=== PATIENT | female | born 1955 | race Caucasian/White ===

== ENCOUNTER 2016-10-24 13:55 | Emergency (ER) | payer OTHER ==
[2016-10-24 14:18] VITALS: BMI 21.1
--- NOTE | 2016-10-24 16:48 | PDOC ---
History of Present Illness - General History Source: Patient Exam Limitations: No Limitations - History of Present Illness Initial Comments: 10/24/16 17:28 The patient is a 61 year old female with significant past medical history of hypertension, asthma, COPD, liver CA, hep C who presents to the emergency department with abdominal pain for the last 3 days. She reports associated fevers, chills, and sweats. The patient reports a subjective fever and never actually took her temperature at home, however in the ED a fever was noted, Tmax 102.1. The patient also reports associated nausea and vomiting. She states her pain is dull and continuous in nature, localized to the suprapubic region. The patient states the pain radiates and wraps around to her lower back. The patient reports some dysuria but denies any frequency or hematuria. The patient denies any recent travels or sick contacts. She has not taken anything for her symptoms. <Monie Haney - Last Filed: 10/24/16 17:28> <Art Hall - Last Filed: 10/24/16 19:15> - General Chief Complaint: Urinary Problem Stated Complaint: Vomiting/BACK PAIN Past History <Monie Haney - Last Filed: 10/24/16 17:28> - Past Medical History Asthma: Yes Cancer: Yes (LIVER) Cardiac Disorders: No COPD: Yes Diabetes: No GI Disorders: No Disorders: No HTN: Yes Kidney Stones: No Liver Disease: Yes (HEP-C) Psychiatric Problems: Yes (ANXIETY) Suicide Attempt (Hx): Yes (2009) Seizures: No - Surgical History Abdominal Surgery: No Appendectomy: No Cardiac Surgery: No Cholecystectomy: No Lung Surgery: No Neurologic Surgery: No Orthopedic Surgery: No - Immunization History Immunization Up to Date: Yes - Psycho/Social/Smoking Cessation Hx Anxiety: Yes Suicidal Ideation: No Smoking Status: Yes Smoking History: Current every day smoker Have you smoked in the past 12 months: Yes Number of Cigarettes Smoked Daily: 10 Information on smoking cessation initiated: No Hx Alcohol Use: No Drug/Substance Use Hx: No <Art Hall - Last Filed: 10/24/16 19:15> - Past Medical History Allergies/Adverse Reactions: Allergies Allergy/AdvReac Type Severity Reaction Status Date / Time fish derived [Fish derived] Allergy Intermediate Difficulty Verified 10/24/16 14 :16 Breathing SEAFOOD Allergy Uncoded 10/24/16 14:16 Home Medications: Ambulatory Orders Carbamazepine [Tegretol -] 200 mg PO AM 01/08/16 Lisinopril/Hydrochlorothiazide [Lisinopril-Hctz 10-12.5 mg Tab] 1 each PO DAILY 01/08/16 Cephalexin [Keflex] 500 mg PO QID #40 capsule 10/24/16 Phenazopyridine HCl [Pyridium] 200 mg PO TID #9 tablet 10/24/16 Review of Systems - Review of Systems Able to Perform ROS?: Yes Comments:: 10/24/16 17:28 GENERAL/CONSTITUTIONAL: +Fevers, +chills. No weakness. HEAD, EYES, EARS, NOSE AND THROAT: No change in vision. No ear pain or discharge. No sore throat. CARDIOVASCULAR: No chest pain or shortness of breath. RESPIRATORY: No cough, wheezing, or hemoptysis. GASTROINTESTINAL: +Nausea, +vomiting. No diarrhea or constipation. GENITOURINARY: +Dysuria. No frequency, or change in urination. MUSCULOSKELETAL: No joint or muscle swelling or pain. No neck or back pain. SKIN: No rash NEUROLOGIC: No headache, vertigo, loss of consciousness, or change in strength/ sensation. ENDOCRINE: No increased thirst. No abnormal weight change. HEMATOLOGIC/LYMPHATIC: No anemia, easy bleeding, or history of blood clots. ALLERGIC/IMMUNOLOGIC: No hives or skin allergy. <Monie Haney - Last Filed: 10/24/16 17:28> *Physical Exam - Vital Signs Last Vital Signs Temp Pulse Resp BP Pulse Ox 102.1 F H 119 H 20 161/86 95 10/24/16 14:16 10/24/16 14:16 10/24/16 14:16 10/24/16 14:16 10/24/16 14:16 - Physical Exam Comments: 10/24/16 17:28 GENERAL: Awake, alert, and fully oriented, in no acute distress HEAD: No signs of trauma EYES: PERRLA, EOMI, sclera anicteric, conjunctiva clear ENT: Auricles normal inspection, hearing grossly normal, nares patent, oropharynx clear without exudates. +Dry mucosa NECK: Normal ROM, supple, no lymphadenopathy, JVD, or masses LUNGS: Breath sounds equal, clear to auscultation bilaterally. No wheezes, and no crackles HEART: Regular rate and rhythm, normal S1 and S2, no murmurs, rubs or gallops ABDOMEN: +Mild suprapubic discomfort to palpation. Soft, normoactive bowel sounds. No guarding, no rebound. No masses EXTREMITIES: Normal range of motion, no edema. No clubbing or cyanosis. No cords, erythema, or tenderness NEUROLOGICAL: Cranial nerves II through XII grossly intact. Normal speech, normal gait SKIN: Warm, Dry, normal turgor, no rashes or lesions noted. <Monie Haney - Last Filed: 10/24/16 17:28> - Vital Signs Last Vital Signs Temp Pulse Resp BP Pulse Ox 102.1 F H 119 H 20 161/86 95 10/24/16 14:16 10/24/16 14:16 10/24/16 14:16 10/24/16 14:16 10/24/16 14:16 <Art Hall - Last Filed: 10/24/16 19:15> ED Treatment Course - LABORATORY CBC & Chemistry Diagram: 10/24/16 17:42 10/24/16 17:42 <Art Hall - Last Filed: 10/24/16 19:15> *DC/Admit/Observation/Transfer - Attestations Scribe Attestion: 10/24/16 17:10 Documentation prepared by Monie Haney, acting as medical information specialist for Art Hall DO. <Monie Haney - Last Filed: 10/24/16 17:28> - Discharge Dispostion Admit: No - Attestations Physician Attestion: 10/24/16 16:48 I, Dr. Art Hall, attest that this document has been prepared under my direction and personally reviewed by me in its entirety. I further attest, that it accurately reflects all work, treatment, procedures and medical decision -making performed by me. <Art Hall - Last Filed: 10/24/16 19:15> Diagnosis at time of Disposition: Urinary tract infection Qualifiers: Urinary tract infection type: site unspecified Hematuria presence: without hematuria Qualified Code(s): N39.0 - Urinary tract infection, site not specified - Discharge Dispostion Disposition: HOME Condition at time of disposition: Good - Prescriptions Prescriptions: Cephalexin [Keflex] 500 mg PO QID #40 capsule Phenazopyridine HCl [Pyridium] 200 mg PO TID #9 tablet - Patient Instructions Printed Discharge Instructions: DI for Urinary Tract Infection (UTI) Additional Instructions: Mrs Gan- This is a bad urinary tract/kidney infection. Please drink five 20 oz bottles of water each day while you are taking the Keflex. Follow up with your regular doctor. Return to us if any problems. Od[place]- Dr. Art Hall
[2016-10-24] MEDS ORDERED: ONDANSETRON *ODT* 4 MG TABLET SL ONE (17:16)
[2016-10-24] MEDS ORDERED: SODIUM CHLORIDE 1,000 ML IV STA (17:16)
[2016-10-24] MEDS ORDERED: IBUPROFEN 400 MG TABLET (FP) PO ONE ×2 (17:23→18:06)
[2016-10-24] MEDS ORDERED: ONDANSETRON 8 MG TABLET (FP) PO ONE (18:06)
[2016-10-24 18:10] LABS: MCH 37.6 pg (25.7-33.7); MCHC 34.7 g/dl (32.0-36.0); MEAN CELL VOLUME 108.6 fl (80-96); PLATELET COUNT 74 K/MM3 (134-434); RDW 13.7 % (11.6-15.6)
[2016-10-24 18:16] LABS: MEAN PLT VOLUME 9.4 fl (7.5-11.1)
[2016-10-24 18:22] LABS: INR 1.21 (0.82-1.09); PROTHROMBIN TIME (PATIENT) 13.4 SEC (9.98-11.88)
[2016-10-24 18:31] LABS: URINE APPEARANCE CLOUDY; URINE COLOR AMBER; URINE GLUCOSE (UA) NEGATIVE (NEGATIVE); URINE KETONE TRACE (NEGATIVE); URINE NITRITE NEGATIVE (NEGATIVE); URINE UROBILINOGEN 4.0 E.U/dl E.U./dl (0.2-1.0)
[2016-10-24 18:34] LABS: URINE BLOOD 1+ (NEGATIVE)
[2016-10-24 18:35] LABS: URINE LEUK ESTERASE 2+ (NEGATIVE); URINE PROTEIN 2+ (NEGATIVE)
[2016-10-24 18:42] LABS: URINE BACTERIA MANY /hpf (NONE SEEN); URINE MUCUS MANY; URINE RBC 6 /hpf (0-3); URINE WBC 182 /hpf (3-5)
[2016-10-24 18:43] LABS: ALBUMIN 3.4 g/dl (3.4-5.0); ALK PHOS 107 U/L (45-117); ANION GAP 15 (8-16); BILIRUBIN,TOTAL 1.6 mg/dL (0.2-1.0); CALCIUM 7.9 mg/dL (8.5-10.1); CO2 26 mmol/L (21-32); CREATININE 0.6 mg/dL (0.55-1.02); GLUCOSE,RANDOM 98 mg/dL (74-106); SGOT/AST 203 U/L (15-37); SGPT/ALT 117 U/L (12-78)
[2016-10-24] MEDS ORDERED: CEFTRIAXONE 1,000 MG in DEXTROSE 5%-WATER - 50 ML IVPB ONE (18:46)
[2016-10-24] MEDS ORDERED: CEFTRIAXONE 50 ML ONE (18:51)
[2016-10-24 19:06] VITALS: TEMP 100.6
[2016-10-24 19:11] VITALS: BP 152/79; PULSE 96
[2016-10-24 20:16] LABS: PLATELET COMMENT2 NO CLOTTING DETECTED; PLATELET ESTIMATE DECREASED (NORMAL)
--- NOTE | 2016-10-25 13:11 | PDOC ---
Patient Follow-up (Call Back) - Post ED Follow - Up Condition at time of discharge: Good Disposition at time of original discharge: HOME - Disposition Additional Instructions/Notes: preliminary BC= positive; spoke with pt; who states feeling much better today, no fever, post new abx and shot of abx in ED yesterday; told to see local MD Friday so blood culture can be followed; told to immediately return to ED if fever returns or with any new symptoms; pt agrees with plan
== END 2016-10-24 19:42 | disposition home or self-care (01) ==
LOC: JER 13:55
PROC: 3E0337Z Introduction of Electrolytic and Water Balance Substance into Peripheral Vein, Percutaneous Approach (ICD-10-PCS; principal; 2016-10-24)
PROC: 3E03329 Introduction of Other Anti-infective into Peripheral Vein, Percutaneous Approach (ICD-10-PCS; 2016-10-24)
DX: N39.0 Urinary tract infection, site not specified (principal); I10 Essential (primary) hypertension; J44.9 Chronic obstructive pulmonary disease, unspecified; J45.909 Unspecified asthma, uncomplicated; C22.9 Malignant neoplasm of liver, not specified as primary or secondary; B19.20 Unspecified viral hepatitis C without hepatic coma
CPT/HCPCS: 36415; 80053; 81003; 81015; 85025; 85610; 87040; 87086; 87186; 99282-25

== ENCOUNTER 2016-10-26 11:37 | Emergency (ER) | payer OTHER ==
[2016-10-26 11:52] VITALS: TEMP 98.6; BMI 21.1
--- NOTE | 2016-10-26 14:25 | PDOC ---
History of Present Illness - History of Present Illness Initial Comments: 10/26/16 14:42 The patient is a 61 year old female with a past medical hx of hypertension, asthma, COPD, liver CA, hep C who was sent to the ED by her PCP for a positive blood culture. She was last seen here on 10/24/16 and was diagnosed with a UTI and discharged with a prescription for Keflex. The patient reports she has been feeling a little better since being discharged and has been taking her antibiotics. She reports she is still having fever and a little nauseous but denies any vomiting. She states her fever was a 103 before coming to the ED and she took Motrin. The patient reports she got a call yesterday from her PCP with her culture results and was informed to come back to the ED for further evaluation. The patient denies chest pain, SOB The patient denies back pain, abdominal pain Social: Drinks alcohol PCP: Dr. Pereira <Janeen Hinojosa - Last Filed: 10/26/16 14:44> <John Beasley - Last Filed: 10/26/16 18:19> <Martha Betancourt - Last Filed: 10/26/16 19:55> - General Chief Complaint: Revisit, Lab Variance Stated Complaint: FOLLOW UP, INFECTION Past History <Janeen Hinojosa - Last Filed: 10/26/16 14:44> - Past Medical History Asthma: Yes Cancer: Yes (LIVER) Cardiac Disorders: No COPD: Yes Diabetes: No GI Disorders: No Disorders: No HTN: Yes Kidney Stones: No Liver Disease: Yes (HEP-C,cirrhosis) Psychiatric Problems: Yes (ANXIETY,bipolar) Suicide Attempt (Hx): Yes (2009) Seizures: No - Surgical History Abdominal Surgery: No Appendectomy: No Cardiac Surgery: No Cholecystectomy: No Lung Surgery: No Neurologic Surgery: No Orthopedic Surgery: No - Immunization History Immunization Up to Date: Yes - Psycho/Social/Smoking Cessation Hx Anxiety: Yes Suicidal Ideation: No Smoking Status: Yes Smoking History: Current every day smoker Have you smoked in the past 12 months: Yes Number of Cigarettes Smoked Daily: 20 Information on smoking cessation initiated: Yes 'Breaking Loose' booklet given: 10/26/16 Hx Alcohol Use: No Drug/Substance Use Hx: No <John Beasley - Last Filed: 10/26/16 18:19> <Martha Betancourt - Last Filed: 10/26/16 19:55> - Past Medical History Allergies/Adverse Reactions: Allergies Allergy/AdvReac Type Severity Reaction Status Date / Time fish derived [Fish derived] Allergy Intermediate Difficulty Verified 10/26/16 11 :47 Breathing SEAFOOD Allergy Uncoded 10/26/16 11:47 Home Medications: Ambulatory Orders Carbamazepine [Carbamazepine ER] 200 mg PO BID 10/26/16 Cephalexin [Keflex] 500 mg PO QID 10/26/16 Lisinopril/Hydrochlorothiazide [Lisinopril-Hctz 10-12.5 mg Tab] 1 each PO DAILY 10/26/16 Phenazopyridine HCl [Pyridium] 200 mg PO TID 10/26/16 Review of Systems - Review of Systems Able to Perform ROS?: Yes Comments:: 10/26/16 14:43 CONSTITUTIONAL: +Fever. Absent: chills, diaphoresis, generalized weakness, malaise, loss of appetite HEENT: Absent: rhinorrhea, nasal congestion, throat pain, throat swelling, difficulty swallowing, mouth swelling, ear pain, eye pain, visual Changes CARDIOVASCULAR: Absent: chest pain, syncope, palpitations, irregular heart rate, lightheadedness , peripheral edema RESPIRATORY: Absent: cough, shortness of breath, dyspnea with exertion, orthopnea, wheezing, stridor, hemoptysis GASTROINTESTINAL: +Nausea. Absent: abdominal pain, abdominal distension, vomiting, diarrhea, constipation, melena, hematochezia GENITOURINARY: Absent: dysuria, frequency, urgency, hesitancy, hematuria, flank pain, genital pain MUSCULOSKELETAL: Absent: myalgia, arthralgia, joint swelling SKIN: Absent: rash, itching, pallor HEMATOLOGIC/IMMUNOLOGIC: Absent: easy bleeding, easy bruising, lymphadenopathy, frequent infections ENDOCRINE: Absent: unexplained weight gain, unexplained weight loss, heat intolerance, cold intolerance NEUROLOGIC: Absent: headache, focal weakness or paresthesias, dizziness, unsteady gait, seizure, mental status changes, bladder or bowel incontinence PSYCHIATRIC: Absent: anxiety, depression, suicidal or homicidal ideation, hallucinations. <Janeen Hinojosa - Last Filed: 10/26/16 14:44> *Physical Exam - Vital Signs Last Vital Signs Temp Pulse Resp BP Pulse Ox 98.6 F 73 18 114/73 100 10/26/16 11:47 10/26/16 11:47 10/26/16 11:47 10/26/16 11:47 10/26/16 11:47 - Physical Exam Comments: 10/26/16 14:44 GENERAL: Well developed, well nourished. Awake and alert. In no acute distress. HEENT: Normocephalic, atraumatic. PERRLA, EOMI. No conjunctival pallor. Sclera are non- icteric. Moist mucous membranes. Oropharynx is clear. NECK: Supple. Full ROM. No JVD. Carotid pulses 2+ and symmetric, without bruits. No thyromegaly. No lymphadenopathy. CARDIOVASCULAR: Regular rate and rhythm. No murmurs, rubs, or gallops. Distal pulses are 2+ and symmetric. PULMONARY: No evidence of respiratory distress. Lungs clear to auscultation bilaterally. No wheezing, rales or rhonchi. ABDOMINAL: Soft. Non-tender. Non-distended. No rebound or guarding. No organomegaly. Normoactive bowel sounds. MUSCULOSKELETAL Normal range of motion at all joints. No bony deformities or tenderness. No CVA tenderness. EXTREMITIES: No cyanosis. No clubbing. No edema. No calf tenderness. SKIN: Warm and dry. Normal capillary refill. No rashes. No jaundice. NEUROLOGICAL: Alert, awake, appropriate. Cranial nerves 2-12 intact. No deficits to light touch and temperature in face, upper extremities and lower extremities. No motor deficits in the in face, upper extremities and lower extremities. Normoreflexic in the upper and lower extremities. Normal speech. Toes are downgoing bilaterally. Gait is normal without ataxia. PSYCHIATRIC: Cooperative. Good eye contact. Appropriate mood and affect. <Janeen Hinojosa - Last Filed: 10/26/16 14:44> - Vital Signs Last Vital Signs Temp Pulse Resp BP Pulse Ox 98.6 F 73 18 114/73 100 10/26/16 11:47 10/26/16 11:47 10/26/16 11:47 10/26/16 11:47 10/26/16 11:47 <John Beasley - Last Filed: 10/26/16 18:19> - Vital Signs Last Vital Signs Temp Pulse Resp BP Pulse Ox 98.6 F 68 16 120/76 99 10/26/16 11:47 10/26/16 19:43 10/26/16 19:43 10/26/16 19:43 10/26/16 19:43 <Martha Betancourt - Last Filed: 10/26/16 19:55> ED Treatment Course - LABORATORY CBC & Chemistry Diagram: 10/26/16 14:42 10/26/16 14:42 <GaleJohn - Last Filed: 10/26/16 18:19> - LABORATORY CBC & Chemistry Diagram: 10/26/16 14:42 10/26/16 14:42 - ADDITIONAL ORDERS Additional order review: Laboratory Results 10/26/16 10/26/16 10/26/16 15:40 14:42 14:42 Sodium 125 L Potassium 3.2 L Chloride 86 L Carbon Dioxide 25 Anion Gap 14 BUN 19 H Creatinine 0.6 Creat Clearance w eGFR > 60 Random Glucose 72 L D Lactic Acid 1.964 Calcium 7.4 L Total Bilirubin 1.1 H D AST 173 H ALT 85 H D Alkaline Phosphatase 84 D Total Protein 7.0 Albumin 2.8 L Urine Color Urine Appearance Urine pH Ur Specific [place] Urine Protein Urine Glucose (UA) Urine Ketones Urine Blood Urine Nitrite Urine Bilirubin Urine Urobilinogen Ur Leukocyte Esterase Urine RBC Urine WBC Ur Epithelial Cells Urine Bacteria Hyaline Casts Urine Mucus Alcohol, Quantitative 77.4 H* 10/26/16 14:42 Sodium Potassium Chloride Carbon Dioxide Anion Gap BUN Creatinine Creat Clearance w eGFR Random Glucose Lactic Acid Calcium Total Bilirubin AST ALT Alkaline Phosphatase Total Protein Albumin Urine Color Red Urine Appearance Cloudy Urine pH 5.0 Ur Specific [place] 1.013 Urine Protein 1+ H Urine Glucose (UA) 1+ H Urine Ketones Negative Urine Blood Negative Urine Nitrite Positive Urine Bilirubin Negative Urine Urobilinogen 4.0 e.u/dl H Ur Leukocyte Esterase Negative Urine RBC 1 Urine WBC 6 Ur Epithelial Cells Rare Urine Bacteria Moderate Hyaline Casts 16 Urine Mucus Rare Alcohol, Quantitative 10/26/16 14:42 RBC 3.22 L MCV 107.8 H MCHC 34.9 RDW 12.9 MPV 8.9 Neutrophils % 61.0 D Lymphocytes % 13.0 Monocytes % 19.0 H D - Medications Given in the ED: ED Medications Discontinued Medications Generic Name Dose Route Start Last Admin Trade Name Freq PRN Reason Stop Dose Admin Sodium Chloride 1,000 mls @ 125 mls/hr 10/26/16 14:45 10/26/16 14:51 Normal Saline - IV 125 mls/hr ASDIR JAY Administration Ciprofloxacin/Dextrose 200 mls @ 200 mls/hr 10/26/16 17:02 10/26/16 18:52 Cipro 400 Mg Premix Ivpb (Restricted To Id) IVPB 10/26/16 18:01 Not Given ONCE ONE Sodium Chloride 1,000 mls @ 250 mls/hr 10/26/16 17:15 10/26/16 17:22 Normal Saline - IV 250 mls/hr ASDIR JAY Administration Piperacillin Sod/Tazobactam Sod 3.375 gm 10/26/16 18:15 10/26/16 18:52 Zosyn 3.375gm Ivpb (Pre-Docked) IVPB 3.375 gm Q8H-IV JAY Administration Protocol Potassium Chloride 40 meq 10/26/16 17:03 10/26/16 17:21 K-Dur - PO 10/26/16 17:04 40 meq ONCE ONE Administration <Martha Betancourt - Last Filed: 10/26/16 19:55> Medical Decision Making - Medical Decision Making 10/26/16 19:15 Pt was discharged by the hospitalist prior to my seeing the patient. This is a patient of the day ER team, Dr. Beasley, and she was to be admitted, but the admitting team decided to discharge her. I never saw the patient, as my shift started at 19:00 and I don't know what the plan for the patient is. <Martha Betancourt - Last Filed: 10/26/16 19:55> *DC/Admit/Observation/Transfer - Attestations Scribe Attestion: 10/26/16 14:43 Documentation prepared by Janeen Hinojosa, acting as medical administrative specialist for John Beasley MD. <Janeen Hinojosa - Last Filed: 10/26/16 14:44> - Discharge Dispostion Admit: Yes <John Beasley - Last Filed: 10/26/16 18:19> <Martha Betancourt - Last Filed: 10/26/16 19:55> Diagnosis at time of Disposition: Bacteremia due to Gram-negative bacteria - Discharge Dispostion Disposition: HOME Condition at time of disposition: Stable - Referrals Referrals: Jose Antonio Pereira [Primary Care Provider] - - Patient Instructions Printed Discharge Instructions: Urinary Tract Infection, DI for Urinary Tract Infection (UTI) Additional Instructions: Continue taking your antibiotics as prescribed. We will follow up on your blood cultures and if there are any changes that need to be done based on lab results, you will receive a call. If you develop fevers, chills, pain with urination contact your doctor.
[2016-10-26] MEDS ORDERED: SODIUM CHLORIDE 1,000 ML IV SCH ×2 (14:45→17:15)
[2016-10-26 14:56] LABS: MCH 37.6 pg (25.7-33.7); MCHC 34.9 g/dl (32.0-36.0); MEAN CELL VOLUME 107.8 fl (80-96); MEAN PLT VOLUME 8.9 fl (7.5-11.1); PLATELET COUNT 80 K/MM3 (134-434); RDW 12.9 % (11.6-15.6); WHITE BLOOD COUNT 4.1 K/mm3 (4.0-10.0)
[2016-10-26 15:16] LABS: URINE BILIRUBIN NEGATIVE (NEGATIVE); URINE BLOOD NEGATIVE (NEGATIVE); URINE COLOR RED; URINE GLUCOSE (UA) 1+ (NEGATIVE); URINE KETONE NEGATIVE (NEGATIVE); URINE LEUK ESTERASE NEGATIVE (NEGATIVE); URINE NITRITE POSITIVE (NEGATIVE); URINE UROBILINOGEN 4.0 E.U/dl E.U./dl (0.2-1.0)
[2016-10-26 15:17] LABS: ALBUMIN 2.8 g/dl (3.4-5.0); ANION GAP 14 (8-16); BILIRUBIN,TOTAL 1.1 mg/dL (0.2-1.0); CALCIUM 7.4 mg/dL (8.5-10.1); CO2 25 mmol/L (21-32); CREATININE 0.6 mg/dL (0.55-1.02); GLUCOSE,RANDOM 72 mg/dL (74-106); SGPT/ALT 85 U/L (12-78)
[2016-10-26 15:18] LABS: ALK PHOS 84 U/L (45-117)
[2016-10-26 15:21] LABS: SGOT/AST 173 U/L (15-37)
[2016-10-26 15:32] LABS: URINE PROTEIN 1+ (NEGATIVE)
[2016-10-26 15:33] LABS: URINE APPEARANCE CLOUDY
[2016-10-26 15:36] LABS: URINE BACTERIA MODERATE /hpf (NONE SEEN); URINE HYALINE CAST 16 /lpf; URINE MUCUS RARE; URINE RBC 1 /hpf (0-3); URINE WBC 6 /hpf (3-5)
[2016-10-26 16:47] LABS: PLATELET ESTIMATE SLT DECREASED (NORMAL)
[2016-10-26 16:49] LABS: PLATELET COMMENT3 NO CLUMPING NOTED
[2016-10-26] MEDS ORDERED: CIPROFLOXACIN 400 MG/D5W 200 ML IVPB ONE (17:02)
[2016-10-26] MEDS ORDERED: POTASSIUM CHLORIDE TABS 20 MEQ TABLET.ER (FP) PO ONE ×2 (17:03→17:12)
--- NOTE | 2016-10-26 17:18 | HP ---
CHIEF COMPLAINT: positive blood culture PCP: Dr. Pereira HISTORY OF PRESENT ILLNESS: 61 y/o F with PMH of htn, asthma, copd, liver ca, hep c presented to ER after PCP called her about positive blood culture. Pt recently had UTI and came to ER (10/24/16) and was sent home with keflex. Her UTI symptoms have improved and pt feels very close to baseline. No more back pain and dysuria. Pt has lactose ferm gram neg rods in bcx, no sensitivities or final organism yet. Pt is well appearing and in no acute distress. Pt states she has no complaints. ER course was notable for: (1)Cipro, K-dur (2)BCx (3) Recent Travel: non-contributory PAST MEDICAL HISTORY: htn, asthma, copd, liver ca, hep c Social History: Smoking: current smoker 1ppd Alcohol: unknown Drugs: unknown Family History: Allergies fish derived [Fish derived] Allergy (Intermediate, Verified 10/26/16 11:47) Difficulty Breathing SEAFOOD Allergy (Uncoded 10/26/16 11:47) HOME MEDICATIONS: Home Medications Medication Instructions Recorded Carbamazepine [Carbamazepine ER] 200 mg PO BID 10/26/16 Cephalexin [Keflex] 500 mg PO QID 10/26/16 Lisinopril/Hydrochlorothiazide 1 each PO DAILY 10/26/16 [Lisinopril-Hctz 10-12.5 mg Tab] Phenazopyridine HCl [Pyridium] 200 mg PO TID 10/26/16 REVIEW OF SYSTEMS CONSTITUTIONAL: Absent: fever, chills, diaphoresis, generalized weakness, malaise, loss of appetite, weight change HEENT: Absent: rhinorrhea, nasal congestion, throat pain, throat swelling, difficulty swallowing, mouth swelling, ear pain, eye pain, visual changes CARDIOVASCULAR: Absent: chest pain, syncope, palpitations, irregular heart rate, lightheadedness , peripheral edema RESPIRATORY: Absent: cough, shortness of breath, dyspnea with exertion, orthopnea, wheezing, stridor, hemoptysis GASTROINTESTINAL: Absent: abdominal pain, abdominal distension, nausea, vomiting, diarrhea, constipation, melena, hematochezia GENITOURINARY: Absent: dysuria, frequency, urgency, hesitancy, hematuria, flank pain, genital pain MUSCULOSKELETAL: Absent: myalgia, arthralgia, joint swelling, back pain, neck pain SKIN: Absent: rash, itching, pallor HEMATOLOGIC/IMMUNOLOGIC: Absent: easy bleeding, easy bruising, lymphadenopathy, frequent infections ENDOCRINE: Absent: unexplained weight gain, unexplained weight loss, heat intolerance, cold intolerance NEUROLOGIC: Absent: headache, focal weakness or paresthesias, dizziness, unsteady gait, seizure, mental status changes, bladder or bowel incontinence PSYCHIATRIC: Absent: anxiety, depression, suicidal or homicidal ideation, hallucinations. PHYSICAL EXAMINATION Vital Signs - 24 hr 10/26/16 11:47 Temperature 98.6 F Pulse Rate 73 Respiratory 18 Rate Blood Pressure 114/73 O2 Sat by Pulse 100 Oximetry (%) GENERAL: Awake, alert, and fully oriented, in no acute distress. HEAD: Normal with no signs of trauma. EYES: Pupils equal, round and reactive to light, extraocular movements intact, sclera anicteric, conjunctiva clear. No lid lag. EARS, NOSE, THROAT: Ears normal, nares patent, oropharynx clear without exudates. Moist mucous membranes. NECK: Normal range of motion, supple without lymphadenopathy, JVD, or masses. LUNGS: Breath sounds equal, clear to auscultation bilaterally. No wheezes, and no crackles. No accessory muscle use. HEART: Regular rate and rhythm, normal S1 and S2 without murmur, rub or gallop. ABDOMEN: Soft, nontender, not distended, normoactive bowel sounds, no guarding, no rebound, no masses. No hepatomegaly or splenomegaly. MUSCULOSKELETAL: Normal range of motion at all joints. No bony deformities or tenderness. No CVA tenderness. UPPER EXTREMITIES: 2+ pulses, warm, well-perfused. No cyanosis. No clubbing. Cap refill <2 seconds. No peripheral edema. LOWER EXTREMITIES: 2+ pulses, warm, well-perfused. No calf tenderness. No peripheral edema. NEUROLOGICAL: Cranial nerves II-XII intact. Normal speech. Normal gait. PSYCHIATRIC: Cooperative. Good eye contact. Appropriate mood and affect. SKIN: Warm, dry, normal turgor, no rashes or lesions noted. Laboratory Results - last 24 hr 10/26/16 10/26/16 10/26/16 14:42 14:42 14:42 WBC 4.1 RBC 3.22 L Hgb 12.1 Hct 34.7 MCV 107.8 H MCHC 34.9 RDW 12.9 Plt Count 80 L MPV 8.9 Neutrophils % 61.0 D Lymphocytes % 13.0 Monocytes % 19.0 H D Band Neutrophils 7.0 D Differential Comment Manual diff done Platelet Estimate Slt decreased Platelet Comment Few giant plts Macrocytosis 2+ Morphology Comment Slide scanned Sodium 125 L Potassium 3.2 L Chloride 86 L Carbon Dioxide 25 Anion Gap 14 BUN 19 H Creatinine 0.6 Creat Clearance w eGFR > 60 Random Glucose 72 L D Lactic Acid Calcium 7.4 L Total Bilirubin 1.1 H D AST 173 H ALT 85 H D Alkaline Phosphatase 84 D Total Protein 7.0 Albumin 2.8 L Urine Color Red Urine Appearance Cloudy Urine pH 5.0 Ur Specific [place] 1.013 Urine Protein 1+ H Urine Glucose (UA) 1+ H Urine Ketones Negative Urine Blood Negative Urine Nitrite Positive Urine Bilirubin Negative Urine Urobilinogen 4.0 e.u/dl H Ur Leukocyte Esterase Negative Urine RBC 1 Urine WBC 6 Ur Epithelial Cells Rare Urine Bacteria Moderate Hyaline Casts 16 Urine Mucus Rare Alcohol, Quantitative 10/26/16 10/26/16 14:42 15:40 WBC RBC Hgb Hct MCV MCHC RDW Plt Count MPV Neutrophils % Lymphocytes % Monocytes % Band Neutrophils Differential Comment Platelet Estimate Platelet Comment Macrocytosis Morphology Comment Sodium Potassium Chloride Carbon Dioxide Anion Gap BUN Creatinine Creat Clearance w eGFR Random Glucose Lactic Acid 1.964 Calcium Total Bilirubin AST ALT Alkaline Phosphatase Total Protein Albumin Urine Color Urine Appearance Urine pH Ur Specific [place] Urine Protein Urine Glucose (UA) Urine Ketones Urine Blood Urine Nitrite Urine Bilirubin Urine Urobilinogen Ur Leukocyte Esterase Urine RBC Urine WBC Ur Epithelial Cells Urine Bacteria Hyaline Casts Urine Mucus Alcohol, Quantitative 77.4 H* ASSESSMENT/PLAN: 61 y/o F with PMH of htn, asthma, copd, liver ca, hep c presents to ER after getting call from PCP about positive prelim blood cultures. -UTI w/positive bcx -Pt recently treated for UTI on keflex currently -UA neg for LE, 6 WBC -BCx: gram neg lactose ferm rods -no final organism or sensitivities back yet -will need f/u on sensitivities -c/w keflex at home -Pt does not look septic, is well appearing, hemodynamically stable. -received one dose of cipro in ER -FEN -hypokalemia - repleted in ER -Dispo: discharge home, c/w abx, will monitor cultures for sensitivities Visit type - Emergency Visit Emergency Visit: Yes Care time: The patient presented to the Emergency Department on the above date and was hospitalized for further evaluation of their emergent condition. - New Patient This patient is new to me today: Yes Date on this admission: 10/26/16 - Critical Care Critical Care patient: No
--- NOTE | 2016-10-26 17:19 | PN ---
Teaching Attending Note Name of Resident: Rakesh Arredondo ATTENDING PHYSICIAN STATEMENT I saw and evaluated the patient. I reviewed the resident's note and discussed the case with the resident. I agree with the resident's findings and plan as documented. SUBJECTIVE: seen and evaluated at the bedside OBJECTIVE: very well appearing, asking if she can go home ASSESSMENT AND PLAN: 61 year old female with a past medical hx of hypertension, asthma, COPD, liver CA, hep C who was sent to the ED by her PCP for a positive blood culture. -She was last seen here on 10/24/16 and was diagnosed with a UTI and discharged with a prescription for Keflex -pt states that she feels much better since starting keflex and her back pain and dysuria have completely resolved -growing gram negative rods in blood and urine culture from the -very well appearing today and has no recorded fever or elevation in WBC -given that pt appears well clinically and culture data does not yet show identification or sensitivities will discharge pt home -will follow up culture data and call pt if cultures show resistence to prescribed Keflex
--- NOTE | 2016-10-26 17:36 | DS ---
Physical Exam: SUBJECTIVE: Patient seen and examined at bedside in ER. Feels well, has no complaints. Denies back pain, dysuria, fevers, or chills. OBJECTIVE: Vital Signs Period Temp Pulse Resp BP Sys/Pleitez Pulse Ox Last 24 Hr 98.6 F 73 18 114/73 100 PHYSICAL EXAM GENERAL: The patient is awake, alert, and fully oriented, in no acute distress. HEAD: Normal with no signs of trauma. EYES: PERRL, extraocular movements intact, sclera anicteric, conjunctiva clear. ENT: Ears normal, nares patent, oropharynx clear without exudates, moist mucous membranes. NECK: Trachea midline, full range of motion, supple. LUNGS: Breath sounds equal, clear to auscultation bilaterally, no wheezes, no crackles, no accessory muscle use. HEART: Regular rate and rhythm, S1, S2 without murmur, rub or gallop. ABDOMEN: Soft, nontender, nondistended, normoactive bowel sounds, no guarding, no rebound, no hepatosplenomegaly, no masses. EXTREMITIES: 2+ pulses, warm, well-perfused, no edema. NEUROLOGICAL: Cranial nerves II through XII grossly intact. Normal speech, gait not observed. PSYCH: Normal mood, normal affect. SKIN: Warm, dry, normal turgor, no rashes or lesions noted. LABS Laboratory Results - last 24 hr 10/26/16 10/26/16 10/26/16 14:42 14:42 14:42 WBC 4.1 RBC 3.22 L Hgb 12.1 Hct 34.7 MCV 107.8 H MCHC 34.9 RDW 12.9 Plt Count 80 L MPV 8.9 Neutrophils % 61.0 D Lymphocytes % 13.0 Monocytes % 19.0 H D Band Neutrophils 7.0 D Differential Comment Manual diff done Platelet Estimate Slt decreased Platelet Comment Few giant plts Macrocytosis 2+ Morphology Comment Slide scanned Sodium 125 L Potassium 3.2 L Chloride 86 L Carbon Dioxide 25 Anion Gap 14 BUN 19 H Creatinine 0.6 Creat Clearance w eGFR > 60 Random Glucose 72 L D Lactic Acid Calcium 7.4 L Total Bilirubin 1.1 H D AST 173 H ALT 85 H D Alkaline Phosphatase 84 D Total Protein 7.0 Albumin 2.8 L Urine Color Red Urine Appearance Cloudy Urine pH 5.0 Ur Specific [place] 1.013 Urine Protein 1+ H Urine Glucose (UA) 1+ H Urine Ketones Negative Urine Blood Negative Urine Nitrite Positive Urine Bilirubin Negative Urine Urobilinogen 4.0 e.u/dl H Ur Leukocyte Esterase Negative Urine RBC 1 Urine WBC 6 Ur Epithelial Cells Rare Urine Bacteria Moderate Hyaline Casts 16 Urine Mucus Rare Alcohol, Quantitative 10/26/16 10/26/16 14:42 15:40 WBC RBC Hgb Hct MCV MCHC RDW Plt Count MPV Neutrophils % Lymphocytes % Monocytes % Band Neutrophils Differential Comment Platelet Estimate Platelet Comment Macrocytosis Morphology Comment Sodium Potassium Chloride Carbon Dioxide Anion Gap BUN Creatinine Creat Clearance w eGFR Random Glucose Lactic Acid 1.964 Calcium Total Bilirubin AST ALT Alkaline Phosphatase Total Protein Albumin Urine Color Urine Appearance Urine pH Ur Specific [place] Urine Protein Urine Glucose (UA) Urine Ketones Urine Blood Urine Nitrite Urine Bilirubin Urine Urobilinogen Ur Leukocyte Esterase Urine RBC Urine WBC Ur Epithelial Cells Urine Bacteria Hyaline Casts Urine Mucus Alcohol, Quantitative 77.4 H* HOSPITAL COURSE: Date of Admission:10/26/16 Date of Discharge: 10/26/16 61 y/o F with PMH of htn, asthma, copd, liver ca, hep c presented to ER after PCP called her about positive blood culture. Pt recently had UTI and came to ER (10/24/16) and was sent home with keflex. Her UTI symptoms have improved and pt feels very close to baseline. No more back pain and dysuria. Pt has lactose ferm gram neg rods in bcx, no sensitivities or final organism yet. Pt is well appearing and in no acute distress, does not appear septic. Pt states she has no complaints. Received one dose of cipro in ER and potassium repleted. Vitals stable, afebrile, no hemodynamic instability. Pt discharged home. Cultures and sensitivities to be follow up on and if sensitivities show resistance to keflex , pt will be informed and any necessary changes will be made at the time based on results. Minutes to complete discharge: 40 Discharge Summary Reason For Visit: FOLLOW UP, INFECTION - Instructions Referrals: Jose Antonio Pereira [Primary Care Provider] - - Home Medications Comprehensive Discharge Medication List: Ambulatory Orders Carbamazepine [Carbamazepine ER] 200 mg PO BID 10/26/16 Cephalexin [Keflex] 500 mg PO QID 10/26/16 Lisinopril/Hydrochlorothiazide [Lisinopril-Hctz 10-12.5 mg Tab] 1 each PO DAILY 10/26/16 Phenazopyridine HCl [Pyridium] 200 mg PO TID 10/26/16 Problem List - Problems (1) Urinary tract infection Code(s): N39.0 - URINARY TRACT INFECTION, SITE NOT SPECIFIED Qualifiers: Urinary tract infection type: site unspecified Hematuria presence: without hematuria Qualified Code(s): N39.0 - Urinary tract infection, site not specified (2) Blood bacterial culture positive Code(s): R78.81 - BACTEREMIA This patient is new to me today: Yes Date on this admission: 10/26/16 Emergency Visit: Yes Care time: The patient presented to the Emergency Department on the above date and was hospitalized for further evaluation of their emergent condition. Critical Care patient: No - Discharge Referral Referred to [facility] No
--- NOTE | 2016-10-26 18:12 | HOSP ---
Physical Examination Vital Signs: Vital Signs Temperature 98.6 F 10/26/16 11:47 Pulse Rate 73 10/26/16 11:47 Respiratory Rate 18 10/26/16 11:47 Blood Pressure 114/73 10/26/16 11:47 O2 Sat by Pulse Oximetry (%) 100 10/26/16 11:47 Labs: CBC, BMP 10/26/16 14:42 10/26/16 14:42 Hospitalist Encounter Assessment: -ED attending was kind enough to call and discuss case in depth; his thoughts were that pt should be admitted to medicine service -again because pt is very well appearing today and has no recorded fever or elevation in WBC will discharge pt home -will follow up culture data and call pt if cultures show resistence to prescribed Keflex
[2016-10-26] MEDS ORDERED: PIPERACILLIN/TAZOB 3.375 GM/50 ML PRE-DOCKED IVPB SCH (18:15)
[2016-10-26] MEDS ORDERED: PIPERACILLIN/TAZOB 3.375 GM 50 ML IVPB ONE (18:44)
[2016-10-26 19:44] VITALS: BP 120/76; PULSE 68
== END 2016-10-26 19:46 | disposition home or self-care (01) ==
LOC: JER 11:37
PROC: 3E0337Z Introduction of Electrolytic and Water Balance Substance into Peripheral Vein, Percutaneous Approach (ICD-10-PCS; principal; 2016-10-26)
PROC: 3E03329 Introduction of Other Anti-infective into Peripheral Vein, Percutaneous Approach (ICD-10-PCS; 2016-10-26)
DX: N39.0 Urinary tract infection, site not specified (principal); E87.6 Hypokalemia; I10 Essential (primary) hypertension; J44.9 Chronic obstructive pulmonary disease, unspecified; B18.2 Chronic viral hepatitis C; Z85.05 Personal history of malignant neoplasm of liver; F17.210 Nicotine dependence, cigarettes, uncomplicated
CPT/HCPCS: 36415; 80053; 80307; 81003; 81015; 83605; 85025; 87040; 87086; 96361; 96374; 99284-25

== ENCOUNTER → 2016-11-22 | Emergency (ER) | payer OTHER ==
[~2016-11-22] MED LIST: HEMOQUE TEST 1 EACH EACH ONE; IBUPROFEN 400 MG TABLET (FP) PO ONE; IBUPROFEN 600 MG TABLET (FP) PO ONE
[2016-11-22 00:57] VITALS: BP 138/81; PULSE 79; TEMP 97.9; BMI 21.1
--- NOTE | 2016-11-22 01:28 | PDOC ---
[id number] 4d INJURY/LT HAND Time Seen by Provider: 11/22/16 01:06 - History of Present Illness Initial Comments: 11/22/16 01:27 CHIEF COMPLAINT: L wrist pain s/p fall HISTORY OF PRESENT ILLNESS: 61 y/o F with PMH of htn, asthma, copd, liver ca, hep c presents to ED with left wrist pain s/p FOOSH. Patient states she slipped on the ice and fell, landing on her left hand. Patient denies any trauma to head or LOC. Patient denies pain to any other part of her body other than her wrist. No recent travel or sick contacts. PAST MEDICAL HISTORY: as per HPI FAMILY HISTORY: Denies SOCIAL HISTORY: Hx of etOH abuse, current smoker smoker - 1 pack daily. ALLERGIES: seafood REVIEW OF SYSTEMS General/Constitutional: Denies fever or chills. HEENT: Denies change in vision. Denies ear pain or discharge. Denies sore throat. Cardiovascular: Denies chest pain or shortness of breath. Respiratory: Denies cough, wheezing, or hemoptysis. Musculoskeletal: Pain and swelling to left wrist. Denies joint or muscle swelling or pain. Denies neck or back pain. Skin: Denies rash. Neurologic: Denies headache, vertigo, loss of consciousness, or loss of sensation. PHYSICAL EXAM General Appearance: Well-appearing, appropriately dressed. HEENT: EOMI, PERRLA,normal voice. No conjunctival pallor. No photophobia, scleral icterus. Neck: Supple. No cervical spine tenderness. Trachea midline. No tenderness, rigidity, carotid bruit, stridor, lymphadenopathy, or thyromegaly. Respiratory/Chest: Lungs CTAB. Cardiovascular: RRR. S1, S2. Gastrointestinal/Abdominal: Normal bowel sounds. Abdomen soft, non-distended. No tenderness or rebound tenderness. No organomegaly, pulsatile mass, guarding , hernia, hepatomegaly, splenomegaly. Musculoskeletal/Extremities: Swelling to left wrist, full ROM, neurovascularly intact, pulses 2+. Normal inspection. FROM of all other extremities, normal capillary refill. Pelvis Stable. No CVA tenderness. No tenderness to extremities, pedal edema, swelling, erythema or deformity. Integumentary: Appropriate color, dry, warm. 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 Fully oriented, alert. Appropriate mood/affect. Motor strength 5/5. No appreciable EOM palsy, facial droop or sensory deficit. Past History - Past Medical History Allergies/Adverse Reactions: Allergies Allergy/AdvReac Type Severity Reaction Status Date / Time fish derived [Fish derived] Allergy Intermediate Difficulty Verified 11/22/16 00 :45 Breathing SEAFOOD Allergy Uncoded 11/22/16 00:45 Home Medications: Ambulatory Orders Carbamazepine [Carbamazepine ER] 200 mg PO BID 10/26/16 Lisinopril/Hydrochlorothiazide [Lisinopril-Hctz 10-12.5 mg Tab] 1 each PO DAILY 10/26/16 Naproxen 250 mg PO BID #14 tablet 11/22/16 Asthma: Yes Cancer: Yes (LIVER) Cardiac Disorders: No COPD: Yes Diabetes: No GI Disorders: No Disorders: No HTN: Yes Kidney Stones: No Liver Disease: Yes (HEP-C,cirrhosis) Psychiatric Problems: Yes (ANXIETY,bipolar) Suicide Attempt (Hx): Yes (2009) Seizures: No - Surgical History Abdominal Surgery: No Appendectomy: No Cardiac Surgery: No Cholecystectomy: No Lung Surgery: No Neurologic Surgery: No Orthopedic Surgery: No - Immunization History Immunization Up to Date: Yes - Psycho/Social/Smoking Cessation Hx Anxiety: Yes Suicidal Ideation: No Smoking Status: Yes Smoking History: Current every day smoker Have you smoked in the past 12 months: Yes Number of Cigarettes Smoked Daily: 20 Information on smoking cessation initiated: Yes 'Breaking Loose' booklet given: 11/22/16 Hx Alcohol Use: No Drug/Substance Use Hx: No *Physical Exam - Vital Signs Last Vital Signs Temp Pulse Resp BP Pulse Ox 97.9 F 79 18 138/81 98 11/22/16 00:45 11/22/16 00:45 11/22/16 00:45 11/22/16 00:45 11/22/16 00:45 Medical Decision Making - Medical Decision Making 11/22/16 03:58 61 y/o F with PMH of htn, asthma, copd, liver ca, hep c presents to ED s/p IZABEL. -left wrist x-ray -600 mg ibuprofen 11/22/16 04:24 X-ray results: The bones and soft tissues are normal. X-ray left wrist: There is an impacted distal radial fracture with questionable intra-articular extension. There is slight dorsal irregularity of the carpal bones and a triquetral fracture is also considered. IMPRESSION: Normal left hand. Impacted distal radial fracture questionable intra-articular extension. Questionable triquetral fracture. Read by: Iker Lyons MD Left wrist splinted with orthoglass. -Naproxen 250 bid, rx sent to pharm Advised patient to take medication as prescribed and f/u with ortho tomorrow, referral provided. Patient verbalized understanding and agrees to plan. *DC/Admit/Observation/Transfer Diagnosis at time of Disposition: Radial head fracture Qualifiers: Encounter type: initial encounter Fracture type: closed Fracture alignment: nondisplaced Laterality: left Qualified Code(s): S52.125A - Nondisplaced fracture of head of left radius, initial encounter for closed fracture - Discharge Dispostion Disposition: HOME Condition at time of disposition: Improved Admit: No - Prescriptions Prescriptions: Naproxen 250 mg PO BID #14 tablet - Referrals Referrals: Jose Antonio Pereira [Primary Care Provider] - Tereso Barbosa MD [Staff Physician] - - Patient Instructions Printed Discharge Instructions: DI for Forearm Fracture Additional Instructions: Please take medication as prescribed and follow up with orthopedics tomorrow ( referral provided). If you experience any numbness or tingling to your fingers , your fingers turn cold, or have any inability to move your fingers or arm, please return to the ER.
== END | disposition home or self-care (01) ==
LOC: JER 00:05
PROC: 2W38X1Z Immobilization of Right Upper Extremity using Splint (ICD-10-PCS; principal; 2016-11-22)
DX: S52.125A Nondisplaced fracture of head of left radius, initial encounter for closed fracture (principal); W00.0XXA Fall on same level due to ice and snow, initial encounter; Y93.01 Activity, walking, marching and hiking; Y92.89 Other specified places as the place of occurrence of the external cause; Y99.8 Other external cause status; I10 Essential (primary) hypertension; J44.9 Chronic obstructive pulmonary disease, unspecified; J45.909 Unspecified asthma, uncomplicated; B18.2 Chronic viral hepatitis C; Z85.05 Personal history of malignant neoplasm of liver; F32.9 Major depressive disorder, single episode, unspecified
CPT/HCPCS: 29125; 73110-TC-LT; 73130-TC-LT; 99281-25

== ENCOUNTER 2018-11-10 21:14 | Inpatient (IN) | payer OTHER ==
[2018-11-10] MEDS ORDERED: SODIUM CHLORIDE 0.9% 1000 ML INFUS.BAG IV ONE (21:48)
--- NOTE | 2018-11-10 21:53 | PDOC ---
Attending Attestation - HPI HPI: 11/10/18 22:09 The patient is a 63 year old female with a significant past medical history of hepatitis, COPD, bipolar disorder, and etoh abuse who presents to the emergency department with right foot pain and right sided weakness since earlier today. The patient reports some inability to walk secondary to pain. As per the patient 's daughter, the patient has also been experiencing some slurred speech since 3 pm today. it is noted that the patient was drinking earlier today but denies epidoes like this in the past secondary to drinking. The patient reports some associated palpitations. She denies any chest pain, fever, chills, the patient denies any other complaints. 11/10/18 22:50 - Physicial Exam PE: 11/10/18 22:09 Agree with resident exam. <Eula Conner - Last Filed: 11/10/18 22:50> - Medical Decision Making 11/11/18 03:23 Pre-intubation vitals @ 3:09AM 149bpm O2 saturation 98% Resp rate 20 Patient administered: 6mg Versed @ 3:09AM 50mg Rocuronium @ 3:10AM Patient intubated @ 3:11AM Post-intubation vitals @ 3:12AM: 144bpm O2 saturation 100% Resp rate 14 3:30AM Call placed to Dr. Jeanne Banerjee, neurosurgeon detonator maker, EM resident Dr. Ralph Oliveira discussed case with provider. 3:58AM Call placed to ICU resident. EM resident discussed case with ICU resident Dr. Robinson Moore and case was accepted. Call placed to Dr. Shelton, neurologist detonator maker, awaiting call back. 4:26AM Second call placed to Dr. Shelton, neurologist detonator maker, awaiting call back. Documentation prepared by Christiano Boyle, acting as caregivers non medical for Belinda Gutierrez DO. <Christiano Boyle - Last Filed: 11/11/18 04:26> - Resident Resident Name: Adam Oliveira - ED Attending Attestation I have performed the following: I have examined & evaluated the patient, The case was reviewed & discussed with the resident, I agree w/resident's findings & plan - Critical Care Time Total Critical Care Time: 120 Critical Care Statement: The care of this patient involved high complexity decision making to prevent further life threatening deterioration of the patient 's condition and/or to evaluate & treat vital organ system(s) failure or risk of failure. - Medical Decision Making 11/11/18 04:05 63-year-old female with alcohol dependence now with right-sided weakness and difficulty speaking Exclusion criteria met for thrombolysis/stroke protocol on arrival CT scan performed of the brain and cervical spine which shows a C2 fracture Case discussed with neurosurgery by the emergency department resident who is requesting stat MRIs of the head and cervical spine MRI pains significant for multiple acute infarcts involving the thalamus, cranial radiata MRI cervical spine active due to patient becoming agitated Patient treated for presumed alcohol withdrawal with Ativan Patient failed to respond putting her cervical injury at risk Patient intubated for airway and cervical spine protection as well as to facilitate alcohol withdrawal protocol Patient return to MRI for cervical spine images Imaging reviewed by neurosurgery who states patient may remain in house with ICU admission, she will require surgical intervention after stabilization of her medical condition Call placed to neurology detonator maker as well as ICU for further management Patient is currently intubated, on a Versed drip with ICU at the bedside 11/11/18 04:30 11/11/18 04:56 Case discussed with neurology by the emergency department resident. <Belinda Gutierrez - Last Filed: 11/11/18 04:58> Attestations - Attestations 11/10/18 22:10 Documentation prepared by Eula Conner, acting as caregivers non medical for Belinda Gutierrez DO, MD. <Eula Conner - Last Filed: 11/10/18 22:50>
--- NOTE | 2018-11-10 22:16 | PDOC ---
History of Present Illness - General Chief Complaint: Pain, Acute Stated Complaint: R FOOT PAIN Time Seen by Provider: 11/10/18 21:39 History Source: Patient, Family (Daughter at bedside) Exam Limitations: No Limitations - History of Present Illness Initial Comments: 11/10/18 22:04 The patient is a 63F with a PMH of HTN, COPD, hep C, liver cirrhosis, bipolar disorder, EtOH abuse, who presents to the ER with multiple complaints. The patient states that around 3pm today, she began to have palpitations, slurred speech, and felt numbness in her R foot causing her difficulty walking. She states that her palpitations lasted 2 hours and was associated with shortness of breath. She denies active CP, SOB, fever, chills, nausea, vomiting, and any other numbness, tingling, and weakness. She denies any other symptoms. Her daughter, at bedside, states that she may have had around 10 drinks today. She states that although she drinks, she has never had symptoms that last such as slurred speech or difficulty walking. tPA Exclusion checklist 3-4.5h - Time Elapsed Date last known well: 11/11/18 Time last known well: 15:00 Elaspsed time: Day(s) and Hour(s) and -593 Minutes - Thrombolytic Therapy Candidate Is patient eligible for thrombolytic therapy: No - Ineligibility reason(s) Reasons No tPA given: Outside of window - delayed arrival NIH Stroke Scale - Last Known Well Date/Time & Onset Date Last Known Well: 11/11/18 Time Last Known Well: 15:00 - Initial Evaluation Level of consciousness: Alert Ask patient the month and their age: Answers both correctly Ask patient to open & close eyes; make fist and let go: Obeys both correctly Best gaze (horizontal eye movement): Normal Visual field testing: No visual field loss Facial paresis (Show teeth/raise eyebrows/close eyes tight): Normal symmetrical movement Motor Function: Left Arm: Normal Motor Function: Right Arm: Normal (extends arm 90 (or 45) degrees for 10 seconds without drift Motor Function: Left Leg: Normal (extends leg 30 degrees for 5 seconds without drift) Motor Function: Right Leg: Normal (extends leg 30 degrees for 5 seconds without drift) Limb Ataxia: No ataxia Sensory(Use pinprick test arms,legs,trunk,face/side to side): Normal Best language (Describe picture, name items, read sentences): No Aphasia Dysarthria (read several words): Mild to moderate slurring of words Extinction and Inattention: No abnormality - Total Score NIH Stroke Scale Score: 1 Past History - Past Medical History Allergies/Adverse Reactions: Allergies Allergy/AdvReac Type Severity Reaction Status Date / Time fish derived [Fish derived] Allergy Intermediate Difficulty Verified 11/10/18 21 :40 Breathing SEAFOOD Allergy Uncoded 11/10/18 21:40 Home Medications: Ambulatory Orders Carbamazepine [Carbamazepine ER] 200 mg PO BID 10/26/16 Lisinopril/Hydrochlorothiazide [Lisinopril-Hctz 10-12.5 mg Tab] 1 each PO DAILY 10/26/16 Naproxen 250 mg PO BID #14 tablet 11/22/16 Asthma: Yes Cancer: Yes (LIVER) Cardiac Disorders: No COPD: Yes Diabetes: No GI Disorders: No Disorders: No HTN: Yes Kidney Stones: No Liver Disease: Yes (HEP-C,cirrhosis) Psychiatric Problems: Yes (ANXIETY,bipolar) Seizures: No - Surgical History Abdominal Surgery: No Appendectomy: No Cardiac Surgery: No Cholecystectomy: No Lung Surgery: No Neurologic Surgery: No Orthopedic Surgery: No - Immunization History Immunization Up to Date: Yes - Suicide/Smoking/Psychosocial Hx Smoking Status: Yes Smoking History: Never smoked Have you smoked in the past 12 months: No Number of Cigarettes Smoked Daily: 20 Information on smoking cessation initiated: No 'Breaking Loose' booklet given: 11/22/16 Hx Alcohol Use: Yes Drug/Substance Use Hx: No Review of Systems - Review of Systems Able to Perform ROS?: Yes Comments:: 11/10/18 22:16 GENERAL/CONSTITUTIONAL: No fever or chills. No weakness. HEAD, EYES, EARS, NOSE AND THROAT: No change in vision. No ear pain or discharge. No sore throat. CARDIOVASCULAR: + for palpitations. No chest pain or lightheadedness. RESPIRATORY: No cough, wheezing, shortness of breath, or hemoptysis. GASTROINTESTINAL: No nausea, vomiting, diarrhea, constipation, or abdominal pain. GENITOURINARY: No dysuria, frequency, hematuria, or change in urination. MUSCULOSKELETAL: No joint or muscle swelling or pain. No neck or back pain. SKIN: No rash or lesions. NEUROLOGIC: + for numbness in R foot and inability to walk. No headache, tingling, focal weakness, loss of consciousness, or change in strength/ sensation. Is the patient limited Turkish proficient: No *Physical Exam - Vital Signs Last Vital Signs Temp Pulse Resp BP Pulse Ox 97.7 F 89 18 158/78 96 11/10/18 21:14 11/10/18 21:14 11/10/18 21:14 11/10/18 21:14 11/10/18 21:14 - Physical Exam Comments: 11/10/18 22:17 GENERAL: Well developed, well nourished. Awake and alert. No acute distress. HEENT: Normocephalic, atraumatic. Hearing grossly normal. Moist mucous membranes. PERRLA, EOMI. No conjunctival pallor. Sclera are non-icteric. NECK: Supple. Full ROM. No JVD. CARDIOVASCULAR: Regular rate and rhythm. No murmurs, rubs, or gallops. PULMONARY: No evidence of respiratory distress. Lungs clear to auscultation bilaterally. No wheezing, rales or rhonchi. ABDOMINAL: Soft. Non-tender. Non-distended. No rebound or guarding. MUSCULOSKELETAL: Normal range of motion at all joints. No bony deformities or tenderness. EXTREMITIES: No cyanosis. No clubbing. No edema. No calf tenderness or swelling. SKIN: Warm and dry. Normal capillary refill. No rashes. No jaundice. NEUROLOGICAL: Alert, awake, appropriate. Cranial nerves 2-12 grossly intact. No deficits to light touch and temperature in face, upper extremities and lower extremities. 5/5 strength in deltoids, biceps, triceps, quadriceps, hamstrings, and gastrocnemius. Normal speech. PSYCHIATRIC: Cooperative. Good eye contact. Appropriate mood and affect. Moderate Sedation - Procedure Monitoring Vital Signs: Procedure Monitoring Vital Signs Temperature 97.7 F 11/10/18 21:14 Pulse Rate 89 11/10/18 21:14 Respiratory Rate 18 11/10/18 21:14 Blood Pressure 158/78 11/10/18 21:14 O2 Sat by Pulse Oximetry (%) 96 11/10/18 21:14 Procedures - Intubation Intubation Method: orotracheal Blade used: Mac Tube Size (Fr): 7.0 Medications: Versed Tube position @ lip (cm): 20 Tube position confirmed by: Direct visualization, CO2 detector, Breath sounds Breath Sounds after Intubation: equal Intubation Complications: no complications Post Intubation Xray: No (Pending) ED Treatment Course - LABORATORY CBC & Chemistry Diagram: 11/10/18 22:40 11/10/18 22:40 - RADIOLOGY Radiology Studies Ordered: Category Date Time Status HEAD CT WITHOUT CONTRAST [CT] Stat CT Scan 11/10/18 21:48 Ordered CHEST X-RAY PORTABLE* [RAD] Stat Radiology 11/10/18 21:48 Ordered Medical Decision Making - Medical Decision Making 11/10/18 22:19 The patient is a 63F with EtOH on her breath who presents with palpitations, slurred speech, and difficulty ambulating. Concern for possible TIA/CVA vs intox. Will order labs and imaging including CTH. Pt smells of EtOH but states her last drink was at 2pm. Pending labs and imaging. 11/11/18 00:09 CBC shows WBC of 3.5. AST and ALT elevated. CT C-spine: There is a type II dens fracture. The fracture is nondisplaced but the fracture fragments are displaced by approximately 5.7 mm. The margins of the fracture fragments are somewhat smooth suggesting that this may not be acute. Nevertheless, correlate with trauma history. No other cervical fracture. Degenerative changes: At the 3?4 there is mild bilateral facet hypertrophy. At 3?4, there is bilateral facet hypertrophy and posterior osteophyte. Mild anterolisthesis of C3 on C4. At C4-5, there is bilateral facet hypertrophy. Mild anterolisthesis of C4 on C5. At C5-6 there is degenerative disc thinning. Mild bilateral facet hypertrophy. NSGY paged. CTH: FINDINGS: Involutional changes. No hemorrhage. Mild chronic microvascular changes. No obvious acute infarct. Infarcts less than 6 hours from onset may not be detectable on CT. MRI is more sensitive. No mass. Osseous structures are intact. 11/11/18 00:20 Case d/w NSGY who requests a stat MRI to evaluate for acuteness of injury. Pt placed in C-collar and laid flat in bed. Will place order for sharp. 11/11/18 03:32 Pt became acutely agitated in MRI, requiring 6mg ativan. She continued to be agitated and MRI shows b/l infarcts. Due to continued agitation (likely 2/2 EtOH withdrawal) and concern for airway and c-spine protection during agitation , the patient was intubated. Meds administered: 6mg Versed @ 3:09AM 50mg Rocuronium @ 3:10AM Patient intubated @ 3:11AM Post-intubation vitals @ 3:12AM: 144bpm O2 saturation 100% Resp rate 14 Pt taken to MRI intubated with versed drip. 11/11/18 03:58 Case d/w NSGY who believes the fracture to be acute. Will medically manage patient, admit to ICU. Pt endorsed to Dr. Moore for ICU. Dr. Shelton, neurology, paged for recs. 11/11/18 04:15 Pt tremulous. Giving bolus of 4 ativan. Comfortable on ventilator. MRI reading: Brain FINDINGS: Positive for an acute versus subacute infarct of the lateral aspect of the left thalamus and probably including a portion of the left basal ganglia. This measures approximately 1 cm. There is another 1 cm focus of abnormal diffusion in the right segundo radiata slightly superior to the right basal ganglia and internal capsule. This also may represent an acute or subacute infarct. Given the different vascular territories involved, an embolic event is a consideration. Note made of involutional changes. Mild chronic microvascular changes noted as well. ICU resident at bedside. 11/11/18 04:34 Case d/w Dr. Shelton who wants a map of 110 and 300 pr asa. Orders placed. ICU resident aware of BP requirements. 11/11/18 05:07 MRI c-spine: There is no dens bone edema. There may be a small amount of fluid in the anterior aspect of the fracture line but for the most part, the fracture line is not edematous. Therefore, this is most likely a nonacute ununited fracture. Degenerative changes are as follows: At C3-4, there is mild facet hypertrophy. The result is mild canal narrowing. At C4-5, there is bilateral facet hypertrophy right greater than left. There is posterior element hypertrophy indenting the posterior aspect of the canal and cord. There is disc bulging. The result is moderate canal stenosis and slight cord crowding. At C5-6, there is mild bilateral facet hypertrophy. There is disc bulging. The result is moderate canal narrowing. The cervical cord itself is normal. Note made of marked heterogeneity of the marrow of the cervical spinal vertebra. This could be part of the osteoporotic process with extensive fatty infiltration. However, follow-up recommended to rule out the possibility of bony neoplasm. Inpt team aware. *DC/Admit/Observation/Transfer Diagnosis at time of Disposition: CVA (cerebral vascular accident) Qualifiers: CVA mechanism: embolism Precerebral and cerebral artery: unspecified cerebral artery Qualified Code(s): I63.40 - Cerebral infarction due to embolism of unspecified cerebral artery Dens fracture Qualifiers: Encounter type: initial encounter Fracture type: closed Qualified Code(s): S12.100A - Unspecified displaced fracture of second cervical vertebra, initial encounter for closed fracture - Discharge Dispostion Condition at time of disposition: Guarded Decision to Admit order: Yes - Referrals Referrals: Jaci Dee MD [Primary Care Provider] - - Patient Instructions - Post Discharge Activity
[2018-11-10 22:55] LABS: BASO % 1.1 % (0-2.0); EOS % 1.4 % (0-4.5); HEMATOCRIT 40.9 % (32.4-45.2); HEMOGLOBIN 14.4 GM/dL (10.7-15.3); MCH 39.9 pg (25.7-33.7); MCHC 35.3 g/dl (32.0-36.0); MEAN CELL VOLUME 113.2 fl (80-96); MEAN PLT VOLUME 8.9 fl (7.5-11.1); MONO % 11.1 % (3.8-10.2); NEUT % 56.4 % (42.8-82.8); PLATELET COUNT 114 K/MM3 (134-434); RBC 3.61 M/mm3 (3.60-5.2); RDW 13.3 % (11.6-15.6); WHITE BLOOD COUNT 3.6 K/mm3 (4.0-10.0)
[2018-11-10 23:30] LABS: URINE APPEARANCE CLEAR; URINE BILIRUBIN NEGATIVE (<2.0 mg/dL); URINE COLOR LTYELLOW; URINE GLUCOSE (UA) NEGATIVE (NEGATIVE); URINE KETONE NEGATIVE (NEGATIVE); URINE LEUK ESTERASE NEGATIVE (NEGATIVE); URINE NITRITE NEGATIVE (NEGATIVE); URINE PROTEIN NEGATIVE (NEGATIVE); URINE UROBILINOGEN 4.0 E.U/dl mg/dL (0.2-1.0)
[2018-11-10 23:51] LABS: MACROCYTOSIS 2+; PLATELET ESTIMATE DECREASED
[2018-11-11 00:06] LABS: ALBUMIN 3.7 g/dl (3.4-5.0); ALK PHOS 182 U/L (45-117); ANION GAP 10 MMOL/L (8-16); BILIRUBIN,TOTAL 0.6 mg/dL (0.2-1); BLOOD UREA NITROGEN 11 mg/dL (7-18); CALCIUM 8.5 mg/dL (8.5-10.1); CHLORIDE 100 mmol/L (98-107); CO2 25 mmol/L (21-32); CREATININE 0.4 mg/dL (0.55-1.3); GLUCOSE,RANDOM 90 mg/dL (74-106); MAGNESIUM 1.6 mg/dL (1.8-2.4); POTASSIUM 3.7 mmol/L (3.5-5.1); SGOT/AST 218 U/L (15-37); SGPT/ALT 98 U/L (13-61); SODIUM 135 mmol/L (136-145); TOT PROT 8.2 g/dl (6.4-8.2)
[2018-11-11 00:10] LABS: INR 1.05 (0.83-1.09); PROTHROMBIN TIME (PATIENT) 12.4 SEC (9.7-13.0)
[2018-11-11] MEDS ORDERED: ONDANSETRON 4 MG/2 ML VIAL IVPUSH ONE (01:16)
[2018-11-11] MEDS ORDERED: ONDANSETRON 4 MG/2 ML VIAL ONE (01:23)
[2018-11-11] MEDS ORDERED: LORazepam 2 MG/ML SDV VIAL ONE ×7 (02:35→06:22)
[2018-11-11] MEDS ORDERED: RAPID SEQUENCE INTUBATION KIT NR ONE (03:04)
[2018-11-11] MEDS ORDERED: MIDAZOLAM HCL 2 MG/2 ML SINGLE DOSE VIAL IVPUSH ONE (03:09)
[2018-11-11] MEDS ORDERED: ROCURONIUM BROMIDE 50 MG/5 ML VIAL IVPUSH ONE ×2 (03:10→04:58)
[2018-11-11] MEDS ORDERED: MIDAZOLAM HCL 2 MG/2 ML SINGLE DOSE VIAL ONE (03:12)
[2018-11-11] MEDS ORDERED: MIDAZOLAM 100 MG/100 ML MG IVPB ONE (03:24)
[2018-11-11] MEDS ORDERED: MIDAZOLAM 100 MG in SODIUM CHLORIDE 100 ML IVPB SCH ×2 (03:45→04:52)
[2018-11-11] MEDS ORDERED: METOPROLOL TARTRATE 5 MG/5 ML VIAL IVPUSH ONE (04:22)
[2018-11-11] MEDS ORDERED: ASPIRIN 300 MG SUPP.RECT PR ONE (04:39)
--- NOTE | 2018-11-11 04:56 | PN ---
Teaching Attending Note Name of Resident: Omaira Hemphill ATTENDING PHYSICIAN STATEMENT I saw and evaluated the patient. I reviewed the resident's note and discussed the case with the resident. I agree with the resident's findings and plan as documented. SUBJECTIVE: Patient is a 63 year old woman with a PMH of HTN, COPD, hep C, liver cirrhosis, bipolar disorder, polysubstance abuse, tobacco use and EtOH abuse, who presents to the ER with multiple complaints. The patient states that around 3pm today, she began to have palpitations, slurred speech, and felt numbness in her Right foot resulting in difficulty walking. She states that her palpitations lasted 2 hours and was associated with shortness of breath. She denies active chest pain , SOB, fever, chills, nausea, vomiting, and any other numbness, tingling, and weakness. Her daughter, at bedside, states that she may have had around 10 drinks today. She states that although she drinks, she has never had symptoms that last such as slurred speech or difficulty walking. She is on methadone 30 mg daily. In the ER CT C-spine showed a type II dens fracture - C3-C4? The fracture is nondisplaced but the fracture fragments are displaced by approximately 5.7 mm. The margins of the fracture fragments are somewhat smooth. CT of the brain did not show any acute abnormality. When her stroke-like symptoms persisted, an MRI of the brain was obtained and it showed bilateral infarcts. When she continued to be agitated and did not respond promptly to IV ativa, she was intubated and started on a versed drip. OBJECTIVE: Intubated, on ventilator and with decorticate posturing intermittently Vital Signs Period Temp Pulse Resp BP Sys/Pleitez Pulse Ox Last 24 Hr 97.7 F 89 14-18 158/78 96 HEENT: No Jaundice, eye redness or discharge, PERRLA, EOMI. Normocephalic, atraumatic. External ears are normal. No nasal discharge. Neck: Supple, nontender. No palpable adenopathy or thyromegaly. No JVD Chest: Good effort. Clear to auscultation and percussion. Heart: Regular. No S3, rub or murmur Abdomen: Not distended, soft, nontender and no HSM. No rebound or guarding. Normal bowel sounds. Ext: Peripheral pulses intact. No leg edema. Skin: Warm and dry. No petechiae, rash or ecchymosis. Neuro: Sedated, but restless on the ventilator. Moving all limbs. Psych: Intubated - unable to assess. Current Medications Generic Name Dose Route Start Last Admin Trade Name Emmanuel PRN Reason Stop Dose Admin Midazolam HCl 100 mg/ Sodium 100 mls @ 5 mls/hr 11/11/18 04:52 11/11/18 03:15 Chloride IVPB 5 mg/hr TITR JAY 5 mls/hr Administration Protocol 5 MG/HR Home Medications Medication Instructions Recorded Carbamazepine [Carbamazepine ER] 200 mg PO BID 10/26/16 Lisinopril/Hydrochlorothiazide 1 each PO DAILY 10/26/16 [Lisinopril-Hctz 10-12.5 mg Tab] Naproxen 250 mg PO BID #14 tablet 11/22/16 Abnormal Lab Results 11/10/18 11/10/18 11/10/18 22:40 22:40 22:40 WBC 3.6 L MCV 113.2 H MCH 39.9 H Plt Count 114 L D Monocytes % 11.1 H Sodium 135 L Creatinine 0.4 L Magnesium 1.6 L AST 218 H ALT 98 H Alkaline Phosphatase 182 H Ur Specific [place] Urine Urobilinogen Alcohol, Quantitative 178.7 H 11/10/18 23:10 WBC MCV MCH Plt Count Monocytes % Sodium Creatinine Magnesium AST ALT Alkaline Phosphatase Ur Specific [place] 1.008 L Urine Urobilinogen 4.0 e.u/dl H Alcohol, Quantitative ASSESSMENT AND PLAN: 1. Ischemic Stroke/Cervical Fracture - Has a hard cervical collar in place. Continue ventilator support, cardiac monitoring and management in the ICU. Continue versed drip and strive to avoid drop in BP. Neurology and neurosurgery consulted. Give IV protonix, rectal aspirin and IV MgSO4. Full ischemic stroke workup once clinically appropriate - ECHO, carotid doppler and fasting lipids. Get RUQ sonogram to evaluate abnormal LFTs. Trend LFTs and platelet count. Known to have hepatitis C disease and may also have alcoholic hepatitis, but must exclude obstructive biliary disease. 2. Alcohol and Polysubstance abuse - Implement CIWA ativan alcohol withdrawal protocol once she is weaned from her current sedation with Versed. Do neurochecks and implement seizure and aspiration precautions. Treat with thiamine and folic acid and monitor electrolytes (Ca,Mg,K,P). Once clinically appropriate, will auto club travel counselor patient about abstaining from alcohol and refer to alcohol /drug detox upon discharge. Consult acoustic intelligence specialist. 3. Hypertension - Will practice permissive hypertension for now. Once clinically appropriate, will restart outpatient antihypertensive drugs and revise regimen to ensure smooth [id number] good BP control. Nonpharmacologic measures to control hypertension like weight loss, salt restriction and exercise will be emphasized. 4. Tobacco Use Once clinically appropriate, will auto club travel counselor patient on risks associated with tobacco use. Will provide patient all the necessary assistance to facilitate smoking cessation and prescribe Nicotine patch. 5. DVT prophylaxis - Lovenox 40 mg SQ q 24 hours. 6. Advance directives - Full code (Family says she has DNR/DNI instructions but they don't have the signed paper work)
--- NOTE | 2018-11-11 05:15 | CONSULT ---
Consult Consult Specialty:: ICU Reason for Consultation:: acute CVA s/p intubation. - History of Present Illness Chief Complaint: weakness and slurred speech. History of Present Illness: 63F with a PMH of HTN, COPD, hep C, liver cirrhosis, bipolar disorder, EtOH abuse, who presents to the ER with one day right sided weakness and slurred speech. Daughter is the historian. She states that she spoke with her mother on phone @ 4:30 PM and noticed her speech was slurred. She was not too concerned because her mother is heavy drinker ( approx. 1L vodka daily) and more so in November as this is the anniversary of of child. The daughter asked a neighbor to go by and check on her. Upon their arrival the neighbor noticed that the speech was extremely slurred and she was unable to walk to restroom under her own power 2/2 Right leg weakness. Patient endorsed at that time that she had numbness and tingling on right upper and lower ext. Once made aware of this daughter called EMS and she was transfered to ER. Upon arrival to ER she was found to have BAL 178.8. CT of head was done and was negative for acute intercranial bleed. CT of C-spine showed type II dens fracture. Case was discussed with Neurosurgery who requested MRI. While in MRI patient became acutely agitated and required 6mg at Ativan. Due to continued agitation (likely 2/2 EtOH withdrawal) and concern for airway and c-spine protection during agitation, the patient was intubated and sedated with versed drip. She is being admitted to ICU for further management. - History Source History Provided By: Family Member Limitations to Obtaining History: Intubated - Past Medical History Cardio/Vascular: Yes: HTN Pulmonary: Yes: COPD Hepatobiliary: Yes: Hepatitis C Reproductive: Yes: Postmenopausal ...LMP: 10/24/04 Heme/Onc: Yes: Thrombocytopenia (2/2 chronic ETOH abuse. ) Psych: Yes: Anxiety, Bipolar Musculoskeletal: Yes: Osteoarthritis - Alcohol/Substance Use Hx Alcohol Use: Yes Number of Drinks Daily: 10 (drinks approx. 1L vodka/day) History of Substance Use: reports: Heroin (currently on Methadone. ) - Smoking History Smoking history: Current every day smoker Have you smoked in the past 12 months: Yes Aproximately how many cigarettes per day: 20 (45 pack year history. ) - Social History Usual Living Arrangement: With Child ADL: Independent Place of : [place] History of Recent Travel: No Home Medications - Allergies Allergies/Adverse Reactions: Allergies Allergy/AdvReac Type Severity Reaction Status Date / Time fish derived [Fish derived] Allergy Intermediate Difficulty Verified 11/10/18 21 :40 Breathing SEAFOOD Allergy Uncoded 11/10/18 21:40 - Home Medications Home Medications: Ambulatory Orders Carbamazepine [Tegretol -] 200 mg PO BID 11/11/18 Lisinopril 10 mg PO DAILY 11/11/18 Methadone [Dolophine -] 30 mg PO DAILY 11/11/18 Pantoprazole Sodium [Protonix] 40 mg PO DAILY 11/11/18 Topiramate 50 mg PO HS 11/11/18 Family Disease History - Family Disease History Family History: Unremarkable Review of Systems Unable to obtain ROS, reason: intubated and sedated. Physical Exam Vital Signs: Vital Signs Temperature 97.7 F 11/10/18 21:14 Pulse Rate 89 11/10/18 21:14 Respiratory Rate 14 11/11/18 03:50 Blood Pressure 158/78 11/10/18 21:14 O2 Sat by Pulse Oximetry (%) 96 11/10/18 21:14 Constitutional: Yes: Anxious, Mild Distress Eyes: Yes: Conjunctiva Clear, Other (unequal pupils R> L) HENT: Yes: Atraumatic, Normocephalic Neck: Yes: Supple, Trachea Midline, Decreased ROM, Other (C-Collar in place.) Cardiovascular: Yes: Tachycardia, S1, S2. No: Bruit, JVD, Gallop, Murmur, Rub Respiratory: Yes: CTA Bilaterally, Mechanically Ventilated Gastrointestinal: Yes: Normal Bowel Sounds, Soft Breast(s): No: Dimpling, Discharge from Nipple, Nipple Inversion, Skin Changes Extremities: No: Cold, Cyanosis, Deformity Edema: No Peripheral Pulses WNL: Yes Neurological: Yes: Tremors Labs: CBC, BMP 11/10/18 22:40 11/10/18 22:40 Imaging - Results Cat Scan: Report Reviewed (Fracture of the dens, type I that is likely chronic without evidence of prevertebral soft tissue swelling. If clinically concerned correlation with MRI of the cervical spine with be the study of choice to determine its chronicity. Otherwise, no gross compression fracture or jumped facets are identified. Multilevel degenerative disc disease), Image Reviewed MRI: Report Reviewed (BRAIN MRI:Positive for an acute versus subacute infarct of the lateral aspect of the left thalamus and probably including a portion of the left basal ganglia. This measures approximately 1 cm. There is another 1 cm focus of abnormal diffusion in the right segundo radiata slightly superior to the right basal ganglia and internal capsule. This also may represent an acute or subacute infarct. Given the different vascular territories involved, an embolic event is a consideration. Note made of involutional changes. Mild chronic microvascular changes noted as well. C-SPINE MRI:There is no dens bone edema. There may be a small amount of fluid in the anterior aspect of the fracture line but for the most part, the fracture line is not edematous. Therefore, this is most likely a nonacute ununited fracture.), Image Reviewed Assessment/Plan A: 63F with a PMH of HTN, COPD, hep C, liver cirrhosis, bipolar disorder, EtOH abuse, who presents to the ER with one day right sided weakness and slurred speech found to have acute CVA on imaging and acute ETOH withdrawl , intubated and sedated ,admitted to ICU for further management. PLAN: NEURO: * Acute CVA on MRI - not a TPa candidate. * Neurology on board.- ASA and statin therapy * Permissive HTN 220/120 * C-Spine dens fracture - does not appear to be acute on imaging. * Neurosurgery consulted; no intervention at this time. * Sedated on Versed ggt. * ETOH withdrawl- benzo ggt./ banana bag/ thiamine and folate daily. PULM: * Intubated for airway protection and agitation. * AC mechanically vented - settings 400/14/21%/PEEP 0 * BD TX PRN * maintain SpO2>90% CV: * Permissive HTN 220/120 * Hold BP meds for now * sinus tach on monitor- continue cardiac monitoring * trops (-) x1 * Echo and Carotid doppler pending. * initiate ASA and statin. GI: * h/o Hep C, Alcoholic Liver Cirrhosis. * elevated liver enzymes * Sees sheet layer Sabas as outpatient; was scheduled for EUS * NPO * PPI while intubated. HEME/ONC: * Chronic thrombocytopenia 2/2 ETOH abuse. PSYCH: * h/o Bipolar- continue Carbamazapine- Level WNL * on methadone 30mg daily - need to confirm dose with [facility]. FEN: * No IVF * monitor e-lytes and replete PRN. Hypomagnesemia will replete. will need * NPO for now. PPx: * Lovenox 40mg SQ Q12H * PPI while intubated. DISPO: Requires ICU level of care. FULL CODE>
[2018-11-11] MEDS ORDERED: ASPIRIN 300 MG SUPP.RECT RC ONE (05:37)
--- NOTE | 2018-11-11 05:50 | HP ---
CHIEF COMPLAINT:right sided weakness PCP:Dr. Dee HISTORY OF PRESENT ILLNESS: Patient is a 63 year old female with past medical history of HTN, COPD, HCV, Liver cirrhosis, Bipolar disorder, ?pancreatic cyst, and EtOH abuse, presented to the ED after experiencing sudden weakness of the right leg with numbness of the right finger tips, and slurred speech that started about 3pm yesterday. Patient is currently intubated and sedated, history from daughter and ED staff. As per the daughter, patient is an everyday drinker, at least 1 bottle vodka a day, and when she called the patient at around 4:30pm, patient sounded slurred. Patient was also complaining of right leg weakness and right hand tingling/ numbness and refused to get out of bed and walk. She was also reporting palpitations. Daughter called the ambulance and patient was brought to the ED. Of note, patient has had previous episodes of slurred speech due to her EtOH abuse and palpitations from her anxiety. Upon arrival, NIHSS was 1. While at the ED, patient was still reporting slurred speech, right leg weakness, right hand tingling and palpitations. Head and neck CT was done which showed Type II dense fracture, nondisplaced but the fracture fragments are displaced by 5.7mm. Neurosurgery was called and recommended stat MRI and C-collar be placed. During the MRI, patient became acutely agitated and 6mg of Ativan was given. Brain MRI showed bilateral infarcts. Because of continued agitation and concern for airway and c-spine protection, patient was intubated. ER course was notable for: (1)Head and Neck CT, Brain and neck MRI done (2) (3) Recent Travel:denies PAST MEDICAL HISTORY: HTN COPD HCV Liver cirrhosis Bipolar disorder ?pancreatic cyst EtOH abuse PAST SURGICAL HISTORY: Social History: Smokinppd x>45 years Alcohol:at least 1 liter of vodka daily since 2001 Drugs: previous heroin use, cocaine (currently on Methadone 30mg daily, follows up at [facility]) Lives with son. Had 3 children. Eldest daughter in 2001 of cancer and since then patient has been drinking heavily. Family History: Allergies fish derived [Fish derived] Allergy (Intermediate, Verified 11/10/18 21:40) Difficulty Breathing SEAFOOD Allergy (Uncoded 11/10/18 21:40) HOME MEDICATIONS: Home Medications Medication Instructions Recorded Carbamazepine [Carbamazepine ER] 200 mg PO BID 10/26/16 Lisinopril/Hydrochlorothiazide 1 each PO DAILY 10/26/16 [Lisinopril-Hctz 10-12.5 mg Tab] Naproxen 250 mg PO BID #14 tablet 11/22/16 REVIEW OF SYSTEMS CONSTITUTIONAL: Absent: fever, chills, diaphoresis, generalized weakness, malaise, loss of appetite, weight change HEENT: Absent: rhinorrhea, nasal congestion, throat pain, throat swelling, difficulty swallowing, mouth swelling, ear pain, eye pain, visual changes CARDIOVASCULAR: palpitations Absent: chest pain, syncope,irregular heart rate, lightheadedness, peripheral edema RESPIRATORY: Absent: cough, shortness of breath, dyspnea with exertion, orthopnea, wheezing, stridor, hemoptysis GASTROINTESTINAL: Absent: abdominal pain, abdominal distension, nausea, vomiting, diarrhea, constipation, melena, hematochezia GENITOURINARY: Absent: dysuria, frequency, urgency, hesitancy, hematuria, flank pain, genital pain MUSCULOSKELETAL: Absent: myalgia, arthralgia, joint swelling, back pain, neck pain SKIN: Absent: rash, itching, pallor HEMATOLOGIC/IMMUNOLOGIC: Absent: easy bleeding, easy bruising, lymphadenopathy, frequent infections ENDOCRINE: Absent: unexplained weight gain, unexplained weight loss, heat intolerance, cold intolerance NEUROLOGIC: focal weakness or paresthesias Absent: headache, dizziness, unsteady gait, seizure, mental status changes, bladder or bowel incontinence PSYCHIATRIC: Absent: anxiety, depression, suicidal or homicidal ideation, hallucinations. PHYSICAL EXAMINATION Vital Signs - 24 hr 11/10/18 11/11/18 21:14 03:50 Temperature 97.7 F Pulse Rate 89 Respiratory 18 14 Rate Blood Pressure 158/78 O2 Sat by Pulse 96 Oximetry (%) GENERAL: Intubated and sedated EYES: PERRLA EARS, NOSE, THROAT:+gag reflex NECK: C-collar in place LUNGS: Coarse breath sounds bilaterally. HEART: Regular rate and rhythm, normal S1 and S2 without murmur, rub or gallop. ABDOMEN: Soft, nontender, not distended, normoactive bowel sounds. MUSCULOSKELETAL: Normal range of motion at all joints. UPPER EXTREMITIES: 2+ pulses, warm, well-perfused. No peripheral edema. LOWER EXTREMITIES: 2+ pulses, warm, well-perfused. No peripheral edema. SKIN: Warm, dry, normal turgor, no rashes or lesions noted. Laboratory Results - last 24 hr 11/10/18 11/10/18 11/10/18 22:40 22:40 22:40 WBC 3.6 L RBC 3.61 Hgb 14.4 Hct 40.9 D MCV 113.2 H MCH 39.9 H MCHC 35.3 RDW 13.3 Plt Count 114 L D MPV 8.9 Absolute Neuts (auto) 2.0 Neutrophils % 56.4 Lymphocytes % 30.0 D Monocytes % 11.1 H Eosinophils % 1.4 D Basophils % 1.1 Nucleated RBC % 0 Platelet Estimate Decreased Platelet Comment No clumping noted Macrocytosis 2+ PT with INR 12.40 INR 1.05 Sodium 135 L Potassium 3.7 Chloride 100 Carbon Dioxide 25 Anion Gap 10 BUN 11 Creatinine 0.4 L Creat Clearance w eGFR > 60 Random Glucose 90 Calcium 8.5 Magnesium 1.6 L Total Bilirubin 0.6 AST 218 H ALT 98 H Alkaline Phosphatase 182 H Creatine Kinase 76 Troponin I < 0.02 Total Protein 8.2 Albumin 3.7 Urine Color Urine Appearance Urine pH Ur Specific [place] Urine Protein Urine Glucose (UA) Urine Ketones Urine Blood Urine Nitrite Urine Bilirubin Urine Urobilinogen Ur Leukocyte Esterase Carbamazepine Alcohol, Quantitative 11/10/18 11/10/18 11/10/18 22:40 22:40 23:10 WBC RBC Hgb Hct MCV MCH MCHC RDW Plt Count MPV Absolute Neuts (auto) Neutrophils % Lymphocytes % Monocytes % Eosinophils % Basophils % Nucleated RBC % Platelet Estimate Platelet Comment Macrocytosis PT with INR INR Sodium Potassium Chloride Carbon Dioxide Anion Gap BUN Creatinine Creat Clearance w eGFR Random Glucose Calcium Magnesium Total Bilirubin AST ALT Alkaline Phosphatase Creatine Kinase Troponin I Total Protein Albumin Urine Color Ltyellow Urine Appearance Clear Urine pH 7.0 D Ur Specific [place] 1.008 L Urine Protein Negative Urine Glucose (UA) Negative Urine Ketones Negative Urine Blood Negative Urine Nitrite Negative Urine Bilirubin Negative Urine Urobilinogen 4.0 e.u/dl H Ur Leukocyte Esterase Negative Carbamazepine 3.5 Alcohol, Quantitative 178.[address] Head: Involutional changes.No hemorrhage.Mild chronic microvascular changes.No obvious acute infarct. Infarcts less than 6 hours from onset may not be detectable on CT. No mass.Osseous structures are intact. CT C-spine: There is a type II dense fracture. The fracture is nondisplaced but the fracture fragments are displaced by approximately 5.7 mm. The margins of the fracture fragments are somewhat smooth suggesting that this may not be acute. Nevertheless, correlate with trauma history. No other cervical fracture. Degenerative changes: At the 3?4 there is mild bilateral facet hypertrophy. At C3-4, there is bilateral facet hypertrophy and posterior osteophyte. Mild anterolisthesis of C3 on C4. At C4-5, there is bilateral facet hypertrophy. Mild anterolisthesis of C4 on C5. At C5-6 there is degenerative disc thinning. Mild bilateral facet hypertrophy. MRI Brain: Positive for an acute versus subacute infarct of the lateral aspect of the left thalamus and probablyincluding a portion of the left basal ganglia. This measures approximately 1 cm. There is another 1 cm focus of abnormal diffusion in the right segundo radiata slightly superior to the right basal ganglia and internal capsule. This also may represent an acute or subacute infarct. Given the different vascular territories involved, an embolic event is a consideration. Note made of involutional changes. Mild chronic microvascular changes noted as well. MRI c-spine: There is no dens bone edema. There may be a small amount of fluid in the anterior aspect of thefracture line but for the most part, the fracture line is not edematous. Therefore, this is most likely a nonacute ununited fracture. Degenerative changes are as follows: At C3-4, there is mild facet hypertrophy. The result is mild canal narrowing. At C4-5, there is bilateral facet hypertrophy right greater than left. There is posterior element hypertrophy indenting the posterior aspect of the canal and cord. There is disc bulging. The result is moderate canal stenosis and slight cord crowding. At C5-6 , there is mild bilateral facet hypertrophy. There is disc bulging. The result is moderate canal narrowing. The cervical cord itself is normal. Note made of marked heterogeneity of the marrow of the cervical spinal vertebra. This could be part of the osteoporotic process with extensive fatty infiltration. However, follow-up recommended to rule out the possibility of bony neoplasm. ASSESSMENT/PLAN: Patient is a 63 year old female with past medical history of HTN, COPD, HCV, Liver cirrhosis, Bipolar disorder, ?pancreatic cyst, and EtOH abuse, presented to the ED after experiencing sudden weakness of the right leg with numbness of the right finger tips, and slurred speech that started about 3pm yesterday. #Acute CVA on MRI -Aspirin 300mg given at the ED once -Start ASA and statin -Continue versed drip -Keep MAP >110 for permissive HTN -Echo -Carotid doppler -lipid profile, HbA1c -Neurology (Dr. Shelton) consulted. #Cervical fracture -Neurosurgery (Dr Banerjee) consulted. -C-collar in place. -Intubated and sedated #EtOH abuse -CIWA protocol initiated. -Currently on Versed drip -Neuro checks -Seizure and aspiration precautions -Banana bag ordered -Thiamine 200mg IVPB daily -Folic acid 0.4 mg sq daily -Monitor and replete electrolytes #Polysubstance abuse (heroin and cocaine) -Currently on Methadone 30mg daily for detox -Follows up at [facility] #Hypertension -On Lisinopril/HCTZ 10.5 daily -Hold BP meds for now -Would allow permissive HTN >220/120 -As per neuro, keep MAP >110 #Hx of HCV, Liver cirrhosis -Follows up with Dr. Obregon as outpatient -Scheduled for EUS for ?pancreatic/biliary duct cyst -Elevated LFTs likely multifactorial (HCV, cirrhosis, EtOH abuse) -RUQ ultrasound once more stable #Bipolar disease -On Carbamazepine 200mg BID -Topiramate 50mg Po HS #FEN -Not on any standing fluids -HypoMg, HypoK, replete -Routine bmp monitoring -NPO for now. #Prophylaxis -Lovenox 40mg sq daily -GI: IV Protonix 40mg daily #Disposition -full code -As per daughter, patient would be DNR but she currently doesn't have the documents -ICU for closer monitoring Visit type - Emergency Visit Emergency Visit: Yes ED Registration Date: 11/10/18 Care time: The patient presented to the Emergency Department on the above date and was hospitalized for further evaluation of their emergent condition. - New Patient This patient is new to me today: Yes Date on this admission: 11/13/18 - Critical Care Critical Care patient: Yes Total Critical Care Time (in minutes): 35 Critical Care Statement: The care of this patient involved high complexity decision making to prevent further life threatening deterioration of the patient 's condition and/or to evaluate & treat vital organ system(s) failure or risk of failure.
[2018-11-11] MEDS ORDERED: FOLIC ACID INJECTION - 1 MG, THIAMINE HCL 100 MG, MULTIVIT INJECTION ADULT 10 ML in SOD... IVPB ONE (06:10)
[2018-11-11] MEDS ORDERED: ROCURONIUM BROMIDE 50 MG/5 ML VIAL IV ONE (06:47)
[2018-11-11 09:36] LABS: ALBUMIN 3.4 g/dl (3.4-5.0); ALK PHOS 159 U/L (45-117); ANION GAP 12 MMOL/L (8-16); BILIRUBIN,DIRECT 0.6 mg/dL (0.0-0.2); BLOOD UREA NITROGEN 10 mg/dL (7-18); CALCIUM 7.9 mg/dL (8.5-10.1); CHLORIDE 103 mmol/L (98-107); CHOLESTEROL 247 mg/dL (50-200); CO2 23 mmol/L (21-32); CREATININE 0.4 mg/dL (0.55-1.3); GLUCOSE,RANDOM 92 mg/dL (74-106); HDL CHOLESTEROL 67 mg/dL (40-60); MAGNESIUM 1.4 mg/dL (1.8-2.4); POTASSIUM 3.6 mmol/L (3.5-5.1); SGOT/AST 182 U/L (15-37); SGPT/ALT 84 U/L (13-61); SODIUM 138 mmol/L (136-145); TOT PROT 7.6 g/dl (6.4-8.2); TRIGLYCERIDES 139 mg/dL (0-150)
[2018-11-11] MEDS ORDERED: ASPIRIN COATED 81 MG TABLET.EC PO SCH (10:00)
[2018-11-11] MEDS ORDERED: FOLIC ACID 5 MG/1 ML SQ SCH (10:00)
[2018-11-11] MEDS: MUPIROCIN 2% TOPICAL OINTMENT FOR DECOLONIZATION NS SCH ×2 (10:45→23:31)
--- NOTE | 2018-11-11 11:56 | EKG ---
Test Reason : Blood Pressure : / mmHG Vent. Rate : 098 BPM Atrial Rate : 098 BPM P-R Int : 174 ms QRS Dur : 068 ms QT Int : 360 ms P-R-T Axes : 084 073 066 degrees QTc Int : 459 ms POOR DATA QUALITY, INTERPRETATION MAY BE ADVERSELY AFFECTED NORMAL SINUS RHYTHM RIGHT ATRIAL ENLARGEMENT BORDERLINE ECG WHEN COMPARED WITH ECG OF 08-JAN-2016 14:18, NONSPECIFIC T WAVE ABNORMALITY NO LONGER EVIDENT IN ANTERIOR LEADS Confirmed by CAROLINE MOSELEY, KARI ([id number]) on 11/11/2018 11:56:22 AM Referred By: Confirmed By:KARI VELAZQUEZ MD
--- NOTE | 2018-11-11 12:32 | PN ---
Teaching Attending Note Name of Resident: Bhavik Schmidt ATTENDING PHYSICIAN STATEMENT I saw and evaluated the patient. I reviewed the resident's note and discussed the case with the resident. I agree with the resident's findings and plan as documented. SUBJECTIVE: Pt seen and examined in the ICU. Remains intubated, inconsistently arousable/ following commands. MRI showing 2 small areas of acute/subacute infarcts. OBJECTIVE: Vital Signs Period Temp Pulse Resp BP Sys/Pleitez Pulse Ox Last 24 Hr 97.7 F-98.7 F 89-144 14-19 151-231/78-155 93-100 Intake & Output 11/08/18 11/09/18 11/10/18 11/11/18 23:59 23:59 23:59 23:59 Weight 48.081 kg Gen: intubated, sedated Heart: RRR Lung: decreased breath sounds at the bases Abd: soft, nontender Ext: no edema CBC, BMP 11/11/18 08:53 11/11/18 08:53 Active Medications Aspirin (Ecotrin -) 81 mg PO DAILY JAY Chlorhexidine Gluconate (Hibiclens For Decolonization -) 1 applic TP HS JAY Enoxaparin Sodium (Lovenox -) 40 mg SQ DAILY JAY Folic Acid (Folic Acid Injection -) 0.4 mg SQ DAILY JAY Midazolam HCl 100 mg/ Sodium (Chloride) 100 mls @ 5 mls/hr IVPB TITR JAY; Protocol Last Titration: 11/11/18 04:45 Dose: 15 mg/hr, 15 mls/hr Folic Acid 1 mg/ Thiamine HCl 100 mg/ Multivitamins/Minerals 10 ml/ Sodium Chloride 1,000 mls @ 125 mls/hr IVPB ONCE ONE Stop: 11/11/18 14:09 Last Admin: 11/11/18 07:20 Dose: 125 mls/hr Mupirocin (Bactroban Ointment (For Decolonization) -) 1 applic NS BID JAY Stop: 11/16/18 09:59 Pantoprazole Sodium (Protonix Iv) 40 mg IVPUSH DAILY JAY Thiamine HCl (Vitamin B1 Injection -) 200 mg IVPB DAILY JAY ASSESSMENT AND PLAN: Acute/Subacute Lacunar CVA Acute Respiratory Failure Alcohol Abuse/Intoxication Liver Cirrhosis COPD Hep C HTN - hold all sedation to assess mental status - spontaneous breathing trials as tolerated - can extubate once pt wakes up - ativan for alcohol withdrawal - IVF - ASA - echocardiogram - carotid dopplers - telemetry to r/o arrhythmias - continue ICU monitoring critical care time spent in reviewing chart, evaluating patient and formulating plan 35 min
--- NOTE | 2018-11-11 12:53 | PN ---
Teaching Attending Note Name of Resident: Lyle Acevedo ATTENDING PHYSICIAN STATEMENT I saw and evaluated the patient. I reviewed the resident's note and discussed the case with the resident. I agree with the resident's findings and plan as documented. SUBJECTIVE: seen at 9 am unable to obtain hx as intubated . OBJECTIVE: intubated, sedated, looks uncomfortable. round equal pupils, reactive to light, no JVD. CV: Regular rhythm, tachycardia in 120s. no MRG Lungs: CTAB anteriorly Abd: soft, Nd, NT, hepatomegaly ( palpated and percussed 2 cm below the costal margin ) Ext: no edema no erythema ASSESSMENT AND PLAN: 63 y/o lady withhep C, ETOH abuse,COPD, liver Cirrhosis, HTN, bipolar and polysubstance abuse, who presented with slurred speech and R sided weakness . She was found to have bilateral CVAs and was intubated . 1- Acute /subacute b/l CVA. unclear etiology yet . Unable to assess neuro exam. - Tele to r/o A fib - Echo and CUS as no MRA of neck was done - Aspirin - permissive hypertension for today - neuro eval - hold statin due to LFTs abnormalities 2- Acute resp failure: CPAP trial , then extubation if possible 3- Type one odontoid Fx: - MRI reviewed. chronic Fx. - Neuro sx eval appreciated 4- ETOH withdrawal: off versed gtt for now - if extubated, then will start ativan in light of her LFTS abn - thiamine and folate daily 5- h/o heroin abuse, cont with methadone when off sedation 6- Alcoholic hepatitis , on background of cirrhosis : DF 2.4. - check Hep B serology -known to have Hep C - monitor and avoid hepato toxic meds 7- DVT PX
--- NOTE | 2018-11-11 13:37 | CON.NEURO ---
Consult Consult Specialty:: [facility] Referred by:: ER Reason for Consultation:: CVA - History of Present Illness History of Present Illness: 63 year sold woman with PMH HTN, COPD, hep C, liver cirrhosis, bipolar disorder, EtOH abuse, Came in with right sided wekaness Called me this am with ER Patient with reeuired intubation and C collar Patient MRI confirmed CVA Patient was not TPA candidate as ?? time of onset No fall I saw ligia patient in the MICU NIHSS 2 - History Source History Provided By: Medical Record Limitations to Obtaining History: Clinical Condition - Past Medical History Cardio/Vascular: Yes: HTN Pulmonary: Yes: COPD Hepatobiliary: Yes: Hepatitis C ...LMP: 10/24/04 Psych: Yes: Anxiety, Bipolar Musculoskeletal: Yes: Osteoarthritis - Alcohol/Substance Use Hx Alcohol Use: Yes Number of Drinks Daily: 10 (drinks approx. 1L vodka/day) History of Substance Use: reports: Heroin (currently on Methadone. ) - Smoking History Smoking history: Current every day smoker Have you smoked in the past 12 months: Yes Aproximately how many cigarettes per day: 20 (45 pack year history. ) - Social History Usual Living Arrangement: With Child ADL: Independent History of Recent Travel: No Home Medications - Allergies Allergies/Adverse Reactions: Allergies Allergy/AdvReac Type Severity Reaction Status Date / Time fish derived [Fish derived] Allergy Intermediate Difficulty Verified 11/10/18 21 :40 Breathing SEAFOOD Allergy Uncoded 11/10/18 21:40 - Home Medications Home Medications: Ambulatory Orders Carbamazepine [Tegretol -] 200 mg PO BID 11/11/18 Lisinopril 10 mg PO DAILY 11/11/18 Methadone [Dolophine -] 30 mg PO DAILY 11/11/18 Pantoprazole Sodium [Protonix] 40 mg PO DAILY 11/11/18 Topiramate 50 mg PO HS 11/11/18 Family Disease History - Family Disease History Family History: Unable to Obtain Review of Systems - Review of Systems Constitutional: reports: No Symptoms Eyes: reports: No Symptoms HENT: reports: No Symptoms Physical Exam-Neuro Vital Signs: Vital Signs Temperature 98.7 F 11/11/18 07:40 Pulse Rate 130 H 11/11/18 07:40 Respiratory Rate 19 11/11/18 11:42 Blood Pressure 200/112 H 11/11/18 07:40 O2 Sat by Pulse Oximetry (%) 100 03/06/19 11:42 Constitutional: Yes: Well Nourished Neck: Yes: WNL Labs: CBC, BMP 11/11/18 08:53 11/11/18 08:53 INR, PTT INR 1.05 (0.83-1.09) 11/10/18 22:40 - Neuro Exam Level Of Consciousness: Yes: Oriented to Person, Obtunded Eyes: Yes: PERRLA Speech: Slurred Dominant Hand: Right Cranial Nerves II-XII Intact: Yes DTR's: 1+ Left Bicep, 1+ Right Bicep, 3+ Right Brachioradialis, 3+ Left Achilles Babinski: Present Response to light touch: Abnormal Response to pain prick: Abnormal Motor Strength: 2/5: Right Arm, 3/5: Left Leg, Left Arm, Right Leg Gait: Deferred Imaging - Results Cat Scan: Image Reviewed MRI: Image Reviewed Problem List - Problems (1) CVA (cerebral vascular accident) Assessment/Plan: Acute Bilateral CVA Seizure DT prophyalxis 1. Sz precautions 2. Follwo up with neurosurgery 3. Librium protocol 4. Seziure precautions 5. EEG 6. Ativan prn 7. Ecotrin via NGT Code(s): I63.9 - CEREBRAL INFARCTION, UNSPECIFIED Qualifiers: CVA mechanism: embolism Precerebral and cerebral artery: unspecified cerebral artery Qualified Code(s): I63.40 - Cerebral infarction due to embolism of unspecified cerebral artery
[2018-11-11] MEDS: ENOXAPARIN NA (PORCINE) 40 MG/0.4 ML DISP.SYRIN SQ SCH (13:47)
[2018-11-11] MEDS: PANTOPRAZOLE SODIUM 40 MG VIAL IVPUSH SCH (13:47)
--- NOTE | 2018-11-11 14:13 | ECHO ---
Name: BEVERLY ESCALANTE Exam:Adult Echocardiogram Study Date: 11/11/2018 12:23 PM Age: 63 yrs Reason For Study: CVA Height: 61 in Weight: 106 lb BSA: 1.4 m2 BP: 141/89 mmHg MMode/2D Measurements & Calculations ACS: 1.4 cm LVOT diam: 1.9 cm LVLd ap4: 6.5 cm SV(MOD-sp4): 28.8 ml EDV(MOD-sp4): 46.8 ml LVLs ap4: 5.6 cm ESV(MOD-sp4): 18.0 ml LAV (MOD-bp): 35.2 ml TAPSE: 3.3 cm Doppler Measurements & Calculations Ao V2 max: 163.3 cm/sec LV V1 max P.6 mmHg Ao max P.7 mmHg LV V1 mean P.4 mmHg Ao V2 mean: 119.0 cm/sec LV V1 max: 107.7 cm/sec Ao mean P.4 mmHg LV V1 mean: 70.7 cm/sec Ao V2 VTI: 31.0 cm LV V1 VTI: 23.2 cm JUAN(I,D): 2.1 cm2 JUAN(V,D): 1.9 cm2 SV(LVOT): 65.6 ml TR max donald: 253.8 cm/sec TR max P.8 mmHg Med Peak E' Donald: 8.3 cm/sec Lat Peak E' Donald: 9.7 cm/sec Procedure A two-dimensional transthoracic echocardiogram with color flow and Doppler was performed. The study w as technically difficult with many images being suboptimal in quality. A two-dimensional transthoracic echocardiogram with color flow and Doppler was performed in limited views only. The study was non-aviva gnostic in quality. No definitive statements could be made about this echo due to extremely poor acoustic win dows. Left Ventricle The left ventricle is not well visualized. The left ventricular ejection fraction is normal. Regional wall motion abnormalities cannot be excluded due to limited visualization. Right Ventricle The right ventricle is not well visualized. Atria The left atrium is not well visualized. Right atrium not well visualized. Mitral Valve The mitral valve is not well visualized. Tricuspid Valve The tricuspid valve is not well visualized. Aortic Valve The aortic valve is not well visualized. Pulmonic Valve The pulmonic valve is not well visualized. Great Vessels The aortic root is not well visualized. Interpretation Summary The study was technically difficult with many images being suboptimal in quality. The left ventricle is not well visualized. A two-dimensional transthoracic echocardiogram with color flow and Doppler was performed in [facility] v iews only. The left ventricular ejection fraction is normal. Regional wall motion abnormalities cannot be excluded due to limited visualization. The left atrium is not well visualized. Right atrium not well visualized. The mitral valve is not well visualized. The tricuspid valve is not well visualized. The aortic valve is not well visualized. The pulmonic valve is not well visualized. The aortic root is not well visualized. The study was non-diagnostic in quality. No definitive statements could be made about this echo due t o extremely poor acoustic windows. MD Stevan Elaine 11/11/2018 02:12 PM
[2018-11-11] MEDS ORDERED: LISINOPRIL 10 MG TABLET (FP) PO SCH (14:15)
[2018-11-11] MEDS ORDERED: PANTOPRAZOLE 40 MG TABLET (FP) PO SCH (14:15)
--- NOTE | 2018-11-11 14:20 | CONSULT ---
Consult - text type - Consultation Consultation Note: NEUROSURGERY CONSULTATION Marcela Gan is a 63 year old female who has a PMHx significant for Hepatitis , Ethanol abuse and narcotic dependance who was noted to be acutely weak in her Right upper and lower extremity and also had slurred speech which prompted evaluation in the [facility] ER. CT suggests Type 2 odontoid fracture of unclear age with distraction, but no displacement. MRI suggests chronicity of fracture, however, subaxial spondylosis with congenital cervical narrowing and osteophytes, disc bulges and hypertrophic posterior longitudinal ligament/ ligamentum flavum which efface the CSF spaces around the Cervical cord and result in deformation of the cord worst at C45 and C56 with AP canal diameters of 8.0 and 7.9mm respectively. There is suggestion of prior degenerative changes , osteophytes and subaxial kyphosis. MRI brain concerning for acute/subacute bilateral lucunar infarcts. Patient intubated when encountered, however, was moving all extremities in struggle with her restraints. Difficult to ascertain lateralization from this exam. - Stroke workup per Dr. Nikita Brown Cervical collar as initial treatment for C2 fracture and stenosis - Patient may require C1-6 decompression and stabilization, however, any potential spine treatment will need to be balanced in consideration of multiple comorbid medical conditions. - GI/DVT prophylaxis - OOB with Physical Therapy
[2018-11-11] MEDS: FOLIC ACID 5 MG/1 ML SQ SCH (14:30)
--- NOTE | 2018-11-11 15:24 | PN ---
Physical Exam: SUBJECTIVE: Patient seen and examined no acute overnight events. vent settings overnight were 400 ml, 14 RR, FiO2 21% , PEEP 0. Kept on CPAP off sedation throughout the morning saturating well with adequate RSBI. Will be extubated today. OBJECTIVE: Vital Signs Period Temp Pulse Resp BP Sys/Pleitez Pulse Ox Last 24 Hr 97.7 F-98.7 F 89-144 14-19 144-231/47-155 93-100 GENERAL: The patient is intubated. HEAD: Normal with no signs of trauma. EYES: PERRL, sclera anicteric, conjunctiva clear. No ptosis. ENT: Ears normal, nares patent, oropharynx clear without exudates, moist mucous membranes. NECK: Trachea midline, full range of motion, supple. LUNGS: Breath sounds equal, clear to auscultation bilaterally, no wheezes, no crackles, no accessory muscle use. HEART: Regular rate and rhythm, S1, S2 without murmur, rub or gallop. ABDOMEN: Soft, nontender, nondistended, normoactive bowel sounds, no guarding, no rebound, no hepatosplenomegaly, no masses. EXTREMITIES: 2+ pulses, warm, well-perfused, no edema. NEUROLOGICAL: Cranial nerves II through XII grossly intact. Normal speech, gait not observed. PSYCH: Normal mood, normal affect. SKIN: Warm, dry, normal turgor, no rashes or lesions noted Laboratory Results - last 24 hr 11/10/18 11/10/18 11/10/18 22:40 22:40 22:40 WBC 3.6 L Corrected WBC (auto) RBC 3.61 Hgb 14.4 Hct 40.9 D MCV 113.2 H MCH 39.9 H MCHC 35.3 RDW 13.3 Plt Count 114 L D MPV 8.9 Absolute Neuts (auto) 2.0 Neutrophils % 56.4 Lymphocytes % 30.0 D Monocytes % 11.1 H Eosinophils % 1.4 D Basophils % 1.1 Nucleated RBC % 0 Platelet Estimate Decreased Platelet Comment No clumping noted Macrocytosis 2+ PT with INR 12.40 INR 1.05 Sodium 135 L Potassium 3.7 Chloride 100 Carbon Dioxide 25 Anion Gap 10 BUN 11 Creatinine 0.4 L Creat Clearance w eGFR > 60 Random Glucose 90 Hemoglobin A1c % Calcium 8.5 Phosphorus Magnesium 1.6 L Total Bilirubin 0.6 Direct Bilirubin AST 218 H ALT 98 H Alkaline Phosphatase 182 H Creatine Kinase 76 Troponin I < 0.02 Total Protein 8.2 Albumin 3.7 Triglycerides Cholesterol Total LDL Cholesterol HDL Cholesterol Urine Color Urine Appearance Urine pH Ur Specific [place] Urine Protein Urine Glucose (UA) Urine Ketones Urine Blood Urine Nitrite Urine Bilirubin Urine Urobilinogen Ur Leukocyte Esterase Carbamazepine Alcohol, Quantitative 11/10/18 11/10/18 11/10/18 22:40 22:40 23:10 WBC Corrected WBC (auto) RBC Hgb Hct MCV MCH MCHC RDW Plt Count MPV Absolute Neuts (auto) Neutrophils % Lymphocytes % Monocytes % Eosinophils % Basophils % Nucleated RBC % Platelet Estimate Platelet Comment Macrocytosis PT with INR INR Sodium Potassium Chloride Carbon Dioxide Anion Gap BUN Creatinine Creat Clearance w eGFR Random Glucose Hemoglobin A1c % Calcium Phosphorus Magnesium Total Bilirubin Direct Bilirubin AST ALT Alkaline Phosphatase Creatine Kinase Troponin I Total Protein Albumin Triglycerides Cholesterol Total LDL Cholesterol HDL Cholesterol Urine Color Ltyellow Urine Appearance Clear Urine pH 7.0 D Ur Specific [place] 1.008 L Urine Protein Negative Urine Glucose (UA) Negative Urine Ketones Negative Urine Blood Negative Urine Nitrite Negative Urine Bilirubin Negative Urine Urobilinogen 4.0 e.u/dl H Ur Leukocyte Esterase Negative Carbamazepine 3.5 Alcohol, Quantitative 178.7 H 11/11/18 11/11/18 11/11/18 08:53 08:53 08:53 WBC Cancelled Corrected WBC (auto) Cancelled RBC Cancelled Hgb Cancelled Hct Cancelled MCV Cancelled MCH Cancelled MCHC Cancelled RDW Cancelled Plt Count Cancelled MPV Cancelled Absolute Neuts (auto) Cancelled Neutrophils % Cancelled Lymphocytes % Cancelled Monocytes % Cancelled Eosinophils % Cancelled Basophils % Cancelled Nucleated RBC % Cancelled Platelet Estimate Cancelled Platelet Comment Cancelled Macrocytosis PT with INR INR Sodium 138 Potassium 3.6 Chloride 103 Carbon Dioxide 23 Anion Gap 12 BUN 10 Creatinine 0.4 L Creat Clearance w eGFR > 60 Random Glucose 92 Hemoglobin A1c % 4.9 Calcium 7.9 L Phosphorus 3.0 Magnesium 1.4 L Total Bilirubin 1.0 Direct Bilirubin 0.6 H AST 182 H ALT 84 H Alkaline Phosphatase 159 H Creatine Kinase Troponin I Total Protein 7.6 Albumin 3.4 Triglycerides 139 Cholesterol 247 H Total LDL Cholesterol 163 H HDL Cholesterol 67 H Urine Color Urine Appearance Urine pH Ur Specific [place] Urine Protein Urine Glucose (UA) Urine Ketones Urine Blood Urine Nitrite Urine Bilirubin Urine Urobilinogen Ur Leukocyte Esterase Carbamazepine Alcohol, Quantitative Active Medications Generic Name Dose Route Start Last Admin Trade Name Jamesq PRN Reason Stop Dose Admin Aspirin 81 mg 11/11/18 10:00 Ecotrin - PO DAILY [facility] Carbamazepine 200 mg 11/11/18 22:00 Tegretol - PO BID [facility] Chlorhexidine Gluconate 1 applic 11/11/18 22:00 Hibiclens For Decolonization - TP HS [facility] Enoxaparin Sodium 40 mg 11/11/18 10:00 11/11/18 13:47 Lovenox - SQ 40 mg DAILY [facility] Administration Folic Acid 1 mg 11/11/18 14:30 Folic Acid Injection - SQ DAILY [facility] Midazolam HCl 100 mg/ Sodium 100 mls @ 5 mls/hr 11/11/18 04:52 11/11/18 04:45 Chloride IVPB 15 mg/hr TITR JAY 15 mls/hr Titration Protocol 5 MG/HR Lisinopril 10 mg 11/11/18 14:15 Prinivil PO DAILY [facility] Methadone HCl 30 mg 11/11/18 14:15 Dolophine - PO DAILY [facility] Mupirocin 1 applic 11/11/18 10:00 11/11/18 10:45 Bactroban Ointment (For Decolonization) - NS 11/16/18 09:59 1 applic BID [facility] Administration Pantoprazole Sodium 40 mg 11/11/18 10:00 11/11/18 13:47 Protonix Iv IVPUSH 40 mg DAILY [facility] Administration Pantoprazole Sodium 40 mg 11/11/18 14:15 Protonix - PO DAILY [facility] Thiamine HCl 200 mg 11/12/18 10:00 Vitamin B1 Injection - IVPB DAILY [facility] Topiramate 50 mg 11/11/18 22:00 Topamax - PO [facility] ASSESSMENT/PLAN: 63F with a PMH of HTN, COPD, hep C, liver cirrhosis, bipolar disorder, EtOH abuse, who presents to the ER with one day right sided weakness and slurred speech found to have acute CVA on imaging and acute ETOH withdrawl , intubated and sedated ,admitted to ICU for further management. PLAN: NEURO: Acute CVA on MRI - not a TPA candidate Neurology consulted - recommend ASA and statin therapy Permissive HTN 220/120 Per MRI, the patient has a chronic dens fracture type 1. Per neurosurgery, will maintain c-collar Neurosurgery consulted; no acute intervention at this time Off sedation this AM ETOH withdrawal - benzo PRN and banana bag/thiamine/folate daily. PULM: Currently intubated at the following settings: 400 mL/14 RR/21% FiO2/PEEP 0 BD TX PRN Maintain SpO2% >90 Plan is to extubate today CV: Permissive HTN 220/120 Will restart home medications after extubation Sinus tachycardia on monitor - continue cardiac monitoring Echo and carotid doppler pending On statin and ASA GI: history of hep C, alcoholic liver cirrhosis elevated liver enzymes Dr. Obregon follows on outpatient basis, scheduled for EUS previously NPO PPI resume HEME/ONC: Chronic thrombocytopenia 2/2 ETOH abuse. PSYCH: hx of bipolar disorder - continue carbamazapine with level within normal limits on methadone 30 mg daily - will resume once extubated FEN: * No IVF * monitor e-lytes and replete PRN. * NPO for now. PPx: * Lovenox 40mg SQ Q12H * PPI while intubated. DISPO: We will continue monitoring in the ICU. Anticipated downgrade within 24- 48 hours Visit type - Emergency Visit Emergency Visit: Yes ED Registration Date: 11/10/18 Care time: The patient presented to the Emergency Department on the above date and was hospitalized for further evaluation of their emergent condition. - New Patient This patient is new to me today: Yes Date on this admission: 11/11/18 - Critical Care Critical Care patient: Yes Total Critical Care Time (in minutes): 36 Critical Care Statement: The care of this patient involved high complexity decision making to prevent further life threatening deterioration of the patient 's condition and/or to evaluate & treat vital organ system(s) failure or risk of failure. - Discharge Referral Referred to [facility] Med P.C.: No
[2018-11-11] MEDS: LORazepam 2 MG/ML SDV VIAL IVPUSH SCH ×2 (17:39→23:31)
--- NOTE | 2018-11-11 18:22 | PN ---
Physical Exam: SUBJECTIVE: Patient seen and examined at bedside in ICU. Extubated today. OBJECTIVE: Vital Signs Period Temp Pulse Resp BP Sys/Pleitez Pulse Ox Last 24 Hr 97.7 F-98.7 F 89-144 14-19 144-231/47-155 93-100 GENERAL: Intubated and sedated. HEAD: Atraumatic/Normocephalic EYES: Pinpoint pupils NECK: Hard collar LUNGS: CTA Anteriorly HEART: RRR nl s1s2 ABDOMEN: soft non distended, hypoactive bowel sounds EXTREMITIES: No CCE. NEUROLOGICAL: Intubated/Sedated. Will assess CN's tomorrow. Reflexes brisk. Laboratory Results - last 24 hr 11/10/18 11/10/18 11/10/18 22:40 22:40 22:40 WBC 3.6 L Corrected WBC (auto) RBC 3.61 Hgb 14.4 Hct 40.9 D MCV 113.2 H MCH 39.9 H MCHC 35.3 RDW 13.3 Plt Count 114 L D MPV 8.9 Absolute Neuts (auto) 2.0 Neutrophils % 56.4 Lymphocytes % 30.0 D Monocytes % 11.1 H Eosinophils % 1.4 D Basophils % 1.1 Nucleated RBC % 0 Platelet Estimate Decreased Platelet Comment No clumping noted Macrocytosis 2+ PT with INR 12.40 INR 1.05 Sodium 135 L Potassium 3.7 Chloride 100 Carbon Dioxide 25 Anion Gap 10 BUN 11 Creatinine 0.4 L Creat Clearance w eGFR > 60 Random Glucose 90 Hemoglobin A1c % Calcium 8.5 Phosphorus Magnesium 1.6 L Total Bilirubin 0.6 Direct Bilirubin AST 218 H ALT 98 H Alkaline Phosphatase 182 H Creatine Kinase 76 Troponin I < 0.02 Total Protein 8.2 Albumin 3.7 Triglycerides Cholesterol Total LDL Cholesterol HDL Cholesterol Urine Color Urine Appearance Urine pH Ur Specific [place] Urine Protein Urine Glucose (UA) Urine Ketones Urine Blood Urine Nitrite Urine Bilirubin Urine Urobilinogen Ur Leukocyte Esterase Carbamazepine Alcohol, Quantitative 11/10/18 11/10/18 11/10/18 22:40 22:40 23:10 WBC Corrected WBC (auto) RBC Hgb Hct MCV MCH MCHC RDW Plt Count MPV Absolute Neuts (auto) Neutrophils % Lymphocytes % Monocytes % Eosinophils % Basophils % Nucleated RBC % Platelet Estimate Platelet Comment Macrocytosis PT with INR INR Sodium Potassium Chloride Carbon Dioxide Anion Gap BUN Creatinine Creat Clearance w eGFR Random Glucose Hemoglobin A1c % Calcium Phosphorus Magnesium Total Bilirubin Direct Bilirubin AST ALT Alkaline Phosphatase Creatine Kinase Troponin I Total Protein Albumin Triglycerides Cholesterol Total LDL Cholesterol HDL Cholesterol Urine Color Ltyellow Urine Appearance Clear Urine pH 7.0 D Ur Specific [place] 1.008 L Urine Protein Negative Urine Glucose (UA) Negative Urine Ketones Negative Urine Blood Negative Urine Nitrite Negative Urine Bilirubin Negative Urine Urobilinogen 4.0 e.u/dl H Ur Leukocyte Esterase Negative Carbamazepine 3.5 Alcohol, Quantitative 178.7 H 11/11/18 11/11/18 11/11/18 08:53 08:53 08:53 WBC Cancelled Corrected WBC (auto) Cancelled RBC Cancelled Hgb Cancelled Hct Cancelled MCV Cancelled MCH Cancelled MCHC Cancelled RDW Cancelled Plt Count Cancelled MPV Cancelled Absolute Neuts (auto) Cancelled Neutrophils % Cancelled Lymphocytes % Cancelled Monocytes % Cancelled Eosinophils % Cancelled Basophils % Cancelled Nucleated RBC % Cancelled Platelet Estimate Cancelled Platelet Comment Cancelled Macrocytosis PT with INR INR Sodium 138 Potassium 3.6 Chloride 103 Carbon Dioxide 23 Anion Gap 12 BUN 10 Creatinine 0.4 L Creat Clearance w eGFR > 60 Random Glucose 92 Hemoglobin A1c % 4.9 Calcium 7.9 L Phosphorus 3.0 Magnesium 1.4 L Total Bilirubin 1.0 Direct Bilirubin 0.6 H AST 182 H ALT 84 H Alkaline Phosphatase 159 H Creatine Kinase Troponin I Total Protein 7.6 Albumin 3.4 Triglycerides 139 Cholesterol 247 H Total LDL Cholesterol 163 H HDL Cholesterol 67 H Urine Color Urine Appearance Urine pH Ur Specific [place] Urine Protein Urine Glucose (UA) Urine Ketones Urine Blood Urine Nitrite Urine Bilirubin Urine Urobilinogen Ur Leukocyte Esterase Carbamazepine Alcohol, Quantitative Active Medications Generic Name Dose Route Start Last Admin Trade Name Freq PRN Reason Stop Dose Admin Aspirin 81 mg 11/11/18 18:15 Asa - PO DAILY [facility] Chlorhexidine Gluconate 1 applic 11/11/18 22:00 Hibiclens For Decolonization - TP HS [facility] Enoxaparin Sodium 40 mg 11/11/18 10:00 11/11/18 13:47 Lovenox - SQ 40 mg DAILY [facility] Administration Folic Acid 1 mg 11/11/18 14:30 11/11/18 14:30 Folic Acid Injection - SQ Not Given DAILY [facility] Lorazepam 2 mg 11/11/18 15:45 11/11/18 17:39 Ativan Injection - IVPUSH 11/12/18 09:46 2 mg Q6H JAY Administration Lorazepam 1 mg 11/12/18 15:45 Ativan Injection - IVPUSH 11/14/18 09:46 Q6H JAY Methadone HCl 30 mg 11/11/18 14:15 Dolophine - PO DAILY [facility] Mupirocin 1 applic 11/11/18 10:00 11/11/18 10:45 Bactroban Ointment (For Decolonization) - NS 11/16/18 09:59 1 applic BID [facility] Administration Pantoprazole Sodium 40 mg 11/11/18 10:00 11/11/18 13:47 Protonix Iv IVPUSH 40 mg DAILY [facility] Administration Thiamine HCl 200 mg 11/12/18 10:00 Vitamin B1 Injection - IVPB DAILY [facility] ASSESSMENT/PLAN: Patient is a 63 year old female with past medical history of HTN, COPD, HCV, Liver cirrhosis, Bipolar disorder, ?pancreatic cyst, and EtOH abuse, presented to the ED after experiencing sudden weakness of the right leg with numbness of the right finger tips, and slurred speech that started about 3pm yesterday. #Acute CVA on MRI -Aspirin 300mg given at the ED once -Start ASA. Hold statin in light of transaminitis - versed drip D/C'ed -Keep MAP >110 for permissive HTN -Echo -Carotid doppler -Triglycerides 247, LDL 163 -Dr May on board #Cervical fracture -Neurosurgery (Dr Banerjee) consulted. MRI: the patient has a chronic dens fracture type 1 -C-collar in place. #EtOH abuse -CIWA protocol initiated. -Cannot give Librium in light of liver enzymes -Neuro checks -Seizure and aspiration precautions -Banana bag ordered -Thiamine 200mg IVPB daily -Folic acid 0.4 mg sq daily -Monitor and replete electrolytes #Polysubstance abuse (heroin and cocaine) -Currently on Methadone 30mg daily for detox -Follows up at [facility] #Hypertension -On Lisinopril/HCTZ 1012.5 daily -Hold BP meds for now -Would allow permissive HTN >220/120 -As per neuro, keep MAP >110 #Hx of HCV, Liver cirrhosis -Follows up with Dr. Obregon as outpatient -Scheduled for EUS for ?pancreatic/biliary duct cyst -Elevated LFTs likely multifactorial (HCV, cirrhosis, EtOH abuse) -RUQ ultrasound once more stable -Hep B Serology pending #Bipolar D/O -On Carbamazepine 200mg BID -Topiramate 50mg Po HS #FEN -No standing fluids per ICU team -Monitor Electrolytes -NPO for now. #Prophylaxis -Lovenox 40mg sq daily -GI: IV Protonix 40mg daily #Dispo ICU Visit type - Emergency Visit Emergency Visit: Yes ED Registration Date: 11/10/18 Care time: The patient presented to the Emergency Department on the above date and was hospitalized for further evaluation of their emergent condition. - New Patient This patient is new to me today: Yes Date on this admission: 11/11/18 - Critical Care Critical Care patient: Yes Total Critical Care Time (in minutes): 35 Critical Care Statement: The care of this patient involved high complexity decision making to prevent further life threatening deterioration of the patient 's condition and/or to evaluate & treat vital organ system(s) failure or risk of failure. - Discharge Referral Referred to [facility].: No
[2018-11-11] MEDS ORDERED: carBAMazepine 200 MG TABLET PO SCH (22:00)
[2018-11-11] MEDS ORDERED: TOPIRAMATE 25 MG TABLET (FP) PO SCH (22:00)
[2018-11-11] MEDS ORDERED: CHLORHEXIDINE GLUCONATE 4% CLEANSER FOR DECOLONIZATION TP SCH (22:00)
[2018-11-12] MEDS: ASPIRIN 81 MG CHEWABLE TABLETS PO SCH ×2 (04:33→09:02)
[2018-11-12] MEDS: LORazepam 2 MG/ML SDV VIAL IVPUSH SCH ×5 (04:33→23:43)
[2018-11-12 06:06] LABS: HEPATITIS B CORE ANTIBODY,IGM Negative (Negative)
[2018-11-12 06:32] LABS: HEMATOCRIT 37.2 % (32.4-45.2); HEMOGLOBIN 13.2 GM/dL (10.7-15.3); MCHC 35.6 g/dl (32.0-36.0); MEAN CELL VOLUME 112.5 fl (80-96); MEAN PLT VOLUME 9.2 fl (7.5-11.1); PLATELET COUNT 82 K/MM3 (134-434); RBC 3.31 M/mm3 (3.60-5.2); RDW 12.9 % (11.6-15.6); WHITE BLOOD COUNT 4.2 K/mm3 (4.0-10.0)
[2018-11-12 07:00] LABS: ALBUMIN 3.2 g/dl (3.4-5.0); ALK PHOS 141 U/L (45-117); ANION GAP 8 MMOL/L (8-16); BILIRUBIN,TOTAL 1.4 mg/dL (0.2-1); BLOOD UREA NITROGEN 16 mg/dL (7-18); CHLORIDE 102 mmol/L (98-107); CO2 28 mmol/L (21-32); CREATININE 0.5 mg/dL (0.55-1.3); GLUCOSE,RANDOM 121 mg/dL (74-106); MAGNESIUM 1.4 mg/dL (1.8-2.4); PHOSPHOROUS 2.7 mg/dL (2.5-4.9); POTASSIUM 3.9 mmol/L (3.5-5.1); SGOT/AST 152 U/L (15-37); SGPT/ALT 74 U/L (13-61); SODIUM 137 mmol/L (136-145)
[2018-11-12] MEDS ORDERED: MAGNESIUM SULF 50% (8.12 MEQ/2 ML-1 GM VIAL) IVPB ONE (08:12)
[2018-11-12] MEDS ORDERED: LACTATED RINGERS SOLUTION 1,000 ML/1,000 ML INFUS.BAG IV SCH (08:15)
[2018-11-12] MEDS ORDERED: LORazepam 2 MG/ML SDV VIAL IVPUSH PRN (08:55)
[2018-11-12] MEDS: MUPIROCIN 2% TOPICAL OINTMENT FOR DECOLONIZATION NS SCH (09:02)
[2018-11-12] MEDS: ENOXAPARIN NA (PORCINE) 40 MG/0.4 ML DISP.SYRIN SQ SCH (09:03)
[2018-11-12] MEDS: PANTOPRAZOLE SODIUM 40 MG VIAL IVPUSH SCH (09:04)
[2018-11-12] MEDS: FOLIC ACID 5 MG/1 ML SQ SCH (10:00)
[2018-11-12] MEDS ORDERED: THIAMINE HCL 200 MG/2 ML VIAL IVPB SCH (10:00)
[2018-11-12] MEDS ORDERED: LISINOPRIL 10 MG TABLET (FP) PO SCH (10:00)
[2018-11-12] MEDS ORDERED: SODIUM CHLORIDE 1,000 ML IV SCH ×2 (11:00→20:34)
--- NOTE | 2018-11-12 11:10 | CONSULT ---
Admitting History and Physical - Primary Care Physician PCP: Jeff Yeboah - Admission History of Present Illness: Patient is a 63 year old female with past medical history of HTN, COPD, HCV, Liver cirrhosis, Bipolar disorder, ?pancreatic cyst, and EtOH abuse, presented to the ED after experiencing sudden weakness of the right leg with numbness of the right finger tips, and slurred speech. Pt required intubated. Extubated yesterday. Cough response with 3 oz water test. MRI brain- acute/subacute bilateral lucunar infarcts. History Source: Medical Record Limitations to Obtaining History: Clinical Condition - Past Medical History Cardiovascular: Yes: HTN Pulmonary: Yes: COPD Hepatobiliary: Yes: Hepatitis C ...LMP: 10/24/04 ...: No Heme/Onc: Yes: Thrombocytopenia (2/2 chronic ETOH abuse. ) Psych: Yes: Anxiety, Bipolar Musculoskeletal: Yes: Osteoarthritis - Smoking History Smoking history: Current every day smoker Have you smoked in the past 12 months: Yes Aproximately how many cigarettes per day: 20 (45 pack year history. ) - Alcohol/Substance Use Hx Alcohol Use: Yes Number of Drinks Daily: 10 (drinks approx. 1L vodka/day) History of Substance Use: reports: Heroin (currently on Methadone. ) - Social History ADL: Independent History of Recent Travel: No History - Admission Reason For Visit: ODONTOID FRACTURE,CEREBROVASCULAR ACCIDENT (CVA) - Diagnostics X-ray: Report Reviewed CT Scan: Report Reviewed MRI: Report Reviewed - General Mental Status: Awake and Alert, Able to Follow Commands, Vague (rambles, rapidly with impaired intelligibilty.) Attention: Distractible, Mild Impairment Ability to Follow Directions: Fair Head/Neck Control: Fair - Hearing Hearing: Normal Speech Evaluation - Communication Primary Language: UNKNOWN Communication: Yes: Simple Responses Oral Expression Ability: Yes: Moderate Impairment, Severe Impairment - Speech Production Able to Make Needs Known: Yes: Moderately Impaired, Severely Impaired Intelligibility: Yes: Moderately Impaired, Severely Impaired - Speech Characteristics Voice Loudness: Moderately Soft/Quiet, Severely Soft/Quiet, Excessive Variation , Hypophonia Voice Phonatory-based Quality: Yes: Normal (when audible) Speech Pattern: Impaired Speech Clarity: < 25% Nasal Resonance: Normal Articulation: Yes: Precise Rate of Speech: Too Fast Voice, Other Observations: Yes: Inadequate Breath Support - Language/Auditory Comprehension Follows: Yes: 1 Stage Simple Commands - Language/Verbal Expression Able to Communicate Wants and Needs: Yes: Moderately Impaired, Severely Impaired - Swallow Evaluation/Bedside Assessment Current Nutritional Intake: NG Tube (in place for medication) Facial Symmetry at Rest: Symmetrical Pucker Lips: Weak Smile: Weak Lingual Movement: Symmetric Laryngeal Movement: Able to Palpate, Reduced Excursion, Labored,delay initiation , Reduced Velocity Labial Seal: WFL Timing of Swallow: Delayed Coughing/Throat Clear: No (no but labored inspiration/weak expiration.unable to cough to protect airwa) Recommendations - Speech Evaluation, Impression/Plan Impression: Weak respiration, detox, impaired breath support for speech and to protect airway of aspiration. NGT in place for medication. - Dysphagia Impressions/Plan Swallowing Skills: Impaired Dysphagia Impressions: Moderate Impairment, Risk of Aspiration *Silent aspiration: cannot be R/O at bedside Recommendations: Modified Barium Swallow (when stronger and medically stable- 11/13?), Other (NGT feedings until PO intake can be tolerated safely, if not medically contraindicated) - Recommendations Diet Consistency: NPO Liquids: NPO
--- NOTE | 2018-11-12 11:29 | PN ---
Teaching Attending Note Name of Resident: Lyle Acevedo ATTENDING PHYSICIAN STATEMENT I saw and evaluated the patient. I reviewed the resident's note and discussed the case with the resident. I agree with the resident's findings and plan as documented. SUBJECTIVE: no events over night. No fever or chills . denies pain, limited history due to condition OBJECTIVE: Restless, awake, answers some questions, slurred speech, low toned voice.knows location, age, and year. collar on dry MM CV: RRR, no MRG Lungs; CTAB Abd: soft, NT, ND , NL Bs , Liver 2cm below costal margin Ext : no edema or erythema, has tremor Neuro: very limited due to poor cooperation . no facial droop, EOMI, nl facial sensation , round pupils, reactive to light, equal . strength: limited : can't comment on proximal strength but biceps 4/5 b/l, triceps 4/5 b/l, hand ssis architect slightly weaker on L . quadriceps 5/5 , ankle dorsiflexion and plantar flexion 5/5 . sensation to light touch is decreased in L leg, and can't comment on upper extremities Reflexes: 2+ biceps and knee jerk b/l. ASSESSMENT AND PLAN: 63 y/o lady with hep C, ETOH abuse,COPD, liver Cirrhosis, HTN, bipolar and polysubstance abuse, who presented with slurred speech and R sided weakness . She was found to have bilateral CVAs and was intubated . 1- Acute /subacute b/l CVA. unclear etiology yet . neuro exam as above - cont tele - echo franky lneed to be repeated when her withdrawal sx are better controlled - cont ASA - tight blood pressure control - cont to hold statin - CUS pending 2-Thrombocytopenia: likely due to alcohol use, and cirrhosis. - hold lovenox - trend plt level, if > 50% drop from initial, will check HIT Abs 3- Chronic Type one odontoid Fx: - appreciate neuro sx help. Will need surgical intervention whenn stable. any transient hypotension after an acute stroke is not in her favor 4- ETOH withdrawal: -Cont ativan scheduled and PRN - thiamine and folate daily 5- h/o heroin abuse, cont with methadone. dose was confirmed 6- Alcoholic hepatitis , on background of cirrhosis : LFTs improved - cont to monitor - follow Hep B serology 7- DVT PX : dc lovenox and start Scds due thrombocytopenia Speech eval. start IVF NG tube in place for meds Transfer to tele
[2018-11-12] MEDS ORDERED: LISINOPRIL 10 MG TABLET (FP) GT SCH (11:38)
[2018-11-12] MEDS ORDERED: METHADONE HCL 10 MG TABLET PO SCH (12:45)
[2018-11-12] MEDS ORDERED: PT OWN MED DRAWER 7, Y5N ONE (13:04)
--- NOTE | 2018-11-12 13:07 | PN ---
Teaching Attending Note Name of Resident: Bhavik Schmidt ATTENDING PHYSICIAN STATEMENT I saw and evaluated the patient. I reviewed the resident's note and discussed the case with the resident. I agree with the resident's findings and plan as documented. SUBJECTIVE: Pt seen and examined in the ICU. Extubated yesterday without incident. Remains in cervical collar. Sinus tachycardia on telemetry. OBJECTIVE: Vital Signs Period Temp Pulse Resp BP Sys/Pleitez Pulse Ox Last 24 Hr 98.6 F-100.0 F 94-127 18-28 142-176/65-95 97-100 Intake & Output 11/09/18 11/10/18 11/11/18 11/12/18 23:59 23:59 23:59 23:59 Output Total 1800 400 Balance -1800 -400 Weight 48.081 kg 48.8 kg 46.357 kg Gen: mildly tachypneic at rest Heart: tachycardic, regular Lung: distant breath sounds Abd: soft, nontender Ext: no edema CBC, BMP 11/12/18 05:30 11/12/18 05:30 Active Medications Aspirin (Asa -) 81 mg PO DAILY [facility] Last Admin: 11/12/18 09:02 Dose: 81 mg Carbamazepine (Tegretol Oral Suspension -) 200 mg GT BID [facility] Chlorhexidine Gluconate (Hibiclens For Decolonization -) 1 applic TP HS [facility] Last Admin: 11/11/18 23:31 Dose: 1 applic Folic Acid (Folic Acid Injection -) 1 mg SQ DAILY [facility] Last Admin: 11/11/18 14:30 Dose: Not Given Lactated Ringer's (Lactated Ringers Solution) 1,000 ml in 1,000 mls @ 83 mls/ hr IV [facility] Stop: 11/14/18 20:18 Last Admin: 11/12/18 10:30 Dose: 83 mls/hr Sodium Chloride (Normal Saline -) 1,000 mls @ 75 mls/hr IV [facility] Lisinopril (Prinivil) 10 mg GT DAILY [facility] Lorazepam (Ativan Injection -) 2 mg IVPUSH Q6H [facility] Stop: 11/13/18 05:46 Last Admin: 11/12/18 12:54 Dose: 2 mg Lorazepam (Ativan Injection -) 2 mg IVPUSH Q6H PRN PRN Reason: WITHDRAWAL(CONT SUBST) Methadone HCl (Dolophine -) 30 mg PO DAILY [facility] Mupirocin (Bactroban Ointment (For Decolonization) -) 1 applic NS BID [facility] Stop: 11/16/18 09:59 Last Admin: 11/12/18 09:02 Dose: 1 applic Pantoprazole Sodium (Protonix Iv) 40 mg IVPUSH DAILY [facility] Last Admin: 11/12/18 09:04 Dose: 40 mg Thiamine HCl (Vitamin B1 Injection -) 200 mg IVPB DAILY [facility] Last Admin: 11/12/18 09:04 Dose: 200 mg Topiramate (Topamax -) 50 mg NR HS [facility] ASSESSMENT AND PLAN: Acute/Subacute Lacunar CVA s/p Acute Respiratory Failure Alcohol Abuse/Intoxication Liver Cirrhosis COPD Hep C HTN - ativan for alcohol withdrawal - IVF - ASA - inhaled bronchodilators - carotid dopplers - swallow eval - telemetry to r/o arrhythmias critical care time spent in reviewing chart, evaluating patient and formulating plan 35 min
[2018-11-12] MEDS ORDERED: MAGNESIUM SULF 50% (8.12 MEQ/2 ML-1 GM VIAL) ONE (13:24)
[2018-11-12 13:30] VITALS: BMI 19.5
--- NOTE | 2018-11-12 13:47 | PN ---
Physical Exam: SUBJECTIVE: Patient seen and examined at bedside. Extubated yesterday. OBJECTIVE: Vital Signs Period Temp Pulse Resp BP Sys/Pleitez Pulse Ox Last 24 Hr 98.6 F-100.0 F 94-127 18-28 142-176/65-95 97-100 GENERAL: Anxious, Moderate distress. HEAD: Atraumatic/Normocephalic EYES: PERRLA EOMI Sclera Clear NECK: Hard collar LUNGS: CTA Anteriorly HEART: Tachycardic nl s1s2 ABDOMEN: soft non distended, hypoactive bowel sounds EXTREMITIES: No CCE. NEUROLOGICAL: Left upper extremity strength 3/5. Decreased sensation left lower extremity. Right side strength 5/5 . Sensation intact as well R Side. Laboratory Results - last 24 hr 11/11/18 11/12/18 11/12/18 09:50 05:30 05:30 WBC 4.2 RBC 3.31 L Hgb 13.2 Hct 37.2 MCV 112.5 H MCH 40.0 H MCHC 35.6 RDW 12.9 Plt Count 82 L D MPV 9.2 Sodium 137 Potassium 3.9 Chloride 102 Carbon Dioxide 28 Anion Gap 8 BUN 16 Creatinine 0.5 L Creat Clearance w eGFR > 60 Random Glucose 121 H Calcium 8.0 L Phosphorus 2.7 Magnesium 1.4 L Total Bilirubin 1.4 H AST 152 H ALT 74 H Alkaline Phosphatase 141 H Total Protein 8.0 Albumin 3.2 L Hep B Core IgM Ab Negative Active Medications Generic Name Dose Route Start Last Admin Trade Name Freq PRN Reason Stop Dose Admin Aspirin 81 mg 11/11/18 18:15 11/12/18 09:02 Asa - PO 81 mg DAILY JAY Administration Carbamazepine 200 mg 11/12/18 22:00 Tegretol Oral Suspension - GT BID JAY Chlorhexidine Gluconate 1 applic 11/11/18 22:00 11/11/18 23:31 Hibiclens For Decolonization - TP 1 applic HS JAY Administration Folic Acid 1 mg 11/11/18 14:30 11/11/18 14:30 Folic Acid Injection - SQ Not Given DAILY JAY Lactated Ringer's 1,000 ml in 1,000 mls @ 83 mls/hr 11/12/18 08:15 11/12/18 10:30 Lactated Ringers Solution IV 11/14/18 20:18 83 mls/hr ASDIR JAY Administration Sodium Chloride 1,000 mls @ 75 mls/hr 11/12/18 11:00 11/12/18 13:23 Normal Saline - IV Not Given ASDIR JAY Lisinopril 10 mg 11/12/18 11:38 Prinivil GT DAILY JAY Lorazepam 2 mg 11/12/18 11:45 11/12/18 12:54 Ativan Injection - IVPUSH 11/13/18 05:46 2 mg Q6H JAY Administration Lorazepam 2 mg 11/12/18 11:48 Ativan Injection - IVPUSH Q6H PRN WITHDRAWAL(CONT SUBST) Methadone HCl 30 mg 11/12/18 12:45 11/12/18 13:22 Dolophine - PO 30 mg DAILY JAY Administration Mupirocin 1 applic 11/11/18 10:00 11/12/18 09:02 Bactroban Ointment (For Decolonization) - NS 11/16/18 09:59 1 applic BID JAY Administration Pantoprazole Sodium 40 mg 11/11/18 10:00 11/12/18 09:04 Protonix Iv IVPUSH 40 mg DAILY JAY Administration Thiamine HCl 200 mg 11/12/18 10:00 11/12/18 09:04 Vitamin B1 Injection - IVPB 200 mg DAILY JAY Administration Topiramate 50 mg 11/12/18 22:00 Topamax - NR HS JAY ASSESSMENT/PLAN: Patient is a 63 year old female with past medical history of HTN, COPD, HCV, Liver cirrhosis, Bipolar disorder, ?pancreatic cyst, and EtOH abuse, presented to the ED after experiencing sudden weakness of the right leg with numbness of the right finger tips, and slurred speech that started about 3pm yesterday. #Acute CVA on MRI -Aspirin 300mg given at the ED once -Start ASA. Hold statin in light of transaminitis - versed drip D/C'ed -Keep MAP >110 for permissive HTN -Echo---Very poor visualization. EF WNL .Will need to repeat once patient less restless. -Carotid doppler -Triglycerides 247, LDL 163 -Dr May on board #Cervical fracture -Neurosurgery (Dr Banerjee) consulted. MRI: the patient has a chronic dens fracture type 1 -C-collar in place. No surgery in #EtOH abuse -CIWA protocol initiated. Pt given Ativan 1 MG this am due to agitation. Ativan switched to 2 mg Q6H JAY -Cannot give Librium in light of liver enzymes -Neuro checks -Seizure and aspiration precautions -Banana bag ordered -Thiamine 200mg IVPB daily -Folic acid 0.4 mg sq daily -Monitor and replete electrolytes #Polysubstance abuse (heroin and cocaine) -Currently on Methadone 30mg daily for detox -Follows up at [facility] #Hypertension -On Lisinopril/HCTZ 10/12.5 daily -Hold BP meds for now -Would allow permissive HTN >220/120 -As per neuro, keep MAP >110 #Hx of HCV, Liver cirrhosis -Follows up with Dr. Obregon as outpatient -Scheduled for EUS for ?pancreatic/biliary duct cyst -Elevated LFTs likely multifactorial (HCV, cirrhosis, EtOH abuse) -RUQ ultrasound once more stable -Hep B Serology pending -LFT's trending downwards. AST/ALT 152, 74 respectively. 182, 84 yesterday. #Bipolar D/O -On Carbamazepine 200mg BID -Topiramate 50mg PO HS #FEN -NS@75cc/hr -Monitor Electrolytes -NPO for now. #Prophylaxis -Lovenox 40mg sq daily -GI: IV Protonix 40mg daily #Dispo will transfer to tele tomorrow Visit type - Emergency Visit Emergency Visit: Yes ED Registration Date: 11/10/18 Care time: The patient presented to the Emergency Department on the above date and was hospitalized for further evaluation of their emergent condition. - New Patient This patient is new to me today: No - Critical Care Critical Care patient: No - Discharge Referral Referred to [facility] Med P.C.: No
--- NOTE | 2018-11-12 13:58 | PN ---
Physical Exam: SUBJECTIVE: Patient seen and examined patient was seen and examined by me. patient was extubated yesterday and maintains adequate oxygenation on nasal canula. c-collar remaining in place per neurosurgery. patient failed bedside swallow test with me; will have formal evaluation. patient had minor withdrawal symptoms today; changed her ativan 1 mg q6hr to ativan 2 mg q6hr with a prn order. denies symptomatic complaints. OBJECTIVE: Vital Signs Period Temp Pulse Resp BP Sys/Pleitez Pulse Ox Last 24 Hr 98.6 F-100.0 F 94-127 18-28 142-176/65-95 97 GENERAL: The patient is awake, alert, and oriented to self, in no acute distress. HEAD: Normal with no signs of trauma. EYES: PERRL, extraocular movements intact, sclera anicteric, conjunctiva clear. No ptosis. ENT: Ears normal, nares patent, oropharynx clear without exudates, moist mucous membranes. c-collar in place. NECK: Trachea midline, full range of motion, supple. LUNGS: Breath sounds equal, clear to auscultation bilaterally, no wheezes, no crackles, no accessory muscle use. HEART: Regular rate and rhythm, S1, S2 without murmur, rub or gallop. ABDOMEN: Soft, nontender, nondistended, normoactive bowel sounds, no guarding, no rebound, no hepatosplenomegaly, no masses. EXTREMITIES: 2+ pulses, warm, well-perfused, no edema. NEUROLOGICAL: Cranial nerves II through XII grossly intact. Normal speech, gait not observed. PSYCH: Normal mood, normal affect. SKIN: Warm, dry, normal turgor, no rashes or lesions noted Laboratory Results - last 24 hr 11/11/18 11/12/18 11/12/18 09:50 05:30 05:30 WBC 4.2 RBC 3.31 L Hgb 13.2 Hct 37.2 MCV 112.5 H MCH 40.0 H MCHC 35.6 RDW 12.9 Plt Count 82 L D MPV 9.2 Sodium 137 Potassium 3.9 Chloride 102 Carbon Dioxide 28 Anion Gap 8 BUN 16 Creatinine 0.5 L Creat Clearance w eGFR > 60 Random Glucose 121 H Calcium 8.0 L Phosphorus 2.7 Magnesium 1.4 L Total Bilirubin 1.4 H AST 152 H ALT 74 H Alkaline Phosphatase 141 H Total Protein 8.0 Albumin 3.2 L Hep B Core IgM Ab Negative Active Medications Generic Name Dose Route Start Last Admin Trade Name Freq PRN Reason Stop Dose Admin Aspirin 81 mg 11/11/18 18:15 11/12/18 09:02 Asa - PO 81 mg DAILY JAY Administration Carbamazepine 200 mg 11/12/18 22:00 Tegretol Oral Suspension - GT BID JAY Chlorhexidine Gluconate 1 applic 11/11/18 22:00 11/11/18 23:31 Hibiclens For Decolonization - TP 1 applic HS JAY Administration Folic Acid 1 mg 11/11/18 14:30 11/11/18 14:30 Folic Acid Injection - SQ Not Given DAILY JAY Lactated Ringer's 1,000 ml in 1,000 mls @ 83 mls/hr 11/12/18 08:15 11/12/18 10:30 Lactated Ringers Solution IV 11/14/18 20:18 83 mls/hr ASDIR JAY Administration Sodium Chloride 1,000 mls @ 75 mls/hr 11/12/18 11:00 11/12/18 13:23 Normal Saline - IV Not Given ASDIR JAY Lisinopril 10 mg 11/12/18 11:38 Prinivil GT DAILY JAY Lorazepam 2 mg 11/12/18 11:45 11/12/18 12:54 Ativan Injection - IVPUSH 11/13/18 05:46 2 mg Q6H JAY Administration Lorazepam 2 mg 11/12/18 11:48 Ativan Injection - IVPUSH Q6H PRN WITHDRAWAL(CONT SUBST) Methadone HCl 30 mg 11/12/18 12:45 11/12/18 13:22 Dolophine - PO 30 mg DAILY JAY Administration Mupirocin 1 applic 11/11/18 10:00 11/12/18 09:02 Bactroban Ointment (For Decolonization) - NS 11/16/18 09:59 1 applic BID JAY Administration Pantoprazole Sodium 40 mg 11/11/18 10:00 11/12/18 09:04 Protonix Iv IVPUSH 40 mg DAILY JAY Administration Thiamine HCl 200 mg 11/12/18 10:00 11/12/18 09:04 Vitamin B1 Injection - IVPB 200 mg DAILY JAY Administration Topiramate 50 mg 11/12/18 22:00 Topamax - NR HS JAY ASSESSMENT/PLAN: 63F with a PMH of HTN, COPD, hep C, liver cirrhosis, bipolar disorder, EtOH abuse, who presents to the ER with one day right sided weakness and slurred speech found to have acute CVA on imaging and acute ETOH withdrawl , intubated and sedated ,admitted to ICU for further management. PLAN: NEURO: Acute CVA on MRI - not a TPA candidate Neurology consulted - recommend ASA and statin therapy Permissive HTN 220/120 Per MRI, the patient has a chronic dens fracture type 1. Per neurosurgery, will maintain c-collar Neurosurgery consulted; no acute intervention at this time Off sedation this AM ETOH withdrawal - benzo PRN and banana bag/thiamine/folate daily. PULM: Currently intubated at the following settings: 400 mL/14 RR/21% FiO2/PEEP 0 BD TX PRN Maintain SpO2% >90 Plan is to extubate today CV: Permissive HTN 220/120 Will restart home medications after extubation Sinus tachycardia on monitor - continue cardiac monitoring Echo and carotid doppler pending On statin and ASA GI: history of hep C, alcoholic liver cirrhosis elevated liver enzymes Dr. Obregon follows on outpatient basis, scheduled for EUS previously NPO PPI resume HEME/ONC: Chronic thrombocytopenia 2/2 ETOH abuse. PSYCH: hx of bipolar disorder - continue carbamazapine with level within normal limits on methadone 30 mg daily - will resume once extubated FEN: * No IVF * monitor e-lytes and replete PRN. * NPO for now. PPx: * Lovenox 40mg SQ Q12H * PPI while intubated. DISPO: We will continue monitoring in the ICU. Anticipated downgrade within 24- 48 hours Visit type - Emergency Visit Emergency Visit: Yes ED Registration Date: 11/10/18 Care time: The patient presented to the Emergency Department on the above date and was hospitalized for further evaluation of their emergent condition. - New Patient This patient is new to me today: No - Critical Care Critical Care patient: Yes Total Critical Care Time (in minutes): 36 Critical Care Statement: The care of this patient involved high complexity decision making to prevent further life threatening deterioration of the patient 's condition and/or to evaluate & treat vital organ system(s) failure or risk of failure. - Discharge Referral Referred to [facility] Med P.C.: No
--- NOTE | 2018-11-12 13:59 | PN ---
Progress Note (short form) - Note Progress Note: Patient awake and alert. Interactive, but not speaking. She is able to protrude her tongue on exam and is moving all extremities in her restraints. She answers yes and no questions. At this point, she has a Type 2 odontoid fracture and Cervical stenosis, however , her CVA and substance abuse require more urgent medical attention. Spine pathology is best addressed with Cervical collar at this time and surgery would not appear to be prudent at this time.
[2018-11-12] MEDS ORDERED: LORazepam 2 MG/ML SDV VIAL IVPUSH SCH (15:45)
--- NOTE | 2018-11-12 20:28 | PN ---
Progress Note, Physician History of Present Illness: events noted Chart reviewed Patient seen in the medical ICU with the daughter at the bedside No clinical seizure On seizure precautions Still on the collar Denies any pain follows commands - Current Medication List Current Medications: Active Medications Acetaminophen (Tylenol -) 500 mg PO Q6H PRN PRN Reason: FEVER Aspirin (Asa -) 81 mg PO DAILY [facility] Last Admin: 11/12/18 09:02 Dose: 81 mg Carbamazepine (Tegretol Oral Suspension -) 200 mg GT BID [facility] Chlorhexidine Gluconate (Hibiclens For Decolonization -) 1 applic TP HS [facility] Last Admin: 11/11/18 23:31 Dose: 1 applic Folic Acid (Folic Acid Injection -) 1 mg SQ DAILY [facility] Last Admin: 11/12/18 10:00 Dose: 1 mg Lactated Ringer's (Lactated Ringers Solution) 1,000 ml in 1,000 mls @ 83 mls/ hr IV ASDIR [facility] Stop: 11/14/18 20:18 Last Admin: 11/12/18 10:30 Dose: 83 mls/hr Sodium Chloride (Normal Saline -) 1,000 mls @ 75 mls/hr IV ASDIR [facility] Last Admin: 11/12/18 13:23 Dose: Not Given Lisinopril (Prinivil) 10 mg GT DAILY [facility] Lorazepam (Ativan Injection -) 2 mg IVPUSH Q6H [facility] Stop: 11/13/18 05:46 Last Admin: 11/12/18 17:54 Dose: 2 mg Lorazepam (Ativan Injection -) 2 mg IVPUSH Q6H PRN PRN Reason: WITHDRAWAL(CONT SUBST) Methadone HCl (Dolophine -) 30 mg PO DAILY [facility] Last Admin: 11/12/18 13:22 Dose: 30 mg Mupirocin (Bactroban Ointment (For Decolonization) -) 1 applic NS BID [facility] Stop: 11/16/18 09:59 Last Admin: 11/12/18 09:02 Dose: 1 applic Pantoprazole Sodium (Protonix Iv) 40 mg IVPUSH DAILY [facility] Last Admin: 11/12/18 09:04 Dose: 40 mg Thiamine HCl (Vitamin B1 Injection -) 200 mg IVPB DAILY [facility] Last Admin: 11/12/18 09:04 Dose: 200 mg Topiramate (Topamax -) 50 mg NR HS JAY - Objective Vital Signs: Vital Signs Temperature 98 F 11/12/18 20:00 Pulse Rate 104 H 11/12/18 20:00 Respiratory Rate 16 11/12/18 20:00 Blood Pressure 165/101 H 11/12/18 20:00 O2 Sat by Pulse Oximetry (%) 98 11/12/18 09:00 Constitutional: Yes: Well Nourished Eyes: Yes: WNL HENT: Yes: WNL Neurological: Yes: Alert, Oriented, Babinski negative ...Motor Strength: WNL Labs: CBC, BMP 11/12/18 05:30 11/12/18 05:30 INR, PTT INR 1.05 (0.83-1.09) 11/10/18 22:40 Problem List - Problems (1) CVA (cerebral vascular accident) Assessment/Plan: seizure precautions. 2. Neurologically can go to the floor. 3. EEG results. 4. Ativan when necessary seizure. 5. Continue thiamine. 6. SCDs. 7. Physical therapy Code(s): I63.9 - CEREBRAL INFARCTION, UNSPECIFIED Qualifiers: CVA mechanism: embolism Precerebral and cerebral artery: unspecified cerebral artery Qualified Code(s): I63.40 - Cerebral infarction due to embolism of unspecified cerebral artery
[2018-11-12] MEDS ORDERED: CHLORHEXIDINE GLUCONATE 4% CLEANSER FOR DECOLONIZATION TP SCH (22:00)
[2018-11-12] MEDS ORDERED: MUPIROCIN 2% TOPICAL OINTMENT FOR DECOLONIZATION NS SCH (22:00)
[2018-11-12] MEDS: TOPIRAMATE 25 MG TABLET (FP) NR SCH (22:08)
[2018-11-12] MEDS: carBAMazepine 200 MG/10 ML UNIT-DOSE CUP GT SCH (22:08)
[2018-11-12] MEDS: LACTATED RINGERS SOLUTION 1,000 ML/1,000 ML INFUS.BAG IV SCH (22:10)
[2018-11-13] MEDS: LACTATED RINGERS SOLUTION 1,000 ML/1,000 ML INFUS.BAG IV SCH (00:59)
[2018-11-13] MEDS: LORazepam 2 MG/ML SDV VIAL IVPUSH SCH (05:33)
[2018-11-13 07:03] LABS: HEMATOCRIT 36.1 % (32.4-45.2); MEAN CELL VOLUME 112.6 fl (80-96); MEAN PLT VOLUME 9.7 fl (7.5-11.1); PLATELET COUNT 81 K/MM3 (134-434); RBC 3.21 M/mm3 (3.60-5.2); RDW 13.4 % (11.6-15.6); WHITE BLOOD COUNT 4.1 K/mm3 (4.0-10.0)
[2018-11-13 07:32] LABS: MCH 40.5 pg (25.7-33.7)
[2018-11-13 08:10] LABS: ANION GAP 9 MMOL/L (8-16); BLOOD UREA NITROGEN 18 mg/dL (7-18); CALCIUM 8.4 mg/dL (8.5-10.1); CHLORIDE 103 mmol/L (98-107); CO2 25 mmol/L (21-32); CREATININE 0.4 mg/dL (0.55-1.3); GLUCOSE,RANDOM 95 mg/dL (74-106); MAGNESIUM 1.8 mg/dL (1.8-2.4); PHOSPHOROUS 2.8 mg/dL (2.5-4.9); POTASSIUM 3.1 mmol/L (3.5-5.1); SODIUM 138 mmol/L (136-145)
[2018-11-13] MEDS ORDERED: POTASSIUM CHLORIDE TABS 20 MEQ TABLET.ER (FP) PO ONE (09:19)
[2018-11-13] MEDS: METHADONE HCL 10 MG TABLET PO SCH (10:02)
[2018-11-13] MEDS: ASPIRIN 81 MG CHEWABLE TABLETS PO SCH (10:05)
[2018-11-13] MEDS: THIAMINE HCL 200 MG/2 ML VIAL IVPB SCH (10:06)
[2018-11-13] MEDS: PANTOPRAZOLE SODIUM 40 MG VIAL IVPUSH SCH (10:06)
[2018-11-13] MEDS: FOLIC ACID 5 MG/1 ML SQ SCH (10:06)
[2018-11-13] MEDS: LORazepam 2 MG/ML SDV VIAL IVPUSH PRN (10:07)
[2018-11-13] MEDS: carBAMazepine 200 MG/10 ML UNIT-DOSE CUP GT SCH ×2 (10:07→22:47)
--- NOTE | 2018-11-13 11:16 | PN ---
Progress Note, Physician History of Present Illness: PULMONARY awake,mildly tachypneic at rest. - Current Medication List Current Medications: Active Medications Acetaminophen (Tylenol -) 500 mg PO Q6H PRN PRN Reason: FEVER Aspirin (Asa -) 81 mg PO DAILY [facility] Last Admin: 11/13/18 10:05 Dose: 81 mg Carbamazepine (Tegretol Oral Suspension -) 200 mg GT BID [facility] Last Admin: 11/13/18 10:07 Dose: 200 mg Folic Acid (Folic Acid Injection -) 1 mg SQ DAILY [facility] Last Admin: 11/13/18 10:06 Dose: 1 mg Lactated Ringer's (Lactated Ringers Solution) 1,000 ml in 1,000 mls @ 83 mls/ hr IV ASDIR [facility] Stop: 11/13/18 20:18 Last Admin: 11/13/18 00:59 Dose: 83 mls/hr Sodium Chloride (Normal Saline -) 1,000 mls @ 75 mls/hr IV ASDIR [facility] Lisinopril (Prinivil) 10 mg GT DAILY [facility] Last Admin: 11/13/18 10:05 Dose: 10 mg Lorazepam (Ativan Injection -) 2 mg IVPUSH Q6H PRN PRN Reason: WITHDRAWAL(CONT SUBST) Last Admin: 11/13/18 10:07 Dose: 2 mg Methadone HCl (Dolophine -) 30 mg PO DAILY [facility] Last Admin: 11/13/18 10:02 Dose: 30 mg Pantoprazole Sodium (Protonix Iv) 40 mg IVPUSH DAILY [facility] Last Admin: 11/13/18 10:06 Dose: 40 mg Thiamine HCl (Vitamin B1 Injection -) 200 mg IVPB DAILY [facility] Last Admin: 11/13/18 10:06 Dose: 200 mg Topiramate (Topamax -) 50 mg NR HS [facility] Last Admin: 11/12/18 22:08 Dose: 50 mg - Objective Vital Signs: Vital Signs Temperature 99.1 F 11/13/18 05:00 Pulse Rate 102 H 11/13/18 05:00 Respiratory Rate 22 H 11/13/18 05:00 Blood Pressure 159/101 H 11/13/18 05:00 O2 Sat by Pulse Oximetry (%) 96 11/12/18 21:30 Constitutional: Yes: Calm, Thin Eyes: Yes: WNL HENT: Yes: WNL Neck: Yes: Other (cervical collar) Cardiovascular: Yes: Regular Rate and Rhythm, S1, S2 Respiratory: Yes: Diminished Extremities: Yes: WNL Edema: No Labs: CBC, BMP 11/13/18 05:30 11/13/18 05:30 INR, PTT INR 1.05 (0.83-1.09) 11/10/18 22:40 Problem List - Problems (1) CVA (cerebral vascular accident) Code(s): I63.9 - CEREBRAL INFARCTION, UNSPECIFIED Qualifiers: CVA mechanism: embolism Precerebral and cerebral artery: unspecified cerebral artery Qualified Code(s): I63.40 - Cerebral infarction due to embolism of unspecified cerebral artery (2) Dens fracture Code(s): S12.110A - ANTERIOR DISPLACED TYPE II DENS FRACTURE, INIT FOR CLOS FX Qualifiers: Encounter type: initial encounter Fracture type: closed Qualified Code(s) : S12.100A - Unspecified displaced fracture of second cervical vertebra, initial encounter for closed fracture (3) HTN (hypertension) Code(s): I10 - ESSENTIAL (PRIMARY) HYPERTENSION (4) COPD exacerbation Code(s): J44.1 - CHRONIC OBSTRUCTIVE PULMONARY DISEASE W (ACUTE) EXACERBATION (5) AA (alcohol abuse) Code(s): F10.10 - ALCOHOL ABUSE, UNCOMPLICATED Assessment/Plan ASSESSMENT AND PLAN: Acute/Subacute Lacunar CVA s/p Acute Respiratory Failure Alcohol Abuse/Intoxication C-spine fx Liver Cirrhosis COPD Hep C HTN - ativan for alcohol withdrawal - IVF - ASA - inhaled bronchodilators - carotid dopplers - swallow ivanna JAUREGUI
[2018-11-13] MEDS ORDERED: LISINOPRIL 10 MG TABLET (FP) GT ONE (12:17)
--- NOTE | 2018-11-13 12:27 | PN ---
Progress Note, ENLISTED ADVISOR - Note Progress Note: 63 yo seen at bedside for follow up to dysphagia eval with ENLISTED ADVISOR Esme ALVARADO with recommendations for NPO. Pt presents as verbal, A&Ox2 sightly agitated. Pt presents with cervical collar, with NGT in place. ENLISTED ADVISOR attempted to re-evaluate swallow function but pt refused at bedside. Top denture were falling out of mouth and pt refused assistance. Not a candidate for MBS at this time. Congestioned breathing observed at bedside but did not affect vocal quality for communication. Recommendations: Continue NPO status at this time with NGT. Will reconsider MBS when pt is stable and without congestion. Results given verbally to charge entry specialist and PCP via chart. ENLISTED ADVISOR to follow up.
[2018-11-13] MEDS ORDERED: D5-1/2NS+20 MEQ KCL - 20 MEQ/1,000 ML INFUS.BAG IV SCH (13:45)
[2018-11-13] MEDS ORDERED: ACETAMINOPHEN 325 MG TABLET (FP) PO ONE (21:24)
[2018-11-13] MEDS ORDERED: ACETAMINOPHEN 325 MG TABLET (FP) ONE (21:30)
[2018-11-13] MEDS ORDERED: PT OWN MED DRAWER 7, Y5N ONE (22:15)
[2018-11-13] MEDS: TOPIRAMATE 25 MG TABLET (FP) NR SCH (22:47)
[2018-11-14] MEDS: LORazepam 2 MG/ML SDV VIAL IVPUSH PRN ×2 (01:01→20:20)
[2018-11-14 01:12] LABS: HEP B CORE AB, IGM Negative (Negative); HEP B CORE AB, TOT Positive (Negative)
--- NOTE | 2018-11-14 05:26 | PN ---
Physical Exam: SUBJECTIVE: Patient seen and examined some agitation over night and shaking treated with ativan OBJECTIVE: Vital Signs Period Temp Pulse Resp BP Sys/Pleitez Pulse Ox Last 24 Hr 97.4 F-98.6 F 89-104 20-20 154-159/86-99 95 GENERAL: Anxious, Moderate distress. HEAD: Atraumatic/Normocephalic EYES: PERRLA EOMI Sclera Clear NECK: Hard collar LUNGS: CTA Anteriorly HEART: Tachycardic nl s1s2 ABDOMEN: soft non distended, hypoactive bowel sounds EXTREMITIES: No CCE. NEUROLOGICAL: Left upper extremity strength 4/5. . Right side strength 5/5 upper and lower proximal and distal . Sensation intact as well R Side. Laboratory Results - last 24 hr 11/11/18 11/11/18 11/13/18 09:50 09:50 05:30 WBC 4.1 RBC 3.21 L Hgb 13.0 Hct 36.1 MCV 112.6 H MCH 40.5 H MCHC 36.0 RDW 13.4 Plt Count 81 L MPV 9.7 Sodium Potassium Chloride Carbon Dioxide Anion Gap BUN Creatinine Creat Clearance w eGFR Random Glucose Calcium Phosphorus Magnesium Hep Bs Antigen Negative Hep Bs Antibody Reactive Hep B Core Total Ab Positive H Hep B Core IgM Ab Negative Hepatitis Be Antibody Positive H Negative Hepatitis Be Antigen Negative Negative 11/13/18 05:30 WBC RBC Hgb Hct MCV MCH MCHC RDW Plt Count MPV Sodium 138 Potassium 3.1 L Chloride 103 Carbon Dioxide 25 Anion Gap 9 BUN 18 Creatinine 0.4 L Creat Clearance w eGFR > 60 Random Glucose 95 Calcium 8.4 L Phosphorus 2.8 Magnesium 1.8 Hep Bs Antigen Hep Bs Antibody Hep B Core Total Ab Hep B Core IgM Ab Hepatitis Be Antibody Hepatitis Be Antigen Active Medications Generic Name Dose Route Start Last Admin Trade Name Freq PRN Reason Stop Dose Admin Acetaminophen 500 mg 11/12/18 19:29 Tylenol - PO Q6H PRN FEVER Aspirin 81 mg 11/13/18 10:00 11/13/18 10:05 Asa - PO 81 mg DAILY JAY Administration Carbamazepine 200 mg 11/12/18 22:00 11/13/18 22:47 Tegretol Oral Suspension - GT 200 mg BID JAY Administration Folic Acid 1 mg 11/13/18 10:00 11/13/18 10:06 Folic Acid Injection - SQ 1 mg DAILY JAY Administration Lisinopril 20 mg 11/14/18 10:00 Prinivil GT DAILY JAY Lorazepam 2 mg 11/12/18 11:48 11/14/18 01:01 Ativan Injection - IVPUSH 2 mg Q6H PRN Administration WITHDRAWAL(CONT SUBST) Methadone HCl 30 mg 11/13/18 10:00 11/13/18 10:02 Dolophine - PO 30 mg DAILY JAY Administration Pantoprazole Sodium 40 mg 11/13/18 10:00 11/13/18 10:06 Protonix Iv IVPUSH 40 mg DAILY JAY Administration Thiamine HCl 200 mg 11/13/18 10:00 11/13/18 10:06 Vitamin B1 Injection - IVPB 200 mg DAILY JAY Administration Topiramate 50 mg 11/12/18 22:00 11/13/18 22:47 Topamax - NR 50 mg HS JAY Administration CBC, BMP 11/14/18 11:30 11/14/18 11:00 ASSESSMENT/PLAN: Patient is a 63 year old female with past medical history of HTN, COPD, HCV, Liver cirrhosis, Bipolar disorder, ?pancreatic cyst, and EtOH abuse, presented to the ED after experiencing sudden weakness of the right leg with numbness of the right finger tips, and slurred speech that started about 3pm yesterday. #Acute CVA on MRI -Aspirin 300mg given at the ED once -Start ASA. Hold statin in light of transaminitis -Echo---Very poor visualization. EF WNL .Will need to repeat once patient less restless. -Carotid doppler--> No hemodynamically significant stenosis. -Triglycerides 247, LDL 163 -Dr May on board #Cervical fracture -Neurosurgery (Dr Banerjee) consulted. MRI: the patient has a chronic dens fracture type 1 -C-collar in place. No surgery in #EtOH abuse -CIWA protocol initiated. Ativan switched to 2 mg Q6H JAY -Cannot give Librium in light of liver enzymes -Neuro checks -Seizure and aspiration precautions -Banana bag ordered -Thiamine 200mg IVPB daily -Folic acid 0.4 mg sq daily -Monitor and replete electrolytes #Polysubstance abuse (heroin and cocaine) -Currently on Methadone 30mg daily for detox -Follows up at [facility] #Hypertension -On Lisinopril/HCTZ 10/12.5 daily at home, - lisinopril increased to 20 #Hx of HCV, Liver cirrhosis -Follows up with Dr. Obregon as outpatient -Scheduled for EUS for ?pancreatic/biliary duct cyst -Elevated LFTs likely multifactorial (HCV, cirrhosis, EtOH abuse) -RUQ ultrasound once more stable -Hep B Serology positive follow up as out pt -LFT's trending downwards. AST/ALT 152, 74 respectively. #Bipolar D/O -On Carbamazepine 200mg BID -Topiramate 50mg PO HS #FEN -No fluids -Monitor Electrolytes -Diet advanced to puree diet with thin liquids. NGT removed. #Prophylaxis -SCD's due to thrombocytopenia -GI: IV Protonix 40mg daily #Dispo tele Visit type - Emergency Visit Emergency Visit: Yes ED Registration Date: 11/10/18 Care time: The patient presented to the Emergency Department on the above date and was hospitalized for further evaluation of their emergent condition. - New Patient This patient is new to me today: No - Critical Care Critical Care patient: No - Discharge Referral Referred to [facility] No
--- NOTE | 2018-11-14 07:15 | PN ---
Teaching Attending Note Name of Resident: Lyle Acevedo ATTENDING PHYSICIAN STATEMENT I saw and evaluated the patient. I reviewed the resident's note and discussed the case with the resident. I agree with the resident's findings and plan as documented. SUBJECTIVE: no fever or chills, no pain . no WOLFE OBJECTIVE: NAD MMM CV: RRR, no MRG Lungs; CTAB Abd: soft, NT, ND , NL Bs , Liver 2cm below costal margin Ext : no edema or erythema, has tremor Neuro: . no facial droop, EOMI, nl facial sensation , round pupils, reactive to light, equal . strength: 4 /5 in hip flexion. 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 quadriceps 5/5 , ankle dorsiflexion and plantar flexion 5 /5 . sensation to light touch is normal Reflexes: 2+ biceps and knee jerk b/l. ASSESSMENT AND PLAN: 63 y/o lady with hep C, ETOH abuse,COPD, liver Cirrhosis, HTN, bipolar and polysubstance abuse, who presented with slurred speech and R sided weakness . She was found to have bilateral CVAs and was intubated . 1- Acute /subacute b/l CVA. - cont tele - echo will need to be repeated when her withdrawal sx are better controlled - cont ASA - tight blood pressure control : increae lisinopril - cont to hold statin - CUS pending 2-Thrombocytopenia: likely due to alcohol use, and cirrhosis. - hold lovenox - trend plt level, if > 50% drop from initial, will check HIT Abs 3- Chronic Type one odontoid Fx: - appreciate neuro sx help. Will need surgical intervention when stable. 4- ETOH withdrawal: -Cont ativan PRN - thiamine and folate daily 5- h/o heroin abuse, cont with methadone. dose was confirmed 6- Alcoholic hepatitis , on background of cirrhosis : LFTs improved - cont to monitor - follow Hep B serology 7- DVT PX : Scds due thrombocytopenia Speech eval.start puree DC IVF
[2018-11-14] MEDS: ASPIRIN 81 MG CHEWABLE TABLETS PO SCH (09:31)
[2018-11-14] MEDS: METHADONE HCL 10 MG TABLET PO SCH (09:31)
[2018-11-14] MEDS: LISINOPRIL 10 MG TABLET (FP) GT SCH (09:32)
[2018-11-14] MEDS: carBAMazepine 200 MG/10 ML UNIT-DOSE CUP GT SCH ×2 (09:35→21:11)
[2018-11-14] MEDS: THIAMINE HCL 200 MG/2 ML VIAL IVPB SCH (09:37)
[2018-11-14] MEDS: FOLIC ACID 5 MG/1 ML SQ SCH (09:37)
[2018-11-14] MEDS: PANTOPRAZOLE SODIUM 40 MG VIAL IVPUSH SCH (09:37)
--- NOTE | 2018-11-14 10:36 | PN ---
Progress Note, Physician History of Present Illness: PULMONARY AWAKE,NO DISTRESS,-SOB - Current Medication List Current Medications: Active Medications Acetaminophen (Tylenol -) 500 mg PO Q6H PRN PRN Reason: FEVER Aspirin (Asa -) 81 mg PO DAILY [facility] Last Admin: 11/14/18 09:31 Dose: 81 mg Carbamazepine (Tegretol Oral Suspension -) 200 mg GT BID [facility] Last Admin: 11/14/18 09:35 Dose: 200 mg Folic Acid (Folic Acid Injection -) 1 mg SQ DAILY [facility] Last Admin: 11/14/18 09:37 Dose: 1 mg Lisinopril (Prinivil) 20 mg GT DAILY [facility] Last Admin: 11/14/18 09:32 Dose: 20 mg Lorazepam (Ativan Injection -) 2 mg IVPUSH Q6H PRN PRN Reason: WITHDRAWAL(CONT SUBST) Last Admin: 11/14/18 01:01 Dose: 2 mg Methadone HCl (Dolophine -) 30 mg PO DAILY [facility] Last Admin: 11/14/18 09:31 Dose: 30 mg Pantoprazole Sodium (Protonix Iv) 40 mg IVPUSH DAILY [facility] Last Admin: 11/14/18 09:37 Dose: 40 mg Thiamine HCl (Vitamin B1 Injection -) 200 mg IVPB DAILY [facility] Last Admin: 11/14/18 09:37 Dose: 200 mg Topiramate (Topamax -) 50 mg NR HS [facility] Last Admin: 11/13/18 22:47 Dose: 50 mg - Objective Vital Signs: Vital Signs Temperature 98.5 F 11/14/18 08:16 Pulse Rate 105 H 11/14/18 08:16 Respiratory Rate 16 11/14/18 08:16 Blood Pressure 161/59 L 11/14/18 08:16 O2 Sat by Pulse Oximetry (%) 95 11/13/18 22:00 Constitutional: Yes: Calm, Thin Eyes: Yes: WNL HENT: Yes: WNL Neck: Yes: WNL Cardiovascular: Yes: Regular Rate and Rhythm, S1, S2 Respiratory: Yes: Diminished Gastrointestinal: Yes: Normal Bowel Sounds, Soft Extremities: Yes: WNL Edema: No Labs: CB Problem List - Problems (1) CVA (cerebral vascular accident) Code(s): I63.9 - CEREBRAL INFARCTION, UNSPECIFIED Qualifiers: CVA mechanism: embolism Precerebral and cerebral artery: unspecified cerebral artery Qualified Code(s): I63.40 - Cerebral infarction due to embolism of unspecified cerebral artery (2) Dens fracture Code(s): S12.110A - ANTERIOR DISPLACED TYPE II DENS FRACTURE, INIT FOR CLOS FX Qualifiers: Encounter type: initial encounter Fracture type: closed Qualified Code(s) : S12.100A - Unspecified displaced fracture of second cervical vertebra, initial encounter for closed fracture (3) HTN (hypertension) Code(s): I10 - ESSENTIAL (PRIMARY) HYPERTENSION (4) COPD exacerbation Code(s): J44.1 - CHRONIC OBSTRUCTIVE PULMONARY DISEASE W (ACUTE) EXACERBATION (5) AA (alcohol abuse) Code(s): F10.10 - ALCOHOL ABUSE, UNCOMPLICATED Assessment/Plan ASSESSMENT AND PLAN: Acute/Subacute Lacunar CVA s/p Acute Respiratory Failure Alcohol Abuse/Intoxication C-spine fx Liver Cirrhosis COPD Hep C HTN Thrombocyopenia - ativan for alcohol withdrawal - IVF - ASA - inhaled bronchodilators - monitor lytes,cbc,plt ct DR JAUREGUI
--- NOTE | 2018-11-14 11:39 | PN ---
Physical Exam: NOTE FOR . [employer] was down 11/13/18. SUBJECTIVE: Patient seen and examined at bedside. No acute events overnight. OBJECTIVE: Vital Signs Period Temp Pulse Resp BP Sys/Pleitez Pulse Ox Last 24 Hr 97.4 F-98.6 F 89-107 16-20 142-161/59-99 95-96 GENERAL: Mild distress HEAD: Atraumatic/Normocephalic EYES: PERRLA EOMI Sclera Clear NECK: Hard collar LUNGS: CTAB HEART: Tachycardic nl s1s2 ABDOMEN: soft non distended, hypoactive bowel sounds. Liver 2 CM below costal margin. EXTREMITIES: No CCE. NEUROLOGICAL: Left upper extremity strength 3/5. Decreased sensation left lower extremity. Right side strength 5/5 . Sensation intact as well R Side. No facial droop. Laboratory Results - last 24 hr 11/11/18 11/11/18 09:50 09:50 Hep Bs Antigen Negative Hep Bs Antibody Reactive Hep B Core Total Ab Positive H Hep B Core IgM Ab Negative Hepatitis Be Antibody Positive H Negative Hepatitis Be Antigen Negative Negative Active Medications Generic Name Dose Route Start Last Admin Trade Name Freq PRN Reason Stop Dose Admin Acetaminophen 500 mg 11/12/18 19:29 Tylenol - PO Q6H PRN FEVER Aspirin 81 mg 11/13/18 10:00 11/14/18 09:31 Asa - PO 81 mg DAILY [facility] Administration Carbamazepine 200 mg 11/12/18 22:00 11/14/18 09:35 Tegretol Oral Suspension - GT 200 mg BID [facility] Administration Folic Acid 1 mg 11/13/18 10:00 11/14/18 09:37 Folic Acid Injection - SQ 1 mg DAILY [facility] Administration Lisinopril 20 mg 11/14/18 10:00 11/14/18 09:32 Prinivil GT 20 mg DAILY [facility] Administration Lorazepam 2 mg 11/12/18 11:48 11/14/18 01:01 Ativan Injection - IVPUSH 2 mg Q6H PRN Administration WITHDRAWAL(CONT SUBST) Methadone HCl 30 mg 11/13/18 10:00 11/14/18 09:31 Dolophine - PO 30 mg DAILY [facility] Administration Pantoprazole Sodium 40 mg 11/13/18 10:00 11/14/18 09:37 Protonix Iv IVPUSH 40 mg DAILY [facility] Administration Thiamine HCl 200 mg 11/13/18 10:00 11/14/18 09:37 Vitamin B1 Injection - IVPB 200 mg DAILY [facility] Administration Topiramate 50 mg 11/12/18 22:00 11/13/18 22:47 Topamax - NR 50 mg HS [facility] Administration ASSESSMENT/PLAN: Patient is a 63 year old female with past medical history of HTN, COPD, HCV, Liver cirrhosis, Bipolar disorder, ?pancreatic cyst, and EtOH abuse, presented to the ED after experiencing sudden weakness of the right leg with numbness of the right finger tips, and slurred speech that started about 3pm yesterday. #Acute CVA on MRI -Aspirin 300mg given at the ED once -Start ASA. Hold statin in light of transaminitis - versed drip D/C'ed -Keep MAP >110 for permissive HTN -Echo---Very poor visualization. EF WNL .Will need to repeat once patient less restless. -Carotid doppler--> No hemodynamically significant stenosis. -Triglycerides 247, LDL 163 -Dr May on board #Cervical fracture -Neurosurgery (Dr Banerjee) consulted. MRI: the patient has a chronic dens fracture type 1 -C-collar in place. No surgery in #EtOH abuse -CIWA protocol initiated. Ativan switched to 2 mg Q6H JAY -Cannot give Librium in light of liver enzymes -Neuro checks -Seizure and aspiration precautions -Banana bag ordered -Thiamine 200mg IVPB daily -Folic acid 0.4 mg sq daily -Monitor and replete electrolytes #Polysubstance abuse (heroin and cocaine) -Currently on Methadone 30mg daily for detox -Follows up at [facility] #Hypertension -On Lisinopril/HCTZ 1012.5 daily -Hold BP meds for now -Would allow permissive HTN >220/120 -As per neuro, keep MAP >110 #Hx of HCV, Liver cirrhosis -Follows up with Dr. Obregon as outpatient -Scheduled for EUS for ?pancreatic/biliary duct cyst -Elevated LFTs likely multifactorial (HCV, cirrhosis, EtOH abuse) -RUQ ultrasound once more stable -Hep B Serology pending -LFT's trending downwards. AST/ALT 152, 74 respectively. #Bipolar D/O -On Carbamazepine 200mg BID -Topiramate 50mg PO HS #FEN -No fluids -Monitor Electrolytes -Diet advanced to puree diet with thin liquids. NGT removed. #Prophylaxis -SCD's due to thrombocytopenia -GI: IV Protonix 40mg daily #Dispo tele Visit type - Emergency Visit Emergency Visit: Yes ED Registration Date: 11/10/18 Care time: The patient presented to the Emergency Department on the above date and was hospitalized for further evaluation of their emergent condition. - New Patient This patient is new to me today: No - Critical Care Critical Care patient: No - Discharge Referral Referred to [facility] No
[2018-11-14 12:49] LABS: ANION GAP 8 MMOL/L (8-16); BLOOD UREA NITROGEN 22 mg/dL (7-18); CALCIUM 8.9 mg/dL (8.5-10.1); CHLORIDE 108 mmol/L (98-107); CO2 24 mmol/L (21-32); CREATININE 0.5 mg/dL (0.55-1.3); GLUCOSE,RANDOM 100 mg/dL (74-106); POTASSIUM 3.7 mmol/L (3.5-5.1); SODIUM 139 mmol/L (136-145)
[2018-11-14 13:38] LABS: BASO % 0.7 % (0-2.0); EOS % 1.8 % (0-4.5); HEMATOCRIT 37.4 % (32.4-45.2); HEMOGLOBIN 13.2 GM/dL (10.7-15.3); LYMPH % 16.4 % (8-40); MCHC 35.3 g/dl (32.0-36.0); MEAN CELL VOLUME 114.2 fl (80-96); MEAN PLT VOLUME 9.6 fl (7.5-11.1); MONO % 15.6 % (3.8-10.2); NEUT % 65.5 % (42.8-82.8); PLATELET COUNT 100 K/MM3 (134-434); RBC 3.27 M/mm3 (3.60-5.2); RDW 13.4 % (11.6-15.6)
[2018-11-14 13:45] LABS: MCH 40.4 pg (25.7-33.7)
--- NOTE | 2018-11-14 14:09 | PN ---
Teaching Attending Note Name of Resident: Cristopher Mcclellan ATTENDING PHYSICIAN STATEMENT I saw and evaluated the patient. I reviewed the resident's note and discussed the case with the resident. I agree with the resident's findings and plan as documented. SUBJECTIVE: no pain, no fever or chills . OBJECTIVE: NAD MMM CV: RRR, no MRG Lungs; CTAB Abd: soft, NT, ND , NL Bs , Liver 2cm below costal margin Ext : no edema or erythema, has tremor Neuro: no facial droop, EOMI, nl facial sensation , round pupils, reactive to light, L pupils might be 1 mm smaller . strength: 4 /5 in hip flexion and shoulder abduction/flexion . biceps 5/5 b/l, triceps 5/5 b/l . quadriceps 5/5 , ankle dorsiflexion and plantar flexion 5/5 . sensation to light touch is normal Reflexes: 2+ biceps and knee jerk b/l. ASSESSMENT AND PLAN: 63 y/o lady with hep C, ETOH abuse,COPD, liver Cirrhosis, HTN, bipolar and polysubstance abuse, who presented with slurred speech and R sided weakness . She was found to have bilateral CVAs and was intubated . 1- Acute /subacute b/l CVA. - cont tele - repeat echo on Friday - cont ASA -blood pressure contro - cont to hold statin - CUS with no significant stenosis 2-Thrombocytopenia: likely due to alcohol use, and cirrhosis. - hold lovenox 3- Chronic Type one odontoid Fx: - appreciate neuro sx help. Will need surgical intervention when stable. 4- ETOH withdrawal: -Cont ativan PRN - thiamine and folate daily 5- h/o heroin abuse, cont with methadone. 6- Alcoholic hepatitis, on background of cirrhosis : LFTs improved - cont to monitor -hep serology indicates chronic infection . will refer to GI as out pt for treatment also has Hep C 7- DVT PX: Scds due thrombocytopenia
[2018-11-14] MEDS: TOPIRAMATE 25 MG TABLET (FP) NR SCH (21:11)
[2018-11-15] MEDS: LORazepam 2 MG/ML SDV VIAL IVPUSH PRN ×2 (07:06→13:23)
[2018-11-15 07:23] LABS: BASO % 0.5 % (0-2.0); EOS % 3.4 % (0-4.5); HEMOGLOBIN 13.3 GM/dL (10.7-15.3); LYMPH % 21.1 % (8-40); MCHC 35.9 g/dl (32.0-36.0); MEAN CELL VOLUME 113.7 fl (80-96); MEAN PLT VOLUME 9.8 fl (7.5-11.1); MONO % 17.4 % (3.8-10.2); NEUT % 57.6 % (42.8-82.8); PLATELET COUNT 109 K/MM3 (134-434); RBC 3.26 M/mm3 (3.60-5.2); RDW 13.1 % (11.6-15.6); WHITE BLOOD COUNT 3.9 K/mm3 (4.0-10.0)
[2018-11-15 07:28] LABS: MCH 40.8 pg (25.7-33.7)
[2018-11-15 07:30] LABS: ALK PHOS 123 U/L (45-117); ANION GAP 7 MMOL/L (8-16); BILIRUBIN,TOTAL 1.6 mg/dL (0.2-1); BLOOD UREA NITROGEN 24 mg/dL (7-18); CALCIUM 8.4 mg/dL (8.5-10.1); CHLORIDE 109 mmol/L (98-107); CO2 24 mmol/L (21-32); CREATININE 0.7 mg/dL (0.55-1.3); GLUCOSE,RANDOM 97 mg/dL (74-106); POTASSIUM 3.4 mmol/L (3.5-5.1); SGOT/AST 153 U/L (15-37); SGPT/ALT 97 U/L (13-61); SODIUM 140 mmol/L (136-145); TOT PROT 7.6 g/dl (6.4-8.2)
[2018-11-15] MEDS ORDERED: POTASSIUM CHLORIDE TABS 20 MEQ TABLET.ER (FP) PO ONE (07:33)
[2018-11-15] MEDS ORDERED: PT OWN MED DRAWER 7, Y5N ONE (08:56)
[2018-11-15] MEDS: ASPIRIN 81 MG CHEWABLE TABLETS PO SCH (10:26)
[2018-11-15] MEDS: LISINOPRIL 10 MG TABLET (FP) GT SCH (10:27)
[2018-11-15] MEDS: PANTOPRAZOLE SODIUM 40 MG VIAL IVPUSH SCH (10:28)
[2018-11-15] MEDS: carBAMazepine 200 MG/10 ML UNIT-DOSE CUP GT SCH ×2 (10:30→21:41)
[2018-11-15] MEDS: FOLIC ACID 5 MG/1 ML SQ SCH (10:38)
[2018-11-15] MEDS: METHADONE HCL 10 MG TABLET PO SCH (10:39)
[2018-11-15] MEDS: THIAMINE HCL 200 MG/2 ML VIAL IVPB SCH (10:42)
--- NOTE | 2018-11-15 11:16 | PN ---
Progress Note (short form) - Note Progress Note: Patient lying in bed without collar. No acute plans for Neurosurgical Intervention. Stroke treatment will take precedence. Patient clear for discharge to Rehab/SNF from Neurosurgery standpoint. Patient would benefit from Cervical immobilization with Collar.
--- NOTE | 2018-11-15 11:17 | PN ---
Progress Note, Physician History of Present Illness: PULMONARY ALERT,NO DISTRESS,-SOB - Current Medication List Current Medications: Active Medications Acetaminophen (Tylenol -) 500 mg PO Q6H PRN PRN Reason: FEVER Aspirin (Asa -) 81 mg PO DAILY [facility] Last Admin: 11/15/18 10:26 Dose: 81 mg Carbamazepine (Tegretol Oral Suspension -) 200 mg GT BID [facility] Last Admin: 11/15/18 10:30 Dose: 200 mg Folic Acid (Folic Acid Injection -) 1 mg SQ DAILY [facility] Last Admin: 11/15/18 10:38 Dose: 1 mg Lisinopril (Prinivil) 20 mg GT DAILY [facility] Last Admin: 11/15/18 10:27 Dose: 20 mg Lorazepam (Ativan Injection -) 2 mg IVPUSH Q6H PRN PRN Reason: WITHDRAWAL(CONT SUBST) Last Admin: 11/15/18 07:06 Dose: 2 mg Methadone HCl (Dolophine -) 30 mg PO DAILY [facility] Last Admin: 11/15/18 10:39 Dose: 30 mg Pantoprazole Sodium (Protonix Iv) 40 mg IVPUSH DAILY [facility] Last Admin: 11/15/18 10:28 Dose: 40 mg Thiamine HCl (Vitamin B1 Injection -) 200 mg IVPB DAILY [facility] Last Admin: 11/15/18 10:42 Dose: 200 mg Topiramate (Topamax -) 50 mg NR HS [facility] Last Admin: 11/14/18 21:11 Dose: 50 mg - Objective Vital Signs: Vital Signs Temperature 98.3 F 11/15/18 06:23 Pulse Rate 96 H 11/15/18 06:23 Respiratory Rate 17 11/15/18 06:23 Blood Pressure 149/87 11/15/18 06:23 O2 Sat by Pulse Oximetry (%) 98 11/15/18 09:00 Constitutional: Yes: Calm, Thin Eyes: Yes: WNL HENT: Yes: WNL Neck: Yes: WNL Cardiovascular: Yes: Regular Rate and Rhythm, S1, S2 Respiratory: Yes: Diminished Gastrointestinal: Yes: Normal Bowel Sounds, Soft Extremities: Yes: WNL Edema: No Labs: CBC, BMP 11/15/18 05:30 11/15/18 05:30 INR, PTT INR 1.05 (0.83-1.09) 11/10/18 22:40 Problem List - Problems (1) CVA (cerebral vascular accident) Code(s): I63.9 - CEREBRAL INFARCTION, UNSPECIFIED Qualifiers: CVA mechanism: embolism Precerebral and cerebral artery: unspecified cerebral artery Qualified Code(s): I63.40 - Cerebral infarction due to embolism of unspecified cerebral artery (2) Dens fracture Code(s): S12.110A - ANTERIOR DISPLACED TYPE II DENS FRACTURE, INIT FOR CLOS FX Qualifiers: Encounter type: initial encounter Fracture type: closed Qualified Code(s) : S12.100A - Unspecified displaced fracture of second cervical vertebra, initial encounter for closed fracture (3) HTN (hypertension) Code(s): I10 - ESSENTIAL (PRIMARY) HYPERTENSION (4) COPD exacerbation Code(s): J44.1 - CHRONIC OBSTRUCTIVE PULMONARY DISEASE W (ACUTE) EXACERBATION (5) AA (alcohol abuse) Code(s): F10.10 - ALCOHOL ABUSE, UNCOMPLICATED Assessment/Plan ASSESSMENT AND PLAN: Acute/Subacute Lacunar CVA s/p Acute Respiratory Failure Alcohol Abuse/Intoxication C-spine fx Liver Cirrhosis COPD Hep C HTN Thrombocyopenia - ativan for alcohol withdrawal - ASA - inhaled bronchodilators - monitor lytes,cbc,plt ct - replete gumaro JAUREGUI
--- NOTE | 2018-11-15 12:17 | PN ---
Progress Note, Physician History of Present Illness: eevents noted and chart reviewed seen in telemetry Alert awake oriented follows command No family members at the bedside Complains of right arm weakness Seen by neurosurgery - Current Medication List Current Medications: Active Medications Acetaminophen (Tylenol -) 500 mg PO Q6H PRN PRN Reason: FEVER Aspirin (Asa -) 81 mg PO DAILY [facility] Last Admin: 11/15/18 10:26 Dose: 81 mg Carbamazepine (Tegretol Oral Suspension -) 200 mg GT BID [facility] Last Admin: 11/15/18 10:30 Dose: 200 mg Folic Acid (Folic Acid Injection -) 1 mg SQ DAILY [facility] Last Admin: 11/15/18 10:38 Dose: 1 mg Lisinopril (Prinivil) 20 mg GT DAILY [facility] Last Admin: 11/15/18 10:27 Dose: 20 mg Lorazepam (Ativan Injection -) 2 mg IVPUSH Q6H PRN PRN Reason: WITHDRAWAL(CONT SUBST) Last Admin: 11/15/18 07:06 Dose: 2 mg Methadone HCl (Dolophine -) 30 mg PO DAILY [facility] Last Admin: 11/15/18 10:39 Dose: 30 mg Pantoprazole Sodium (Protonix Iv) 40 mg IVPUSH DAILY [facility] Last Admin: 11/15/18 10:28 Dose: 40 mg Thiamine HCl (Vitamin B1 Injection -) 200 mg IVPB DAILY [facility] Last Admin: 11/15/18 10:42 Dose: 200 mg Topiramate (Topamax -) 50 mg NR HS [facility] Last Admin: 11/14/18 21:11 Dose: 50 mg - Objective Vital Signs: Vital Signs Temperature 98.3 F 11/15/18 06:23 Pulse Rate 96 H 11/15/18 06:23 Respiratory Rate 17 11/15/18 06:23 Blood Pressure 149/87 11/15/18 06:23 O2 Sat by Pulse Oximetry (%) 98 11/15/18 09:00 Constitutional: Yes: Well Nourished Eyes: Yes: WNL Neurological: Yes: Alert, Oriented, Babinski positive ...Motor Strength: LUE (4), RUE (3) Labs: CBC, BMP 11/15/18 05:30 11/15/18 05:30 INR, PTT INR 1.05 (0.83-1.09) 11/10/18 22:40 Problem List - Problems (1) CVA (cerebral vascular accident) Assessment/Plan: 1. neuro checks every 2 hours 2. Continue the Librium protocol 3. Follow-up the echo results 4. Continue the aspirin 5. Seizure precautions 6. Follow-up with neurosurgery Code(s): I63.9 - CEREBRAL INFARCTION, UNSPECIFIED Qualifiers: CVA mechanism: embolism Precerebral and cerebral artery: unspecified cerebral artery Qualified Code(s): I63.40 - Cerebral infarction due to embolism of unspecified cerebral artery
--- NOTE | 2018-11-15 16:17 | PN ---
Progress Note (short form) - Note Progress Note: Subjective: no fever or chills. no WOLFE , complains of not resolving hoarseness Objective: Vital Signs: Last Vital Signs Temp Pulse Resp BP Pulse Ox 98.6 F 95 H 20 145/96 98 11/15/18 14:00 11/15/18 14:00 11/15/18 14:00 11/15/18 14:00 11/15/18 09:00 Laboratory Results - last 24 hr 11/15/18 11/15/18 05:30 05:30 WBC 3.9 L RBC 3.26 L Hgb 13.3 Hct 37.0 MCV 113.7 H MCH 40.8 H MCHC 35.9 RDW 13.1 Plt Count 109 L MPV 9.8 Absolute Neuts (auto) 2.3 Neutrophils % 57.6 Lymphocytes % 21.1 D Monocytes % 17.4 H Eosinophils % 3.4 D Basophils % 0.5 Nucleated RBC % 0 Sodium 140 Potassium 3.4 L Chloride 109 H Carbon Dioxide 24 Anion Gap 7 L BUN 24 H Creatinine 0.7 Creat Clearance w eGFR > 60 Random Glucose 97 Calcium 8.4 L Total Bilirubin 1.6 H AST 153 H ALT 97 H Alkaline Phosphatase 123 H Total Protein 7.6 Albumin 3.0 L Physical Exam: NAD MMM CV: RRR, no MRG Lungs; CTAB Abd: soft, NT, ND , NL Bs , Liver 2 cm below costal margin Ext : no edema or erythema, has tremor Neuro: no facial droop, EOMI, nl facial sensation , round pupils, reactive to light, L pupils might be 1 mm smaller . strength: 5 /5 in hip flexion and shoulder abduction/flexion . biceps 5/5 b/l, triceps 5/5 b/l . quadriceps 5/5 , ankle dorsiflexion and plantar flexion 5/5 . sensation to light touch is normal Reflexes: 2+ biceps and knee jerk b/l. ASSESSMENT AND PLAN: 63 y/o lady with hep C, ETOH abuse,COPD, liver Cirrhosis, HTN, bipolar and polysubstance abuse, who presented with slurred speech and R sided weakness . She was found to have bilateral CVAs and was intubated . 1- Acute /subacute b/l CVA. - cont tele - repeat echo on Friday - cont ASA - cont to hold statin 2-Thrombocytopenia: likely due to alcohol use, and cirrhosis. - hold lovenox 3- Chronic Type one odontoid Fx: - d/w Dr. Miner, he thinks it is type 2 - Will need surgical intervention in the future - cont C ocllar 4- ETOH withdrawal: -Cont ativan PRN . decrease to 1 mg q8h - thiamine and folate daily 5- h/o heroin abuse, cont with methadone. 6- Alcoholic hepatitis, on background of cirrhosis - cont to monitor -hep serology indicates chronic infection will refer to GI as out pt for treatment also has Hep C 7- hoarseness of voice: consult ENT DVT PX: add heparin SQ as plt > 100k Visit type - Emergency Visit Emergency Visit: Yes ED Registration Date: 11/10/18 Care time: The patient presented to the Emergency Department on the above date and was hospitalized for further evaluation of their emergent condition. - New Patient This patient is new to me today: No - Critical Care Critical Care patient: No
[2018-11-15] MEDS: HEPARIN NA (PORCINE) 5,000 UNITS/ML 1ML VIAL SQ SCH (21:40)
[2018-11-15] MEDS: TOPIRAMATE 25 MG TABLET (FP) NR SCH (21:41)
[2018-11-16] MEDS: LORazepam 2 MG/ML SDV VIAL IVPUSH PRN ×2 (02:38→11:14)
[2018-11-16] MEDS: HEPARIN NA (PORCINE) 5,000 UNITS/ML 1ML VIAL SQ SCH ×3 (05:43→22:00)
[2018-11-16] MEDS ORDERED: PT OWN MED DRAWER 7, Y5N ONE ×2 (07:56→21:27)
[2018-11-16 08:51] LABS: BASO % 0.6 % (0-2.0); EOS % 2.1 % (0-4.5); HEMATOCRIT 37.7 % (32.4-45.2); HEMOGLOBIN 13.3 GM/dL (10.7-15.3); LYMPH % 18.8 % (8-40); MCHC 35.3 g/dl (32.0-36.0); MEAN CELL VOLUME 113.9 fl (80-96); MEAN PLT VOLUME 9.6 fl (7.5-11.1); MONO % 16.4 % (3.8-10.2); NEUT % 62.1 % (42.8-82.8); PLATELET COUNT 120 K/MM3 (134-434); RBC 3.31 M/mm3 (3.60-5.2); RDW 12.9 % (11.6-15.6); WHITE BLOOD COUNT 4.2 K/mm3 (4.0-10.0)
[2018-11-16 08:52] LABS: MCH 40.2 pg (25.7-33.7)
[2018-11-16 09:20] LABS: ALBUMIN 3.1 g/dl (3.4-5.0); ALK PHOS 128 U/L (45-117); ANION GAP 8 MMOL/L (8-16); BILIRUBIN,TOTAL 1.5 mg/dL (0.2-1); BLOOD UREA NITROGEN 27 mg/dL (7-18); CALCIUM 8.7 mg/dL (8.5-10.1); CHLORIDE 111 mmol/L (98-107); CO2 23 mmol/L (21-32); CREATININE 0.6 mg/dL (0.55-1.3); GLUCOSE,RANDOM 120 mg/dL (74-106); MAGNESIUM 1.7 mg/dL (1.8-2.4); PHOSPHOROUS 3.6 mg/dL (2.5-4.9); SGOT/AST 116 U/L (15-37); SGPT/ALT 89 U/L (13-61); SODIUM 142 mmol/L (136-145); TOT PROT 7.8 g/dl (6.4-8.2)
[2018-11-16] MEDS: FOLIC ACID 5 MG/1 ML SQ SCH (09:24)
[2018-11-16] MEDS: METHADONE HCL 10 MG TABLET PO SCH (09:24)
[2018-11-16] MEDS: ASPIRIN 81 MG CHEWABLE TABLETS PO SCH (09:24)
[2018-11-16] MEDS: carBAMazepine 200 MG/10 ML UNIT-DOSE CUP GT SCH ×2 (09:25→21:48)
[2018-11-16] MEDS: LISINOPRIL 10 MG TABLET (FP) GT SCH (09:25)
[2018-11-16] MEDS: PANTOPRAZOLE SODIUM 40 MG VIAL IVPUSH SCH (09:25)
[2018-11-16] MEDS: THIAMINE HCL 200 MG/2 ML VIAL IVPB SCH (09:25)
[2018-11-16 10:24] LABS: PLATELET ESTIMATE DECREASED
--- NOTE | 2018-11-16 11:29 | PN ---
Progress Note, NEUROBIOLOGIST - Note Progress Note: Selected Entries 11/13/18 11/13/18 11/14/18 12:01 23:15 12:03 Breakfast 25% Diet Tolerated Poor Lunch NPO Supper 25% Temperature 11/14/18 11/15/18 11/15/18 22:49 01:30 06:23 Breakfast Diet Tolerated Lunch Supper 50% Temperature 98.8 F 98.3 F 11/15/18 11/15/18 11/15/18 11:00 14:00 17:13 Breakfast Diet Tolerated Lunch Supper Temperature 98.4 F 98.6 F 98.1 F 11/15/18 11/15/18 11/16/18 22:00 22:54 02:00 Breakfast Diet Tolerated Fair Lunch Supper 50% Temperature 98.1 F 98.7 F 11/16/18 11/16/18 11/16/18 06:00 09:00 10:55 Breakfast 50% Diet Tolerated Fair Lunch Supper Temperature 97.9 F 98.9 F Laboratory Tests 11/16/18 07:55 WBC 4.2 pt on pureed diet/nectar thick liquid, with deep penetration/aspiration on thin liquids during mbs. Impaired speech production with reduced volume during speech tasks and sustained phonation of 3 sec. Distractible. Pt c/o dysphagia. Upon reassessment, swallow reflex seems stronger than when I evaluated her last . Pt not wearing Cervical collar,. Impaired head support with head extended, adversely affecting swallowing function. REC: Support head with pillow, flexing head as tolerated especially during [id number] and for each swallow. Continue Dys puree/nectar thick [id number] Add supplements including Magic cup, ensure pudding, 2 CALHN. STR?
--- NOTE | 2018-11-16 13:22 | PN ---
Teaching Attending Note Name of Resident: Lyle Acevedo ATTENDING PHYSICIAN STATEMENT I saw and evaluated the patient. I reviewed the resident's note and discussed the case with the resident. I agree with the resident's findings and plan as documented. SUBJECTIVE: No fever or chills. No WOLFE , no weakness, feels she is getting stronger. has hoarse voice still OBJECTIVE: NAD dry mucus membranes CV: RRR, no MRG Lungs; CTAB Abd: soft, NT, ND , NL Bs Ext: no edema or erythema, has tremor Neuro: no facial droop, EOMI, nl facial sensation , round pupils, reactive to light, equal. Strength: 5 /5 in hip flexion and shoulder abduction/flexion . biceps 5/5 b/l, triceps 5/5 b/l . quadriceps 5/5 , ankle dorsiflexion and plantar flexion 5/5 . sensation to light touch is normal Reflexes: 2+ biceps and knee jerk b/l. ASSESSMENT AND PLAN: 63 y/o lady with hep C, ETOH abuse,COPD, liver Cirrhosis, HTN, bipolar and polysubstance abuse, who presented with slurred speech and R sided weakness . She was found to have bilateral CVAs and was intubated . 1- Acute /subacute b/l CVA. - cont tele - repeat echo pending - cont ASA - cont to hold statin 2-Thrombocytopenia: likely due to alcohol use, and cirrhosis. 3- Chronic Type 2 odontoid Fx: - Will need surgical intervention in the future - cont C ocllar 4- ETOH withdrawal: - decrease ativan to 0.5 mg po daily PRN , only for withdrawal sx - thiamine and folate daily - start gentle hydration x 24 hr as she looks volume depleted today 5- h/o heroin abuse, cont with methadone. 6- Alcoholic hepatitis, on background of cirrhosis - cont to monitor -hep serology indicates chronic infection will refer to GI as out pt for treatment also has Hep C 7- Hoarseness of voice after extubation: ENT eval pending DVT PX: heparin SQ If no use of benzos today, then can dc tomorrow . need rehab
[2018-11-16] MEDS: ACETAMINOPHEN 500 MG TABLET (FP) PO PRN ×2 (14:30→21:48)
--- NOTE | 2018-11-16 14:40 | ECHO ---
Name: BEVERLY ESCALANTE Exam:Adult Echocardiogram Study Date: 11/16/2018 10:15 AM Age: 63 yrs Reason For Study: evaluate valves and chambers repeat Height: 62 in Weight: 107 lb BSA: 1.5 m2 Procedure A complete two-dimensional transthoracic echocardiogram was performed (2D, M-mode, Doppler and color flow Doppler). Technically limited study. Left Ventricle The left ventricle is normal in size. Left ventricular systolic function is normal. Ejection Fraction = 65- 70%. No regional wall motion abnormalities noted. Right Ventricle The right ventricle is normal size. The right ventricular systolic function is normal. Atria The left atrial size is normal. Right atrial size is normal. Mitral Valve There is mild mitral annular calcification. There is no mitral regurgitation noted. Tricuspid Valve The tricuspid valve is normal in structure and function. There is Trace to mild tricuspid regurgitati on. Right ventricular systolic pressure is normal. Aortic Valve There is mild aortic sclerosis.;. No aortic regurgitation is present. Pulmonic Valve The pulmonic valve is not well visualized. Great Vessels The aortic root is normal size. Pericardium/Pleura There is no pericardial effusion. Interpretation Summary Technically limited study The left ventricle is normal in size. Left ventricular systolic function is normal. No regional wall motion abnormalities noted. Ejection Fraction = 65-70%. The right ventricular systolic function is normal. The left atrial size is normal. Right atrial size is normal. There is mild mitral annular calcification. There is Trace to mild tricuspid regurgitation. There is mild aortic sclerosis.; Right ventricular systolic pressure is normal. There is no pericardial effusion. When compared to study dated 11/11/18, no significant changes Al Royal MD 11/16/2018 02:40 PM
[2018-11-16] MEDS: SODIUM CHLORIDE 1,000 ML IV SCH (16:20)
[2018-11-16] MEDS: LORazepam 0.5 MG TABLET PO PRN (16:20)
--- NOTE | 2018-11-16 17:22 | PN ---
Physical Exam: SUBJECTIVE: Patient seen and examined at bedside. No acute events overnight. OBJECTIVE: Vital Signs Period Temp Pulse Resp BP Sys/Pleitez Pulse Ox Last 24 Hr 97.9 F-99.6 F 88-102 18-18 115-155/62-94 96-97 GENERAL: Mild distress HEAD: Atraumatic/Normocephalic EYES: PERRLA EOMI Sclera Clear NECK: Hard collar LUNGS: CTAB HEART: Tachycardic nl s1s2 ABDOMEN: soft non distended, hypoactive bowel sounds. Liver 2 CM below costal margin. EXTREMITIES: No CCE. NEUROLOGICAL: Left upper extremity strength 5/5. SILT. Right side strength 5/5 . No facial droop. Laboratory Results - last 24 hr 11/16/18 11/16/18 07:55 07:55 WBC 4.2 Corrected WBC (auto) 4.20 RBC 3.31 L Hgb 13.3 Hct 37.7 MCV 113.9 H MCH 40.2 H MCHC 35.3 RDW 12.9 Plt Count 120 L MPV 9.6 Absolute Neuts (auto) 2.6 Neutrophils % 62.1 Lymphocytes % 18.8 Monocytes % 16.4 H Eosinophils % 2.1 Basophils % 0.6 Nucleated RBC % 0 Platelet Estimate Decreased Sodium 142 Potassium 4.0 Chloride 111 H Carbon Dioxide 23 Anion Gap 8 BUN 27 H Creatinine 0.6 Creat Clearance w eGFR > 60 Random Glucose 120 H Calcium 8.7 Phosphorus 3.6 Magnesium 1.7 L Total Bilirubin 1.5 H AST 116 H ALT 89 H Alkaline Phosphatase 128 H Total Protein 7.8 Albumin 3.1 L Active Medications Generic Name Dose Route Start Last Admin Trade Name Jamesq PRN Reason Stop Dose Admin Acetaminophen 500 mg 11/12/18 19:29 11/16/18 16:20 Tylenol - PO 500 mg Q6H PRN Administration FEVER Aspirin 81 mg 11/13/18 10:00 11/16/18 09:24 Asa - PO 81 mg DAILY JAY Administration Carbamazepine 200 mg 11/12/18 22:00 11/16/18 09:25 Tegretol Oral Suspension - GT 200 mg BID JAY Administration Folic Acid 1 mg 11/13/18 10:00 11/16/18 09:24 Folic Acid Injection - SQ 1 mg DAILY JAY Administration Heparin Sodium (Porcine) 5,000 unit 11/15/18 22:00 11/16/18 14:16 Heparin - SQ Not Given TID JAY Sodium Chloride 1,000 mls @ 75 mls/hr 11/16/18 13:15 11/16/18 16:20 Normal Saline - IV 11/17/18 13:14 75 mls/hr ASDIR JAY Administration Lisinopril 30 mg 11/15/18 16:16 11/16/18 09:25 Prinivil GT 30 mg DAILY JAY Administration Lorazepam 0.5 mg 11/16/18 13:22 11/16/18 16:20 Ativan - PO 0.5 mg Q24H PRN Administration WITHDRAWAL(CONT SUBST) Methadone HCl 30 mg 11/13/18 10:00 11/16/18 09:24 Dolophine - PO 30 mg DAILY JAY Administration Pantoprazole Sodium 40 mg 11/13/18 10:00 11/16/18 09:25 Protonix Iv IVPUSH Not Given DAILY JAY Thiamine HCl 200 mg 11/13/18 10:00 11/16/18 09:25 Vitamin B1 Injection - IVPB Not Given DAILY JAY Topiramate 50 mg 11/12/18 22:00 11/15/18 21:41 Topamax - NR 50 mg HS JAY Administration ASSESSMENT/PLAN: Patient is a 63 year old female with past medical history of HTN, COPD, HCV, Liver cirrhosis, Bipolar disorder, ?pancreatic cyst, and EtOH abuse, presented to the ED after experiencing sudden weakness of the right leg with numbness of the right finger tips, and slurred speech that started about 3pm yesterday. #Acute CVA on MRI -Aspirin 300mg given at the ED once -Start ASA. Hold statin in light of transaminitis - versed drip D/C'ed -Echo---Very poor visualization. EF WNL .Will need to repeat once patient less restless. Repeat echo in am -Carotid doppler--> No hemodynamically significant stenosis. -Triglycerides 247, LDL 163 -Dr May on board #Cervical fracture -Neurosurgery (Dr Banerjee) consulted. MRI: the patient has a chronic dens fracture type 1 -C-collar in place. No surgery intervention at this juncture. #EtOH abuse -CIWA protocol initiated. Ativan switched to 0.5 mg po Q24H -Cannot give Librium in light of liver enzymes -Neuro checks -Seizure and aspiration precautions -Banana bag ordered -Thiamine 200mg IVPB daily -Folic acid 0.4 mg sq daily -Monitor and replete electrolytes #Polysubstance abuse (heroin and cocaine) -Currently on Methadone 30mg daily for detox -Follows up at [facility] #Hypertension -On Lisinopril/HCTZ 10/12.5 daily -Hold BP meds for now -Would allow permissive HTN >220/120 -As per neuro, keep MAP >110 #Hx of HCV, Liver cirrhosis -Follows up with Dr. Obregon as outpatient -Scheduled for EUS for ?pancreatic/biliary duct cyst -Elevated LFTs likely multifactorial (HCV, cirrhosis, EtOH abuse) -RUQ ultrasound once more stable -LFT's trending downwards. #Bipolar D/O -On Carbamazepine 200mg BID -Topiramate 50mg PO HS #FEN -No fluids -Monitor Electrolytes -puree diet with thin liquids. #Prophylaxis -SCD's due to thrombocytopenia -GI: IV Protonix 40mg daily #Dispo tele Visit type - Emergency Visit Emergency Visit: Yes ED Registration Date: 11/10/18 Care time: The patient presented to the Emergency Department on the above date and was hospitalized for further evaluation of their emergent condition. - New Patient This patient is new to me today: No - Critical Care Critical Care patient: No - Discharge Referral Referred to [facility] Med [facility] No
[2018-11-16] MEDS: TOPIRAMATE 25 MG TABLET (FP) NR SCH (21:48)
[2018-11-17] MEDS ORDERED: LORazepam 0.5 MG TABLET PO ONE (03:50)
[2018-11-17] MEDS: HEPARIN NA (PORCINE) 5,000 UNITS/ML 1ML VIAL SQ SCH ×3 (06:43→21:28)
[2018-11-17] MEDS: SODIUM CHLORIDE 1,000 ML IV SCH ×2 (06:49→14:55)
[2018-11-17 07:59] LABS: HEMATOCRIT 34.9 % (32.4-45.2); HEMOGLOBIN 12.3 GM/dL (10.7-15.3); MCHC 35.4 g/dl (32.0-36.0); MEAN CELL VOLUME 113.1 fl (80-96); MEAN PLT VOLUME 9.7 fl (7.5-11.1); PLATELET COUNT 121 K/MM3 (134-434); RBC 3.09 M/mm3 (3.60-5.2); RDW 12.9 % (11.6-15.6); WHITE BLOOD COUNT 5.8 K/mm3 (4.0-10.0)
[2018-11-17 08:10] LABS: ANION GAP 10 MMOL/L (8-16); BLOOD UREA NITROGEN 21 mg/dL (7-18); CALCIUM 8.6 mg/dL (8.5-10.1); CHLORIDE 112 mmol/L (98-107); CO2 21 mmol/L (21-32); CREATININE 0.6 mg/dL (0.55-1.3); GLUCOSE,RANDOM 123 mg/dL (74-106); MAGNESIUM 1.5 mg/dL (1.8-2.4); PHOSPHOROUS 2.8 mg/dL (2.5-4.9); POTASSIUM 3.6 mmol/L (3.5-5.1); SODIUM 142 mmol/L (136-145)
[2018-11-17] MEDS ORDERED: MAGNESIUM SULF 50% (8.12 MEQ/2 ML-1 GM VIAL) IVPB ONE (08:30)
[2018-11-17] MEDS: PANTOPRAZOLE SODIUM 40 MG VIAL IVPUSH SCH (09:19)
[2018-11-17] MEDS: carBAMazepine 200 MG/10 ML UNIT-DOSE CUP GT SCH ×2 (09:20→21:29)
[2018-11-17] MEDS: METHADONE HCL 10 MG TABLET PO SCH (09:21)
[2018-11-17] MEDS: ASPIRIN 81 MG CHEWABLE TABLETS PO SCH (09:22)
[2018-11-17] MEDS: FOLIC ACID 5 MG/1 ML SQ SCH (09:23)
[2018-11-17] MEDS: LISINOPRIL 10 MG TABLET (FP) GT SCH (09:23)
[2018-11-17] MEDS: LORazepam 0.5 MG TABLET PO PRN (09:24)
[2018-11-17] MEDS: THIAMINE HCL 200 MG/2 ML VIAL IVPB SCH (09:24)
[2018-11-17 10:14] LABS: URINE APPEARANCE CLOUDY; URINE BILIRUBIN NEGATIVE (<2.0 mg/dL); URINE GLUCOSE (UA) NEGATIVE (NEGATIVE); URINE KETONE NEGATIVE (NEGATIVE); URINE LEUK ESTERASE 3+ (NEGATIVE); URINE NITRITE NEGATIVE (NEGATIVE); URINE PROTEIN 1+ (NEGATIVE); URINE UROBILINOGEN 4.0 E.U/dl mg/dL (0.2-1.0)
[2018-11-17 10:24] LABS: URINE COLOR DK YELLOW
[2018-11-17 10:26] LABS: EPI CELLS FEW /HPF (FEW); URINE BACTERIA RARE /hpf (NONE SEEN); URINE MUCUS RARE
--- NOTE | 2018-11-17 12:14 | PN ---
Progress Note (short form) - Note Progress Note: PULMONARY Denies shortness of breath, cough or wheezing. Vital Signs Period Temp Pulse Resp BP Sys/Pleitez Pulse Ox Last 24 Hr 98.7 F-100.3 F 90-106 18-20 115-164/62-94 96-97 Gen: NAD at rest Heart: RRR Lung: decreased breath sounds at the bases Abd: soft, nontender Ext: no edema CBC, BMP 11/17/18 05:50 11/17/18 05:50 Active Medications Acetaminophen (Tylenol -) 500 mg PO Q6H PRN PRN Reason: FEVER Last Admin: 11/16/18 21:48 Dose: 500 mg Aspirin (Asa -) 81 mg PO DAILY [facility] Last Admin: 11/17/18 09:22 Dose: 81 mg Carbamazepine (Tegretol Oral Suspension -) 200 mg GT BID [facility] Last Admin: 11/17/18 09:20 Dose: 200 mg Folic Acid (Folic Acid Injection -) 1 mg SQ DAILY [facility] Last Admin: 11/17/18 09:23 Dose: 1 mg Heparin Sodium (Porcine) (Heparin -) 5,000 unit SQ TID [facility] Last Admin: 11/17/18 06:43 Dose: 5,000 unit Sodium Chloride (Normal Saline -) 1,000 mls @ 75 mls/hr IV ASDIR [facility] Stop: 11/17/18 13:14 Last Admin: 11/17/18 06:49 Dose: 75 mls/hr Lisinopril (Prinivil) 30 mg GT DAILY [facility] Last Admin: 11/17/18 09:23 Dose: 30 mg Methadone HCl (Dolophine -) 30 mg PO DAILY [facility] Last Admin: 11/17/18 09:21 Dose: 30 mg Pantoprazole Sodium (Protonix Iv) 40 mg IVPUSH DAILY [facility] Last Admin: 11/17/18 09:19 Dose: 40 mg Thiamine HCl (Vitamin B1 Injection -) 200 mg IVPB DAILY [facility] Last Admin: 11/17/18 09:24 Dose: 200 mg Topiramate (Topamax -) 50 mg NR HS [facility] Last Admin: 11/16/18 21:48 Dose: 50 mg A/P Acute/Subacute Lacunar CVA s/p Acute Respiratory Failure Alcohol Abuse/Intoxication C-spine fx Liver Cirrhosis COPD Hep C HTN Thrombocyopenia - ASA - inhaled bronchodilators as needed - rehab/PT - DVT prophylaxis
[2018-11-17] MEDS ORDERED: CEFTRIAXONE 1,000 MG in DEXTROSE 5%-WATER - 50 ML IVPB SCH (14:00)
--- NOTE | 2018-11-17 14:07 | PN ---
Teaching Attending Note Name of Resident: Lyle Acevedo ATTENDING PHYSICIAN STATEMENT I saw and evaluated the patient. I reviewed the resident's note and discussed the case with the resident. I agree with the resident's findings and plan as documented. SUBJECTIVE: had fever last night and this am . has no SOB. no abd pain, feels anxious on and off. had a panic attack an received ativan. upset about her hoarseness and aphasia OBJECTIVE: NAD dry mucus membranes CV: RRR, no MRG Lungs; CTAB Abd: soft, NT, ND , NL Bs Ext: no edema or erythema, has tremor ASSESSMENT AND PLAN: 63 y/o lady with hep C, ETOH abuse,COPD, liver Cirrhosis, HTN, bipolar and polysubstance abuse, who presented with slurred speech and R sided weakness . She was found to have bilateral CVAs and was intubated . 1- Acute /subacute b/l CVA. - cont tele - repeat echo reviewed - cont ASA - cont to hold statin 2-Fever:Cxray neg. UA obtained, indicative of UTI. will treat for complicated UTi as has fever. - start ceftriaxone and follow urine cx - start IVF 3- Chronic Type 2 odontoid Fx: - Will need surgical intervention in the future as out pt - cont C ocllar 4- ETOH withdrawal: resolved. - dc ativan - thiamine and folate daily 5- h/o heroin abuse, cont with methadone. 6- Alcoholic hepatitis, on background of cirrhosis - cont to monitor -hep serology indicates chronic infection will refer to GI as out pt for treatment also has Hep C 7- Hoarseness of voice after extubation: ENT eval pending DVT PX: heparin SQ Cancel dc due to complicated UTI and fever
[2018-11-17] MEDS ORDERED: PT OWN MED DRAWER 7, Y5N ONE ×2 (14:58→20:47)
[2018-11-17] MEDS ORDERED: DEXTROSE 5%-WATER - 50 ML IVPB ONE (14:59)
[2018-11-17] MEDS ORDERED: cefTRIAXone SODIUM 1 GM VIAL ONE (14:59)
[2018-11-17] MEDS: CEFTRIAXONE 1 GM in DEXTROSE 5%-WATER - 50 ML IVPB SCH (15:08)
--- NOTE | 2018-11-17 20:02 | PN ---
Physical Exam: SUBJECTIVE: Patient seen and examined at bedside. Febrile yesterday am. OBJECTIVE: Vital Signs Period Temp Pulse Resp BP Sys/Pleitez Pulse Ox Last 24 Hr 98.7 F-100.3 F 88-106 18-20 145-164/73-94 96-97 GENERAL: No acute distress. HEAD: Atraumatic/Normocephalic EYES: PERRLA EOMI Sclera Clear NECK: Hard collar off. LUNGS: CTAB HEART: Tachycardic nl s1s2 ABDOMEN: soft non distended, hypoactive bowel sounds. Liver 2 CM below costal margin. EXTREMITIES: No CCE. NEUROLOGICAL: Left upper extremity strength 5/5. SILT. Right side strength 5/5 . No facial droop. Laboratory Results - last 24 hr 11/17/18 11/17/18 11/17/18 05:50 05:50 09:18 WBC 5.8 RBC 3.09 L Hgb 12.3 Hct 34.9 MCV 113.1 H MCH 40.0 H MCHC 35.4 RDW 12.9 Plt Count 121 L MPV 9.7 Sodium 142 Potassium 3.6 Chloride 112 H Carbon Dioxide 21 Anion Gap 10 BUN 21 H Creatinine 0.6 Creat Clearance w eGFR > 60 Random Glucose 123 H Calcium 8.6 Phosphorus 2.8 Magnesium 1.5 L Urine Color Dk yellow Urine Appearance Cloudy Urine pH 6.0 Ur Specific [place] 1.023 Urine Protein 1+ H Urine Glucose (UA) Negative Urine Ketones Negative Urine Blood 2+ H Urine Nitrite Negative Urine Bilirubin Negative Urine Urobilinogen 4.0 e.u/dl H Ur Leukocyte Esterase 3+ H Urine WBC (Auto) 478 Urine RBC (Auto) 35 Ur Epithelial Cells Few Urine Bacteria Rare Urine Mucus Rare Active Medications Generic Name Dose Route Start Last Admin Trade Name Freq PRN Reason Stop Dose Admin Acetaminophen 500 mg 11/12/18 19:29 11/16/18 21:48 Tylenol - PO 500 mg Q6H PRN Administration FEVER Aspirin 81 mg 11/13/18 10:00 11/17/18 09:22 Asa - PO 81 mg DAILY JAY Administration Carbamazepine 200 mg 11/12/18 22:00 11/17/18 09:20 Tegretol Oral Suspension - GT 200 mg BID JAY Administration Folic Acid 1 mg 11/13/18 10:00 11/17/18 09:23 Folic Acid Injection - SQ 1 mg DAILY JAY Administration Heparin Sodium (Porcine) 5,000 unit 11/15/18 22:00 11/17/18 15:08 Heparin - SQ 5,000 unit TID JAY Administration Ceftriaxone Sodium 1 gm/ 50 mls @ 100 mls/hr 11/17/18 14:15 11/17/18 15:08 Dextrose IVPB 100 mls/hr DAILY JAY Administration Protocol Sodium Chloride 1,000 mls @ 75 mls/hr 11/17/18 14:15 11/17/18 14:55 Normal Saline - IV 75 mls/hr ASDIR JAY Administration Lisinopril 30 mg 11/15/18 16:16 11/17/18 09:23 Prinivil GT 30 mg DAILY JAY Administration Methadone HCl 30 mg 11/13/18 10:00 11/17/18 09:21 Dolophine - PO 30 mg DAILY JAY Administration Pantoprazole Sodium 40 mg 11/13/18 10:00 11/17/18 09:19 Protonix Iv IVPUSH 40 mg DAILY JAY Administration Thiamine HCl 200 mg 11/13/18 10:00 11/17/18 09:24 Vitamin B1 Injection - IVPB 200 mg DAILY JAY Administration Topiramate 50 mg 11/12/18 22:00 11/16/18 21:48 Topamax - NR 50 mg HS JAY Administration ASSESSMENT/PLAN: Patient is a 63 year old female with past medical history of HTN, COPD, HCV, Liver cirrhosis, Bipolar disorder, ?pancreatic cyst, and EtOH abuse, presented to the ED after experiencing sudden weakness of the right leg with numbness of the right finger tips, and slurred speech that started about 3pm yesterday. #Acute CVA on MRI -Aspirin 300mg given at the ED once -Start ASA. Hold statin in light of transaminitis - versed drip D/C'ed -Echo---Very poor visualization. EF WNL .Will need to repeat once patient less restless. Repeat echo in am -Carotid doppler--> No hemodynamically significant stenosis. -Triglycerides 247, LDL 163 -Dr May on board -Evaluated by ENT- Dr Vicente today. Flexible fiberoptic nasal and laryngoscopy was performed at bedside: presence of a deviated septum, a small amount of clear mucus dripping into the back of the nose, a normal hypopharynx and endolarynx with the exception of moderate bilateral vocal cord ecchymosis, worse on the left side. Both vocal cords are mobile. Impression: Laryngeal ecchymosis, probably due to a recent traumatic intubation , but possibly due to laryngitis from a recent respiratory infection # UTI UA reveals 3+ Leuk Esterase Urine WBCs 478 Will start Cefrtriaxone in light of fevers as well. #Cervical fracture -Neurosurgery (Dr Banerjee) consulted. MRI: the patient has a chronic dens fracture type 1 -C-collar in place. No surgery intervention at this juncture. #EtOH abuse -CIWA protocol initiated. Ativan D/C'ed -Cannot give Librium in light of liver enzymes -Neuro checks -Seizure and aspiration precautions -Banana bag ordered -Thiamine 200mg IVPB daily -Folic acid 0.4 mg sq daily -Monitor and replete electrolytes #Polysubstance abuse (heroin and cocaine) -Currently on Methadone 30mg daily for detox -Follows up at [facility] #Hypertension -On Lisinopril/HCTZ 10/12.5 daily -Hold BP meds for now -Would allow permissive HTN >220/120 -As per neuro, keep MAP >110 #Hx of HCV, Liver cirrhosis -Follows up with Dr. Obregon as outpatient -Scheduled for EUS for ?pancreatic/biliary duct cyst -Elevated LFTs likely multifactorial (HCV, cirrhosis, EtOH abuse) -RUQ ultrasound once more stable -LFT's trending downwards. #Bipolar D/O -On Carbamazepine 200mg BID -Topiramate 50mg PO HS #FEN -No fluids -Monitor Electrolytes -puree diet with thin liquids. #Prophylaxis -SCD's due to thrombocytopenia -GI: IV Protonix 40mg daily #Dispo tele Visit type - Emergency Visit Emergency Visit: Yes ED Registration Date: 11/10/18 Care time: The patient presented to the Emergency Department on the above date and was hospitalized for further evaluation of their emergent condition. - New Patient This patient is new to me today: No - Critical Care Critical Care patient: No - Discharge Referral Referred to [facility] Med P.C.: No
--- NOTE | 2018-11-17 20:03 | CONSULT ---
Consult - text type - Consultation Consultation Note: ENT consult. 63-year-old woman with sudden change in voice noticed immediate onset of vocal weakness following a recent cerebrovascular accident and intubation Physical examination reveals a well developed, thin female laying comfortably in bed in no acute distress flexible fiberoptic nasal and laryngoscopy was performed, revealing the presence of a deviated septum, a small amount of clear mucus dripping into the back of the nose, a normal hypopharynx and endolarynx with the exception of moderate bilateral vocal cord ecchymosis, worse on the left side. Both vocal cords are mobile. Impression: Laryngeal ecchymosis, probably due to a recent traumatic intubation , but possibly due to laryngitis from a recent respiratory infection Recommendations: No urgent intervention is required at this time. Voice rest is prudent. Outpatient follow up in my office is recommended if symptoms do not resolve
[2018-11-17] MEDS: TOPIRAMATE 25 MG TABLET (FP) NR SCH (21:29)
[2018-11-18] MEDS ORDERED: LORazepam 0.5 MG TABLET PO ONE (01:41)
[2018-11-18] MEDS: HEPARIN NA (PORCINE) 5,000 UNITS/ML 1ML VIAL SQ SCH ×3 (06:42→21:48)
[2018-11-18 07:23] LABS: HEMATOCRIT 33.2 % (32.4-45.2); HEMOGLOBIN 11.8 GM/dL (10.7-15.3); MCHC 35.6 g/dl (32.0-36.0); MEAN PLT VOLUME 10.1 fl (7.5-11.1); PLATELET COUNT 111 K/MM3 (134-434); RBC 2.91 M/mm3 (3.60-5.2); WHITE BLOOD COUNT 3.3 K/mm3 (4.0-10.0)
[2018-11-18 07:41] LABS: ANION GAP 5 MMOL/L (8-16); BLOOD UREA NITROGEN 14 mg/dL (7-18); CALCIUM 7.9 mg/dL (8.5-10.1); CHLORIDE 111 mmol/L (98-107); CO2 21 mmol/L (21-32); CREATININE 0.4 mg/dL (0.55-1.3); GLUCOSE,RANDOM 95 mg/dL (74-106); MAGNESIUM 1.8 mg/dL (1.8-2.4); PHOSPHOROUS 2.4 mg/dL (2.5-4.9); POTASSIUM 3.7 mmol/L (3.5-5.1); SODIUM 137 mmol/L (136-145)
[2018-11-18] MEDS ORDERED: NAPH,MB-DB/K PH,MBDB POWDER PACKET PO ONE (08:13)
[2018-11-18 08:15] LABS: MCH 40.6 pg (25.7-33.7)
--- NOTE | 2018-11-18 08:56 | PN ---
Teaching Attending Note Name of Resident: Lyle Acevedo ATTENDING PHYSICIAN STATEMENT I saw and evaluated the patient. I reviewed the resident's note and discussed the case with the resident. I agree with the resident's findings and plan as documented. SUBJECTIVE: Patient has no new complains. feels better. OBJECTIVE: Vital Signs Temperature 98.9 F 11/18/18 06:00 Pulse Rate 84 11/18/18 06:00 Respiratory Rate 18 11/18/18 06:00 Blood Pressure 130/76 11/18/18 06:00 O2 Sat by Pulse Oximetry (%) 98 11/17/18 20:13 GENERAL: No acute distress. HEAD: Atraumatic/Normocephalic EYES: PERRLA EOMI Sclera Clear NECK: Hard collar off. since patient does not want to wear the hard collar. LUNGS: CTAB HEART: Tachycardic nl s1s2 ABDOMEN: soft non distended, hypoactive bowel sounds. Liver 2 CM below costal margin. EXTREMITIES: No CCE. NEUROLOGICAL: Cn 2-12 grossly intact . No facial droop. CBCD WBC 3.3 K/mm3 (4.0-10.0) L 11/18/18 05:50 RBC 2.91 M/mm3 (3.60-5.2) L 11/18/18 05:50 Hgb 11.8 GM/dL (10.7-15.3) 11/18/18 05:50 Hct 33.2 % (32.4-45.2) 11/18/18 05:50 MCV 114.0 fl (80-96) H 11/18/18 05:50 MCHC 35.6 g/dl (32.0-36.0) 11/18/18 05:50 RDW 13.0 % (11.6-15.6) 11/18/18 05:50 Plt Count 111 K/MM3 (134-434) L 11/18/18 05:50 MPV 10.1 fl (7.5-11.1) 11/18/18 05:50 CMP Sodium 137 mmol/L (136-145) 11/18/18 05:50 Potassium 3.7 mmol/L (3.5-5.1) 11/18/18 05:50 Chloride 111 mmol/L (98-107) H 11/18/18 05:50 Carbon Dioxide 21 mmol/L (21-32) 11/18/18 05:50 Anion Gap 5 MMOL/L (8-16) L 11/18/18 05:50 BUN 14 mg/dL (7-18) 11/18/18 05:50 Creatinine 0.4 mg/dL (0.55-1.3) L 11/18/18 05:50 Creat Clearance w eGFR > 60 (>60) 11/18/18 05:50 Random Glucose 95 mg/dL (74-106) 11/18/18 05:50 Calcium 7.9 mg/dL (8.5-10.1) L 11/18/18 05:50 Total Bilirubin 1.5 mg/dL (0.2-1) H 11/16/18 07:55 AST 116 U/L (15-37) H 11/16/18 07:55 ALT 89 U/L (13-61) H 11/16/18 07:55 Alkaline Phosphatase 128 U/L (45-117) H 11/16/18 07:55 Total Protein 7.8 g/dl (6.4-8.2) 11/16/18 07:55 Albumin 3.1 g/dl (3.4-5.0) L 11/16/18 07:55 CARDIAC ENZYMES Creatine Kinase 76 U/L (26-192) 11/10/18 22:40 Troponin I < 0.02 ng/ml (0.00-0.05) 11/10/18 22:40 Current Medications Generic Name Dose Route Start Last Admin Trade Name Jamesq PRN Reason Stop Dose Admin Acetaminophen 500 mg 11/12/18 19:29 11/16/18 21:48 Tylenol - PO 500 mg Q6H PRN Administration FEVER Aspirin 81 mg 11/13/18 10:00 11/17/18 09:22 Asa - PO 81 mg DAILY JAY Administration Carbamazepine 200 mg 11/18/18 07:55 Tegretol Oral Suspension - PO BID JAY Folic Acid 1 mg 11/13/18 10:00 11/17/18 09:23 Folic Acid Injection - SQ 1 mg DAILY JAY Administration Heparin Sodium (Porcine) 5,000 unit 11/15/18 22:00 11/18/18 06:42 Heparin - SQ 5,000 unit TID JAY Administration Ceftriaxone Sodium 1 gm/ 50 mls @ 100 mls/hr 11/17/18 14:15 11/17/18 15:08 Dextrose IVPB 100 mls/hr DAILY JAY Administration Protocol Sodium Chloride 1,000 mls @ 75 mls/hr 11/17/18 14:15 11/17/18 14:55 Normal Saline - IV 75 mls/hr ASDIR JAY Administration Lisinopril 30 mg 11/18/18 07:55 Prinivil PO DAILY JAY Methadone HCl 30 mg 11/13/18 10:00 11/17/18 09:21 Dolophine - PO 30 mg DAILY JAY Administration Pantoprazole Sodium 40 mg 11/13/18 10:00 11/17/18 09:19 Protonix Iv IVPUSH 40 mg DAILY JAY Administration Thiamine HCl 200 mg 11/13/18 10:00 11/17/18 09:24 Vitamin B1 Injection - IVPB 200 mg DAILY JAY Administration Topiramate 50 mg 11/12/18 22:00 11/17/18 21:29 Topamax - NR 50 mg HS JAY Administration Home Medications Medication Instructions Recorded Carbamazepine [Tegretol -] 200 mg PO BID 11/11/18 Lisinopril 10 mg PO DAILY 11/11/18 Methadone [Dolophine -] 30 mg PO DAILY 11/11/18 Pantoprazole Sodium [Protonix] 40 mg PO DAILY 11/11/18 Topiramate 50 mg PO HS 11/11/18 ASSESSMENT AND PLAN: 63 y/o lady with hep C, ETOH abuse,COPD, liver Cirrhosis, HTN, bipolar and polysubstance abuse, who presented with slurred speech and R sided weakness . She was found to have bilateral CVAs and was intubated . # Acute /subacute b/l CVA., cont tele on aspirin and statins are on hold due elevated LFTs , repeat echo reviewed #Fever:Cxray neg. UA obtained, indicative of UTI. will treat for complicated UTi ,continue ceftriaxone and follow urine cx , IVF # Acute UTI on Rocephin continue for now # Chronic Type 2 odontoid Fx: continue C -collar , Will need surgical intervention in the future as out pt , patient refuses to wear the collar. since it's uncomfortable for her. explained the importance of wearing the C- collar. # ETOH withdrawal: resolved. continue thiamine and folate daily # h/o heroin abuse, cont with methadone. # Alcoholic hepatitis, with hx of cirrhosis, hep serology indicates chronic infection will refer to GI as out pt for treatment. DVT PX: heparin SQ
[2018-11-18] MEDS ORDERED: DEXTROSE 5%-WATER - 50 ML IVPB ONE (09:20)
[2018-11-18] MEDS ORDERED: PT OWN MED DRAWER 7, Y5N ONE ×3 (09:20→20:53)
[2018-11-18] MEDS ORDERED: cefTRIAXone SODIUM 1 GM VIAL ONE (09:20)
[2018-11-18] MEDS: METHADONE HCL 10 MG TABLET PO SCH (09:50)
[2018-11-18] MEDS: ASPIRIN 81 MG CHEWABLE TABLETS PO SCH (09:50)
[2018-11-18] MEDS: PANTOPRAZOLE SODIUM 40 MG VIAL IVPUSH SCH (09:52)
[2018-11-18] MEDS: LISINOPRIL 10 MG TABLET (FP) PO SCH (09:52)
[2018-11-18] MEDS: CEFTRIAXONE 1 GM in DEXTROSE 5%-WATER - 50 ML IVPB SCH (09:53)
[2018-11-18] MEDS: THIAMINE HCL 200 MG/2 ML VIAL IVPB SCH (09:55)
[2018-11-18] MEDS: carBAMazepine 200 MG/10 ML UNIT-DOSE CUP PO SCH ×2 (10:22→21:48)
[2018-11-18] MEDS: FOLIC ACID 5 MG/1 ML SQ SCH (10:32)
--- NOTE | 2018-11-18 11:45 | PN ---
Progress Note, JACKSPOOLER - Note Progress Note: Selected Entries 11/14/18 11/14/18 11/15/18 12:03 22:49 01:30 Breakfast 25% Lunch Supper 50% Temperature 98.8 F 11/15/18 11/15/18 11/15/18 06:23 11:00 14:00 Breakfast Lunch Supper Temperature 98.3 F 98.4 F 98.6 F 11/15/18 11/15/18 11/15/18 17:13 22:00 22:54 Breakfast Lunch Supper 50% Temperature 98.1 F 98.1 F 11/16/18 11/16/18 11/16/18 02:00 06:00 09:00 Breakfast Lunch Supper Temperature 98.7 F 97.9 F 98.9 F 11/17/18 11/17/18 11/17/18 01:30 06:20 09:00 Breakfast 50% Lunch Supper Temperature 98.7 F 99.6 F 100.3 F H 11/17/18 11/17/18 11/17/18 11:23 12:57 14:04 Breakfast 50% Lunch 50% Supper Temperature 99.8 F H 11/17/18 11/17/18 11/17/18 18:00 20:15 22:00 Breakfast Lunch Supper 75% Temperature 99.0 F 98.8 F 11/18/18 11/18/18 11/18/18 02:00 06:00 09:48 Breakfast Lunch Supper Temperature 97.9 F 98.9 F 99.4 F Laboratory Tests 11/18/18 05:50 WBC 3.3 L ENT- flexible fiberoptic nasal and laryngoscopy was performed, revealing the presence of a deviated septum, a small amount of clear mucus dripping into the back of the nose, a normal hypopharynx and endolarynx with the exception of moderate bilateral vocal cord ecchymosis, worse on the left side. Both vocal cords are mobile. Impression: Laryngeal ecchymosis, probably due to a recent traumatic intubation , but possibly due to laryngitis from a recent respiratory infection Looks much better. Speech production much improved-more precise, vocal quality improving Consider diet upgrade to REg chopped diet and sips of thin liquid . Use Dentures if available. OOB for meals if possible. Add supplements including Magic cup, ensure pudding, 2 JULIO CESAR HN.
[2018-11-18] MEDS: SODIUM CHLORIDE 1,000 ML IV SCH (14:00)
--- NOTE | 2018-11-18 18:04 | PN ---
Physical Exam: SUBJECTIVE: Patient seen and examined at bedside. Received 0.5 PO ativan last night. Denies chest pain or shortness of breath. OBJECTIVE: Vital Signs Period Temp Pulse Resp BP Sys/Pleitez Pulse Ox Last 24 Hr 97.9 F-99.4 F 79-95 18-20 121-154/70-99 98-98 GENERAL: NAD AAOx3 HEAD: Atraumatic/Normocephalic EYES: PERRLA EOMI Sclera Clear NECK: Hard collar off. LUNGS: CTAB HEART: RRR nl s1s2 ABDOMEN: soft non distended, hypoactive bowel sounds. Liver 2 CM below costal margin. EXTREMITIES: No CCE. NEUROLOGICAL: Left upper extremity strength 5/5. SILT. Right side strength 5/5 . No facial droop. Laboratory Results - last 24 hr 11/18/18 11/18/18 05:50 05:50 WBC 3.3 L RBC 2.91 L Hgb 11.8 Hct 33.2 MCV 114.0 H MCH 40.6 H MCHC 35.6 RDW 13.0 Plt Count 111 L MPV 10.1 Sodium 137 Potassium 3.7 Chloride 111 H Carbon Dioxide 21 Anion Gap 5 L BUN 14 Creatinine 0.4 L Creat Clearance w eGFR > 60 Random Glucose 95 Calcium 7.9 L Phosphorus 2.4 L Magnesium 1.8 Active Medications Generic Name Dose Route Start Last Admin Trade Name Freq PRN Reason Stop Dose Admin Acetaminophen 500 mg 11/12/18 19:29 11/16/18 21:48 Tylenol - PO 500 mg Q6H PRN Administration FEVER Aspirin 81 mg 11/13/18 10:00 11/18/18 09:50 Asa - PO 81 mg DAILY JAY Administration Carbamazepine 200 mg 11/18/18 07:55 11/18/18 10:22 Tegretol Oral Suspension - PO 200 mg BID JAY Administration Folic Acid 1 mg 11/13/18 10:00 11/18/18 10:32 Folic Acid Injection - SQ 1 mg DAILY JAY Administration Heparin Sodium (Porcine) 5,000 unit 11/15/18 22:00 11/18/18 14:27 Heparin - SQ 5,000 unit TID JAY Administration Ceftriaxone Sodium 1 gm/ 50 mls @ 100 mls/hr 11/17/18 14:15 11/18/18 09:53 Dextrose IVPB 100 mls/hr DAILY JAY Administration Protocol Sodium Chloride 1,000 mls @ 75 mls/hr 11/17/18 14:15 11/18/18 14:00 Normal Saline - IV 75 mls/hr ASDIR JAY Administration Lisinopril 30 mg 11/18/18 07:55 11/18/18 09:52 Prinivil PO 30 mg DAILY JAY Administration Methadone HCl 30 mg 11/13/18 10:00 11/18/18 09:50 Dolophine - PO 30 mg DAILY JAY Administration Pantoprazole Sodium 40 mg 11/13/18 10:00 11/18/18 09:52 Protonix Iv IVPUSH 40 mg DAILY JAY Administration Thiamine HCl 200 mg 11/13/18 10:00 11/18/18 09:55 Vitamin B1 Injection - IVPB 200 mg DAILY JAY Administration Topiramate 50 mg 11/12/18 22:00 11/17/18 21:29 Topamax - NR 50 mg HS JAY Administration ASSESSMENT/PLAN: Patient is a 63 year old female with past medical history of HTN, COPD, HCV, Liver cirrhosis, Bipolar disorder, ?pancreatic cyst, and EtOH abuse, presented to the ED after experiencing sudden weakness of the right leg with numbness of the right finger tips, and slurred speech that started about 3pm yesterday. #Acute CVA on MRI -Aspirin 300mg given at the ED once -Start ASA. Hold statin in light of transaminitis - versed drip D/C'ed -Echo---Very poor visualization. EF WNL .Will need to repeat once patient less restless. Repeat echo in am -Carotid doppler--> No hemodynamically significant stenosis. -Triglycerides 247, LDL 163 -Dr May on board -Evaluated by ENT- Dr Vicente. Flexible fiberoptic nasal and laryngoscopy was performed at bedside: presence of a deviated septum, a small amount of clear mucus dripping into the back of the nose, a normal hypopharynx and endolarynx with the exception of moderate bilateral vocal cord ecchymosis, worse on the left side. Both vocal cords are mobile. Impression: Laryngeal ecchymosis, probably due to a recent traumatic intubation , but possibly due to laryngitis from a recent respiratory infection # UTI UA reveals 3+ Leuk Esterase Urine WBCs 478 Will start Cefrtriaxone in light of fevers as well. Prelim Urinary Cultures reveal Lactose Fermenting Negative Bacilli. Waiting for sensitivity Grid to come back. #Cervical fracture -Neurosurgery (Dr Banerjee) consulted. MRI: the patient has a chronic dens fracture type 1 No surgery intervention at this juncture. #EtOH abuse -CIWA protocol initiated. Ativan D/C'ed -Cannot give Librium in light of liver enzymes -Neuro checks -Seizure and aspiration precautions -Banana bag ordered -Thiamine 200mg IVPB daily -Folic acid 0.4 mg sq daily -Monitor and replete electrolytes #Polysubstance abuse (heroin and cocaine) -Currently on Methadone 30mg daily for detox -Follows up at [facility] #Hypertension -On Lisinopril 30 MG PO Daily #Hx of HCV, Liver cirrhosis -Follows up with Dr. Obregon as outpatient -Elevated LFTs likely multifactorial (HCV, cirrhosis, EtOH abuse) -RUQ ultrasound---> mild fatty infiltration of liver vs hepatocellular disease. Please see report for details. -LFT's trending downwards. #Bipolar D/O -On Carbamazepine 200mg BID -Topiramate 50mg PO HS #FEN -No fluids -Monitor Electrolytes -Chopped Diet w/ thin liquids. #Prophylaxis -SCD's due to thrombocytopenia -GI: IV Protonix 40mg daily #Dispo For SNF placement tomorrow Visit type - Emergency Visit Emergency Visit: Yes ED Registration Date: 11/10/18 Care time: The patient presented to the Emergency Department on the above date and was hospitalized for further evaluation of their emergent condition. - New Patient This patient is new to me today: No - Critical Care Critical Care patient: No - Discharge Referral Referred to [facility] No
[2018-11-18] MEDS ORDERED: diphenhydrAMINE HCL 25 MG CAPSULE (FP) PO ONE (21:45)
[2018-11-18] MEDS: TOPIRAMATE 25 MG TABLET (FP) NR SCH (21:48)
[2018-11-18] MEDS: ACETAMINOPHEN 500 MG TABLET (FP) PO PRN (21:50)
[2018-11-19] MEDS ORDERED: ACETAMINOPHEN 1000 MG/100 ML VIAL (NON FORMULARY) IVPB ONE (02:34)
[2018-11-19] MEDS: HEPARIN NA (PORCINE) 5,000 UNITS/ML 1ML VIAL SQ SCH ×3 (05:37→21:38)
[2018-11-19 07:36] LABS: BASO % 0.7 % (0-2.0); HEMATOCRIT 34.6 % (32.4-45.2); LYMPH % 9.9 % (8-40); MCH 38.9 pg (25.7-33.7); MCHC 34.6 g/dl (32.0-36.0); MEAN CELL VOLUME 112.7 fl (80-96); MEAN PLT VOLUME 10.3 fl (7.5-11.1); MONO % 25.4 % (3.8-10.2); PLATELET COUNT 123 K/MM3 (134-434); RBC 3.07 M/mm3 (3.60-5.2); RDW 12.6 % (11.6-15.6); WHITE BLOOD COUNT 2.1 K/mm3 (4.0-10.0)
[2018-11-19 08:03] LABS: ANION GAP 7 MMOL/L (8-16); BLOOD UREA NITROGEN 11 mg/dL (7-18); CALCIUM 8.4 mg/dL (8.5-10.1); CHLORIDE 108 mmol/L (98-107); CO2 22 mmol/L (21-32); CREATININE 0.5 mg/dL (0.55-1.3); GLUCOSE,RANDOM 92 mg/dL (74-106); MAGNESIUM 1.8 mg/dL (1.8-2.4); PHOSPHOROUS 3.5 mg/dL (2.5-4.9); POTASSIUM 3.6 mmol/L (3.5-5.1); SODIUM 137 mmol/L (136-145)
[2018-11-19] MEDS ORDERED: PT OWN MED DRAWER 7, Y5N ONE ×2 (09:17→21:14)
[2018-11-19] MEDS ORDERED: cefTRIAXone SODIUM 1 GM VIAL ONE ×2 (09:21→09:49)
[2018-11-19] MEDS ORDERED: DEXTROSE 5%-WATER - 50 ML IVPB ONE (09:21)
[2018-11-19] MEDS: ASPIRIN 81 MG CHEWABLE TABLETS PO SCH (09:41)
[2018-11-19] MEDS: METHADONE HCL 10 MG TABLET PO SCH (09:41)
[2018-11-19] MEDS: LISINOPRIL 10 MG TABLET (FP) PO SCH (09:42)
[2018-11-19] MEDS: CEFTRIAXONE 1 GM in DEXTROSE 5%-WATER - 50 ML IVPB SCH (09:43)
[2018-11-19] MEDS: THIAMINE HCL 200 MG/2 ML VIAL IVPB SCH (09:44)
[2018-11-19] MEDS: carBAMazepine 200 MG/10 ML UNIT-DOSE CUP PO SCH ×2 (09:44→21:39)
[2018-11-19] MEDS: PANTOPRAZOLE SODIUM 40 MG VIAL IVPUSH SCH (10:17)
[2018-11-19] MEDS: FOLIC ACID 5 MG/1 ML SQ SCH (10:22)
[2018-11-19] MEDS: ACETAMINOPHEN 500 MG TABLET (FP) PO PRN (10:48)
[2018-11-19 11:08] LABS: ANISOCYTOSIS 0; MACROCYTOSIS 1+; PLATELET ESTIMATE DECREASED
--- NOTE | 2018-11-19 12:34 | PN ---
Progress Note (short form) - Note Progress Note: Patient significantly more awake and alert. Interacts appropriately and turns neck without pain or discomfort. At this point, she has no pain associated with her Cervical 2 fracture. She appears to be recovering well from her CVA. - No Neurosurgical contraindication to discharge to SNF/Rehab or home if a safe discharge plan can be developed.
--- NOTE | 2018-11-19 12:44 | PN ---
Progress Note, MANUFACTURING BAKER - Note Progress Note: Selected Entries 11/18/18 11/18/18 11/18/18 02:00 06:00 09:48 Supper Temperature 97.9 F 98.9 F 99.4 F 11/18/18 11/18/18 11/18/18 14:00 18:00 20:56 Supper 75% Temperature 98.8 F 98.8 F 11/18/18 11/19/18 11/19/18 22:00 02:00 06:00 Supper Temperature 98.9 F 102.8 F H 98.3 F 11/19/18 09:33 Supper Temperature 99.2 F Laboratory Tests 11/19/18 06:00 WBC 2.1 L Medical events noted-Defer diet upgrade. Add supplements including Magic cup, ensure pudding, 2 JULIO CESAR HN.
[2018-11-19] MEDS: SODIUM CHLORIDE 1,000 ML IV SCH ×3 (14:46→22:57)
--- NOTE | 2018-11-19 15:06 | PN ---
Physical Exam: SUBJECTIVE: Patient seen and examined at bedside. Fever overnight 102.8. OBJECTIVE: Vital Signs Period Temp Pulse Resp BP Sys/Pleitez Pulse Ox Last 24 Hr 98.3 F-102.8 F 73-120 18-20 122-174/67-97 98-98 GENERAL: Resting in bed. Alert and oriented x 3. HEAD: Atraumatic/Normocephalic EYES: PERRLA EOMI Sclera Clear NECK: Hard collar off. LUNGS: CTAB HEART: RRR nl s1s2 ABDOMEN: soft non distended, hypoactive bowel sounds. Liver 2 CM below costal margin. EXTREMITIES: No CCE. NEUROLOGICAL: Left upper extremity strength 5/5. SILT. Right side strength 5/5 . No facial droop. Laboratory Results - last 24 hr 11/19/18 11/19/18 11/19/18 02:30 06:00 06:00 WBC 2.1 L RBC 3.07 L Hgb 12.0 Hct 34.6 MCV 112.7 H MCH 38.9 H MCHC 34.6 RDW 12.6 Plt Count 123 L MPV 10.3 Absolute Neuts (auto) 1.3 L Neutrophils % 63.0 Neutrophils % (Manual) 63.5 Band Neutrophils % 2.1 Lymphocytes % 9.9 D Lymphocytes % (Manual) 3.1 L Monocytes % 25.4 H Monocytes % (Manual) 27 H Eosinophils % 1.0 Eosinophils % (Manual) 0.0 Basophils % 0.7 Basophils % (Manual) 1.1 Myelocytes % (Man) 0 Promyelocytes % (Man) 0 Blast Cells % (Manual) 0 Nucleated RBC % 0 Metamyelocytes 0 Hypochromia 0 Platelet Estimate Decreased Polychromasia 0 Poikilocytosis 0 Anisocytosis 0 Microcytosis 0 Macrocytosis 1+ Sodium 137 Potassium 3.6 Chloride 108 H Carbon Dioxide 22 Anion Gap 7 L BUN 11 Creatinine 0.5 L Creat Clearance w eGFR > 60 Random Glucose 92 Lactic Acid 1.1 Calcium 8.4 L Phosphorus 3.5 Magnesium 1.8 Active Medications Generic Name Dose Route Start Last Admin Trade Name Freq PRN Reason Stop Dose Admin Acetaminophen 500 mg 11/12/18 19:29 11/19/18 10:48 Tylenol - PO 500 mg Q6H PRN Administration FEVER Aspirin 81 mg 11/13/18 10:00 11/19/18 09:41 Asa - PO 81 mg DAILY JAY Administration Carbamazepine 200 mg 11/18/18 07:55 11/19/18 09:44 Tegretol Oral Suspension - PO 200 mg BID JAY Administration Folic Acid 1 mg 11/13/18 10:00 11/19/18 10:22 Folic Acid Injection - SQ 1 mg DAILY JAY Administration Heparin Sodium (Porcine) 5,000 unit 11/15/18 22:00 11/19/18 14:45 Heparin - SQ 5,000 unit TID JAY Administration Ceftriaxone Sodium 1 gm/ 50 mls @ 100 mls/hr 11/17/18 14:15 11/19/18 09:43 Dextrose IVPB 100 mls/hr DAILY JAY Administration Protocol Sodium Chloride 1,000 mls @ 75 mls/hr 11/17/18 14:15 11/19/18 14:46 Normal Saline - IV Not Given ASDIR JAY Lisinopril 30 mg 11/18/18 07:55 11/19/18 09:42 Prinivil PO 30 mg DAILY JAY Administration Methadone HCl 30 mg 11/13/18 10:00 11/19/18 09:41 Dolophine - PO 30 mg DAILY JAY Administration Pantoprazole Sodium 40 mg 11/13/18 10:00 11/19/18 10:17 Protonix Iv IVPUSH 40 mg DAILY JAY Administration Thiamine HCl 200 mg 11/13/18 10:00 11/19/18 09:44 Vitamin B1 Injection - IVPB 200 mg DAILY JAY Administration Topiramate 50 mg 11/12/18 22:00 11/18/18 21:48 Topamax - NR 50 mg HS JAY Administration ASSESSMENT/PLAN: Patient is a 63 year old female with past medical history of HTN, COPD, HCV, Liver cirrhosis, Bipolar disorder, ?pancreatic cyst, and EtOH abuse, presented to the ED after experiencing sudden weakness of the right leg with numbness of the right finger tips, and slurred speech that started about 3pm yesterday. #Acute CVA on MRI -Aspirin 300mg given at the ED once -Start ASA. Hold statin in light of transaminitis - versed drip D/C'ed -Echo---Very poor visualization. EF WNL .Will need to repeat once patient less restless. Repeat echo in am -Carotid doppler--> No hemodynamically significant stenosis. -Triglycerides 247, LDL 163 -Dr May on board -Evaluated by ENT- Dr Vicente. Flexible fiberoptic nasal and laryngoscopy was performed at bedside: presence of a deviated septum, a small amount of clear mucus dripping into the back of the nose, a normal hypopharynx and endolarynx with the exception of moderate bilateral vocal cord ecchymosis, worse on the left side. Both vocal cords are mobile. Impression: Laryngeal ecchymosis, probably due to a recent traumatic intubation , but possibly due to laryngitis from a recent respiratory infection # UTI UA reveals 3+ Leuk Esterase Urine WBCs 478 Will start Cefrtriaxone in light of fevers as well. Urine Culture + for E.Coli. Tierney sensitive except for Ampicilin. #Cervical fracture -Neurosurgery (Dr Banerjee) consulted. MRI: the patient has a chronic dens fracture type 1 No surgery intervention at this juncture. #EtOH abuse -CIWA protocol initiated. Ativan D/C'ed -Cannot give Librium in light of liver enzymes -Neuro checks -Seizure and aspiration precautions -Banana bag ordered -Thiamine 200mg IVPB daily -Folic acid 0.4 mg sq daily -Monitor and replete electrolytes #Polysubstance abuse (heroin and cocaine) -Currently on Methadone 30mg daily for detox -Follows up at [facility] #Hypertension -On Lisinopril 30 MG PO Daily #Hx of HCV, Liver cirrhosis -Follows up with Dr. Obregon as outpatient -Elevated LFTs likely multifactorial (HCV, cirrhosis, EtOH abuse) -RUQ ultrasound---> mild fatty infiltration of liver vs hepatocellular disease. Please see report for details. -LFT's trending downwards. #Bipolar D/O -On Carbamazepine 200mg BID -Topiramate 50mg PO HS #FEN -No fluids -Monitor Electrolytes -Chopped Diet w/ thin liquids. #Prophylaxis -SCD's due to thrombocytopenia -GI: IV Protonix 40mg daily #Dispo For SNF placement tomorrow Visit type - Emergency Visit Emergency Visit: Yes ED Registration Date: 11/10/18 Care time: The patient presented to the Emergency Department on the above date and was hospitalized for further evaluation of their emergent condition. - New Patient This patient is new to me today: No - Critical Care Critical Care patient: No - Discharge Referral Referred to [facility] Med [facility].C.: No
--- NOTE | 2018-11-19 18:52 | PN ---
Teaching Attending Note Name of Resident: Lyle Acevedo ATTENDING PHYSICIAN STATEMENT I saw and evaluated the patient. I reviewed the resident's note and discussed the case with the resident. I agree with the resident's findings and plan as documented. SUBJECTIVE: Patient is comfortable with no acute distress, had fever overnight. OBJECTIVE: Vital Signs Temperature 99.4 F 11/19/18 18:00 Pulse Rate 80 11/19/18 18:00 Respiratory Rate 20 11/19/18 18:00 Blood Pressure 130/74 11/19/18 18:00 O2 Sat by Pulse Oximetry (%) 98 11/19/18 09:00 GENERAL: No acute distress. HEAD: Atraumatic/Normocephalic EYES: PERRLA EOMI Sclera Clear NECK: Hard collar off. since patient does not want to wear the hard collar. LUNGS: CTAB HEART: RRR, nl s1s2 ABDOMEN: soft non distended, hypoactive bowel sounds. Liver 2 CM below costal margin. EXTREMITIES: No CCE. NEUROLOGICAL: Cn 2-12 grossly intact . No facial droop. CBCD WBC 2.1 K/mm3 (4.0-10.0) L 11/19/18 06:00 RBC 3.07 M/mm3 (3.60-5.2) L 11/19/18 06:00 Hgb 12.0 GM/dL (10.7-15.3) 11/19/18 06:00 Hct 34.6 % (32.4-45.2) 11/19/18 06:00 MCV 112.7 fl (80-96) H 11/19/18 06:00 MCHC 34.6 g/dl (32.0-36.0) 11/19/18 06:00 RDW 12.6 % (11.6-15.6) 11/19/18 06:00 Plt Count 123 K/MM3 (134-434) L 11/19/18 06:00 MPV 10.3 fl (7.5-11.1) 11/19/18 06:00 CMP Sodium 137 mmol/L (136-145) 11/19/18 06:00 Potassium 3.6 mmol/L (3.5-5.1) 11/19/18 06:00 Chloride 108 mmol/L (98-107) H 11/19/18 06:00 Carbon Dioxide 22 mmol/L (21-32) 11/19/18 06:00 Anion Gap 7 MMOL/L (8-16) L 11/19/18 06:00 BUN 11 mg/dL (7-18) 11/19/18 06:00 Creatinine 0.5 mg/dL (0.55-1.3) L 11/19/18 06:00 Creat Clearance w eGFR > 60 (>60) 11/19/18 06:00 Random Glucose 92 mg/dL (74-106) 11/19/18 06:00 Calcium 8.4 mg/dL (8.5-10.1) L 11/19/18 06:00 Total Bilirubin 1.5 mg/dL (0.2-1) H 11/16/18 07:55 AST 116 U/L (15-37) H 11/16/18 07:55 ALT 89 U/L (13-61) H 11/16/18 07:55 Alkaline Phosphatase 128 U/L (45-117) H 11/16/18 07:55 Total Protein 7.8 g/dl (6.4-8.2) 11/16/18 07:55 Albumin 3.1 g/dl (3.4-5.0) L 11/16/18 07:55 CARDIAC ENZYMES Creatine Kinase 76 U/L (26-192) 11/10/18 22:40 Troponin I < 0.02 ng/ml (0.00-0.05) 11/10/18 22:40 Current Medications Generic Name Dose Route Start Last Admin Trade Name Jamesq PRN Reason Stop Dose Admin Acetaminophen 500 mg 11/12/18 19:29 11/19/18 10:48 Tylenol - PO 500 mg Q6H PRN Administration FEVER Aspirin 81 mg 11/13/18 10:00 11/19/18 09:41 Asa - PO 81 mg DAILY JAY Administration Carbamazepine 200 mg 11/18/18 07:55 11/19/18 09:44 Tegretol Oral Suspension - PO 200 mg BID JAY Administration Folic Acid 1 mg 11/13/18 10:00 11/19/18 10:22 Folic Acid Injection - SQ 1 mg DAILY JAY Administration Heparin Sodium (Porcine) 5,000 unit 11/15/18 22:00 11/19/18 14:45 Heparin - SQ 5,000 unit TID JAY Administration Ceftriaxone Sodium 1 gm/ 50 mls @ 100 mls/hr 11/17/18 14:15 11/19/18 09:43 Dextrose IVPB 100 mls/hr DAILY JAY Administration Protocol Sodium Chloride 1,000 mls @ 75 mls/hr 11/17/18 14:15 11/19/18 18:31 Normal Saline - IV 75 mls/hr ASDIR JAY Administration Lisinopril 30 mg 11/18/18 07:55 11/19/18 09:42 Prinivil PO 30 mg DAILY JAY Administration Methadone HCl 30 mg 11/13/18 10:00 11/19/18 09:41 Dolophine - PO 30 mg DAILY JAY Administration Pantoprazole Sodium 40 mg 11/13/18 10:00 11/19/18 10:17 Protonix Iv IVPUSH 40 mg DAILY JAY Administration Thiamine HCl 200 mg 11/13/18 10:00 11/19/18 09:44 Vitamin B1 Injection - IVPB 200 mg DAILY JAY Administration Topiramate 50 mg 11/12/18 22:00 11/18/18 21:48 Topamax - NR 50 mg HS JAY Administration Home Medications Medication Instructions Recorded Carbamazepine [Tegretol -] 200 mg PO BID 11/11/18 Lisinopril 10 mg PO DAILY 11/11/18 Methadone [Dolophine -] 30 mg PO DAILY 11/11/18 Pantoprazole Sodium [Protonix] 40 mg PO DAILY 11/11/18 Topiramate 50 mg PO HS 11/11/18 Selected Entries 11/19/18 02:00 Temperature 102.8 F H Pulse Rate 120 H Blood Pressure 174/97 H ASSESSMENT AND PLAN: Patient is a 63yo lady with hep C, ETOH abuse,COPD, liver Cirrhosis, HTN, bipolar and polysubstance abuse, who presented with slurred speech and R sided weakness . She was found to have bilateral CVAs and was intubated s/p intubation now. # Acute /subacute b/l CVA., cont tele on aspirin and statins are on hold due elevated LFTs , repeat echo reviewed #Fever: Cxray neg. UA obtained, indicative of UTI. will treat for complicated UTi ,continue ceftriaxone and follow urine cx , IVF # Acute UTI on Rocephin continue for now, had fever last night and has leukopenia , franky monitor. # Acute Leukopenia will monitor. Septic w/u ordered. follow ucx and bld cx # Chronic Type 2 odontoid Fx: continue C -collar , follow up with neurosx , patient refuses to wear the collar. since it's uncomfortable for her. explained the importance of wearing the C-collar. # Macrocytosis , ordered b12/Fa level # ETOH withdrawal: resolved. continue thiamine and folate daily # h/o heroin abuse, cont with methadone. # Alcoholic hepatitis, with hx of cirrhosis, hep serology indicates chronic infection will refer to GI as out pt for treatment. DVT PX: heparin SQ
[2018-11-19] MEDS ORDERED: ACETAMINOPHEN 500 MG TABLET (FP) PO PRN (19:54)
[2018-11-19] MEDS: TOPIRAMATE 25 MG TABLET (FP) NR SCH ×2 (21:39→21:43)
[2018-11-20] MEDS: HEPARIN NA (PORCINE) 5,000 UNITS/ML 1ML VIAL SQ SCH ×3 (06:33→21:29)
[2018-11-20 08:36] LABS: BASO % 1.3 % (0-2.0); EOS % 0.8 % (0-4.5); HEMATOCRIT 36.5 % (32.4-45.2); HEMOGLOBIN 12.9 GM/dL (10.7-15.3); LYMPH % 22.3 % (8-40); MCHC 35.3 g/dl (32.0-36.0); MEAN CELL VOLUME 114.1 fl (80-96); MEAN PLT VOLUME 10.4 fl (7.5-11.1); MONO % 19.4 % (3.8-10.2); NEUT % 56.2 % (42.8-82.8); PLATELET COUNT 136 K/MM3 (134-434); RDW 12.9 % (11.6-15.6); WHITE BLOOD COUNT 2.2 K/mm3 (4.0-10.0)
[2018-11-20 08:40] LABS: MCH 40.3 pg (25.7-33.7)
[2018-11-20 08:56] LABS: ALBUMIN 2.5 g/dl (3.4-5.0); ALK PHOS 105 U/L (45-117); ANION GAP 7 MMOL/L (8-16); BILIRUBIN,TOTAL 0.8 mg/dL (0.2-1); BLOOD UREA NITROGEN 9 mg/dL (7-18); CALCIUM 7.8 mg/dL (8.5-10.1); CHLORIDE 108 mmol/L (98-107); CO2 23 mmol/L (21-32); CREATININE 0.3 mg/dL (0.55-1.3); GLUCOSE,RANDOM 93 mg/dL (74-106); MAGNESIUM 1.6 mg/dL (1.8-2.4); PHOSPHOROUS 3.2 mg/dL (2.5-4.9); POTASSIUM 3.3 mmol/L (3.5-5.1); SGOT/AST 151 U/L (15-37); SGPT/ALT 97 U/L (13-61); SODIUM 137 mmol/L (136-145); TOT PROT 6.8 g/dl (6.4-8.2)
[2018-11-20] MEDS ORDERED: MAGNESIUM OXIDE 400 MG TABLET (FP) PO ONE (09:30)
[2018-11-20] MEDS ORDERED: POTASSIUM CHLORIDE TABS 20 MEQ TABLET.ER (FP) PO ONE (09:30)
[2018-11-20] MEDS ORDERED: THIAMINE HCL 200 MG/2 ML VIAL IVPB SCH (10:00)
[2018-11-20] MEDS ORDERED: FOLIC ACID 5 MG/1 ML SQ SCH (10:00)
--- NOTE | 2018-11-20 10:29 | PN ---
Progress Note, EEG TECHNOLOGIST - Note Progress Note: Selected Entries 11/19/18 11/19/18 11/19/18 02:00 06:00 09:33 Temperature 102.8 F H 98.3 F 99.2 F 11/19/18 11/19/18 11/20/18 14:00 18:00 05:55 Temperature 99.1 F 99.4 F 99.0 F Laboratory Tests 11/20/18 06:30 WBC 2.2 L Looks much stronger. Speech precise. Consider diet upgrade to Soft diet, chopped meat and sips of thin liquid . Use Dentures. OOB for meals if possible. Add supplements including Magic cup, ensure pudding, 2 JULIO CESAR HN.
[2018-11-20] MEDS ORDERED: PT OWN MED DRAWER 7, Y5N ONE ×2 (10:39→10:48)
[2018-11-20] MEDS ORDERED: cefTRIAXone SODIUM 1 GM VIAL ONE (10:39)
[2018-11-20] MEDS ORDERED: DEXTROSE 5%-WATER - 50 ML IVPB ONE (10:40)
[2018-11-20] MEDS: CEFTRIAXONE 1 GM in DEXTROSE 5%-WATER - 50 ML IVPB SCH (10:53)
[2018-11-20] MEDS: ASPIRIN 81 MG CHEWABLE TABLETS PO SCH (10:54)
[2018-11-20] MEDS: LISINOPRIL 10 MG TABLET (FP) PO SCH (10:54)
[2018-11-20] MEDS: METHADONE HCL 10 MG TABLET PO SCH (10:55)
[2018-11-20] MEDS: carBAMazepine 200 MG/10 ML UNIT-DOSE CUP PO SCH ×2 (10:56→21:30)
[2018-11-20] MEDS: PANTOPRAZOLE SODIUM 40 MG VIAL IVPUSH SCH (10:57)
[2018-11-20] MEDS: SODIUM CHLORIDE 1,000 ML IV SCH (12:00)
--- NOTE | 2018-11-20 12:04 | DS ---
Physical Exam: SUBJECTIVE: Patient seen and examined at bedside. No acute events overnight. OBJECTIVE: Vital Signs Period Temp Pulse Resp BP Sys/Pleitez Pulse Ox Last 24 Hr 99.0 F-99.4 F 73-80 20-20 127-154/74-85 98 PHYSICAL EXAM GENERAL: NAD HEAD: Atraumatic/Normocephalic EYES: PERRLA EOMI Sclera Clear NECK: Hard collar off. LUNGS: CTAB HEART: RRR nl s1s2 ABDOMEN: nondistended nontender EXTREMITIES: No CCE. NEUROLOGICAL: Strength 5/5 upper and lower extremities. No facial droop appreciated LABS Laboratory Results - last 24 hr 11/20/18 11/20/18 06:30 06:30 WBC 2.2 L RBC 3.20 L Hgb 12.9 Hct 36.5 MCV 114.1 H MCH 40.3 H MCHC 35.3 RDW 12.9 Plt Count 136 MPV 10.4 Absolute Neuts (auto) 1.2 L Neutrophils % 56.2 Lymphocytes % 22.3 D Monocytes % 19.4 H Eosinophils % 0.8 Basophils % 1.3 Nucleated RBC % 1 H Sodium 137 Potassium 3.3 L Chloride 108 H Carbon Dioxide 23 Anion Gap 7 L BUN 9 Creatinine 0.3 L Creat Clearance w eGFR 223.27 Random Glucose 93 Calcium 7.8 L Phosphorus 3.2 Magnesium 1.6 L Total Bilirubin 0.8 AST 151 H ALT 97 H Alkaline Phosphatase 105 Total Protein 6.8 Albumin 2.5 L Vitamin B12 762 Serum Folate 12 HOSPITAL COURSE: Date of Admission:11/10/18 Patient is a 63 year old female with past medical history of HTN, COPD, HCV, Liver cirrhosis, Bipolar disorder, and EtOH abuse who presented to the ED after experiencing sudden weakness of the right leg with numbness of the right finger tips, and slurred speech. Pt underwent imaging with a Head CT which did not reveal any intracranial bleeds or masses however imaging the spine revealed a type 1 dens fracture. Pt also underwent an MRI of her brain which revealed an approximately 9.4 mm x 5.7 mm, recent lacunar infarct in the lateral aspect of the left thalamus as well as an approximately 9.5 mm x 7.3 mm recent/subacute lacunar infarct in the white matter, segundo radiata, please see report for further details. During MRI, pt became very agitated and was given 6 mg of Ativan. Due to concern for airway and c-spine protection, pt was intubated and sedated on a versed drip. Pt was admitted to the ICU. Neurosurgery was consulted and recommended pt be placed in a hard c-collar. Pt was started on thiamine 200 mg ivpb daily, aspirin, and folic acid 0.4 mg daily. Pt was not placed on librium or a statin in light of her transaminitis. Pt was placed on ativan prn for agitation. Furthermore, post-extubation, pt was noted to whisper. ENT was consulted who performed a bedside flexible fiberoptic nasal and laryngoscopy which revealed laryngeal ecchymosis. ENT attributed this to recent traumatic intubation and possible concomitant laryngitis from a recent respiratory infection. Later on during hospital course, pt developed a UTI and was started on ceftriaxone and later switched to Keflex due to a possible skin infection in her upper extremity at I.V site. Pt was transferred to a SNF facility. Date of Discharge: 11/20/18 Minutes to complete discharge: 35 Discharge Summary Reason For Visit: ODONTOID FRACTURE,CEREBROVASCULAR ACCIDENT (CVA) Current Active Problems AA (alcohol abuse) (Acute) CVA (cerebral vascular accident) (Acute) Dens fracture (Acute) HTN (hypertension) (Acute) Condition: Improved - Instructions Diet, Activity, Other Instructions: You presented to the hospital due to a bleed in your brain. Please follow up with the brain doctor, Dr Kota May in 1 week. Please follow up with the neurosurgeon Dr Jun Banerjee in 1 week. Please continue to wear your hard-collar until the neurosurgeon clears you We have started you on a cholesterol medication called Lipitor 10 mg daily. We started you on a low dose due to abnormal liver enzyme levels. Please repeat a blood test called a CMP in 1 week to follow up these levels. Please continue to take all of your medications as prescribed. You will be sent to the rehab facility on an antibiotic. Please take this antibiotic starting tomorrow 250 MG TWICE per day. Please return to the Emergency department immediately if you begin to experience chest pain, shortness of breath, fever, nausea/vomiting. Referrals: Jun Banerjee MD, [facility] [Staff Physician] - 1 Week Jaci Dee MD [Primary Care Provider] - 1 Week Kota Shelton MD [Staff Physician] - 1 Week Disposition: PHYSICAL REHABILATION FACILITY - Home Medications Comprehensive Discharge Medication List: Ambulatory Orders Carbamazepine [Tegretol -] 200 mg PO BID 11/11/18 Lisinopril 10 mg PO DAILY 11/11/18 Methadone [Dolophine -] 30 mg PO DAILY 11/11/18 Pantoprazole Sodium [Protonix] 40 mg PO DAILY 11/11/18 Topiramate 50 mg PO HS 11/11/18 Acetaminophen [Tylenol .Extra-Strength -] 500 mg PO Q6H PRN tablet 11/20/18 Aspirin [ASA -] 81 mg PO DAILY tab.chew 11/20/18 Atorvastatin Ca [Lipitor] 10 mg PO HS tablet 11/20/18 Cefuroxime Axetil [Ceftin -] 250 mg PO BID #6 tablet 11/20/18 Folic Acid - 1 mg PO DAILY tablet 11/20/18 Thiamine HCl [Vitamin B1 -] 100 mg PO BID tablet 11/20/18 This patient is new to me today: No Emergency Visit: Yes ED Registration Date: 11/10/18 Care time: The patient presented to the Emergency Department on the above date and was hospitalized for further evaluation of their emergent condition. Critical Care patient: No - Discharge Referral Referred to [facility] No
[2018-11-20 12:33] LABS: PLATELET ESTIMATE DECREASED
[2018-11-20] MEDS: FOLIC ACID 1 MG TABLET (FP) PO SCH (13:43)
--- NOTE | 2018-11-20 19:07 | PN ---
Teaching Attending Note Name of Resident: Lyle Acevedo ATTENDING PHYSICIAN STATEMENT I saw and evaluated the patient. I reviewed the resident's note and discussed the case with the resident. I agree with the resident's findings and plan as documented. SUBJECTIVE: Patient is feeling better with no acute distress. OBJECTIVE: Vital Signs Temperature 99.5 F 11/20/18 13:21 Pulse Rate 84 11/20/18 13:21 Respiratory Rate 21 H 11/20/18 13:21 Blood Pressure 133/89 11/20/18 13:21 O2 Sat by Pulse Oximetry (%) 98 11/20/18 05:14 GENERAL: No acute distress. HEAD: Atraumatic/Normocephalic EYES: PERRLA EOMI Sclera Clear NECK: Hard collar off. since patient does not want to wear the hard collar. LUNGS: CTAB HEART: RRR, nl s1s2 ABDOMEN: soft non distended, hypoactive bowel sounds. Liver 2 CM below costal margin. EXTREMITIES: No CCE. NEUROLOGICAL: Cn 2-12 grossly intact . No facial droop. CBCD WBC 2.2 K/mm3 (4.0-10.0) L 11/20/18 06:30 RBC 3.20 M/mm3 (3.60-5.2) L 11/20/18 06:30 Hgb 12.9 GM/dL (10.7-15.3) 11/20/18 06:30 Hct 36.5 % (32.4-45.2) 11/20/18 06:30 MCV 114.1 fl (80-96) H 11/20/18 06:30 MCHC 35.3 g/dl (32.0-36.0) 11/20/18 06:30 RDW 12.9 % (11.6-15.6) 11/20/18 06:30 Plt Count 136 K/MM3 (134-434) 11/20/18 06:30 MPV 10.4 fl (7.5-11.1) 11/20/18 06:30 CMP Sodium 137 mmol/L (136-145) 11/20/18 06:30 Potassium 3.3 mmol/L (3.5-5.1) L 11/20/18 06:30 Chloride 108 mmol/L (98-107) H 11/20/18 06:30 Carbon Dioxide 23 mmol/L (21-32) 11/20/18 06:30 Anion Gap 7 MMOL/L (8-16) L 11/20/18 06:30 BUN 9 mg/dL (7-18) 11/20/18 06:30 Creatinine 0.3 mg/dL (0.55-1.3) L 11/20/18 06:30 Creat Clearance w eGFR 223.27 (>60) 11/20/18 06:30 Random Glucose 93 mg/dL (74-106) 11/20/18 06:30 Calcium 7.8 mg/dL (8.5-10.1) L 11/20/18 06:30 Total Bilirubin 0.8 mg/dL (0.2-1) 11/20/18 06:30 AST 151 U/L (15-37) H 11/20/18 06:30 ALT 97 U/L (13-61) H 11/20/18 06:30 Alkaline Phosphatase 105 U/L (45-117) 11/20/18 06:30 Total Protein 6.8 g/dl (6.4-8.2) 11/20/18 06:30 Albumin 2.5 g/dl (3.4-5.0) L 11/20/18 06:30 CARDIAC ENZYMES Creatine Kinase 76 U/L (26-192) 11/10/18 22:40 Troponin I < 0.02 ng/ml (0.00-0.05) 11/10/18 22:40 Current Medications Generic Name Dose Route Start Last Admin Trade Name Freq PRN Reason Stop Dose Admin Acetaminophen 500 mg 11/19/18 19:54 Tylenol - PO Q6H PRN FEVER Aspirin 81 mg 11/20/18 10:00 11/20/18 10:54 Asa - PO 81 mg DAILY JAY Administration Atorvastatin Calcium 10 mg 11/20/18 22:00 Lipitor - PO HS JAY Carbamazepine 200 mg 11/19/18 22:00 11/20/18 10:56 Tegretol Oral Suspension - PO 200 mg BID JAY Administration Folic Acid 1 mg 11/20/18 12:00 11/20/18 13:43 Folic Acid - PO Not Given DAILY [facility] Heparin Sodium (Porcine) 5,000 unit 11/19/18 22:00 11/20/18 13:43 Heparin - SQ 5,000 unit TID AJY Administration Ceftriaxone Sodium 1 gm/ 50 mls @ 100 mls/hr 11/20/18 10:00 11/20/18 10:53 Dextrose IVPB 100 mls/hr DAILY JAY Administration Protocol Sodium Chloride 1,000 mls @ 75 mls/hr 11/19/18 19:54 11/20/18 12:00 Normal Saline - IV 75 mls/hr ASDIR JAY Administration Lisinopril 30 mg 11/20/18 10:00 11/20/18 10:54 Prinivil PO 30 mg DAILY JAY Administration Methadone HCl 30 mg 11/20/18 10:00 11/20/18 10:55 Dolophine - PO 30 mg DAILY JAY Administration Pantoprazole Sodium 40 mg 11/20/18 10:00 11/20/18 10:57 Protonix Iv IVPUSH 40 mg DAILY JAY Administration Thiamine HCl 100 mg 11/20/18 22:00 Vitamin B1 - PO BID JAY Topiramate 50 mg 11/19/18 22:00 11/19/18 21:43 Topamax - NR Not Given HS [facility] Home Medications Medication Instructions Recorded Carbamazepine [Tegretol -] 200 mg PO BID 11/11/18 Lisinopril 10 mg PO DAILY 11/11/18 Methadone [Dolophine -] 30 mg PO DAILY 11/11/18 Pantoprazole Sodium [Protonix] 40 mg PO DAILY 11/11/18 Topiramate 50 mg PO HS 11/11/18 Acetaminophen [Tylenol 500 mg PO Q6H PRN tablet 11/20/18 .Extra-Strength -] Aspirin [ASA -] 81 mg PO DAILY tab.chew 11/20/18 Atorvastatin Ca [Lipitor] 10 mg PO HS tablet 11/20/18 Cefuroxime Axetil [Ceftin -] 250 mg PO BID #6 tablet 11/20/18 Folic Acid - 1 mg PO DAILY tablet 11/20/18 Thiamine HCl [Vitamin B1 -] 100 mg PO BID tablet 11/20/18 ASSESSMENT AND PLAN: Patient is a 63yo lady with hep C, ETOH abuse,COPD, liver Cirrhosis, HTN, bipolar and polysubstance abuse, who presented with slurred speech and R sided weakness . She was found to have bilateral CVAs and was intubated s/p intubation now. # Acute /subacute b/l CVA., cont tele on aspirin and statins on low dose, continue to monitore LFTs , repeat echo reviewed #Fever: due to UTI , sensitive to ceftin, will discharge the patient on ceftin . Cxray neg. # Acute UTI continue with ceftin x 3 more days total of 7 days. # Acute Leukopenia: further w/u as an outpatient. # Chronic Type 2 odontoid Fx: continue C -collar , follow up with neurosx , patient refuses to wear the collar. since it's uncomfortable for her. explained the importance of wearing the C-collar. # Macrocytosis , B12/Folic acid within normal limit. # ETOH withdrawal: resolved. continue thiamine and folate daily # h/o heroin abuse, cont with methadone. # Alcoholic hepatitis, with hx of cirrhosis, hep serology indicates chronic infection will refer to GI as out pt for treatment. DVT PX: heparin SQ
[2018-11-20] MEDS: TOPIRAMATE 25 MG TABLET (FP) NR SCH (21:30)
[2018-11-20] MEDS: THIAMINE HCL 100 MG TABLET (FP) PO SCH (21:30)
[2018-11-20] MEDS ORDERED: ATORVASTATIN CA 10 MG TABLET (FP) PO SCH (22:00)
[2018-11-21] MEDS: HEPARIN NA (PORCINE) 5,000 UNITS/ML 1ML VIAL SQ SCH ×2 (07:07→13:27)
[2018-11-21] MEDS ORDERED: cefTRIAXone SODIUM 1 GM VIAL ONE (09:00)
[2018-11-21] MEDS ORDERED: DEXTROSE 5%-WATER - 50 ML IVPB ONE (09:00)
[2018-11-21] MEDS ORDERED: PT OWN MED DRAWER 7, Y5N ONE (09:01)
[2018-11-21] MEDS: METHADONE HCL 10 MG TABLET PO SCH (09:10)
[2018-11-21] MEDS: FOLIC ACID 1 MG TABLET (FP) PO SCH (09:11)
[2018-11-21] MEDS: LISINOPRIL 10 MG TABLET (FP) PO SCH (09:11)
[2018-11-21] MEDS: ASPIRIN 81 MG CHEWABLE TABLETS PO SCH (09:11)
[2018-11-21] MEDS: THIAMINE HCL 100 MG TABLET (FP) PO SCH (09:11)
[2018-11-21] MEDS: PANTOPRAZOLE SODIUM 40 MG VIAL IVPUSH SCH (09:12)
[2018-11-21] MEDS: carBAMazepine 200 MG/10 ML UNIT-DOSE CUP PO SCH (09:12)
[2018-11-21] MEDS: CEFTRIAXONE 1 GM in DEXTROSE 5%-WATER - 50 ML IVPB SCH (09:12)
[2018-11-21] MEDS ORDERED: BACITRACIN 15 GM TUBE TOPICAL OINTMENT TP SCH (10:30)
[2018-11-21] MEDS ORDERED: DOCUSATE SODIUM 100 MG CAPSULE (FP) PO ONE (10:58)
[2018-11-21] MEDS ORDERED: POLYETHYLENE GLYCOL 3350 119 GM BTL PO ONE (10:58)
[2018-11-21] MEDS ORDERED: CEPHALEXIN MONOHYDRATE 500 MG CAPSULE (UD) PO SCH (12:00)
[2018-11-21 15:56] VITALS: BP 155/95; PULSE 82; TEMP 98.2
== END 2018-11-21 15:08 | DRG 64 ==
LOC: JER 21:14 → JICU 23:58 → UNDOADMIN 11-11 05:45 → JERBED 11-11 05:45 → JICU 11-11 08:11 → J4W 11-12 20:46 → J6S 11-19 19:47
PROVIDERS: ADMIT Internal Medicine; ATTEND Internal Medicine
PROC: 0CHY7BZ Insertion of Airway into Mouth and Throat, Via Natural or Artificial Opening (ICD-10-PCS; principal; 2018-11-11)
PROC: 5A1935Z Respiratory Ventilation, Less than 24 Consecutive Hours (ICD-10-PCS; 2018-11-11)
PROC: HZ2ZZZZ Detoxification Services for Substance Abuse Treatment (ICD-10-PCS; 2018-11-12)
PROC: 0CJS8ZZ Inspection of Larynx, Via Natural or Artificial Opening Endoscopic (ICD-10-PCS; 2018-11-17)
DX: I63.9 Cerebral infarction, unspecified (principal); J96.00 Acute respiratory failure, unspecified whether with hypoxia or hypercapnia; S12.100A Unspecified displaced fracture of second cervical vertebra, initial encounter for closed fracture; N39.0 Urinary tract infection, site not specified; K86.2 Cyst of pancreas; F10.230 Alcohol dependence with withdrawal, uncomplicated; I69.351 Hemiplegia and hemiparesis following cerebral infarction affecting right dominant side; K70.30 Alcoholic cirrhosis of liver without ascites; B96.20 Unspecified Escherichia coli [E. coli] as the cause of diseases classified elsewhere; I10 Essential (primary) hypertension; F10.129 Alcohol abuse with intoxication, unspecified; D69.6 Thrombocytopenia, unspecified; R74.0 Nonspecific elevation of levels of transaminase and lactic acid dehydrogenase [LDH]; R58 Hemorrhage, not elsewhere classified; F11.10 Opioid abuse, uncomplicated; F31.9 Bipolar disorder, unspecified; R29.701 NIHSS score 1; B19.20 Unspecified viral hepatitis C without hepatic coma; F17.210 Nicotine dependence, cigarettes, uncomplicated; F19.10 Other psychoactive substance abuse, uncomplicated; E83.42 Hypomagnesemia; J44.9 Chronic obstructive pulmonary disease, unspecified; M48.02 Spinal stenosis, cervical region; M47.892 Other spondylosis, cervical region; I69.391 Dysphagia following cerebral infarction; R49.0 Dysphonia; R50.9 Fever, unspecified; D75.89 Other specified diseases of blood and blood-forming organs; D72.819 Decreased white blood cell count, unspecified; Y90.6 Blood alcohol level of 120-199 mg/100 ml
CPT/HCPCS: 31500; 36415; 70450-TC; 70551-TC; 71045-TC-FY; 72125-TC; 72141-TC; 74230-TC-FY; 76705-TC; 80048; 80053; 80061; 80076; 80156; 80307; 81003; 81015; 82550; 82607; 82746; 83036; 83605; 83721; 83735; 84100; 84484; 85025; 85027; 85610; 86704; 86705; 86706; 86707; 87040; 87086; 87186; 87350; 92611-GN; 93005; 93010; 93306-TC; 93880-TC; 97116-GP; 97162-GP; 99285-25; J0131; J1644; J7030

== ENCOUNTER 2019-06-30 14:26 | Emergency (ER) | payer OTHER ==
[2019-06-30 14:33] VITALS: BP 108/70; PULSE 79; TEMP 98.7; BMI 18.7
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
== END 2019-06-30 15:27 | disposition home or self-care (01) ==
LOC: JERFT 14:26
DX: S09.90XA Unspecified injury of head, initial encounter (principal); I10 Essential (primary) hypertension; F41.9 Anxiety disorder, unspecified; B19.20 Unspecified viral hepatitis C without hepatic coma; F31.9 Bipolar disorder, unspecified; J44.9 Chronic obstructive pulmonary disease, unspecified; Z85.05 Personal history of malignant neoplasm of liver
CPT/HCPCS: 70450-TC; 99281-25

== ENCOUNTER 2019-08-19 12:30 | Observation (INO) | payer OTHER ==
[2019-08-19] MEDS ORDERED: SODIUM CHLORIDE 500 ML IV STA (13:02)
--- NOTE | 2019-08-19 13:02 | PDOC ---
History of Present Illness - General Chief Complaint: Chest Pain Stated Complaint: CHEST PAIN Time Seen by Provider: 08/19/19 12:53 History Source: Patient Exam Limitations: No Limitations - History of Present Illness Initial Comments: Marcela Gan is a 64 yo F w a hx of HTN, COPD not on home O2, HCV, liver cirrhosis, alcohol abuse, CVA 11/2018 (WC bound due to R sided weakness from stroke) who presents to the [facility] er [facility]IBEM[facility] with left sided chest pain. The patient has been experiencing this chest pain for 3 days and she describes it as a heavy sensation with a significant amount of pressure on the left side of her chest. The Pain radiates to her neck,face, and right arm. The pain is not worse with physical activity, comes on at rest frequently, and is not associated with nausea, vomiting, or diaphoresis. Patient was given 325 of aspirin on route and got one sublingual nitro tab prior to coming to the ED. She denies SOB or difficulty breathing, headache, blurry vision, back pain, abdominal pain, dysuria, frequency or urgency. PCP: Luis Felipe najera Cards: None Pulm: Dr. 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 Patient drinks a significant amount of alcohol whenever she is depressed which is very often. Denies current illicit drug usage. Allergies: Fish/Seafood, NKDA Past History - Past Medical History Allergies/Adverse Reactions: Allergies Allergy/AdvReac Type Severity Reaction Status Date / Time fish derived [Fish derived] Allergy Intermediate Difficulty Verified 08/02/19 14 :50 Breathing SEAFOOD Allergy Uncoded 08/02/19 14:50 Home Medications: Ambulatory Orders Carbamazepine [Tegretol -] 200 mg PO BID 11/11/18 Lisinopril 10 mg PO DAILY 11/11/18 Methadone [Dolophine -] 30 mg PO DAILY 11/11/18 Pantoprazole Sodium [Protonix] 40 mg PO DAILY 11/11/18 Topiramate 50 mg PO HS 11/11/18 Acetaminophen [Tylenol .Extra-Strength -] 500 mg PO Q6H PRN tablet 11/20/18 Aspirin [ASA -] 81 mg PO DAILY tab.chew 11/20/18 Atorvastatin Ca [Lipitor] 10 mg PO HS tablet 11/20/18 Folic Acid - 1 mg PO DAILY tablet 11/20/18 Thiamine HCl [Vitamin B1 -] 100 mg PO BID tablet 11/20/18 Cephalexin Monohydrate [Keflex -] 500 mg PO Q6HPO capsule 11/21/18 Docusate Sodium [Colace -] 300 mg PO HS #30 capsule 11/21/18 Lactobacillus Acidophilus [Bacid -] 1 each PO DAILY #30 capsule 11/21/18 Polyethylene Glycol 3350 [Miralax (For Bowel Prep) -] 17 gm PO DAILY #1 bottle 11/21/18 Anemia: No Asthma: Yes Cancer: Yes (LIVER) Cardiac Disorders: No CVA: Yes COPD: Yes Diabetes: No GI Disorders: No Disorders: No HTN: Yes Kidney Stones: No Liver Disease: Yes (HEP-C,cirrhosis) Psychiatric Problems: Yes (ANXIETY,bipolar) Seizures: No Thyroid Disease: No - Surgical History Abdominal Surgery: No Appendectomy: No Cardiac Surgery: No Cholecystectomy: No Lung Surgery: No Neurologic Surgery: No Orthopedic Surgery: No - Immunization History Immunization Up to Date: Yes - Psycho Social/Smoking Cessation Hx Smoking Status: Yes Smoking History: Current every day smoker Have you smoked in the past 12 months: Yes Number of Cigarettes Smoked Daily: 2 'Breaking Loose' booklet given: 11/22/16 Hx Alcohol Use: Yes (social) Drug/Substance Use Hx: No Substance Use Type: Alcohol Hx Substance Use Treatment: Yes Cardiac Specific PMH - Complaint Specific PMHX Pacemaker: No Review of Systems - Review of Systems Able to Perform ROS?: Yes Comments:: CONSTITUTIONAL: Absent: fever, chills, diaphoresis, generalized weakness, malaise, loss of appetite HEENT: Absent: rhinorrhea, nasal congestion, throat pain, throat swelling, difficulty swallowing, mouth swelling, ear pain, eye pain, visual Changes CARDIOVASCULAR: Present: Chest pain Absent: syncope, palpitations, irregular heart rate, lightheadedness, peripheral edema RESPIRATORY: Present: Wheezing Absent: cough, shortness of breath, dyspnea with exertion, orthopnea, stridor, hemoptysis GASTROINTESTINAL: Absent: abdominal pain, abdominal distension, nausea, vomiting, diarrhea, constipation, melena, hematochezia GENITOURINARY: Absent: dysuria, frequency, urgency, hesitancy, hematuria, flank pain, genital pain MUSCULOSKELETAL: Absent: myalgia, arthralgia, joint swelling SKIN: Absent: rash, itching, pallor HEMATOLOGIC/IMMUNOLOGIC: Absent: easy bleeding, easy bruising, lymphadenopathy, frequent infections ENDOCRINE: Absent: unexplained weight gain, unexplained weight loss, heat intolerance, cold intolerance NEUROLOGIC: Absent: headache, focal weakness or paresthesias, dizziness, unsteady gait, seizure, mental status changes, bladder or bowel incontinence PSYCHIATRIC: Present: anxiety, depression Absent: suicidal or homicidal ideation, hallucinations. *Physical Exam - Vital Signs Last Vital Signs Temp Pulse Resp BP Pulse Ox 90 20 129/79 95 08/19/19 12:49 08/19/19 12:49 08/19/19 12:49 08/19/19 13:17 - Physical Exam GENERAL: Skinny. Not well kept. Awake and alert. No acute distress. HEENT: Normocephalic, atraumatic. PERRLA, EOMI. No conjunctival pallor. Sclera are non- icteric. Moist mucous membranes. Oropharynx is clear. NECK: Supple. Full ROM. No JVD. CARDIOVASCULAR: Regular rate and rhythm. No murmurs, rubs, or gallops. Distal pulses are 2+ and symmetric. PULMONARY: No evidence of respiratory distress. Lungs clear to auscultation bilaterally. No wheezing, rales or rhonchi. ABDOMINAL: Soft. Non-tender. Non-distended. No rebound or guarding. No organomegaly. Normoactive bowel sounds. MUSCULOSKELETAL Normal range of motion at all joints. No bony deformities or tenderness. No CVA tenderness. EXTREMITIES: No cyanosis. No clubbing. No edema. No calf tenderness. SKIN: Warm and dry. Normal capillary refill. No rashes. No jaundice. NEUROLOGICAL: Alert, awake, appropriate. Normal speech. PSYCHIATRIC: Cooperative. Good eye contact. Appropriate mood and affect. Heart Score/ECG Review - History History: Highly suspicious - Electrocardiogram EKG: Normal - Age Age: >/= 65 - Risk Factors Risk Factors Heart Score: Yes Hx Hypercholesterolemia, Yes Hx Hypertension, Yes Smoking History, Yes Positive family hx of cardiac disease Based on the list above the patient has:: >/=3 risk factors or Hx atherosclerotic disease - Troponin Troponin: </= normal limit - Score Heart Score - Total: 6 - ECG Intrepretation Rhythm: Regular Rhythm - [place]: Normal - P and MS Prominent R with upright T in V1 (true posterior RI): No - QRS Poor R Wave Progression: No Q Wave Present: No Comment:: QRS - 70 ms - ST and T Early Repolarization: No Non Specific ST-T Wave changes: No Flattened T Waves: No Prolonged Q-T Interval: No Comment:: QTc 467 - ECG Impressions Normal ECG: Yes Non-specific ST Elevation: No Ischemic Changes: No ED Treatment Course - LABORATORY CBC & Chemistry Diagram: 08/19/19 12:05 08/19/19 12:05 - ADDITIONAL ORDERS Additional order review: Laboratory Results 08/19/19 08/19/19 12:05 12:05 PT with INR 12.80 INR 1.08 PTT (Actin FS) 35.1 Sodium 138 Potassium 4.8 Chloride 102 Carbon Dioxide 30 Anion Gap 5 L BUN 9.3 Creatinine 0.5 L Est GFR (CKD-EPI)AfAm 116.89 Est GFR (CKD-EPI)NonAf 100.85 Random Glucose 89 Calcium 8.8 Magnesium 2.2 Total Bilirubin 0.2 AST 46 H ALT 44 Alkaline Phosphatase 148 H Creatine Kinase 47 Troponin I < 0.02 Total Protein 7.6 Albumin 3.5 08/19/19 12:05 RBC 3.71 MCV 103.7 H MCHC 34.8 RDW 13.7 MPV 7.9 D Neutrophils % 50.0 Lymphocytes % 35.4 D Monocytes % 12.2 H Eosinophils % 1.6 D Basophils % 0.8 - RADIOLOGY Radiology Studies Ordered: Category Date Time Status CHEST X-RAY PORTABLE* [RAD] Stat Radiology 08/19/19 13:46 Taken - Medications Given in the ED: ED Medications Discontinued Medications Generic Name Dose Route Start Last Admin Trade Name Freq PRN Reason Stop Dose Admin Sodium Chloride 500 mls @ 500 mls/hr 08/19/19 13:02 08/19/19 14:10 Normal Saline - IV 08/19/19 14:01 500 mls/hr ASDIR STA Administration Medical Decision Making - Medical Decision Making Marcela Gan is a 64 yo F w a hx of HTN, COPD not on home O2, HCV, liver cirrhosis, alcohol abuse, CVA 11/2018 (WC bound due to R sided weakness from stroke) who presents to the [facility] er [facility] with left sided chest pain. The patient has been experiencing this chest pain for 3 days and she describes it as a heavy sensation with a significant amount of pressure on the left side of her chest. The Pain radiates to her neck,face, and right arm. The pain is not worse with physical activity, comes on at rest frequently, and is not associated with nausea, vomiting, or diaphoresis. Patient was given 325 of aspirin on route and got one sublingual nitro tab prior to coming to the ED. Vital Signs Temp Pulse Resp BP Pulse Ox 90 20 129/79 95 08/19/19 12:49 08/19/19 12:49 08/19/19 12:49 08/19/19 12:49 DDx IBNLT: ACS - unstable angina vs STEMi vs NSTEMI, angina, arrhythmia, heart failure, electrolyte/metabolic disturbance, anemia, pneumothorax, PNA Plan: Labs, CXR, EKG, Cardiac consult, admission to Tele obs Labs: Trop negative EKG - see ecg section CXR: Unremarkable Cardiac consult: No compliance attorney - Dr. Santizo is loans consultant Disposition: Tele obs Discharge - Discharge Information Problems reviewed: Yes Clinical Impression/Diagnosis: Chest pain Qualifiers: Chest pain type: unspecified Qualified Code(s): R07.9 - Chest pain, unspecified Condition: Stable - Admission Yes - Follow up/Referral Referrals: Johnnie Briscoe MD [Primary Care Provider] - - Patient Discharge Instructions - Post Discharge Activity
--- NOTE | 2019-08-19 13:15 | PDOC ---
Attending Attestation - Resident Resident Name: Logan Galvan - ED Attending Attestation I have performed the following: I have examined & evaluated the patient, The case was reviewed & discussed with the resident, I agree w/resident's findings & plan - HPI HPI: 08/19/19 13:14 Marcela Gan is a 64 yo F w a hx of HTN, COPD not on home O2, HCV, liver cirrhosis, alcohol abuse, CVA 11/2018 (WC bound due to R sided weakness from stroke) who presents to the [facility] er [facility] with left sided chest pain x 3 days, associated with heavy pressure sensation, radiating to her neck, face and arm. nonexertional, chest pain is not worse with physical activity, comes on at rest frequently, and is not associated with nausea, vomiting, or diaphoresis. +daily ETOH user, last drink this morning ~9AM. h/o alcohol w/d, no seizure or hallucinations. 08/19/19 14:29 - Physicial Exam PE: 08/19/19 13:14 Agree with the resident's HPI and PE as documented in the electronic medical record. NAD, well appearing, EOMI, PERRL, nl conjunctiva, anicteric; neck supple. lungs clear, RRR, no murmur, abdomen soft nontender. no rebound, guarding. Back nontender. PERES x4, +right sided weakness in upper and lower extrem, decreased sensation in RUE (baseline). No peripheral edema. normal color for ethnicity, WWP. no calf tenderness. 08/19/19 14:30 - Medical Decision Making 08/19/19 13:14 Vital Signs Temp Pulse Resp BP Pulse Ox 90 20 129/79 95 08/19/19 12:49 08/19/19 12:49 08/19/19 12:49 08/19/19 12:49 VS reviewed, wnl. hemodynamically wnl DDx chest pain: ACS, coronary vasospasm, NSTEMI, arrhythmia, unstable angina, PE , dissection, PUD, esophageal spasm, GERD, gastritis, costochondritis, pneumonia , pleurisy, pericarditis/myocarditis. dehydration, electrolyte/metabolic derangements. Considered but clinically doubt based on HPI and PE: Low suspicion for pulmonary embolism or dissection. Historically not abrupt in onset, tearing or ripping, pulses symmetric, no evidence of aortic dissection. EKG normal sinus rhythm at 92 bpm, no interval abnormalities, narrow QRS, ST and T wave segments and morphology normal. Nonspecific T wave abnormalities, unchanged from prior Chest pain HEART score 5 which denotes Moderate risk and probability for ACS, risk of 14-16% of MACE at 4-6 wks Given risk factors including comorbidities, gender,and tobacco use. +typical cp symptoms initial trop neg, EKG sinus rhythm. lytes wnl. Nitro and s/p ASA [employer]. another nitro, initial one brought cp down from 06/17 --> 02/15, will trial another librium for alcohol w/d prevention, as pt is a regular drinker. Plan for admit observation, possible Stress testing, to r/o ischemia, serial trops and EKG/tele monitoring. ASA administered already, pain being controlled, discussion with patient and family at bedside, made aware of impression and plan , questions answered. 08/19/19 14:27 08/19/19 14:30 Heart Score/ECG Review - History History: Moderately suspicious - Electrocardiogram EKG: Normal - Age Age: >/= 65 - Risk Factors Risk Factors Heart Score: Yes Hx Hypercholesterolemia, Yes Hx Hypertension, Yes Smoking History Based on the list above the patient has:: >/=3 risk factors or Hx atherosclerotic disease - Troponin Troponin: </= normal limit - Score Heart Score - Total: 5 #1 ECG reviewed & interpreted by me at: 12:55 General ECG Interpretation: Sinus Rhythm, Normal Rate, Normal Intervals Compared to previous ECG there are: No significant change 08/19/19 13:15 EKG normal sinus rhythm at 92 bpm, no interval abnormalities, narrow QRS, ST and T wave segments and morphology normal. Nonspecific T wave abnormalities, unchanged from prior
[2019-08-19 13:46] LABS: BASO % 0.8 % (0-2.0); EOS % 1.6 % (0-4.5); HEMATOCRIT 38.5 % (32.4-45.2); HEMOGLOBIN 13.4 GM/dL (10.7-15.3); LYMPH % 35.4 % (8-40); MCH 36.1 pg (25.7-33.7); MCHC 34.8 g/dl (32.0-36.0); MEAN CELL VOLUME 103.7 fl (80-96); MEAN PLT VOLUME 7.9 fl (7.5-11.1); MONO % 12.2 % (3.8-10.2); PLATELET COUNT 146 K/MM3 (134-434); RBC 3.71 M/mm3 (3.60-5.2); RDW 13.7 % (11.6-15.6); WHITE BLOOD COUNT 4.3 K/mm3 (4.0-10.0)
[2019-08-19 13:49] LABS: ACTIVATED PTT 35.1 SECONDS (25.2-36.5)
[2019-08-19 14:13] LABS: INR 1.08 (0.83-1.09); PROTHROMBIN TIME (PATIENT) 12.8 SEC (9.7-13.0)
[2019-08-19 14:19] LABS: ALBUMIN 3.5 g/dl (3.4-5.0); ALK PHOS 148 U/L (45-117); ANION GAP 5 MMOL/L (8-16); BILIRUBIN,TOTAL 0.2 mg/dL (0.2-1); BLOOD UREA NITROGEN 9.3 mg/dL (7-18); CALCIUM 8.8 mg/dL (8.5-10.1); CHLORIDE 102 mmol/L (98-107); CO2 30 mmol/L (21-32); CREATININE 0.5 mg/dL (0.55-1.3); GLUCOSE,RANDOM 89 mg/dL (74-106); MAGNESIUM 2.2 mg/dL (1.8-2.4); POTASSIUM 4.8 mmol/L (3.5-5.1); SGOT/AST 46 U/L (15-37); SGPT/ALT 44 U/L (13-61); SODIUM 138 mmol/L (136-145); TOT PROT 7.6 g/dl (6.4-8.2)
[2019-08-19] MEDS ORDERED: FOLIC ACID INJECTION - 1 MG, THIAMINE HCL 100 MG, MULTIVIT INJECTION ADULT 10 ML in SOD... IVPB ONE (14:25)
[2019-08-19] MEDS ORDERED: chlordiazePOXIDE HCL 25 MG CAPSULE PO ONE (14:26)
[2019-08-19] MEDS ORDERED: chlordiazePOXIDE HCL 10 MG CAPSULE ONE (14:35)
--- NOTE | 2019-08-19 14:39 | EKG ---
Test Reason : Blood Pressure : / mmHG Vent. Rate : 092 BPM Atrial Rate : 092 BPM P-R Int : 122 ms QRS Dur : 070 ms QT Int : 378 ms P-R-T Axes : 089 072 076 degrees QTc Int : 467 ms NORMAL SINUS RHYTHM NORMAL ECG WHEN COMPARED WITH ECG OF 11-NOV-2018 01:08, NO SIGNIFICANT CHANGE WAS FOUND Confirmed by NICHOLAS SÁNCHEZ MD ([id number]) on 08/19/2019 2:39:05 PM Referred By: Confirmed By:NICHOLAS SÁNCHEZ MD
--- NOTE | 2019-08-19 16:37 | CON.CARD ---
Consult Consult Specialty:: cardio - History of Present Illness Chief Complaint: cp History of Present Illness: 64 F here with CP. she describes L pectoral region pain (not localized), started 2 days ago. PRESENT NON-STOP during this time. not worse with breathing or walking but WORSE WHEN MOVES TORSO OR TURNS/TWISTS. frequently sweaty during this time as well. states the pain DOES NOT RADIATED. usually doesn't walk much since the stroke, uses a walker. today when was rushing to leave the house she felt sob but no exacerbation of the pain. PMH: HTN, COPD not on home O2, HCV, liver cirrhosis, alcohol abuse, CVA 11/2018 ( WC bound due to R sided weakness from stroke) - Past Medical History Cardio/Vascular: Yes: HTN Pulmonary: Yes: COPD Hepatobiliary: Yes: Hepatitis C ...LMP: 10/24/04 Psych: Yes: Anxiety, Bipolar Musculoskeletal: Yes: Osteoarthritis - Alcohol/Substance Use Hx Alcohol Use: Yes (social) Number of Drinks Daily: 10 (drinks approx. 1L vodka/day) History of Substance Use: reports: Heroin (currently on Methadone. ) - Smoking History Smoking history: Current every day smoker Have you smoked in the past 12 months: Yes Aproximately how many cigarettes per day: 2 - Social History Usual Living Arrangement: With Child ADL: Independent History of Recent Travel: No Home Medications - Allergies Allergies/Adverse Reactions: Allergies Allergy/AdvReac Type Severity Reaction Status Date / Time fish derived [Fish derived] Allergy Intermediate Difficulty Verified 08/02/19 14 :50 Breathing SEAFOOD Allergy Uncoded 08/02/19 14:50 - Home Medications Home Medications: Ambulatory Orders Carbamazepine [Tegretol -] 200 mg PO BID 11/11/18 Lisinopril 10 mg PO DAILY 11/11/18 Methadone [Dolophine -] 30 mg PO DAILY 11/11/18 Pantoprazole Sodium [Protonix] 40 mg PO DAILY 11/11/18 Acetaminophen [Tylenol .Extra-Strength -] 500 mg PO Q6H PRN tablet 11/20/18 Aspirin [ASA -] 81 mg PO DAILY tab.chew 11/20/18 Atorvastatin Ca [Lipitor] 10 mg PO HS tablet 11/20/18 Folic Acid - 1 mg PO DAILY tablet 11/20/18 Thiamine HCl [Vitamin B1 -] 100 mg PO BID tablet 11/20/18 Docusate Sodium [Colace -] 300 mg PO HS #30 capsule 11/21/18 Polyethylene Glycol 3350 [Miralax (For Bowel Prep) -] 17 gm PO DAILY #1 bottle 11/21/18 Family Medical History Family History: Denies (no known cmp) Review of Systems - Review of Systems Constitutional: denies: Chills, Fever Eyes: denies: Eye Pain HENT: denies: Nasal Congestion Neck: denies: Stiffness Cardiovascular: denies: Palpitations Respiratory: denies: Orthopnea, PND Gastrointestinal: denies: Diarrhea, Rectal Bleeding Genitourinary: denies: Burning, Hematuria Musculoskeletal: denies: Muscle Pain Integumentary: denies: Rash Neurological: denies: Numbness, Seizure, Syncope Endocrine: denies: Excessive Sweating Hematology/Lymphatic: denies: Excessive Bleeding Vital Signs: Vital Signs Temperature Pulse Rate 85 08/19/19 16:00 Respiratory Rate 20 08/19/19 16:00 Blood Pressure 109/70 08/19/19 16:00 O2 Sat by Pulse Oximetry (%) 96 08/19/19 16:00 Constitutional: Yes: Well Nourished, No Distress Eyes: No: Sclera Icterus HENT: No: Nasal Congestion Neck: No: Decreased ROM Respiratory: Yes: CTA Bilaterally. No: Accessory Muscle Use Gastrointestinal: Yes: Normal Bowel Sounds. No: Distention, Hepatomegaly, Palpable Mass, Tenderness Cardiovascular: Yes: Regular Rate and Rhythm JVD: No Carotid Bruit: No PMI: Non-Displaced Heart Sounds: Yes: S1, S2. No: Gallop Murmur: No: Systolic Murmur, Diastolic Murmur Musculoskeletal: Yes: Other (No kyphosis + tenderness over L chest but does not reproduce pain) Extremities: No: Cool, Cyanosis Edema: No Peripheral Pulses: 2+ Left Carotid, 2+ Right Carotid, 2+ Left Doralis Pedis, 2+ Right Dorsalis Pedis Integumentary: No: Jaundice Neurological: Yes: Alert, Oriented (x3) Psychiatric: No: Agitated - Other Data Labs, Other Data: CBC, BMP 08/19/19 12:05 08/19/19 12:05 INR, PTT INR 1.08 (0.83-1.09) 08/19/19 12:05 Troponin, BNP 08/19/19 08/19/19 12:05 12:05 Troponin I < 0.02 B-Natriuretic Peptide 222.5 H Troponin, BNP 08/19/19 08/19/19 12:05 12:05 Troponin I < 0.02 B-Natriuretic Peptide 222.5 H Assessment/Plan Echo 11/24: nl LV/RV. nl valve fxn. no pulm HTN ECG: NSR, normal axis. no path q's, no ST-T abn CXR: clear lungs/pleura, WNL chest pain: -pain atypical, present unremitting for 2 days -ecg non-ischemic. troponin neg x 1--f/u serial trend -tenderness noted over the affected area but does not reproduce her pain; notes positional exacerbation to pain--? mskel etiology -if rules out, will plan to do pharm MPI stress test tomorrow to confidently exclude atyp angina in [place] risk pt with copd/cigs hx, prior stroke -check repeat echo -clinical picture not suspicious for PE, including normal sats and no tachycardia copd: -per primary h/o CVA: -cont home asa, statin, bp control HTN: -bp controlled -cont home meds
[2019-08-19 16:43] LABS: PH,URINE 6.5 (5.0-8.0); URINE APPEARANCE CLEAR; URINE BILIRUBIN NEGATIVE (NEGATIVE); URINE COLOR DK YELLOW; URINE GLUCOSE (UA) NEGATIVE (NEGATIVE); URINE KETONE TRACE (NEGATIVE); URINE LEUK ESTERASE NEGATIVE (NEGATIVE); URINE NITRITE NEGATIVE (NEGATIVE); URINE PROTEIN NEGATIVE (NEGATIVE)
[2019-08-19] MEDS ORDERED: LORazepam 0.5 MG TABLET PO SCH (17:00)
[2019-08-19] MEDS ORDERED: LORazepam 0.5 MG TABLET ONE (17:02)
--- NOTE | 2019-08-19 19:08 | HP ---
CHIEF COMPLAINT: Chest pain PCP: HISTORY OF PRESENT ILLNESS: 64 y/o F, pmh of htn, copd, HCV, liver cirrhosis, alcohol abuse, CVA in 11/24 ( Wheel chair bound due to right residual weakness from stroke) presented today with constant, localized, pressure like chest pain of 3 day duration that is rated at 9/10 pain scale accompanied by 20 Ib weight loss and dysphagia. Pt reports that the pain worsened over the last few days. She has never had pain like this before. Pt reports that the pain started spontaneously at rest and was non-extertional. At the moment the pain has self resolved. She was given aspirin in the ED and one dose of librium. Pt denies f/c/n/v/d/shortness of breath/abdominal pain ER course was notable for: (1)EKG normal sinus rhythm at 92 bpm, no interval abnormalities, narrow QRS, ST and T wave segments and morphology normal. Nonspecific T wave abnormalities, unchanged from prior (2)Chest pain HEART score 5 (3) Recent Travel: denies PAST MEDICAL HISTORY: htn, copd, HCV, liver cirrhosis, alcohol abuse, CVA in 11/24 PAST SURGICAL HISTORY: denies Social History: Smokin ciggs a day Alcohol: 3 shot glasses a night Drugs: denies Allergies fish derived [Fish derived] Allergy (Intermediate, Verified 08/02/19 14:50) Difficulty Breathing SEAFOOD Allergy (Uncoded 08/02/19 14:50) HOME MEDICATIONS: Home Medications Medication Instructions Recorded Carbamazepine [Tegretol -] 200 mg PO BID 11/11/18 Lisinopril 10 mg PO DAILY 11/11/18 Methadone [Dolophine -] 30 mg PO DAILY 11/11/18 Pantoprazole Sodium [Protonix] 40 mg PO DAILY 11/11/18 Acetaminophen [Tylenol 500 mg PO Q6H PRN tablet 11/20/18 .Extra-Strength -] Aspirin [ASA -] 81 mg PO DAILY tab.chew 11/20/18 Atorvastatin Ca [Lipitor] 10 mg PO HS tablet 11/20/18 Folic Acid - 1 mg PO DAILY tablet 11/20/18 Thiamine HCl [Vitamin B1 -] 100 mg PO BID tablet 11/20/18 Docusate Sodium [Colace -] 300 mg PO HS #30 capsule 11/21/18 Polyethylene Glycol 3350 [Miralax 17 gm PO DAILY #1 bottle 11/21/18 (For Bowel Prep) -] REVIEW OF SYSTEMS CONSTITUTIONAL: Absent: fever, chills, diaphoresis, generalized weakness, CARDIOVASCULAR: Admits: chest pain, Absent: syncope, palpitations, irregular heart rate, lightheadedness, peripheral edema RESPIRATORY: Absent: cough, shortness of breath, dyspnea with exertion, orthopnea GASTROINTESTINAL: Absent: abdominal pain, abdominal distension, nausea, vomiting, diarrhea, MUSCULOSKELETAL: Absent: myalgia, arthralgia, joint swelling, back pain, neck pain HEMATOLOGIC/IMMUNOLOGIC: Absent: easy bleeding, easy bruising, ENDOCRINE: Absent: unexplained weight gain, NEUROLOGIC: Absent: headache, focal weakness or paresthesias, dizziness, unsteady gait, seizure PSYCHIATRIC: Absent: anxiety, PHYSICAL EXAMINATION Vital Signs - 24 hr 08/19/19 08/19/19 08/19/19 12:49 13:17 16:00 Temperature Pulse Rate 90 Pulse Rate [ 85 Radial] Respiratory 20 20 Rate Blood Pressure 129/79 Blood Pressure 109/70 [Right Arm] O2 Sat by Pulse 95 95 96 Oximetry (%) GENERAL: Awake, alert, and fully oriented, in no acute distress. Pt is weak on the right side EYES: PERRLA, EOMI EARS, NOSE, THROAT: Moist mucous membranes. NECK: Normal range of motion LUNGS: Breath sounds equal, clear to auscultation bilaterally. No wheezes, and no crackles. HEART: Regular rate and rhythm, normal S1 and S2 without murmur, rub or gallop. ABDOMEN: Soft, nontender, not distended, normoactive bowel sounds, no guarding, no rebound, no masses. MUSCULOSKELETAL: right sided weakness UPPER EXTREMITIES: 2+ pulses, warm, well-perfused. LOWER EXTREMITIES: 2+ pulses, warm, well-perfused. NEUROLOGICAL: Cranial nerves II-XII intact. Right sided weakness, strength 4/5 and sensation 4/5. SKIN: Warm, dry, normal turgor, Laboratory Results - last 24 hr 08/19/19 08/19/19 08/19/19 12:05 12:05 12:05 WBC 4.3 RBC 3.71 Hgb 13.4 Hct 38.5 MCV 103.7 H MCH 36.1 H D MCHC 34.8 RDW 13.7 Plt Count 146 MPV 7.9 D Absolute Neuts (auto) 2.2 Neutrophils % 50.0 Lymphocytes % 35.4 D Monocytes % 12.2 H Eosinophils % 1.6 D Basophils % 0.8 Nucleated RBC % 0 PT with INR 12.80 INR 1.08 PTT (Actin FS) 35.1 Sodium 138 Potassium 4.8 Chloride 102 Carbon Dioxide 30 Anion Gap 5 L BUN 9.3 Creatinine 0.5 L Est GFR (CKD-EPI)AfAm 116.89 Est GFR (CKD-EPI)NonAf 100.85 Random Glucose 89 Calcium 8.8 Magnesium 2.2 Total Bilirubin 0.2 AST 46 H ALT 44 Alkaline Phosphatase 148 H Creatine Kinase 47 Troponin I < 0.02 B-Natriuretic Peptide Total Protein 7.6 Albumin 3.5 Urine Color Urine Appearance Urine pH Ur Specific [place] Urine Protein Urine Glucose (UA) Urine Ketones Urine Blood Urine Nitrite Urine Bilirubin Urine Urobilinogen Ur Leukocyte Esterase ASSESSMENT/PLAN: 64 y/o F, pmh of htn, copd, HCV, liver cirrhosis, alcohol abuse, CVA in 11/24 ( Wheel chair bound due to right residual weakness from stroke) presented today with constant, localized, pressure like chest pain of 3 day duration that is rated at 9/10 pain scale is admitted for chest r/o ACS #Atypical Chest pain EKG show no ischemia 1st trop neg Tenderness to palpation and positional change r/o ACS r/p EKG ordered- we will f/u trend trops- 1st trop negative, 2nd trop ordered echo ordered pt moved to tele Cardio-consulted- Dr. Santizo- appreciate consult Likely plan for pharm MPI stress test tomorrow due to high risk of pt- copd/cig useer, hx of stroke cont Aspirin and statins Cont protonix #HTN cont lisinopril #Hx of CVA asa and statins #Hx of Hep C hepatitis panel ordered- will f/u #DVT ppx lovenox 30 daily FEN monitor lytes sodium controlled diet Dispo: f/u EKG and ECHO in am, monitor on tele, f/u trops Visit type - Emergency Visit Emergency Visit: Yes ED Registration Date: 08/19/19 Care time: The patient presented to the Emergency Department on the above date and was hospitalized for further evaluation of their emergent condition. - New Patient This patient is new to me today: Yes Date on this admission: 08/20/19 - Critical Care Critical Care patient: No ATTENDING PHYSICIAN STATEMENT I saw and evaluated the patient. I reviewed the resident's note and discussed the case with the resident. I agree with the resident's findings and plan as documented. SUBJECTIVE: OBJECTIVE: ASSESSMENT AND PLAN:
--- NOTE | 2019-08-19 19:29 | PN ---
Teaching Attending Note Name of Resident: Daniel Trevizo ATTENDING PHYSICIAN STATEMENT I saw and evaluated the patient. I reviewed the resident's note and discussed the case with the resident. I agree with the resident's findings and plan as documented. SUBJECTIVE: Seen and examined at bedside. No complaints, chest pain resolved. OBJECTIVE: Vital Signs - 24 hr 08/19/19 08/19/19 08/19/19 12:49 13:17 16:00 Temperature Pulse Rate 90 Pulse Rate [ 85 Radial] Respiratory 20 20 Rate Blood Pressure 129/79 Blood Pressure 109/70 [Right Arm] O2 Sat by Pulse 95 95 96 Oximetry (%) 08/19/19 18:44 Temperature 97.8 F Pulse Rate Pulse Rate [ 75 Radial] Respiratory 18 Rate Blood Pressure Blood Pressure 111/82 [Right Arm] O2 Sat by Pulse 98 Oximetry (%) PHYSICAL EXAM: GENERAL: NAD CVS: S1S2, RRR LUNGS: CTA BL, NO WRR ABDOMEN: SOFT, NTND, NABS EXT: 2+DPP, no edema Neuro: right sided weakness Current Medications Generic Name Dose Route Start Last Admin Trade Name Jamesq PRN Reason Stop Dose Admin Aspirin 81 mg 08/20/19 10:00 Asa - PO DAILY [facility] Atorvastatin Calcium 10 mg 08/19/19 22:00 Lipitor - PO HS JAY Docusate Sodium 300 mg 08/19/19 22:00 Colace - PO HS JAY Enoxaparin Sodium 30 mg 08/20/19 10:00 Lovenox - SQ DAILY JAY Folic Acid 1 mg 08/20/19 10:00 Folic Acid - PO DAILY JAY Folic Acid 1 mg/ Thiamine HCl 1,000 mls @ 125 mls/hr 08/19/19 14:25 08/19/19 15:54 100 mg/ Multivitamins/Minerals IVPB 08/19/19 22:24 125 mls/hr 10 ml/ Sodium Chloride ONCE ONE Administration Lisinopril 10 mg 08/20/19 10:00 Prinivil PO DAILY JAY Pantoprazole Sodium 40 mg 08/20/19 10:00 Protonix - PO DAILY JAY Laboratory Results - last 24 hr 08/19/19 08/19/19 08/19/19 12:05 12:05 12:05 WBC 4.3 RBC 3.71 Hgb 13.4 Hct 38.5 MCV 103.7 H MCH 36.1 H D MCHC 34.8 RDW 13.7 Plt Count 146 MPV 7.9 D Absolute Neuts (auto) 2.2 Neutrophils % 50.0 Lymphocytes % 35.4 D Monocytes % 12.2 H Eosinophils % 1.6 D Basophils % 0.8 Nucleated RBC % 0 PT with INR 12.80 INR 1.08 PTT (Actin FS) 35.1 Sodium 138 Potassium 4.8 Chloride 102 Carbon Dioxide 30 Anion Gap 5 L BUN 9.3 Creatinine 0.5 L Est GFR (CKD-EPI)AfAm 116.89 Est GFR (CKD-EPI)NonAf 100.85 Random Glucose 89 Calcium 8.8 Magnesium 2.2 Total Bilirubin 0.2 AST 46 H ALT 44 Alkaline Phosphatase 148 H Creatine Kinase 47 Troponin I < 0.02 B-Natriuretic Peptide Total Protein 7.6 Albumin 3.5 Urine Color Urine Appearance Urine pH Ur Specific [place] Urine Protein Urine Glucose (UA) Urine Ketones Urine Blood Urine Nitrite Urine Bilirubin Urine Urobilinogen Ur Leukocyte Esterase 08/19/19 08/19/19 08/19/19 12:05 16:25 17:30 WBC RBC Hgb Hct MCV MCH MCHC RDW Plt Count MPV Absolute Neuts (auto) Neutrophils % Lymphocytes % Monocytes % Eosinophils % Basophils % Nucleated RBC % PT with INR INR PTT (Actin FS) Sodium Potassium Chloride Carbon Dioxide Anion Gap BUN Creatinine Est GFR (CKD-EPI)AfAm Est GFR (CKD-EPI)NonAf Random Glucose Calcium Magnesium Total Bilirubin AST ALT Alkaline Phosphatase Creatine Kinase 42 Troponin I < 0.02 B-Natriuretic Peptide 222.5 H Total Protein Albumin Urine Color Dk yellow Urine Appearance Clear Urine pH 6.5 Ur Specific [place] 1.018 Urine Protein Negative Urine Glucose (UA) Negative Urine Ketones Trace H Urine Blood Negative Urine Nitrite Negative Urine Bilirubin Negative Urine Urobilinogen 1.0 Ur Leukocyte Esterase Negative ASSESSMENT AND PLAN: 64 y/o F PMHX of HTN, RECENT CVA 11/24 (Wheel chair bound due to right residual weakness from stroke) HCV, cirrhosis, etoh abuse, presents with chest pain 1) Chest pain, r/o ACS, atypical, likely MSK vs GI etiology -ekg NSR, no ischemia -trop neg, trend set -if neg, stress test in AM -monitor on tele -2decho -cardio consult -c/w asa/statin/aceI -PPI 2) HTN -resume lisinopril 3) Hx CVA -asa/statin 4) Hx Hep C-unsure if treated -f/u hep panel 5) Hx ETOH abuse -librium taper, last drink this AM at 9 AM -folic acid/thiamine -monitor for w/d
[2019-08-19] MEDS ORDERED: ATORVASTATIN CA 10 MG TABLET (FP) ONE (23:06)
[2019-08-19] MEDS ORDERED: DOCUSATE SODIUM 100 MG CAPSULE (FP) PO ONE (23:06)
[2019-08-19] MEDS: DOCUSATE SODIUM 100 MG CAPSULE (FP) PO SCH (23:18)
[2019-08-19] MEDS: ATORVASTATIN CA 10 MG TABLET (FP) PO SCH (23:18)
[2019-08-20] MEDS ORDERED: chlordiazePOXIDE HCL 25 MG CAPSULE PO PRN (04:18)
[2019-08-20] MEDS ORDERED: chlordiazePOXIDE HCL 10 MG CAPSULE ONE (04:28)
[2019-08-20] MEDS ORDERED: chlordiazePOXIDE 5 MG CAPSULE ONE (04:28)
[2019-08-20] MEDS ORDERED: CHLORDIAZEPOXIDE 20 MG, CHLORDIAZEPOXIDE 5 MG PO PRN (04:57)
[2019-08-20 06:23] LABS: HEMATOCRIT 38.7 % (32.4-45.2); HEMOGLOBIN 13.3 GM/dL (10.7-15.3); MCH 35.3 pg (25.7-33.7); MCHC 34.5 g/dl (32.0-36.0); MEAN CELL VOLUME 102.5 fl (80-96); MEAN PLT VOLUME 8.2 fl (7.5-11.1); PLATELET COUNT 120 K/MM3 (134-434); RBC 3.77 M/mm3 (3.60-5.2); RDW 13.3 % (11.6-15.6); WHITE BLOOD COUNT 3.3 K/mm3 (4.0-10.0)
[2019-08-20 06:50] LABS: ALBUMIN 3.2 g/dl (3.4-5.0); BILIRUBIN,TOTAL 0.6 mg/dL (0.2-1); BLOOD UREA NITROGEN 9.1 mg/dL (7-18); CALCIUM 8.7 mg/dL (8.5-10.1); CREATININE 0.5 mg/dL (0.55-1.3); MAGNESIUM 2.1 mg/dL (1.8-2.4); POTASSIUM 4.2 mmol/L (3.5-5.1); TOT PROT 7.2 g/dl (6.4-8.2)
[2019-08-20] MEDS ORDERED: REGADENOSON 0.4 MG/5 ML PRE-FILLED SYRINGE IVPUSH ONE ×2 (09:30→10:41)
--- NOTE | 2019-08-20 10:30 | PN ---
Progress Note, Physician Chief Complaint: ambulating w/ assistance No new complaints TELE: not on tele - Current Medication List Current Medications: Active Medications Aspirin (Asa -) 81 mg PO DAILY [facility] Atorvastatin Calcium (Lipitor -) 10 mg PO HS [facility] Last Admin: 08/19/19 23:18 Dose: 10 mg Chlordiazepoxide HCl 20 mg/ (Chlordiazepoxide HCl 5 mg) 25 mg PO Q4H PRN PRN Reason: WITHDRAWAL(CONT SUBST) Docusate Sodium (Colace -) 300 mg PO HS [facility] Last Admin: 08/19/19 23:18 Dose: Not Given Enoxaparin Sodium (Lovenox -) 30 mg SQ DAILY [facility] Folic Acid (Folic Acid -) 1 mg PO DAILY [facility] Lisinopril (Prinivil) 10 mg PO DAILY JAY Pantoprazole Sodium (Protonix -) 40 mg PO DAILY [facility] - Objective Vital Signs: Vital Signs Temperature 97.8 F 08/19/19 18:44 Pulse Rate 88 08/20/19 04:32 Respiratory Rate 18 08/20/19 04:32 Blood Pressure 118/86 08/20/19 04:32 O2 Sat by Pulse Oximetry (%) 98 08/20/19 04:32 Constitutional: Yes: No Distress Cardiovascular: Yes: Regular Rate and Rhythm Respiratory: Yes: CTA Bilaterally Gastrointestinal: Yes: Soft Edema: No Neurological: Yes: Alert, Oriented Labs: CBC, BMP 08/20/19 06:04 08/20/19 06:04 INR, PTT INR 1.08 (0.83-1.09) 08/19/19 12:05 Laboratory Tests 08/19/19 08/19/19 08/19/19 12:05 12:05 17:30 Troponin I < 0.02 < 0.02 B-Natriuretic Peptide 222.5 H Assessment/Plan Assessment/Plan Echo 11/24: nl LV/RV. nl valve fxn. no pulm HTN ECG: NSR, normal axis. no path q's, no ST-T abn CXR: clear lungs/pleura, WNL chest pain: -pain atypical, present unremitting for 2 days -ecg non-ischemic. troponin neg x 2--f/u serial trend -tenderness noted over the affected area but does not reproduce her pain; notes positional exacerbation to pain--? mskel etiology -planned for pharm MPI stress test today to confidently exclude atyp angina in [place] risk pt with copd/cigs hx, prior stroke -check repeat echo -clinical picture not suspicious for PE, including normal sats and no tachycardia copd: -per primary h/o CVA: -cont home asa, statin, bp control HTN: -bp controlled -cont home meds
--- NOTE | 2019-08-20 11:20 | ECHO ---
Name: BEVERLY ESCALANTE Exam:Adult Echocardiogram Study Date: 08/20/2019 09:45 AM Age: 64 yrs Reason For Study: Chest pain Height: 63 in Weight: 95 lb BSA: 1.4 m2 MMode/2D Measurements & Calculations IVSd: 1.2 cm Ao root diam: 2.8 cm LVIDd: 3.0 cm LA dimension: 2.2 cm LVIDs: 2.2 cm LVPWd: 0.84 cm EDV(Teich): 34.3 ml LVOT diam: 2.0 cm ESV(Teich): 15.5 ml LAV (MOD-bp): 19.9 ml Doppler Measurements & Calculations MV E max donald: 51.4 cm/sec Ao V2 max: 86.9 cm/sec MV A max donald: 62.1 cm/sec Ao max P.0 mmHg MV E/A: 0.83 MV dec time: 0.16 sec JUAN(V,D): 3.0 cm2 LV V1 max P.0 mmHg TR max donald: 193.4 cm/sec LV V1 max: 86.3 cm/sec TR max P.0 mmHg PA V2 max: 86.9 cm/sec Med Peak E' Donald: 4.9 cm/sec PA max P.0 mmHg Med E/e': 10.5 Lat Peak E' Donald: 8.3 cm/sec Lat E/e': 6.2 Left Ventricle Left ventricular systolic function is normal. Ejection Fraction = 55-60%. The transmitral spectral Do ppler flow pattern is suggestive of impaired LV relaxation. Right Ventricle The right ventricle is grossly normal size. The right ventricular systolic function is grossly normal . Atria Normal left and right atrial size and function. Mitral Valve There is mild mitral annular calcification. There is no mitral valve stenosis. There is mild mitral regurgitation. Tricuspid Valve The tricuspid valve is normal in structure and function. There is mild tricuspid regurgitation. Right ventricular systolic pressure is normal. Aortic Valve There is moderate to severe aortic sclerosis.;. No hemodynamically significant valvular aortic stenos is. No aortic regurgitation is present. Pulmonic Valve The pulmonic valve is not well seen, but is grossly normal. There is no pulmonic valvular stenosis. Great Vessels The aortic root is normal size. Pericardium/Pleura There is no pericardial effusion. Interpretation Summary Left ventricular systolic function is normal. Ejection Fraction = 55-60%. The transmitral spectral Doppler flow pattern is suggestive of impaired LV relaxation. There is mild mitral annular calcification. There is mild mitral regurgitation. There is mild tricuspid regurgitation. Right ventricular systolic pressure is normal. There is moderate to severe aortic sclerosis.; There is no pericardial effusion. MD Lopez *Mathew 08/20/2019 11:19 AM
[2019-08-20] MEDS: PANTOPRAZOLE 40 MG TABLET (FP) PO SCH ×2 (12:10→14:12)
[2019-08-20] MEDS: ASPIRIN 81 MG CHEWABLE TABLETS PO SCH ×2 (12:10→12:15)
[2019-08-20] MEDS: LISINOPRIL 10 MG TABLET (FP) PO SCH ×2 (12:10→14:12)
[2019-08-20] MEDS: FOLIC ACID 1 MG TABLET (FP) PO SCH ×2 (12:10→14:12)
[2019-08-20] MEDS: ENOXAPARIN NA (PORCINE) 30 MG/0.3 ML DISP.SYRIN SQ SCH (12:10)
[2019-08-20] MEDS ORDERED: METHADONE HCL 10 MG TABLET PO ONE (13:43)
--- NOTE | 2019-08-20 15:25 | PN ---
Physical Exam: SUBJECTIVE: 64 y/o F, pmh of htn, copd, HCV, liver cirrhosis, alcohol abuse, CVA in 11/24 ( Wheel chair bound due to right residual weakness from stroke) presented today with constant, localized, pressure like chest pain of 3 day duration that is rated at 9/10 pain scale accompanied by 20 Ib weight loss and dysphagia is admitted for ACS r/o. Currently, pt is stable and afebrile. She c/o of generalized weakness that is new but otherwise is asymptomatic. Denies f/c/n/v/d /chest/abdominal pain/sob. OBJECTIVE: Vital Signs Period Temp Pulse Resp BP Sys/Pleitez Pulse Ox Last 24 Hr 97.8 F 75-88 18-20 109-118/70-86 96-98 GENERAL: Awake, alert, and fully oriented, in no acute distress. Pt is weak on the right side EYES: PERRLA, EOMI EARS, NOSE, THROAT: Moist mucous membranes. NECK: Normal range of motion LUNGS: Breath sounds equal, clear to auscultation bilaterally. No wheezes, and no crackles. HEART: Regular rate and rhythm, normal S1 and S2 without murmur, rub or gallop. ABDOMEN: Soft, nontender, not distended, normoactive bowel sounds, no guarding, no rebound, no masses. MUSCULOSKELETAL: right sided weakness UPPER EXTREMITIES: 2+ pulses, warm, well-perfused. LOWER EXTREMITIES: 2+ pulses, warm, well-perfused. NEUROLOGICAL: Cranial nerves II-XII intact. Right sided weakness, strength 4/5 and sensation 4/5. SKIN: Warm, dry, normal turgor, Laboratory Results - last 24 hr CBC,CMP WBC 3.3 K/mm3 (4.0-10.0) L 08/20/19 06:04 RBC 3.77 M/mm3 (3.60-5.2) 08/20/19 06:04 Hgb 13.3 GM/dL (10.7-15.3) 08/20/19 06:04 Hct 38.7 % (32.4-45.2) 08/20/19 06:04 MCV 102.5 fl (80-96) H 08/20/19 06:04 MCH 35.3 pg (25.7-33.7) H 08/20/19 06:04 MCHC 34.5 g/dl (32.0-36.0) 08/20/19 06:04 RDW 13.3 % (11.6-15.6) 08/20/19 06:04 Plt Count 120 K/MM3 (134-434) L 08/20/19 06:04 MPV 8.2 fl (7.5-11.1) 08/20/19 06:04 Absolute Neuts (auto) 2.2 K/mm3 (1.5-8.0) 08/19/19 12:05 Neutrophils % 50.0 % (42.8-82.8) 08/19/19 12:05 Lymphocytes % 35.4 % (8-40) D 08/19/19 12:05 Monocytes % 12.2 % (3.8-10.2) H 08/19/19 12:05 Eosinophils % 1.6 % (0-4.5) D 08/19/19 12:05 Basophils % 0.8 % (0-2.0) 08/19/19 12:05 Nucleated RBC % 0 % (0-0) 08/19/19 12:05 Sodium 139 mmol/L (136-145) 08/20/19 06:04 Potassium 4.2 mmol/L (3.5-5.1) 08/20/19 06:04 Chloride 105 mmol/L (98-107) 08/20/19 06:04 Carbon Dioxide 28 mmol/L (21-32) 08/20/19 06:04 Anion Gap 6 MMOL/L (8-16) L 08/20/19 06:04 BUN 9.1 mg/dL (7-18) 08/20/19 06:04 Creatinine 0.5 mg/dL (0.55-1.3) L 08/20/19 06:04 Est GFR (CKD-EPI)AfAm 116.89 08/20/19 06:04 Est GFR (CKD-EPI)NonAf 100.85 08/20/19 06:04 Random Glucose 87 mg/dL (74-106) 08/20/19 06:04 Calcium 8.7 mg/dL (8.5-10.1) 08/20/19 06:04 Magnesium 2.1 mg/dL (1.8-2.4) 08/20/19 06:04 Total Bilirubin 0.6 mg/dL (0.2-1) 08/20/19 06:04 AST 44 U/L (15-37) H 08/20/19 06:04 ALT 39 U/L (13-61) 08/20/19 06:04 Alkaline Phosphatase 130 U/L (45-117) H 08/20/19 06:04 Creatine Kinase 42 U/L (26-192) 08/19/19 17:30 Troponin I < 0.02 ng/ml (0.00-0.05) 08/19/19 17:30 B-Natriuretic Peptide 222.5 pg/ml (5-125) H 08/19/19 12:05 Total Protein 7.2 g/dl (6.4-8.2) 08/20/19 06:04 Albumin 3.2 g/dl (3.4-5.0) L 08/20/19 06:04 Active Medications Current Medications Aspirin (Asa -) 81 mg PO DAILY [facility] Last Admin: 08/20/19 12:15 Dose: Not Given Atorvastatin Calcium (Lipitor -) 10 mg PO HS [facility] Last Admin: 08/19/19 23:18 Dose: 10 mg Docusate Sodium (Colace -) 300 mg PO HS [facility] Last Admin: 08/19/19 23:18 Dose: Not Given Enoxaparin Sodium (Lovenox -) 30 mg SQ DAILY [facility] Last Admin: 08/20/19 12:10 Dose: 30 mg Folic Acid (Folic Acid -) 1 mg PO DAILY [facility] Last Admin: 08/20/19 14:12 Dose: Not Given Lisinopril (Prinivil) 10 mg PO DAILY [facility] Last Admin: 08/20/19 14:12 Dose: Not Given Pantoprazole Sodium (Protonix -) 40 mg PO DAILY [facility] Last Admin: 08/20/19 14:12 Dose: Not Given Home Medications Medication Instructions Recorded Carbamazepine [Tegretol -] 200 mg PO BID 11/11/18 Lisinopril 10 mg PO DAILY 11/11/18 Methadone [Dolophine -] 30 mg PO DAILY 11/11/18 Pantoprazole Sodium [Protonix] 40 mg PO DAILY 11/11/18 Acetaminophen [Tylenol 500 mg PO Q6H PRN tablet 11/20/18 .Extra-Strength -] Aspirin [ASA -] 81 mg PO DAILY tab.chew 11/20/18 Atorvastatin Ca [Lipitor] 10 mg PO HS tablet 11/20/18 Folic Acid - 1 mg PO DAILY tablet 11/20/18 Thiamine HCl [Vitamin B1 -] 100 mg PO BID tablet 11/20/18 Docusate Sodium [Colace -] 300 mg PO HS #30 capsule 11/21/18 Polyethylene Glycol 3350 [Miralax 17 gm PO DAILY #1 bottle 11/21/18 255 gm Btl -] ASSESSMENT/PLAN: 64 y/o F, pmh of htn, copd, HCV, liver cirrhosis, alcohol abuse, CVA in 11/24 ( Wheel chair bound due to right residual weakness from stroke) presented today with constant, localized, pressure like chest pain of 3 day duration that is rated at 9/10 pain scale accompanied by 20 Ib weight loss and dysphagia is admitted for ACS r/o #Atypical Chest pain unlikely of cardiac origin, likely msk vs stress related EKG show no ischemia, trops negative x2 Tenderness to palpation and positional change echo- EF normal, impaired LV relaxation, mitral annular calcification, mild MR, mild TR, moderate to severe Aortic sclerosis, no effusion Pharm MPI stress test half completed, pt refused the other Pt will have to remain in the hospital till stress test is completed Cardio is not confident of discharge at this time Cont protonix #HTN cont lisinopril #Hx of CVA asa and statins #Hx of Hep C hepatitis panel- pending #DVT ppx lovenox 30 daily FEN monitor lytes sodium controlled diet Dispo: monitor on tele, f/u with Cardio tomorrow, No Benzo for tremors or etc... Evaluate pt if she c/o of shakes and tremors Trazadone for sleep if needed ATTENDING PHYSICIAN STATEMENT I saw and evaluated the patient. I reviewed the resident's note and discussed the case with the resident. I agree with the resident's findings and plan as documented. SUBJECTIVE: OBJECTIVE: ASSESSMENT AND PLAN:
[2019-08-20 15:44] VITALS: BMI 23.2
--- NOTE | 2019-08-20 16:16 | PN ---
Teaching Attending Note Name of Resident: Daniel Trevizo ATTENDING PHYSICIAN STATEMENT I saw and evaluated the patient. I reviewed the resident's note and discussed the case with the resident. I agree with the resident's findings and plan as documented. SUBJECTIVE: has L sided CP , has SOB, has shaking , wants librium and ativan. says she had a drink yesterday am, and the day before. She told the residents , her last drink was 2 yrs ago. OBJECTIVE: NAd , cachectic . TTP over L sided chest wall Cv: RRR. no MRG Lungs: CTAB Abd: sfot, NT, Nd , NL BS Ext : No edema , no erythema. No tremor when distracted Neuro: EOMI, round pupils, no facial droop, tongue at mid line . strength 4/5 in R hip flexion , 55/ L hip flexion , 5/5 b/l knee flexion/extension , and ankle dosrsiflexion and plantar flexin . 5/5 b/l shoulder shrug, biceps, triceps , and shoulder flexion . reflexes 2+ knee jerk and biceps b/l ASSESSMENT AND PLAN: 64 y/o lady with h/o HCV, COPD, HTN, recent CVA , ALcohol abuse , opioids abuse who presented with CP 1- CP: atypical . reproducible. - resting part of stress is neg. declined 2nd part. - will be done on Friday - echo reviewed. 2- H/O ETOH use: shows drug seeking behavior and requests ativan/librium. no signs of withdrawal shaking resolved when patient was distracted. - dc PRN librium - watch fro withdrawal sx 3- H/o opioids use: cont methadone 4- H/o HTN: cont lisinopril 5- h/o CVA :cont ASA and statin 6- H/o Hep C. f/u as otu pt . hep panel pending 7- Leukopenia: repeat tomorrow Will get stress test on Friday
[2019-08-20] MEDS ORDERED: ALBUTEROL SO4 2.5/IPRATROPIUM 0.5 INH SOL 3 ML VIAL.NEB. NEB ONE (16:20)
[2019-08-20] MEDS: ALBUTEROL SO4 2.5/IPRATROPIUM 0.5 INH SOL 3 ML VIAL.NEB. NEB SCH (19:50)
[2019-08-20] MEDS ORDERED: traZODone HCL 50 MG TABLET (FP) PO ONE (22:00)
[2019-08-20] MEDS: DOCUSATE SODIUM 100 MG CAPSULE (FP) PO SCH (23:04)
[2019-08-20] MEDS: ATORVASTATIN CA 10 MG TABLET (FP) PO SCH (23:05)
[2019-08-20] MEDS: carBAMazepine 200 MG TABLET PO SCH (23:05)
[2019-08-21] MEDS: METHADONE HCL 10 MG TABLET PO SCH (06:10)
[2019-08-21] MEDS: ALBUTEROL SO4 2.5/IPRATROPIUM 0.5 INH SOL 3 ML VIAL.NEB. NEB SCH ×4 (07:10→21:20)
[2019-08-21 07:14] LABS: HEMATOCRIT 35.4 % (32.4-45.2); HEMOGLOBIN 12.1 GM/dL (10.7-15.3); MCH 35.3 pg (25.7-33.7); MCHC 34.3 g/dl (32.0-36.0); MEAN CELL VOLUME 102.9 fl (80-96); MEAN PLT VOLUME 8.5 fl (7.5-11.1); PLATELET COUNT 107 K/MM3 (134-434); RBC 3.44 M/mm3 (3.60-5.2); RDW 13.4 % (11.6-15.6); WHITE BLOOD COUNT 2.6 K/mm3 (4.0-10.0)
[2019-08-21 07:28] LABS: BLOOD UREA NITROGEN 9.5 mg/dL (7-18); CALCIUM 8.3 mg/dL (8.5-10.1); CREATININE 0.5 mg/dL (0.55-1.3); POTASSIUM 3.9 mmol/L (3.5-5.1)
--- NOTE | 2019-08-21 08:11 | PN ---
Physical Exam: SUBJECTIVE: Patient seen and examined. Still c/o about chest pain, and insomnia. Received one dose trazadone yesterday. No SOB. Pending completion of stress test on Friday OBJECTIVE: Vital Signs Period Temp Pulse Resp BP Sys/Pleitez Pulse Ox Last 24 Hr 97.7 F-98.7 F 73-88 18-20 110-155/58-93 100 Vital Signs Temp 98.7 F 08/21/19 14:47 Pulse 69 08/21/19 14:47 Resp 24 H 08/21/19 14:47 BP 89/59 L 08/21/19 14:47 Pulse Ox 95 08/21/19 09:00 Intake & Output 08/20/19 08/21/19 08/21/19 23:59 11:59 23:59 Intake Total 70 305 200 Balance 70 305 200 Weight 53.977 kg Intake: IV 10 lfa 10 Oral 60 305 200 Other: Voiding Method Toilet Bedpan # Unmeasured Voids Void 1 1 Bowel Movement No No No Height 1.52 m Body Mass Index (BMI) 23.2 Weight Measurement Method Stated by Patient GENERAL: The patient is awake, alert, and fully oriented, in no acute distress, was talking on the phone. ENT: moist mucous membranes. LUNGS: Breath sounds equal, clear to auscultation bilaterally, no wheezes, no crackles HEART: Regular rate and rhythm, S1, S2 LSB 2/6 murmur, rub or gallop. ABDOMEN: Soft, nontender, nondistended, normoactive bowel sounds, no guarding EXTREMITIES: 2+ pulses, warm, well-perfused, no edema. NEUROLOGICAL: Cranial nerves II through XII grossly intact. 5/5 globally except LLE hip flexion 4/5 Normal speech, gait not observed. Laboratory Results - last 24 hr 08/20/19 08/21/19 08/21/19 06:04 05:30 05:30 WBC 2.6 L RBC 3.44 L Hgb 12.1 Hct 35.4 MCV 102.9 H MCH 35.3 H MCHC 34.3 RDW 13.4 Plt Count 107 L MPV 8.5 Sodium 139 Potassium 3.9 Chloride 104 Carbon Dioxide 26 Anion Gap 8 BUN 9.5 Creatinine 0.5 L Est GFR (CKD-EPI)AfAm 116.89 Est GFR (CKD-EPI)NonAf 100.85 Random Glucose 84 Calcium 8.3 L Hep A IgM Ab Confirm Negative Hep Bs Antigen Negative Hep B Core IgM Ab Negative Hepatitis C Ab (EIA) >11.0 H Current Medications Albuterol/Ipratropium (Duoneb -) 1 amp NEB RQID [facility] Last Admin: 08/21/19 12:11 Dose: 1 amp Aspirin (Asa -) 81 mg PO DAILY [facility] Last Admin: 08/21/19 09:53 Dose: 81 mg Atorvastatin Calcium (Lipitor -) 10 mg PO HS [facility] Last Admin: 08/20/19 23:05 Dose: 10 mg Carbamazepine (Tegretol -) 200 mg PO BID [facility] Last Admin: 08/21/19 09:53 Dose: 200 mg Docusate Sodium (Colace -) 300 mg PO HS [facility] Last Admin: 08/20/19 23:04 Dose: Not Given Enoxaparin Sodium (Lovenox -) 30 mg SQ DAILY [facility] Last Admin: 08/21/19 09:53 Dose: 30 mg Folic Acid (Folic Acid -) 1 mg PO DAILY [facility] Last Admin: 08/21/19 09:53 Dose: 1 mg Lisinopril (Prinivil) 10 mg PO DAILY [facility] Last Admin: 08/21/19 09:53 Dose: 10 mg Methadone HCl (Dolophine -) 30 mg PO DAILY@0600 [facility] Last Admin: 08/21/19 06:10 Dose: 30 mg Pantoprazole Sodium (Protonix -) 40 mg PO DAILY [facility] Last Admin: 08/21/19 09:53 Dose: 40 mg Polyethylene Glycol (Miralax (For Daily Use) -) 17 gm PO DAILY [facility] Last Admin: 08/21/19 14:22 Dose: 17 grams Senna (Senna -) 1 tab PO BID [facility] Last Admin: 08/21/19 14:22 Dose: 1 tab Ambulatory Orders Carbamazepine [Tegretol -] 200 mg PO BID 11/11/18 Lisinopril 10 mg PO DAILY 11/11/18 Methadone [Dolophine -] 30 mg PO DAILY 11/11/18 Pantoprazole Sodium [Protonix] 40 mg PO DAILY 11/11/18 Acetaminophen [Tylenol .Extra-Strength -] 500 mg PO Q6H PRN tablet 11/20/18 Aspirin [ASA -] 81 mg PO DAILY tab.chew 11/20/18 Atorvastatin Ca [Lipitor] 10 mg PO HS tablet 03/15/19 Folic Acid - 1 mg PO DAILY tablet 11/20/18 Thiamine HCl [Vitamin B1 -] 100 mg PO BID tablet 11/20/18 Docusate Sodium [Colace -] 300 mg PO HS #30 capsule 11/21/18 Polyethylene Glycol 3350 [Miralax 255 gm Btl -] 17 gm PO DAILY #1 bottle echo- EF normal, impaired LV relaxation, mitral annular calcification, mild MR, mild TR, moderate to severe Aortic sclerosis, no effusion ASSESSMENT/PLAN: 64 y/o F, pmh of htn, copd, HCV, liver cirrhosis, alcohol abuse, CVA in 11/24 ( Wheel chair bound due to right residual weakness from stroke) presented today with constant, localized, pressure like chest pain of 3 day duration that is rated at 9/10 pain scale accompanied by 20 Ib weight loss and dysphagia is admitted for ACS r/o #Atypical Chest pain Tenderness to palpation and positional change likely msk vs stress unlikely of cardiac origin, EKG show no ischemia, trops negative x2 Pharm MPI stress test pending completion on Friday Cont protonix 40mg daily #HTN cont lisinopril 10mg #Hx of CVA asa 81 and lipitor 10mg #Hx of Hep C hepatitis panel-neg Hep B, Hep C Ab positive #Alcohol use disorder Pt not in withdrawal, no benzos or further trazodone ordered, with prolonged QTC Cont folic acid #Hx of opiate use disorder Cont methadone 30 mg daily #COPD Not in acute exacerbation Duoneb as needed #CVA Hx Cont ASA, statin # Constipation Bowel regimen-colace, senna, miralax #DVT ppx lovenox 30 daily FEN monitor lytes sodium controlled diet Dispo: To complete stress test on Friday Visit type - Emergency Visit Emergency Visit: Yes ED Registration Date: 08/20/19 Care time: The patient presented to the Emergency Department on the above date and was hospitalized for further evaluation of their emergent condition. - New Patient This patient is new to me today: Yes Date on this admission: 08/21/19 - Critical Care Critical Care patient: No - Discharge Referral Referred to [facility] No ATTENDING PHYSICIAN STATEMENT I saw and evaluated the patient. I reviewed the resident's note and discussed the case with the resident. I agree with the resident's findings and plan as documented. SUBJECTIVE: OBJECTIVE: ASSESSMENT AND PLAN:
[2019-08-21] MEDS ORDERED: PT OWN MED DRAWER 7, Y5N ONE ×2 (09:50→21:12)
[2019-08-21] MEDS: ASPIRIN 81 MG CHEWABLE TABLETS PO SCH (09:53)
[2019-08-21] MEDS: LISINOPRIL 10 MG TABLET (FP) PO SCH (09:53)
[2019-08-21] MEDS: ENOXAPARIN NA (PORCINE) 30 MG/0.3 ML DISP.SYRIN SQ SCH (09:53)
[2019-08-21] MEDS: FOLIC ACID 1 MG TABLET (FP) PO SCH (09:53)
[2019-08-21] MEDS: PANTOPRAZOLE 40 MG TABLET (FP) PO SCH (09:53)
[2019-08-21] MEDS: carBAMazepine 200 MG TABLET PO SCH ×2 (09:53→21:54)
--- NOTE | 2019-08-21 10:01 | PN ---
Progress Note (short form) - Note Progress Note: s: no sob palps dizzy; still with same msk cp Current Medications Generic Name Dose Route Start Last Admin Trade Name Emmanuel PRN Reason Stop Dose Admin Albuterol/Ipratropium 1 amp 08/20/19 20:00 08/20/19 19:50 Duoneb - NEB 1 amp RQID JAY Administration Aspirin 81 mg 08/20/19 10:00 08/21/19 09:53 Asa - PO 81 mg DAILY JAY Administration Atorvastatin Calcium 10 mg 08/19/19 22:00 08/20/19 23:05 Lipitor - PO 10 mg HS JAY Administration Carbamazepine 200 mg 08/20/19 22:00 08/21/19 09:53 Tegretol - PO 200 mg BID JAY Administration Docusate Sodium 300 mg 08/19/19 22:00 08/20/19 23:04 Colace - PO Not Given HS JAY Enoxaparin Sodium 30 mg 08/20/19 10:00 08/21/19 09:53 Lovenox - SQ 30 mg DAILY JAY Administration Folic Acid 1 mg 08/20/19 10:00 08/21/19 09:53 Folic Acid - PO 1 mg DAILY JAY Administration Lisinopril 10 mg 08/20/19 10:00 08/21/19 09:53 Prinivil PO 10 mg DAILY JAY Administration Methadone HCl 30 mg 08/21/19 06:00 08/21/19 06:10 Dolophine - PO 30 mg DAILY@0600 JAY Administration Pantoprazole Sodium 40 mg 08/20/19 10:00 08/21/19 09:53 Protonix - PO 40 mg DAILY JAY Administration Vital Signs Period Temp Pulse Resp BP Sys/Pleitez Pulse Ox Last 24 Hr 97.7 F-98.7 F 73-88 18-20 105-155/58-93 100 Constitutional: Yes: No Distress Cardiovascular: Yes: Regular Rate and Rhythm Respiratory: Yes: CTA Bilaterally Gastrointestinal: Yes: Soft Edema: No Neurological: Yes: Alert, Oriented no jaundice diaphoresis +chest wall tenderness Labs: = CBC, BMP 08/21/19 05:30 08/21/19 05:30 Assessment/Plan = Echo 11/24: nl LV/RV. nl valve fxn. no pulm HTN ECG: NSR, normal axis. no path q's, no ST-T abn CXR: clear lungs/pleura, WNL tele: sr chest pain: -pain atypical, present unremitting for 2 days, seems msk -ecg non-ischemic. troponin neg x 2, no signs acs -echo unremarkable -planned for pharm MPI stress test friday to confidently exclude atyp angina in hi risk pt with copd/cigs hx, prior stroke copd: -per primary h/o CVA: -cont home asa, statin, bp control HTN: -bp controlled -cont home meds
--- NOTE | 2019-08-21 10:22 | EKG ---
Test Reason : Blood Pressure : / mmHG Vent. Rate : 099 BPM Atrial Rate : 099 BPM P-R Int : 128 ms QRS Dur : 068 ms QT Int : 344 ms P-R-T Axes : 083 070 055 degrees QTc Int : 441 ms NORMAL SINUS RHYTHM NORMAL ECG WHEN COMPARED WITH ECG OF 19-AUG-2019 12:56, NO SIGNIFICANT CHANGE WAS FOUND Confirmed by NICHOLAS SÁNCHEZ MD ([id number]) on 08/21/2019 10:21:48 AM Referred By: Confirmed By:NICHOLAS SÁNCHEZ MD
--- NOTE | 2019-08-21 12:38 | PN ---
Teaching Attending Note Name of Resident: Mariel Melissa ATTENDING PHYSICIAN STATEMENT I saw and evaluated the patient. I reviewed the resident's note and discussed the case with the resident. I agree with the resident's findings and plan as documented. SUBJECTIVE: no fever or chills. feels achy all over. has CP. OBJECTIVE: NAd , cachectic . Cv: RRR. no MRG Lungs: CTAB Abd: soft, NT, Nd , NL BS Ext : No edema , no erythema. No tremor ASSESSMENT AND PLAN: 64 y/o lady with h/o HCV, COPD, HTN, recent CVA , ALcohol abuse , opioids abuse who presented with CP 1- CP: atypical . reproducible. - stress test to be completed on Friday 2- H/O ETOH use: No signs of WD. - monitor of Benzos 3- H/o opioids use: cont methadone 4- H/o HTN: cont lisinopril 5- h/o CVA :cont ASA and statin 6- H/o Hep C. serology +. will refer to GI as outpt 7- Leukopenia and thrombocytopenia : could be due to Alcohol use, B12 def, or BM process like MDS. - will refer to [facility] as out pt , unless it worsens - check B12 - monitor Plt on Lovenox. - no suspicion for HIT at this point yet Will get stress test on Friday
[2019-08-21] MEDS: SENNOSIDES 8.6MG TABLET (FP) PO SCH ×2 (14:22→21:54)
[2019-08-21] MEDS: POLYETHYLENE GLYCOL 3350 119 GM BTL PO SCH (14:22)
[2019-08-21] MEDS ORDERED: MELATONIN 5 MG TABLETS PO ONE (20:41)
[2019-08-21] MEDS: DOCUSATE SODIUM 100 MG CAPSULE (FP) PO SCH (21:53)
[2019-08-21] MEDS: ATORVASTATIN CA 10 MG TABLET (FP) PO SCH (21:54)
[2019-08-22] MEDS: METHADONE HCL 10 MG TABLET PO SCH (06:25)
[2019-08-22 06:42] LABS: BASO % 0.5 % (0-2.0); EOS % 1.4 % (0-4.5); HEMATOCRIT 35.3 % (32.4-45.2); HEMOGLOBIN 11.9 GM/dL (10.7-15.3); LYMPH % 33.1 % (8-40); MCH 35.2 pg (25.7-33.7); MCHC 33.8 g/dl (32.0-36.0); MEAN CELL VOLUME 104.2 fl (80-96); MEAN PLT VOLUME 8.9 fl (7.5-11.1); PLATELET COUNT 100 K/MM3 (134-434); RBC 3.39 M/mm3 (3.60-5.2); RDW 13.5 % (11.6-15.6)
[2019-08-22 07:08] LABS: ALBUMIN 2.9 g/dl (3.4-5.0); BILIRUBIN,TOTAL 0.2 mg/dL (0.2-1); BLOOD UREA NITROGEN 10.2 mg/dL (7-18); CALCIUM 8.2 mg/dL (8.5-10.1); CREATININE 0.5 mg/dL (0.55-1.3); PHOSPHOROUS 4.6 mg/dL (2.5-4.9); POTASSIUM 4.2 mmol/L (3.5-5.1); TOT PROT 6.2 g/dl (6.4-8.2)
[2019-08-22] MEDS: ALBUTEROL SO4 2.5/IPRATROPIUM 0.5 INH SOL 3 ML VIAL.NEB. NEB SCH ×4 (08:08→21:15)
[2019-08-22] MEDS: ENOXAPARIN NA (PORCINE) 30 MG/0.3 ML DISP.SYRIN SQ SCH (10:02)
[2019-08-22] MEDS: FOLIC ACID 1 MG TABLET (FP) PO SCH (10:02)
[2019-08-22] MEDS: POLYETHYLENE GLYCOL 3350 119 GM BTL PO SCH (10:02)
[2019-08-22] MEDS: SENNOSIDES 8.6MG TABLET (FP) PO SCH ×2 (10:02→22:07)
[2019-08-22] MEDS: ASPIRIN 81 MG CHEWABLE TABLETS PO SCH (10:02)
[2019-08-22] MEDS: LISINOPRIL 10 MG TABLET (FP) PO SCH (10:02)
[2019-08-22] MEDS: PANTOPRAZOLE 40 MG TABLET (FP) PO SCH (10:03)
[2019-08-22] MEDS: carBAMazepine 200 MG TABLET PO SCH ×2 (10:03→22:07)
--- NOTE | 2019-08-22 10:40 | PN ---
Progress Note (short form) - Note Progress Note: s: no sob palps dizzy; still with same msk cp Current Medications Generic Name Dose Route Start Last Admin Trade Name Emmanuel PRN Reason Stop Dose Admin Albuterol/Ipratropium 1 amp 08/20/19 20:00 08/22/19 08:08 Duoneb - NEB 1 amp RQID JAY Administration Aspirin 81 mg 08/20/19 10:00 08/22/19 10:02 Asa - PO 81 mg DAILY JAY Administration Atorvastatin Calcium 10 mg 08/19/19 22:00 08/21/19 21:54 Lipitor - PO 10 mg HS JAY Administration Carbamazepine 200 mg 08/20/19 22:00 08/22/19 10:03 Tegretol - PO 200 mg BID JAY Administration Docusate Sodium 300 mg 08/19/19 22:00 08/21/19 21:53 Colace - PO Not Given HS JAY Enoxaparin Sodium 30 mg 08/20/19 10:00 08/22/19 10:02 Lovenox - SQ 30 mg DAILY JAY Administration Folic Acid 1 mg 08/20/19 10:00 08/22/19 10:02 Folic Acid - PO 1 mg DAILY JAY Administration Lisinopril 10 mg 08/20/19 10:00 08/22/19 10:02 Prinivil PO 10 mg DAILY JAY Administration Methadone HCl 30 mg 08/21/19 06:00 08/22/19 06:25 Dolophine - PO 30 mg DAILY@0600 JAY Administration Pantoprazole Sodium 40 mg 08/20/19 10:00 08/22/19 10:03 Protonix - PO 40 mg DAILY JAY Administration Polyethylene Glycol 17 gm 08/21/19 12:15 08/22/19 10:02 Miralax (For Daily Use) - PO 17 grams DAILY JAY Administration Senna 1 tab 08/21/19 12:45 08/22/19 10:02 Senna - PO 1 tab BID JAY Administration Vital Signs Period Temp Pulse Resp BP Sys/Pleitez Pulse Ox Last 24 Hr 97.3 F-98.7 F 66-72 20-24 86-113/51-64 100 Constitutional: Yes: No Distress Cardiovascular: Yes: Regular Rate and Rhythm Respiratory: Yes: CTA Bilaterally Gastrointestinal: Yes: Soft Edema: No Neurological: Yes: Alert, Oriented no jaundice diaphoresis +chest wall tenderness Labs: CBC, BMP 12/15/19 05:20 08/22/19 05:20 Assessment/Plan Echo 11/24: nl LV/RV. nl valve fxn. no pulm HTN ECG: NSR, normal axis. no path q's, no ST-T abn CXR: clear lungs/pleura, WNL tele: sr chest pain: -pain atypical, present unremitting for 2 days, seems msk -ecg non-ischemic. troponin neg x 2, no signs acs -echo unremarkable -planned for pharm MPI stress test friday (had resting on friday) to confidently exclude atyp angina in hi risk pt with copd/cigs hx, prior stroke copd: -per primary h/o CVA: -cont home asa, statin, bp control HTN: -bp controlled -cont home meds
[2019-08-22] MEDS ORDERED: IBUPROFEN 600 MG TABLET (FP) PO PRN (14:07)
--- NOTE | 2019-08-22 14:13 | PN ---
Progress Note (short form) - Note Progress Note: Subjective: No fever or chills. has constipation . has pain in chest Objective: Vital Signs: Last Vital Signs Temp Pulse Resp BP Pulse Ox 98 F 78 20 101/70 100 08/22/19 10:00 08/22/19 10:00 08/22/19 10:00 08/22/19 10:00 08/22/19 09:00 Laboratory Results - last 24 hr 08/21/19 08/22/19 08/22/19 05:30 05:20 05:20 WBC 3.0 L RBC 3.39 L Hgb 11.9 Hct 35.3 MCV 104.2 H MCH 35.2 H MCHC 33.8 RDW 13.5 Plt Count 100 L MPV 8.9 Absolute Neuts (auto) 1.5 Neutrophils % 48.0 Lymphocytes % 33.1 Monocytes % 17.0 H Eosinophils % 1.4 Basophils % 0.5 Nucleated RBC % 0 Sodium 138 Potassium 4.2 Chloride 102 Carbon Dioxide 32 Anion Gap 4 L BUN 10.2 Creatinine 0.5 L Est GFR (CKD-EPI)AfAm 116.89 Est GFR (CKD-EPI)NonAf 100.85 Random Glucose 92 Calcium 8.2 L Phosphorus 4.6 Magnesium 2.0 Total Bilirubin 0.2 AST 46 H ALT 41 Alkaline Phosphatase 121 H Total Protein 6.2 L Albumin 2.9 L Vitamin B12 317 Serum Folate 29 H Physical Exam: NAd , cachectic. Cv: RRR. no MRG Lungs: CTAB Abd: soft, NT, Nd , NL BS Ext : No edema , no erythema. No tremor TTP in L chest wall at the level of the bone/cartilage connection level ASSESSMENT AND PLAN: 64 y/o lady with h/o HCV, COPD, HTN, recent CVA , ALcohol abuse , opioids abuse who presented with CP 1- CP: atypical . reproducible. likely MS. ? costochondritis - stress test to be completed on Friday - add Nparoxen 2- H/O ETOH use: No signs of WD. - monitor of Benzos 3- H/o opioids use: cont methadone 4- H/o HTN: cont lisinopril 5- h/o CVA :cont ASA and statin 6- H/o Hep C. serology +. will refer to GI as outpt 7- Leukopenia and thrombocytopenia : could be due to Alcohol use,or BM process like MDS. - will refer to [facility] as out pt , unless it worsens - b12, folate noted. add po b12 - monitor Plt on Lovenox. Will get stress test on Friday. if neg can be dc Visit type - Emergency Visit Emergency Visit: Yes ED Registration Date: 08/20/19 Care time: The patient presented to the Emergency Department on the above date and was hospitalized for further evaluation of their emergent condition. - New Patient This patient is new to me today: No - Critical Care Critical Care patient: No
[2019-08-22] MEDS: NAPROXEN 250 MG TABLET (FP) PO SCH (17:48)
[2019-08-22] MEDS ORDERED: MELATONIN 5 MG TABLETS PO ONE (21:44)
[2019-08-22] MEDS: DOCUSATE SODIUM 100 MG CAPSULE (FP) PO SCH (22:06)
[2019-08-22] MEDS: ATORVASTATIN CA 10 MG TABLET (FP) PO SCH (22:07)
[2019-08-23] MEDS: METHADONE HCL 10 MG TABLET PO SCH (05:48)
[2019-08-23 06:45] LABS: HEMATOCRIT 35.4 % (32.4-45.2); HEMOGLOBIN 12.1 GM/dL (10.7-15.3); MCH 35.5 pg (25.7-33.7); MEAN CELL VOLUME 104.2 fl (80-96); MEAN PLT VOLUME 8.6 fl (7.5-11.1); PLATELET COUNT 92 K/MM3 (134-434); RDW 13.7 % (11.6-15.6); WHITE BLOOD COUNT 2.4 K/mm3 (4.0-10.0)
[2019-08-23] MEDS: ALBUTEROL SO4 2.5/IPRATROPIUM 0.5 INH SOL 3 ML VIAL.NEB. NEB SCH ×3 (08:09→16:37)
[2019-08-23] MEDS ORDERED: PT OWN MED DRAWER 7, Y5N ONE (09:16)
[2019-08-23] MEDS: NAPROXEN 250 MG TABLET (FP) PO SCH (09:18)
[2019-08-23] MEDS ORDERED: CYANOCOBALAMIN 1,000 MCG TABLET (FP) PO SCH (10:00)
[2019-08-23] MEDS ORDERED: REGADENOSON 0.4 MG/5 ML PRE-FILLED SYRINGE IVPUSH ONE ×2 (10:35→11:00)
[2019-08-23] MEDS: FOLIC ACID 1 MG TABLET (FP) PO SCH (14:34)
[2019-08-23] MEDS: ENOXAPARIN NA (PORCINE) 30 MG/0.3 ML DISP.SYRIN SQ SCH (14:34)
[2019-08-23] MEDS: PANTOPRAZOLE 40 MG TABLET (FP) PO SCH (14:35)
[2019-08-23] MEDS: POLYETHYLENE GLYCOL 3350 119 GM BTL PO SCH (14:35)
[2019-08-23] MEDS: carBAMazepine 200 MG TABLET PO SCH (14:35)
[2019-08-23] MEDS: SENNOSIDES 8.6MG TABLET (FP) PO SCH (14:35)
[2019-08-23] MEDS: LISINOPRIL 10 MG TABLET (FP) PO SCH (14:35)
[2019-08-23] MEDS: ASPIRIN 81 MG CHEWABLE TABLETS PO SCH (14:37)
--- NOTE | 2019-08-23 15:11 | PN ---
Teaching Attending Note Name of Resident: Lyle Acevedo ATTENDING PHYSICIAN STATEMENT I saw and evaluated the patient. I reviewed the resident's note and discussed the case with the resident. I agree with the resident's findings and plan as documented. SUBJECTIVE: no fever or chills. no WOLFE . cont to have L sided cp . she thinks Naproxen helped her pain. no SOB . OBJECTIVE: NAd , cachectic. Cv: RRR. no MRG Lungs: CTAB Abd: soft, NT, Nd , NL BS Ext : No edema , no erythema. No tremor TTP in L chest wall at the L parasternal area ASSESSMENT AND PLAN: 64 y/o lady with h/o HCV, COPD, HTN, recent CVA , ALcohol abuse , opioids abuse who presented with CP 1- CP: - stress test with small area of reversible ischemia. will d/w card conservative mgt VS cath - cont Nparoxen for 2 more days - cont ASA and ACEI and statin 2- H/O ETOH use: No signs of WD. - monitor of Benzos 3- H/o opioids use: cont methadone 4- H/o HTN: cont lisinopril 5- h/o CVA :cont ASA and statin 6- H/o Hep C. serology +. will refer to GI as outpt 7- Leukopenia and thrombocytopenia : could be due to Alcohol use,or BM process like MDS. - will refer to [facility] as out pt -cont po b12 dispo to be determined pending cards Recs
--- NOTE | 2019-08-23 15:20 | DS ---
Physical Exam: SUBJECTIVE: Patient seen and examined OBJECTIVE: Vital Signs Period Temp Pulse Resp BP Sys/Pleitez Pulse Ox Last 24 Hr 97.5 F-97.8 F 64-83 20-20 93-130/67-84 98-98 PHYSICAL EXAM GENERAL: The patient is awake, alert, and fully oriented, in no acute distress. Speaks on phone without discomfort ENT: moist mucous membranes. LUNGS: Breath sounds equal, clear to auscultation bilaterally, no wheezes, no crackles HEART: Regular rate and rhythm, S1, S2 LSB 2/6 murmur, rub or gallop. ABDOMEN: Soft, nontender [id number], nondistended, normoactive bowel sounds, no guarding EXTREMITIES: 2+ pulses, warm, well-perfused, no edema. NEUROLOGICAL: 5/5 globally except LLE hip flexion 4/5 Normal speech, gait not observed. 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 EKG neg for STW abnormalities, had a repeat EKG which was also normal. Troponins neg x2. Cardio consulted. Echo with LVEF 55-60, impaired LV relaxation. Stress test showing small zone of inferior reversible defect from base to apex, compatible with mild intensity ischemia. Cardio states that it was low-risk finding. Pt stable for discharge home with home services to be arranged. Date of Admission:08/20/19 Date of Discharge: 08/23/19 Minutes to complete discharge: 20 Discharge Summary Problems reviewed: Yes Reason For Visit: CHEST PAIN Condition: Stable - Instructions Diet, Activity, Other Instructions: You were admitted to the hospital for chest pain. While your were in the hospital, we evaluated you with lab work, blood work, imaging including an x ray of your chest, EKG and an Echocardiogram of your heart. . Your stress test showed small area of ischemia . Therefore there are no concerning reasons for your chest pain at the moment. Your symptoms improved slightly. Likely, the cause is related to muscloskeletal pain. Incidentally, bloodwork showed that you have a history of a Hepatitis C infection. Medications: - NO NEW medications - Please take all your medications as prescribed Instructions: - Please follow up with your primary care physician in 1 week - Please follow up with your fun house operator, Dr. Santizo, within 1 week - Please follow up with a Telecom Manager(Dr Wahl), within 1-2weeks to discuss your Hepatitis C results Return to the emergency room, if you experience any worsening of your symptoms, nausea, vomiting, chest pain, shortness of breath, abdominal pain or worsening of your condition. Referrals: Johnnie Briscoe MD [Primary Care Provider] - Denny Wahl DO [Staff Physician] - Rolando Snatizo MD [Staff Physician] - Disposition: VNS/HOME HEALTH CARE - Home Medications Comprehensive Discharge Medication List: Ambulatory Orders Carbamazepine [Tegretol -] 200 mg PO BID 11/11/18 Lisinopril 10 mg PO DAILY 11/11/18 Methadone [Dolophine -] 30 mg PO DAILY 11/11/18 Pantoprazole Sodium [Protonix] 40 mg PO DAILY 11/11/18 Acetaminophen [Tylenol .Extra-Strength -] 500 mg PO Q6H PRN tablet 11/20/18 Aspirin [ASA -] 81 mg PO DAILY tab.chew 11/20/18 Atorvastatin Ca [Lipitor] 10 mg PO HS tablet 11/20/18 Folic Acid - 1 mg PO DAILY tablet 11/20/18 Thiamine HCl [Vitamin B1 -] 100 mg PO BID tablet 11/20/18 Docusate Sodium [Colace -] 300 mg PO HS #30 capsule 11/21/18 Polyethylene Glycol 3350 [Miralax 255 gm Btl -] 17 gm PO DAILY #1 bottle Carbamazepine Xr [Tegretol XR -] 200 mg PO DAILY 08/23/19 This patient is new to me today: No Emergency Visit: No Critical Care patient: No - Discharge Referral Referred to [facility] Med [facility].C[facility] No ATTENDING PHYSICIAN STATEMENT I saw and evaluated the patient. I reviewed the resident's note and discussed the case with the resident. I agree with the resident's findings and plan as documented. SUBJECTIVE: OBJECTIVE: ASSESSMENT AND PLAN:
[2019-08-23 15:49] VITALS: BP 114/67; PULSE 71; TEMP 97.5
--- NOTE | 2019-08-23 17:01 | PN ---
Progress Note (short form) - Note Progress Note: s: constant pain in L side of chest, stable. no palps, dizziness, dyspnea Current Medications Albuterol/Ipratropium (Duoneb -) 1 amp NEB RQID [facility] Last Admin: 08/23/19 16:37 Dose: Not Given Aspirin (Asa -) 81 mg PO DAILY [facility] Last Admin: 08/23/19 14:37 Dose: 81 mg Atorvastatin Calcium (Lipitor -) 10 mg PO HS [facility] Last Admin: 08/22/19 22:07 Dose: 10 mg Carbamazepine (Tegretol -) 200 mg PO BID [facility] Last Admin: 08/23/19 14:35 Dose: 200 mg Cyanocobalamin (Vitamin B12 -) 1,000 mcg PO DAILY [facility] Last Admin: 08/23/19 14:35 Dose: 1,000 mcg Docusate Sodium (Colace -) 300 mg PO HS [facility] Last Admin: 08/22/19 22:06 Dose: Not Given Enoxaparin Sodium (Lovenox -) 30 mg SQ DAILY [facility] Last Admin: 08/23/19 14:34 Dose: 30 mg Folic Acid (Folic Acid -) 1 mg PO DAILY [facility] Last Admin: 08/23/19 14:34 Dose: 1 mg Lisinopril (Prinivil) 10 mg PO DAILY [facility] Last Admin: 08/23/19 14:35 Dose: 10 mg Methadone HCl (Dolophine -) 30 mg PO DAILY@0600 [facility] Last Admin: 08/23/19 05:48 Dose: 30 mg Naproxen (Naprosyn -) 250 mg PO BIDWM [facility] Last Admin: 08/23/19 09:18 Dose: 250 mg Pantoprazole Sodium (Protonix -) 40 mg PO DAILY [facility] Last Admin: 08/23/19 14:35 Dose: 40 mg Polyethylene Glycol (Miralax (For Daily Use) -) 17 gm PO DAILY [facility] Last Admin: 08/23/19 14:35 Dose: 17 grams Senna (Senna -) 1 tab PO BID [facility] Last Admin: 08/23/19 14:35 Dose: 1 tab Vital Signs Period Temp Pulse Resp BP Sys/Pleitez Pulse Ox Last 24 Hr 97.5 F-97.8 F 64-83 20-20 93-130/67-84 98-98 Constitutional: Yes: No Distress Cardiovascular: Yes: Regular Rate and Rhythm Respiratory: Yes: CTA Bilaterally Gastrointestinal: Yes: Soft Edema: No Neurological: Yes: Alert, Oriented no jaundice diaphoresis +chest wall tenderness Assessment/Plan Echo 11/24: nl LV/RV. nl valve fxn. no pulm HTN ECG: NSR, normal axis. no path q's, no ST-T abn CXR: clear lungs/pleura, WNL mibi 08/2019 small area of mild inferior ischemia, nl LV function chest pain: -pain atypical, present unremitting since admission, seems msk -ecg non-ischemic. troponin neg x 2, no signs acs -echo unremarkable - mibi with small area of mild inferior ischemia - low risk finding - no further cardiac testing at this point - cont aspirin, statin copd: -per primary h/o CVA: -cont home asa, statin, bp control HTN: -bp controlled -cont home meds
--- NOTE | 2019-08-23 20:00 | PN ---
Physical Exam: SUBJECTIVE: Patient seen and examined OBJECTIVE: Vital Signs Period Temp Pulse Resp BP Sys/Pleitez Pulse Ox Last 24 Hr 97.5 F-97.7 F 71-83 20-20 99-130/67-84 98-98 GENERAL: Awake, alert, and fully oriented, in no acute distress. EYES: EOMI. No conjunctival pallor EARS, NOSE, THROAT: Moist mucous membranes. NECK: Normal range of motion LUNGS: Breath sounds equal, clear to auscultation bilaterally. No wheezes, and no crackles. HEART: Regular rate and rhythm, normal S1 and S2 without murmur, rub or gallop. Moderate TTP of Right anterior chest wall at ~3 ICS ABDOMEN: Soft, nontender, not distended, normoactive bowel sounds, no guarding, no rebound, no masses. MUSCULOSKELETAL: right sided weakness UPPER EXTREMITIES: 2+ pulses, warm, well-perfused. LOWER EXTREMITIES: 2+ pulses, warm, well-perfused. NEUROLOGICAL: Cranial nerves II-XII intact. Right sided weakness, strength 4/5 and sensation 4/5. 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 Admitted for ACS r/o. EKG neg for STW abnormalities, had a repeat EKG which was also normal. Troponins neg x2. Cardio consulted. Echo with LVEF 55-60, impaired LV relaxation. Pt aborted the first stress test. 2nd stress test showing small zone of inferior reversible defect from base to apex, compatible with mild intensity ischemia. Cardio states that it was low-risk finding. #Atypical Chest pain --unlikely of cardiac origin, likely msk vs stress related > EKG show no ischemia > trops negative x2 > echo- EF normal, impaired LV relaxation, mitral annular calcification, mild MR , mild TR, moderate to severe Aortic sclerosis, no effusion - Consult Cardio: -- echo unremarkable --MIBI w/ small area of mild inferior ischemia - low risk finding -- cw ASA, Statin -- no further cardiac testing at this point - Cont protonix #HTN - cont lisinopril #Hx of CVA - asa and statins #Hx of Hep C > Hep A: neg > HepB: Neg > Hep C Ab >11.0 #DVT ppx lovenox 30 daily FEN monitor lytes sodium controlled diet Dispo: monitor on tele Visit type - Emergency Visit Emergency Visit: No - New Patient This patient is new to me today: No - Critical Care Critical Care patient: No ATTENDING PHYSICIAN STATEMENT I saw and evaluated the patient. I reviewed the resident's note and discussed the case with the resident. I agree with the resident's findings and plan as documented. SUBJECTIVE: OBJECTIVE: ASSESSMENT AND PLAN:
[2019-08-24] MEDS ORDERED: ENOXAPARIN NA (PORCINE) 30 MG/0.3 ML DISP.SYRIN SQ SCH (10:00)
== END 2019-08-23 17:47 | disposition home health service (06) ==
LOC: JER 12:30 → JERBED 14:28 → UNDOADMOB 14:28 → OBSVTOIN 16:39 → INTOOBSV 16:39 → J4W 08-20 06:50 → JERBED 08-20 06:50 → J4W 08-20 10:19 → JERBED 08-20 10:19
PROVIDERS: ADMIT Internal Medicine; ATTEND Internal Medicine
PROC: 3E033GC Introduction of Other Therapeutic Substance into Peripheral Vein, Percutaneous Approach (ICD-10-PCS; principal; 2019-08-20)
PROC: 3E0337Z Introduction of Electrolytic and Water Balance Substance into Peripheral Vein, Percutaneous Approach (ICD-10-PCS; 2019-08-20)
PROC: 3E013GC Introduction of Other Therapeutic Substance into Subcutaneous Tissue, Percutaneous Approach (ICD-10-PCS; 2019-08-20)
DX: R07.89 Other chest pain (principal); I10 Essential (primary) hypertension; F11.20 Opioid dependence, uncomplicated; F10.10 Alcohol abuse, uncomplicated; J44.9 Chronic obstructive pulmonary disease, unspecified; I69.351 Hemiplegia and hemiparesis following cerebral infarction affecting right dominant side; Z99.3 Dependence on wheelchair; K74.60 Unspecified cirrhosis of liver; B18.2 Chronic viral hepatitis C; F17.210 Nicotine dependence, cigarettes, uncomplicated; Z79.82 Long term (current) use of aspirin; Z91.013 Allergy to seafood
CPT/HCPCS: 36415; 71045-TC-FY; 80048; 80053; 80074; 81003; 82550; 82607; 82746; 83735; 83880; 84100; 84484; 85025; 85027; 85610; 85730; 93005; 93010; 93306-TC; 94640; 96361; 96365; 96366; 96372; 97116-GP; 97161-GP; 99285-25; A9502; G0378; J7030

== ENCOUNTER 2019-09-06 14:47 | Inpatient (IN) | payer OTHER ==
[2019-09-06] MEDS ORDERED: ALBUTEROL SO4 0.083% IH SOL 2.5 MG/3 ML VIAL.NEB. NEB PRN (14:53)
--- NOTE | 2019-09-06 14:53 | PDOC ---
Rapid Medical Evaluation Time Seen by Provider: 09/06/19 14:50 Medical Evaluation: Allergies Allergy/AdvReac Type Severity Reaction Status Date / Time fish derived [Fish derived] Allergy Intermediate Difficulty Verified 08/02/19 14 :50 Breathing SEAFOOD Allergy Uncoded 08/02/19 14:50 09/06/19 14:50 CC: "I can't breathe." Also with right sided body pain x1 week PE: Speaking full sentences. Resp even and unlabored. Lungs CTAB. Orders: cxr, labs Patient will proceed to ED for further evaluation. Discharge Disposition - Diagnosis SOB (shortness of breath) - Referrals - Patient Instructions - Post Discharge Activity
[2019-09-06] MEDS ORDERED: ALBUTEROL SO4 0.083% IH SOL 2.5 MG/3 ML VIAL.NEB. NEB ONE (15:43)
[2019-09-06] MEDS ORDERED: LACTATED RINGERS SOLUTION 1000 ML INFUS.BAG IV ONE (15:51)
[2019-09-06] MEDS ORDERED: LORazepam 0.5 MG TABLET PO ONE (15:58)
[2019-09-06 16:08] LABS: BASO % 0.8 % (0-2.0); EOS % 0.7 % (0-4.5); HEMATOCRIT 38.7 % (32.4-45.2); HEMOGLOBIN 13.1 GM/dL (10.7-15.3); LYMPH % 38.9 % (8-40); MCH 35.1 pg (25.7-33.7); MCHC 33.8 g/dl (32.0-36.0); MEAN CELL VOLUME 103.8 fl (80-96); MEAN PLT VOLUME 8.4 fl (7.5-11.1); MONO % 8.8 % (3.8-10.2); NEUT % 50.8 % (42.8-82.8); RBC 3.73 M/mm3 (3.60-5.2); RDW 13.3 % (11.6-15.6); WHITE BLOOD COUNT 5.3 K/mm3 (4.0-10.0)
[2019-09-06 16:24] LABS: INR 1.06 (0.83-1.09); PROTHROMBIN TIME (PATIENT) 12.5 SEC (9.7-13.0)
[2019-09-06] MEDS ORDERED: LORazepam 0.5 MG TABLET ONE (16:29)
[2019-09-06 16:32] LABS: MAGNESIUM 1.6 mg/dL (1.8-2.4)
[2019-09-06 16:38] LABS: ALBUMIN 3.6 g/dl (3.4-5.0); BILIRUBIN,TOTAL 0.4 mg/dL (0.2-1); BLOOD UREA NITROGEN 6.7 mg/dL (7-18); CALCIUM 9.1 mg/dL (8.5-10.1); CREATININE 0.5 mg/dL (0.55-1.3); POTASSIUM 5.1 mmol/L (3.5-5.1); TOT PROT 8.4 g/dl (6.4-8.2)
--- NOTE | 2019-09-06 16:46 | PDOC ---
History of Present Illness - General Chief Complaint: Shortness of Breath Stated Complaint: COLD SYMPTOMS Time Seen by Provider: 09/06/19 14:50 History Source: Patient, Old Records, Other (Home health aide at bedside.) Exam Limitations: No Limitations - History of Present Illness Initial Comments: HPI: 64 y/o female presenting to [facility] ER complaining of intermittent right sided chest pain and "trouble breathing" for the past several days. Pain is worse with direct palpation. Reports coughing with blood streaks. Denies night sweats , h/o TB, known TB exposure, recent incarceration, or travel abroad. Expresses concern that these symptoms are related to increased life stress. Was previously taking mood stabilizers but stopped earlier this year when her psychiatrist left the area. States things "have been hard" since her stroke in November of this year. Was discharged from this facility on 23 Aug 2019 for chest pain. Pharmacologic stress test performed during that encounter was overall normal. Pt states this pain is not the same; "that was heart pain." Pt denies chest pain at the time of interview. Requests medication "for my nerves." Medical Hx: - HTN - COPD - HCV - Cirrhosis - Alcohol abuse - CVA in November 2018 (Wheelchair bound due to right residual weakness from stroke ) Review of Systems: In addition to that documented in the HPI above, the additional ROS was obtained : Constitutional- Denies fevers or chills Head- Denies vision changes ENMT- Denies sore throat CV- Per HPI Resp- Per HPI GI- Denies vomiting or diarrhea - Denies painful urination MSK- Denies recent trauma Skin- Denies new rashes Neuro- Denies new numbness or tingling or weakness Endocrine- Denies polyuria Heme- Denies bleeding or bruising Physical Examination: Vital signs and nursing notes reviewed. Constitutional- Thin adult female in no acute distress or obvious discomfort. Found semi-fowlers on hospital bed. Head- Normocephalic. No obvious external signs of trauma. Throat- Oral cavity and pharynx normal. No inflammation, swelling, exudate, or lesions. Neck- Supple, trachea is midline. No c-spine tenderness. Cardiovascular / Chest- Regular rate and regular rhythm. No murmur, rubs, clicks , or gallops. Peripheral pulses- radial pulses full. No pretibial edema. Diffuse tenderness to right side of the chest without overlying ecchymosis, erythema, or other signs of trauma. Respiratory- Breathing unlabored. Speaking in complete sentences without pausing. Equal chest rise and fall. Clear to auscultation bilaterally. No stridor, no wheezing, no rhonchi. Gastrointestinal- abdomen is soft, non-tender, non-distended. Neuro- Alert and oriented x4. Moving all four extremities spontaneously. Skin- Warm, dry, and intact. Psych- Affect- appropriate. Mood- normal. Speech was non-labored, non- pressured. Dressed and groomed appropriately. MDM: 64 y/o female presenting with intermittent, reproducible right sided chest pain with shortness of breath in setting of recent unremarkable inpatient cardiac workup. Concerned for anxiety. Afebrile. Vitals unremarkable for hypotension or tachycardia. Noted borderline hypoxia at triage. Suspect possible erroneous measurement as pt was not hypoxic on room air throughout ED course. Physical exam as described above. Low suspicion for ACS, PE, arrhythmia, or pericardial effusion. Concern for episodes of anxiety and/or panic. EKG unremarkable for ischemic findings. Initial and three hour delta trop not elevated. D-dimer elevated. CTA performed, and unremarkable for PE. Pts daughter now at bedside. Expressed concern about the pts neck pain as it relates to her known C2 fracture. She reports the fracture was found six months ago, and that the pt has not followed up with any outpatient clinics for further evaluation. Would like help with placing her mother for her declining health. 06 Sep 2019 21:00 PM [facility]. Awaiting call back. 06 Sep 2019 22:05 PM Telephone discussion with resident Dr. Nowak. Verbally appraised of the pts HPI, ED course, and current plan of management. Will admit pt to med/surg for attending Dr. Guzmán. Phil Miller M.D., PGY2 Emergency Medicine Resident Past History - Past Medical History Allergies/Adverse Reactions: Allergies Allergy/AdvReac Type Severity Reaction Status Date / Time fish derived [Fish derived] Allergy Intermediate Difficulty Verified 09/06/19 14 :54 Breathing SEAFOOD Allergy Uncoded 09/06/19 14:54 Home Medications: Ambulatory Orders Carbamazepine [Tegretol -] 200 mg PO BID 11/11/18 Lisinopril 10 mg PO DAILY 11/11/18 Methadone [Dolophine -] 30 mg PO DAILY 11/11/18 Pantoprazole Sodium [Protonix] 40 mg PO DAILY 11/11/18 Acetaminophen [Tylenol .Extra-Strength -] 500 mg PO Q6H PRN tablet 11/20/18 Aspirin [ASA -] 81 mg PO DAILY tab.chew 11/20/18 Atorvastatin Ca [Lipitor] 10 mg PO HS tablet 11/20/18 Folic Acid - 1 mg PO DAILY tablet 11/20/18 Thiamine HCl [Vitamin B1 -] 100 mg PO BID tablet 11/20/18 Docusate Sodium [Colace -] 300 mg PO HS #30 capsule 11/21/18 Polyethylene Glycol 3350 [Miralax 255 gm Btl -] 17 gm PO DAILY #1 bottle Anemia: No Asthma: Yes Cancer: Yes (LIVER) Cardiac Disorders: No CVA: Yes COPD: Yes Diabetes: No GI Disorders: No Disorders: No HTN: Yes Hypercholesterolemia: Yes Kidney Stones: No Liver Disease: Yes (HEP-C,cirrhosis) Psychiatric Problems: Yes (ANXIETY,bipolar) Seizures: No Thyroid Disease: No - Surgical History Abdominal Surgery: No Appendectomy: No Cardiac Surgery: No Cholecystectomy: No Lung Surgery: No Neurologic Surgery: No Orthopedic Surgery: No - Immunization History Immunization Up to Date: Yes - Psycho Social/Smoking Cessation Hx Smoking Status: Yes Smoking History: Current every day smoker Have you smoked in the past 12 months: Yes Number of Cigarettes Smoked Daily: 5 Information on smoking cessation initiated: No 'Breaking Loose' booklet given: 08/20/19 Hx Alcohol Use: Yes (social) Drug/Substance Use Hx: No Substance Use Type: Alcohol Hx Substance Use Treatment: Yes *Physical Exam - Vital Signs Last Vital Signs Temp Pulse Resp BP Pulse Ox 98.4 F 100 H 18 170/82 94 L 09/06/19 14:49 09/06/19 14:49 09/06/19 14:49 09/06/19 14:49 09/06/19 14:49 Vital Signs - Vital Signs #1 Time: 16:46 Blood Pressure Position: Sitting Pulse Rate: 89 Respiratory Rate: 14 O2 Sat by Pulse Oximetry (%): 98 Oxygen Delivery Method: Room Air ED Treatment Course - LABORATORY CBC & Chemistry Diagram: 09/06/19 15:44 09/06/19 15:44 - ADDITIONAL ORDERS Additional order review: Laboratory Results 09/06/19 09/06/19 09/06/19 15:44 15:44 15:44 PT with INR 12.50 INR 1.06 Sodium 137 Potassium 5.1 Chloride 103 Carbon Dioxide 27 Anion Gap 8 BUN 6.7 L Creatinine 0.5 L Est GFR (CKD-EPI)AfAm 116.89 Est GFR (CKD-EPI)NonAf 100.85 Random Glucose 79 Calcium 9.1 Magnesium 1.6 L Total Bilirubin 0.4 AST 85 H ALT 58 Alkaline Phosphatase 133 H Creatine Kinase 64 Troponin I < 0.02 Total Protein 8.4 H Albumin 3.6 - Medications Given in the ED: ED Medications Discontinued Medications Generic Name Dose Route Start Last Admin Trade Name Freq PRN Reason Stop Dose Admin Lactated Ringer's 1,000 ml 09/06/19 15:51 09/06/19 16:40 Lactated Ringers Solution IV 09/06/19 15:52 1,000 ml ONCE ONE Administration Lorazepam 0.5 mg 09/06/19 15:58 09/06/19 16:30 Ativan - PO 09/06/19 15:59 0.5 mg ONCE ONE Administration Discharge - Discharge Information Problems reviewed: Yes Clinical Impression/Diagnosis: SOB (shortness of breath), Neck pain Chest pain Qualifiers: Chest pain type: unspecified Qualified Code(s): R07.9 - Chest pain, unspecified Condition: Stable - Admission Yes - Follow up/Referral Referrals: Johnnie Briscoe MD [Primary Care Provider] - - Patient Discharge Instructions - Post Discharge Activity
--- NOTE | 2019-09-06 16:47 | PDOC ---
Attending Attestation - Resident Resident Name: Phil Miller - ED Attending Attestation I have performed the following: I have examined & evaluated the patient, The case was reviewed & discussed with the resident, I agree w/resident's findings & plan, Exceptions are as noted - HPI HPI: 09/06/19 18:48 But just be helped very 64 years old recently admitted and worked up for chest discomfort presents to the ED with intermittent right-sided chest discomfort and some difficulty breathing for the last few days pain is worse with inspiration patient endorses feeling congested with cough Symptoms are intermittent worse with deep inspiration no significant alleviating factors patient also complaining of some left-sided neck discomfort - Physicial Exam PE: 09/06/19 18:48 Vitals: Triage Vital signs reviewed General Appearance: No acute distress, well nourished well developed, Head: Atraumatic, Cardiac: Regular rate and rhythym, no murmurs, no rubs, no gallops, Lungs: Clear to auscultation bilateral, good air movement bilaterally, Abdomen: Soft, non distended, normal bowel sounds, non tender to palpation Extremities: Full range of motion to all extremities, no cyanosis, clubbing, or edema Skin: Warm and dry, no rashes or lesions, no rash, no petechiae Psych: Normal mood, normal affect - Medical Decision Making 09/06/19 18:48 EKG performed at 1532 demonstrates sinus rhythm no ST elevations no T wave inversions Interpreted by me 09/06/19 18:49 Atypical chest discomfort EKG unchanged from previous troponin negative x1 d- dimer sent given shortness of breath with inspiration slight tachycardia upon arrival D-dimer elevated CTA ordered Second troponin ordered If CTA negative and second troponin negative given patient had recent admission with stress test and recurrent work-up can be discharged with close cardiac follow-up to follow up results and reasses 09/06/19 18:58
[2019-09-06 18:45] LABS: PLATELET COUNT 194 K/MM3 (134-434); PLATELET ESTIMATE ADEQUATE
[2019-09-06] MEDS ORDERED: PANTOPRAZOLE 40 MG TABLET (FP) ONE (18:51)
[2019-09-06] MEDS ORDERED: SODIUM CHLORIDE NASAL SPRAY 44 ML BOTTLE NS PRN (22:57)
[2019-09-06] MEDS ORDERED: ALBUTEROL SO4 2.5/IPRATROPIUM 0.5 INH SOL 3 ML VIAL.NEB. NEB ONE ×2 (22:57→23:38)
--- NOTE | 2019-09-06 23:30 | HP ---
CHIEF COMPLAINT:R sided chest pain and congestion PCP:Dr. Briscoe HISTORY OF PRESENT ILLNESS: 64 yo F PMH HTN, COPD (not on home O2), HCV, liver cirrhosis, Bipolar, CVA ( 2018- R residual weakness), alcohol abuse presenting to ED for R sided chest pain and shortness of breath. pt states that she has had these symptoms for 2 days. she states the the chest pain is sharp and worse when she takes a deep breath or if she touches her chest. she states that she also feels short of breath and congested. she states she has not tried to use any of her inhalers. pt endorses chills and 20 lb weight loss since her stroke. she states she cannot eat since she has difficulty swallowing. pt states that she has a home health aid who comes to help her care for 5 hours 5 x/week. the home health aid helps with daily activities. when she is home alone she is mainly wheelchair bound and struggles with daily activities. her and her daughter are discussing possible rehab placement ER course was notable for: (1)trop neg x 2 (2)CTA neg for PE (3)1L LR, 0.5 ativan Recent Travel: denies PAST MEDICAL HISTORY: HTN, COPD (not on home O2), HCV, liver cirrhosis, Bipolar, CVA ( 11/2018- R residual weakness), alcohol abuse PAST SURGICAL HISTORY: denies Social History: Smoking:quit 1 month ago. Alcohol:states she has "small ciroc" multiple times per week Drugs: denies Allergies fish derived [Fish derived] Allergy (Intermediate, Verified 09/06/19 14:54) Difficulty Breathing SEAFOOD Allergy (Uncoded 09/06/19 14:54) HOME MEDICATIONS: Home Medications Medication Instructions Recorded Carbamazepine [Tegretol -] 200 mg PO BID 11/11/18 Lisinopril 10 mg PO DAILY 11/11/18 Methadone [Dolophine -] 30 mg PO DAILY 11/11/18 Pantoprazole Sodium [Protonix] 40 mg PO DAILY 11/11/18 Acetaminophen [Tylenol 500 mg PO Q6H PRN tablet 11/20/18 .Extra-Strength -] Aspirin [ASA -] 81 mg PO DAILY tab.chew 11/20/18 Atorvastatin Ca [Lipitor] 10 mg PO HS tablet 11/20/18 Folic Acid - 1 mg PO DAILY tablet 11/20/18 Thiamine HCl [Vitamin B1 -] 100 mg PO BID tablet 11/20/18 Docusate Sodium [Colace -] 300 mg PO HS #30 capsule 11/21/18 Polyethylene Glycol 3350 [Miralax 17 gm PO DAILY #1 bottle 11/21/18 255 gm Btl -] REVIEW OF SYSTEMS CONSTITUTIONAL: Present: chills, weight loss Absent: fever, diaphoresis, generalized weakness, malaise, loss of appetite HEENT: Present: nasal congestion, difficulty swallowing Absent: rhinorrhea, throat pain, throat swelling, mouth swelling, ear pain, eye pain, visual changes CARDIOVASCULAR: Present: chest pain Absent: syncope, palpitations, irregular heart rate, lightheadedness, peripheral edema RESPIRATORY: Present: cough, hemoptysis,shortness of breath Absent: dyspnea with exertion, orthopnea, wheezing, stridor GASTROINTESTINAL: Absent: abdominal pain, abdominal distension, nausea, vomiting, diarrhea, constipation, melena, hematochezia GENITOURINARY: Absent: dysuria, frequency, urgency, hesitancy, hematuria, flank pain, genital pain MUSCULOSKELETAL: Present: neck pain Absent: myalgia, arthralgia, joint swelling, back pain SKIN: Present: sacral ulcer Absent: rash, itching, pallor HEMATOLOGIC/IMMUNOLOGIC: Absent: easy bleeding, easy bruising, lymphadenopathy, frequent infections ENDOCRINE: Absent: unexplained weight gain, unexplained weight loss, heat intolerance, cold intolerance NEUROLOGIC: Present: headache Absent: focal weakness or paresthesias, dizziness, unsteady gait, seizure, mental status changes, bladder or bowel incontinence PSYCHIATRIC: Present: depression Absent: anxiety, suicidal or homicidal ideation, hallucinations. PHYSICAL EXAMINATION Vital Signs - 24 hr 09/06/19 09/06/19 09/06/19 14:49 19:10 20:20 Temperature 98.4 F Pulse Rate 100 H Pulse Rate [#1] Pulse Rate [ 78 Right Radial] Respiratory 18 20 Rate Respiratory Rate [#1] Blood Pressure 170/82 Blood Pressure 154/93 [Left Arm] O2 Sat by Pulse 94 L 95 95 Oximetry (%) O2 Sat by Pulse Oximetry (%) [ #1] 09/06/19 22:12 Temperature Pulse Rate Pulse Rate [#1] 89 Pulse Rate [ Right Radial] Respiratory Rate Respiratory 14 Rate [#1] Blood Pressure Blood Pressure [Left Arm] O2 Sat by Pulse Oximetry (%) O2 Sat by Pulse 98 Oximetry (%) [ #1] GENERAL: Awake, alert, and fully oriented, in no acute distress. HEAD: Normal with no signs of trauma. EYES: Pupils equal, round and reactive to light, extraocular movements intact, sclera anicteric, conjunctiva clear. EARS, NOSE, THROAT: nares patent, oropharynx clear without exudates. Moist mucous membranes. NECK: Normal range of motion, supple without lymphadenopathy, JVD, or masses. LUNGS: Breath sounds decreased b/l scattered expiratory wheezes. No accessory muscle use. HEART: Regular rate and rhythm, normal S1 and S2 without murmur, rub or gallop. ABDOMEN: Soft, nontender, not distended, normoactive bowel sounds, no guarding, no rebound, no masses. MUSCULOSKELETAL: Normal range of motion at all joints. No bony deformities or tenderness. No CVA tenderness. UPPER EXTREMITIES: 2+ pulses, warm, well-perfused. No cyanosis. No clubbing. No peripheral edema. LOWER EXTREMITIES: 2+ pulses, warm, well-perfused. No calf tenderness. No peripheral edema. NEUROLOGICAL: Cranial nerves II-XII intact. Normal speech.gait not observed PSYCHIATRIC: Cooperative. Good eye contact. SKIN: Warm, dry, normal turgor, no rashes or lesions noted, normal capillary refill. Laboratory Last Values WBC 5.3 K/mm3 (4.0-10.0) 09/06/19 15:44 RBC 3.73 M/mm3 (3.60-5.2) 09/06/19 15:44 Hgb 13.1 GM/dL (10.7-15.3) 09/06/19 15:44 Hct 38.7 % (32.4-45.2) 09/06/19 15:44 MCV 103.8 fl (80-96) H 09/06/19 15:44 MCH 35.1 pg (25.7-33.7) H 09/06/19 15:44 MCHC 33.8 g/dl (32.0-36.0) 09/06/19 15:44 RDW 13.3 % (11.6-15.6) 09/06/19 15:44 Plt Count 194 K/MM3 (134-434) D 09/06/19 15:44 MPV 8.4 fl (7.5-11.1) 09/06/19 15:44 Absolute Neuts (auto) 2.7 K/mm3 (1.5-8.0) 09/06/19 15:44 Neutrophils % 50.8 % (42.8-82.8) 09/06/19 15:44 Lymphocytes % 38.9 % (8-40) 09/06/19 15:44 Monocytes % 8.8 % (3.8-10.2) 09/06/19 15:44 Eosinophils % 0.7 % (0-4.5) 09/06/19 15:44 Basophils % 0.8 % (0-2.0) 09/06/19 15:44 Nucleated RBC % 0 % (0-0) 09/06/19 15:44 Platelet Estimate Adequate 09/06/19 15:44 Platelet Comment No clumping noted 09/06/19 15:44 PT with INR 12.50 SEC (9.7-13.0) 09/06/19 15:44 INR 1.06 (0.83-1.09) 09/06/19 15:44 D-Dimer 1902 ng/ml (0-500) H 09/06/19 15:50 Sodium 137 mmol/L (136-145) 09/06/19 15:44 Potassium 5.1 mmol/L (3.5-5.1) 09/06/19 15:44 Chloride 103 mmol/L (98-107) 09/06/19 15:44 Carbon Dioxide 27 mmol/L (21-32) 09/06/19 15:44 Anion Gap 8 MMOL/L (8-16) 09/06/19 15:44 BUN 6.7 mg/dL (7-18) L 09/06/19 15:44 Creatinine 0.5 mg/dL (0.55-1.3) L 09/06/19 15:44 Est GFR (CKD-EPI)AfAm 116.89 09/06/19 15:44 Est GFR (CKD-EPI)NonAf 100.85 09/06/19 15:44 Random Glucose 79 mg/dL (74-106) 09/06/19 15:44 Calcium 9.1 mg/dL (8.5-10.1) 09/06/19 15:44 Magnesium 1.6 mg/dL (1.8-2.4) L 09/06/19 15:44 Total Bilirubin 0.4 mg/dL (0.2-1) 09/06/19 15:44 AST 85 U/L (15-37) H 09/06/19 15:44 ALT 58 U/L (13-61) 09/06/19 15:44 Alkaline Phosphatase 133 U/L (45-117) H 09/06/19 15:44 Creatine Kinase 64 U/L (26-192) 09/06/19 15:44 Troponin I < 0.02 ng/ml (0.00-0.05) 09/06/19 20:10 Total Protein 8.4 g/dl (6.4-8.2) H 09/06/19 15:44 Albumin 3.6 g/dl (3.4-5.0) 09/06/19 15:44 ASSESSMENT/PLAN: 64 yo F PMH HTN, COPD (not on home O2), HCV, liver cirrhosis, Bipolar, CVA ( 2018- R residual weakness), alcohol abuse presenting for chest pain and shortness of breath. pts daughter asking mother to consider placement for facility . Atypical chest pain likely 2/2 Acute URI -negative Influenza, RSV -afebrile , no leukocytosis - duonebs prn -ocean nasal spray -Chest CTA negative for PE - pt had stress testing 08/2019 : mild inferior ischemia, low risk finding -trop negative x 2 -EKG unchanged from prior, NSR HTN - continue lisinopril HCV, liver cirrhosis -pt told she has been diagnosed with cancer - GI recs appreciated, please document if pt declines tx Inability to ambulate 2/2 Hx of CVA -PT - social work for possible placement Substance abuse - pt states she is on methadone 25, need to confirm methadone dosage F/E/N - monitor lytes -sodium controlled diet Dispo:admit to medicine Visit type - Emergency Visit Emergency Visit: Yes ED Registration Date: 09/06/19 Care time: The patient presented to the Emergency Department on the above date and was hospitalized for further evaluation of their emergent condition. - New Patient This patient is new to me today: Yes Date on this admission: 09/07/19 - Critical Care Critical Care patient: No ATTENDING PHYSICIAN STATEMENT I saw and evaluated the patient. I reviewed the resident's note and discussed the case with the resident. I agree with the resident's findings and plan as documented. SUBJECTIVE: OBJECTIVE: ASSESSMENT AND PLAN:
--- NOTE | 2019-09-06 23:45 | PN ---
Teaching Attending Note Name of Resident: Eloise Nowak ATTENDING PHYSICIAN STATEMENT I saw and evaluated the patient. I reviewed the resident's note and discussed the case with the resident. I agree with the resident's findings and plan as documented. SUBJECTIVE: Patient is a 64 year old woman with a PMH of HTN, COPD (not on home O2), HCV, liver cirrhosis, Bipolar disorder, CVA ( 11/2018- R residual weakness), Macrocytosis and Alcohol abuse presenting to the ER for right-sided chest pain and shortness of breath. Patient states that she has had these symptoms for 2 days. She states that the chest pain is sharp and worse when she takes a deep breath or if she touches her chest. Has associated SOB and feels congested. Says she has had chills and a a 20 lb weight loss since her stroke. Has had poor intake due to difficulty swallowing. Denies vomiting, abdominal pain, diarrhea, dysuria, frequency or urgency. Denies tobacco or illicit drug use. No recent travel or sick contacts. 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 OBJECTIVE: Alert Vital Signs Period Temp Pulse Resp BP Sys/Pleitez Pulse Ox Last 24 Hr 98.4 F 78-100 14-20 154-170/82-93 94-98 HEENT: No Jaundice, eye redness or discharge, PERRLA, EOMI. Normocephalic, atraumatic. External ears are normal and hearing is grossly intact. No nasal discharge. Neck: Supple, nontender. No palpable adenopathy or thyromegaly. No JVD Chest: Good effort. Clear to auscultation and percussion. Heart: Regular. No S3, rub or murmur Abdomen: Not distended, soft, nontender and no HSM. No rebound or guarding. Normal bowel sounds. Ext: Peripheral pulses intact. No leg edema. Skin: Warm and dry. No petechiae, rash or ecchymosis. Stage 1 sacral decubitus ulcer. Neuro: Alert. Oriented x3. CN 2-12 grossly intact. Sensation grossly intact in all four extremities: right hemiparesis. Psych: Appropriate mood and affect. Good insight. Current Medications Generic Name Dose Route Start Last Admin Trade Name Freq PRN Reason Stop Dose Admin Enoxaparin Sodium 40 mg 09/07/19 10:00 Lovenox - SQ DAILY JAY Sodium Chloride 2 spray 09/06/19 22:57 [place] Nasal [place] - NS BID PRN NASAL CONGESTION Home Medications Medication Instructions Recorded Carbamazepine [Tegretol -] 200 mg PO BID 11/11/18 Lisinopril 10 mg PO DAILY 11/11/18 Methadone [Dolophine -] 30 mg PO DAILY 11/11/18 Pantoprazole Sodium [Protonix] 40 mg PO DAILY 11/11/18 Acetaminophen [Tylenol 500 mg PO Q6H PRN tablet 11/20/18 .Extra-Strength -] Aspirin [ASA -] 81 mg PO DAILY tab.chew 11/20/18 Atorvastatin Ca [Lipitor] 10 mg PO HS tablet 11/20/18 Folic Acid - 1 mg PO DAILY tablet 11/20/18 Thiamine HCl [Vitamin B1 -] 100 mg PO BID tablet 11/20/18 Docusate Sodium [Colace -] 300 mg PO HS #30 capsule 11/21/18 Polyethylene Glycol 3350 [Miralax 17 gm PO DAILY #1 bottle 11/21/18 255 gm Btl -] Abnormal Lab Results 09/06/19 09/06/19 09/06/19 15:44 15:44 15:44 MCV 103.8 H MCH 35.1 H D-Dimer BUN 6.7 L Creatinine 0.5 L Magnesium 1.6 L AST 85 H Alkaline Phosphatase 133 H Total Protein 8.4 H 09/06/19 15:50 MCV MCH D-Dimer 1902 H BUN Creatinine Magnesium AST Alkaline Phosphatase Total Protein ASSESSMENT AND PLAN: 1. Chest pain - Pain is atypical. EKG shows NSR with nonspecific ST-T wave changes that were present in prior EKGs. Troponin is negative X 2. Pain likely musculoskeletal. A recent cardiac stress test was negative. Monitor on telemetry. No acute abnormality on CXR and chest CTA didnot show any pulmonary embolism. Macrocytosis and low Mg+ may be due to alcohol use. Will give IV MgSO4 . Will reconsult GI to discuss options for Hepatitis C disease treatment with patient. Consult PT. Encourage frequent repositioning to prevent worsening of sacral decubitus ulcer and apply desitin powder daily. Will continue comprehensive care for all of patients comorbid conditions. 2. Alcohol abuse - Implement [facility] alcohol withdrawal protocol and do neurochecks. Implement seizure, fall and aspiration precautions. Treat with thiamine and folic acid and monitor electrolytes (Ca,Mg,K,P). Counseled patient about abstaining from alcohol. Will consult lean specialist and refer to alcohol detox upon discharge. 3. Hypertension - Restart suitable outpatient antihypertensive drugs when clinically appropriate. Revise regimen to ensure [id number] excellent BP control and counselor nurses' association patient on the injurious effects of uncontrolled hypertension. Nonpharmacologic measures to control hypertension like weight loss , salt restriction and exercise discussed. Importance of adherence to treatment regimen and attainment of normotension emphasized. 4. DVT prophylaxis - Lovenox 40 mg SQ q 24 hours. 5. Advance directives - Full code
[2019-09-07] MEDS ORDERED: MAGNESIUM SULF 50% (8.12 MEQ/2 ML-1 GM VIAL) IVPB ONE (01:01)
[2019-09-07] MEDS ORDERED: MAGNESIUM SULFATE IN WATER 2 GM/50 ML IVPB IVPB ONE (01:09)
[2019-09-07] MEDS ORDERED: METHADONE HCL 10 MG TABLET PO ONE (08:13)
[2019-09-07] MEDS ORDERED: METHADONE 20 MG, METHADONE 5 MG PO ONE (09:00)
[2019-09-07] MEDS ORDERED: METHADONE HCL 10 MG TABLET ONE (09:22)
[2019-09-07] MEDS ORDERED: METHADONE HCL 5 MG TABLET ONE (09:22)
[2019-09-07] MEDS ORDERED: LISINOPRIL 10 MG TABLET (FP) PO SCH (10:00)
[2019-09-07] MEDS: PANTOPRAZOLE 40 MG TABLET (FP) PO SCH (10:18)
[2019-09-07] MEDS: ASPIRIN 81 MG CHEWABLE TABLETS PO SCH (10:19)
[2019-09-07] MEDS: FOLIC ACID 1 MG TABLET (FP) PO SCH (10:19)
[2019-09-07] MEDS: ENOXAPARIN NA (PORCINE) 40 MG/0.4 ML DISP.SYRIN SQ SCH (10:19)
[2019-09-07] MEDS: THIAMINE HCL 100 MG TABLET (FP) PO SCH (10:19)
--- NOTE | 2019-09-07 10:22 | EKG ---
Test Reason : Blood Pressure : / mmHG Vent. Rate : 080 BPM Atrial Rate : 080 BPM P-R Int : 114 ms QRS Dur : 070 ms QT Int : 364 ms P-R-T Axes : 000 062 093 degrees QTc Int : 419 ms POOR DATA QUALITY, INTERPRETATION MAY BE ADVERSELY AFFECTED NORMAL SINUS RHYTHM NONSPECIFIC T WAVE ABNORMALITY ABNORMAL ECG WHEN COMPARED WITH ECG OF 20-AUG-2019 14:33, NO SIGNIFICANT CHANGE WAS FOUND Confirmed by MD Faith, Marcel ([id number]) on 09/07/2019 10:22:22 AM Referred By: Confirmed By:Marcel Cuevas MD
[2019-09-07] MEDS ORDERED: PT OWN MED DRAWER 7, Y5N ONE ×2 (10:28→21:01)
[2019-09-07] MEDS: carBAMazepine 200 MG TABLET PO SCH ×2 (11:22→21:12)
[2019-09-07] MEDS: MULTIVITAMINS (DAILY MVI) TABLET (FP) PO SCH (11:33)
--- NOTE | 2019-09-07 11:57 | PN ---
Progress Note (short form) - Note Progress Note: GI CONSULT DICTATED - SPEECH SWALLOW EVALUATION/ ESOPHAGRAM - HCV GENOTYPE / VIRAL LOAD - WILL NEED DIAGNOSTIC EGD / COLONOSCOPY ONCE THE ACUTE CARDIOPULMONARY PROCESS HAS RESOLVED - SEE FULL CONSULT
--- NOTE | 2019-09-07 12:35 | CONS ---
GASTROINTESTINAL CONSULTATION DATE OF CONSULTATION: DATE OF DICTATION: 09/07/2019 HISTORY: Patient is a 64-year-old female past medical history of hypertension, COPD not on home oxygen, hepatitis C with cirrhosis never been treated in the past, bipolar disorder, recent CVA in November of 2018, with residual right-sided weakness, alcohol abuse who was admitted to the hospital with complaints of chest pain and shortness of breath. This consultation is for loss of weight and management of hepatitis C. As per the patient, she states she lost weight after her stroke secondary to difficulty swallowing. She currently denies any odynophagia, abdominal pain, nausea, vomiting, food getting stuck in her throat, melena, hematochezia, diarrhea, constipation, fevers, or chills. She has never had a colonoscopy. Of note, she was scheduled for an outpatient colonoscopy with me prior to having her stroke, but secondary to her CVA, the screening colonoscopy was cancelled at that time. PAST MEDICAL HISTORY: As listed in the HPI. PAST SURGICAL HISTORY: As listed in the HPI. ALLERGIES: FISH-DERIVED. SOCIAL HISTORY: Quit smoking approximately a month ago. Drinks alcohol small amount multiple times a week. Denies any drug abuse. FAMILY HISTORY: History for CAD. No GI or gynecological malignancy. HOME MEDICATIONS: Reviewed include Tegretol, lisinopril, methadone, pantoprazole, Tylenol, aspirin, atorvastatin, folic acid, thiamine, Colace, and MiraLAX. REVIEW OF SYSTEMS: As per the HPI. PHYSICAL EXAMINATION: Vital Signs: Temperature 98, pulse 69, blood pressure 127/87, pulse oximetry 97% on room air, respiratory rate 18. General: In no acute distress. HEENT: Anicteric sclerae. Cardiovascular: S1, S2. Regular rate and rhythm. Lungs: Bilaterally clear to auscultation. Abdomen: Soft, nontender. Extremities: Without edema. LABORATORIES: White blood cell count 5.3, hemoglobin 13, hematocrit 38, MCV 103, platelet count 194, INR 1. Sodium 137, potassium 5.1, BUN 6.7, creatinine 0.5, glucose 79, total bilirubin 0.4, AST 85, ALT 58, alkaline phosphatase 133. Troponins are negative x2. Influenza swabs are negative. No microbiology. She had a chest, thorax CTA, which revealed no evidence of PE. Common bile duct dilation as previously seen. Hepatic . IMPRESSION: Hepatitis C, which is chronic. Would obtain a hepatitis C genotype and viral load. Treatment for hepatitis C will be considered as an outpatient. Also with failure to thrive secondary to dysphagia after her stroke. PLAN: Plan for a speech and swallow evaluation. She may need her diet to be changed. In addition, she would benefit from a diagnosis upper endoscopy and colonoscopy to further evaluate her weight loss and rule out any underlying malignancy. These studies may be done as an outpatient depending on her progress during this hospitalization. DO JAZMYNE POLO/[id number]
[2019-09-07 13:12] LABS: BASO % 0.8 % (0-2.0); EOS % 0.6 % (0-4.5); HEMATOCRIT 39.1 % (32.4-45.2); HEMOGLOBIN 13.3 GM/dL (10.7-15.3); LYMPH % 31.7 % (8-40); MCH 34.9 pg (25.7-33.7); MCHC 33.9 g/dl (32.0-36.0); MEAN CELL VOLUME 102.9 fl (80-96); MEAN PLT VOLUME 8.4 fl (7.5-11.1); MONO % 12.9 % (3.8-10.2); PLATELET COUNT 158 K/MM3 (134-434); RDW 13.3 % (11.6-15.6); WHITE BLOOD COUNT 3.7 K/mm3 (4.0-10.0)
[2019-09-07 13:39] LABS: ALBUMIN 3.4 g/dl (3.4-5.0); BILIRUBIN,TOTAL 0.4 mg/dL (0.2-1); BLOOD UREA NITROGEN 7.7 mg/dL (7-18); CALCIUM 8.9 mg/dL (8.5-10.1); CREATININE 0.5 mg/dL (0.55-1.3); PHOSPHOROUS 3.7 mg/dL (2.5-4.9); POTASSIUM 3.9 mmol/L (3.5-5.1); TOT PROT 7.4 g/dl (6.4-8.2)
[2019-09-07] MEDS ORDERED: LISINOPRIL 10 MG TABLET (FP) PO ONE (14:32)
--- NOTE | 2019-09-07 14:32 | PN ---
Progress Note (short form) - Note Progress Note: 64 F h/o HTN, COPD, HCV (never treated), liver cirrhosis, Bipolar depression, anxiety disorder, PSA on methadone, CVA with R residual weakness, Etoh dependence presents with substernal CP lasting 2 days. ACS ruled out. Patient denies overt CP currently but endorses anxiousness and asking for Ativan. Patient endorses previously being on anxiety meds but has not followed up with psychiatrist for >1 year. Patient also says she does not want to go back home, does not want to elaborate further and requesting to speak to SW. LAWRENCE also following pt. for her HCV for possible EGD and HCV treatment. Otherwise denies SOB or chest pain. PE VSS GA anxious, AAox3, speaking in full sentences HEENT NC/AT, no oral thrush, no tongue fasiculations, dry MM Chest CTAB, no crackles or wheezing CVS S1, S2+, RRR Abd Soft, NT, ND, liver edge palpable Ext No LE edema, moves all 4 ext. Vital Signs - 24 hr 09/06/19 09/06/19 09/06/19 14:49 19:10 20:20 Temperature 98.4 F Pulse Rate 100 H Pulse Rate [#1] Pulse Rate [ 78 Right Radial] Respiratory 18 20 Rate Respiratory Rate [#1] Blood Pressure 170/82 Blood Pressure 154/93 [Left Arm] O2 Sat by Pulse 94 L 95 95 Oximetry (%) O2 Sat by Pulse Oximetry (%) [ #1] 09/06/19 09/07/19 09/07/19 22:12 06:02 06:05 Temperature 98.0 F Pulse Rate 69 Pulse Rate [#1] 89 Pulse Rate [ Right Radial] Respiratory 18 18 Rate Respiratory 14 Rate [#1] Blood Pressure 127/86 Blood Pressure [Left Arm] O2 Sat by Pulse 95 Oximetry (%) O2 Sat by Pulse 98 Oximetry (%) [ #1] 09/07/19 09/07/19 09/07/19 09:00 11:00 14:28 Temperature 98.3 F 98.2 F Pulse Rate 83 96 H Pulse Rate [#1] Pulse Rate [ Right Radial] Respiratory 18 20 20 Rate Respiratory Rate [#1] Blood Pressure 177/103 H 163/86 Blood Pressure [Left Arm] O2 Sat by Pulse 97 Oximetry (%) O2 Sat by Pulse Oximetry (%) [ #1] Laboratory Results - last 24 hr 09/06/19 09/06/19 09/06/19 15:44 15:44 15:44 WBC 5.3 RBC 3.73 Hgb 13.1 Hct 38.7 MCV 103.8 H MCH 35.1 H MCHC 33.8 RDW 13.3 Plt Count 194 D MPV 8.4 Absolute Neuts (auto) 2.7 Neutrophils % 50.8 Lymphocytes % 38.9 Monocytes % 8.8 Eosinophils % 0.7 Basophils % 0.8 Nucleated RBC % 0 Platelet Estimate Adequate Platelet Comment No clumping noted PT with INR 12.50 INR 1.06 D-Dimer Sodium Potassium Chloride Carbon Dioxide Anion Gap BUN Creatinine Est GFR (CKD-EPI)AfAm Est GFR (CKD-EPI)NonAf Random Glucose Calcium Phosphorus Magnesium 1.6 L Total Bilirubin AST ALT Alkaline Phosphatase Creatine Kinase 64 Troponin I < 0.02 Total Protein Albumin Influenza A (Rapid) Influenza B (Rapid) RSV Rapid 09/06/19 09/06/19 09/06/19 15:44 15:50 20:10 WBC RBC Hgb Hct MCV MCH MCHC RDW Plt Count MPV Absolute Neuts (auto) Neutrophils % Lymphocytes % Monocytes % Eosinophils % Basophils % Nucleated RBC % Platelet Estimate Platelet Comment PT with INR INR D-Dimer 1902 H Sodium 137 Potassium 5.1 Chloride 103 Carbon Dioxide 27 Anion Gap 8 BUN 6.7 L Creatinine 0.5 L Est GFR (CKD-EPI)AfAm 116.89 Est GFR (CKD-EPI)NonAf 100.85 Random Glucose 79 Calcium 9.1 Phosphorus Magnesium Total Bilirubin 0.4 AST 85 H ALT 58 Alkaline Phosphatase 133 H Creatine Kinase Troponin I < 0.02 Total Protein 8.4 H Albumin 3.6 Influenza A (Rapid) Influenza B (Rapid) RSV Rapid 09/06/19 09/06/19 09/07/19 23:35 23:35 12:53 WBC 3.7 L RBC 3.80 Hgb 13.3 Hct 39.1 MCV 102.9 H MCH 34.9 H MCHC 33.9 RDW 13.3 Plt Count 158 MPV 8.4 Absolute Neuts (auto) 2.0 Neutrophils % 54.0 Lymphocytes % 31.7 Monocytes % 12.9 H Eosinophils % 0.6 Basophils % 0.8 Nucleated RBC % 0 Platelet Estimate Platelet Comment PT with INR INR D-Dimer Sodium Potassium Chloride Carbon Dioxide Anion Gap BUN Creatinine Est GFR (CKD-EPI)AfAm Est GFR (CKD-EPI)NonAf Random Glucose Calcium Phosphorus Magnesium Total Bilirubin AST ALT Alkaline Phosphatase Creatine Kinase Troponin I Total Protein Albumin Influenza A (Rapid) Negative Influenza B (Rapid) Negative RSV Rapid Negative 09/07/19 12:53 WBC RBC Hgb Hct MCV MCH MCHC RDW Plt Count MPV Absolute Neuts (auto) Neutrophils % Lymphocytes % Monocytes % Eosinophils % Basophils % Nucleated RBC % Platelet Estimate Platelet Comment PT with INR INR D-Dimer Sodium 139 Potassium 3.9 Chloride 104 Carbon Dioxide 29 Anion Gap 6 L BUN 7.7 Creatinine 0.5 L Est GFR (CKD-EPI)AfAm 116.89 Est GFR (CKD-EPI)NonAf 100.85 Random Glucose 101 Calcium 8.9 Phosphorus 3.7 Magnesium 2.0 Total Bilirubin 0.4 AST 53 H ALT 46 Alkaline Phosphatase 119 H Creatine Kinase Troponin I Total Protein 7.4 Albumin 3.4 Influenza A (Rapid) Influenza B (Rapid) RSV Rapid Current Medications Generic Name Dose Route Start Last Admin Trade Name Freq PRN Reason Stop Dose Admin Aspirin 81 mg 09/07/19 10:00 09/07/19 10:19 Asa - PO 81 mg DAILY JAY Administration Atorvastatin Calcium 10 mg 09/07/19 22:00 Lipitor - PO HS JAY Carbamazepine 200 mg 09/07/19 10:00 09/07/19 11:22 Tegretol - PO 200 mg BID JYA Administration Enoxaparin Sodium 40 mg 09/07/19 10:00 09/07/19 10:19 Lovenox - SQ 40 mg DAILY JAY Administration Folic Acid 1 mg 09/07/19 10:00 09/07/19 10:19 Folic Acid - PO 1 mg DAILY JAY Administration Lisinopril 10 mg 09/07/19 10:00 09/07/19 10:18 Prinivil PO 10 mg DAILY JAY Administration Methadone HCl 20 mg/ Methadone 25 mg 09/08/19 06:00 HCl 5 mg PO DAILY@0600 [facility] Multivitamins/Minerals/Vitamin C 1 tab 09/07/19 10:00 09/07/19 11:33 Tab-A-Vit - PO 1 tab DAILY JAY Administration Pantoprazole Sodium 40 mg 09/07/19 10:00 09/07/19 10:18 Protonix - PO 40 mg DAILY JAY Administration Sodium Chloride 2 spray 09/06/19 22:57 [place] Nasal [place] - NS BID PRN NASAL CONGESTION Thiamine HCl 100 mg 09/07/19 10:00 09/07/19 10:19 Vitamin B1 - PO 100 mg DAILY JAY Administration A/P: 64 F h/o PSA on methadone, HCV never treated, anxiety, depression, bipolar, HTN , CVA w/ R sided weakness preferring to use wheel chair presented w/ chest pain where ACS was ruled out and appears MSK/anxiety related. Chest pain Resolved, CTA neg. for PE, EKG unchanged from prior, Trops negx2 Provided supportive care, Tylenol PRN for pain HCV liver cirrhosis refused treatment w/ [facility] "years ago" GI requesting HCV viral load/genotyping Will need esophogram and possible EGD for screening for varicies GI consult: Dr. Obregon HTN Cont. Lisinopril, will increase dosage as needed to control BP Anxiety disorder Endorses chronic history of anxiety, was prev. following with psych lost to follow up Will give Ativan 2mg PRN for severe anxiety, otherwise patient comfortable now says she wants to fall asleep Denies SI/HI/AH/VH Psych consult: Dr. Laws PSA with opioid dependence On Methadone 25mg daily maintenance QTc OK, avoid QTc prolonging agents Etoh dependence no signs of withdrawal Cont. FA/thiamine/MV daily Counseled on etoh cessation DVT ppx: Lovenox SC GI ppx: PPI FEN: PO hydration, daily chem, Na controlled diet Visit type - Emergency Visit Emergency Visit: Yes ED Registration Date: 09/06/19 Care time: The patient presented to the Emergency Department on the above date and was hospitalized for further evaluation of their emergent condition. - New Patient This patient is new to me today: Yes Date on this admission: 09/07/19 - Critical Care Critical Care patient: No
--- NOTE | 2019-09-07 17:56 | CON.PSY ---
Psychiatry Consult Chief Complaint: 64 hero old female with a History of Bi Polar Disorder, s/p CVA seen for Psych eval for severe anxiety. Patient stopped attending [facility] 3 yrs ago. Symptoms: reports: Excessive Energy, Anxiety - Previous Psychiatric Treatment Outpatient: More than 6 mos ago Inpatient: None - Previous Substance Abuse Treatment Outpatient: None Inpatient: None - Reason for Previous Treatment Reason for Previous Treatment: Biploar Illness, Heroin or Other Narcotics - Current Medications Current Medications: Active Medications Aspirin (Asa -) 81 mg PO DAILY [facility] Last Admin: 09/07/19 10:19 Dose: 81 mg Atorvastatin Calcium (Lipitor -) 10 mg PO HS [facility] Carbamazepine (Tegretol -) 200 mg PO BID [facility] Last Admin: 09/07/19 11:22 Dose: 200 mg Enoxaparin Sodium (Lovenox -) 40 mg SQ DAILY [facility] Last Admin: 09/07/19 10:19 Dose: 40 mg Folic Acid (Folic Acid -) 1 mg PO DAILY [facility] Last Admin: 09/07/19 10:19 Dose: 1 mg Lisinopril (Prinivil) 20 mg PO DAILY [facility] Methadone HCl 20 mg/ Methadone (HCl 5 mg) 25 mg PO DAILY@0600 [facility] Multivitamins/Minerals/Vitamin C (Tab-A-Vit -) 1 tab PO DAILY [facility] Last Admin: 09/07/19 11:33 Dose: 1 tab Pantoprazole Sodium (Protonix -) 40 mg PO DAILY [facility] Last Admin: 09/07/19 10:18 Dose: 40 mg Sodium Chloride ([employer] [place] Nasal [place] -) 2 spray NS BID PRN PRN Reason: NASAL CONGESTION Thiamine HCl (Vitamin B1 -) 100 mg PO DAILY [facility] Last Admin: 09/07/19 10:19 Dose: 100 mg - Allergies Allergies: Allergies Allergy/AdvReac Type Severity Reaction Status Date / Time fish derived [Fish derived] Allergy Intermediate Difficulty Verified 09/06/19 14 :54 Breathing SEAFOOD Allergy Uncoded 09/06/19 14:54 - Current Living Status Usual Living Arrangement: Alone - Current Mental Status Evaluation Appearance: Well Groomed Attitude: Cooperative - Affect Affect: Full Range Appropriateness: Appropriate to Content - Speech/Language Expressive: Talkative Receptive: Age Appropriate Comprehension of Spoken Words - Psychomotor Activity Psychomotor Activity: Hyperactive - Thought Process Thought Process: Intact - Thought Content Hallucinations: Absent Delusions: Absent - Self Perception Self Perception: No Impairment - Cognition Attention: Alert Orientation: Time Memory, Immediate Recall: Intact Memory, Short Term: 3/3 Memory, Remote with Promptin/3 - Concentration Serial Sevens Intact: No Simple Calculations Intact: Yes - Abstraction Proverb Interpretation: Intact Judgement: Minimally Impaired - Insight Insight: Intact - Impulse Control Impulse Control: Minimally Impaired - Suicidal Ideation Suicidal Ideation: No - Homicidal Ideation Homicidal Ideation: No Assessment/Plan 1) [id number] p[o hs for Hypomania.
[2019-09-07] MEDS: OLANZapine 5 MG TABLET PO SCH (21:07)
[2019-09-07] MEDS: ATORVASTATIN CA 10 MG TABLET (FP) PO SCH (21:07)
[2019-09-08] MEDS ORDERED: METHADONE HCL 40 MG DISPERSABLE TABLET PO SCH (06:00)
[2019-09-08] MEDS ORDERED: METHADONE HCL 10 MG TABLET ONE (06:26)
[2019-09-08] MEDS ORDERED: METHADONE HCL 5 MG TABLET ONE (06:26)
[2019-09-08] MEDS: METHADONE 20 MG, METHADONE 5 MG PO SCH (06:28)
[2019-09-08 08:29] LABS: BASO % 0.3 % (0-2.0); EOS % 1.7 % (0-4.5); HEMATOCRIT 41.3 % (32.4-45.2); LYMPH % 26.2 % (8-40); MCH 35.2 pg (25.7-33.7); MCHC 33.9 g/dl (32.0-36.0); MEAN CELL VOLUME 103.9 fl (80-96); MEAN PLT VOLUME 8.5 fl (7.5-11.1); MONO % 12.2 % (3.8-10.2); NEUT % 59.6 % (42.8-82.8); PLATELET COUNT 161 K/MM3 (134-434); RBC 3.97 M/mm3 (3.60-5.2); WHITE BLOOD COUNT 3.9 K/mm3 (4.0-10.0)
[2019-09-08 09:05] LABS: BLOOD UREA NITROGEN 10.4 mg/dL (7-18); CALCIUM 8.7 mg/dL (8.5-10.1); CREATININE 0.5 mg/dL (0.55-1.3); POTASSIUM 4.2 mmol/L (3.5-5.1)
[2019-09-08] MEDS ORDERED: PT OWN MED DRAWER 7, Y5N ONE (09:18)
[2019-09-08] MEDS: ASPIRIN 81 MG CHEWABLE TABLETS PO SCH (09:26)
[2019-09-08] MEDS: FOLIC ACID 1 MG TABLET (FP) PO SCH (09:27)
[2019-09-08] MEDS: PANTOPRAZOLE 40 MG TABLET (FP) PO SCH (09:27)
[2019-09-08] MEDS: MULTIVITAMINS (DAILY MVI) TABLET (FP) PO SCH (09:27)
[2019-09-08] MEDS: LISINOPRIL 20 MG TABLET (FP) PO SCH (09:27)
[2019-09-08] MEDS: carBAMazepine 200 MG TABLET PO SCH ×3 (09:27→21:59)
[2019-09-08] MEDS: THIAMINE HCL 100 MG TABLET (FP) PO SCH (09:27)
[2019-09-08] MEDS: ENOXAPARIN NA (PORCINE) 40 MG/0.4 ML DISP.SYRIN SQ SCH (09:27)
--- NOTE | 2019-09-08 09:33 | PN ---
Teaching Attending Note Name of Resident: Serg Tamayo ATTENDING PHYSICIAN STATEMENT I saw and evaluated the patient. I reviewed the resident's note and discussed the case with the resident. I agree with the resident's findings and plan as documented. SUBJECTIVE: Patient is c/o having issues with her swallowing. OBJECTIVE: Vital Signs Temperature 97.5 F L 09/08/19 05:38 Pulse Rate 94 H 09/08/19 05:38 Respiratory Rate 18 09/08/19 05:38 Blood Pressure 122/93 09/08/19 05:38 O2 Sat by Pulse Oximetry (%) 96 09/07/19 21:00 GENERAL: The patient is awake, alert, and fully oriented, in no acute distress. HEAD: Normal with no signs of trauma. EYES: PERRL, extraocular movements intact, sclera anicteric, conjunctiva clear. ENT: Ears normal, oropharynx clear without exudates, moist mucous membranes. NECK: Trachea midline, full range of motion, supple. LUNGS: Breath sounds equal, clear to auscultation bilaterally, no wheezes, no crackles, no accessory muscle use. HEART: Regular rate and rhythm, S1, S2 +, EMILY 2/6 , no rub or gallop. ABDOMEN: Soft, nontender, nondistended, normoactive bowel sounds, no guarding, no rebound, no hepatosplenomegaly, no masses. EXTREMITIES: 2+ pulses, warm, well-perfused, no edema. NEUROLOGICAL: Cranial nerves II through XII grossly intact. Normal speech, gait not observed. PSYCH: Normal mood, normal affect. SKIN: Warm, dry, normal turgor, no rashes or lesions noted CBCD WBC 3.9 K/mm3 (4.0-10.0) L 09/08/19 07:45 RBC 3.97 M/mm3 (3.60-5.2) 09/08/19 07:45 Hgb 14.0 GM/dL (10.7-15.3) 09/08/19 07:45 Hct 41.3 % (32.4-45.2) 09/08/19 07:45 MCV 103.9 fl (80-96) H 09/08/19 07:45 MCHC 33.9 g/dl (32.0-36.0) 09/08/19 07:45 RDW 13.0 % (11.6-15.6) 09/08/19 07:45 Plt Count 161 K/MM3 (134-434) 09/08/19 07:45 MPV 8.5 fl (7.5-11.1) 09/08/19 07:45 CMP Sodium 140 mmol/L (136-145) 09/08/19 07:45 Potassium 4.2 mmol/L (3.5-5.1) 09/08/19 07:45 Chloride 104 mmol/L (98-107) 09/08/19 07:45 Carbon Dioxide 32 mmol/L (21-32) 09/08/19 07:45 Anion Gap 5 MMOL/L (8-16) L 09/08/19 07:45 BUN 10.4 mg/dL (7-18) 09/08/19 07:45 Creatinine 0.5 mg/dL (0.55-1.3) L 09/08/19 07:45 Random Glucose 88 mg/dL (74-106) 09/08/19 07:45 Calcium 8.7 mg/dL (8.5-10.1) 09/08/19 07:45 Total Bilirubin 0.4 mg/dL (0.2-1) 09/07/19 12:53 AST 53 U/L (15-37) H 09/07/19 12:53 ALT 46 U/L (13-61) 09/07/19 12:53 Alkaline Phosphatase 119 U/L (45-117) H 09/07/19 12:53 Total Protein 7.4 g/dl (6.4-8.2) 09/07/19 12:53 Albumin 3.4 g/dl (3.4-5.0) 09/07/19 12:53 CARDIAC ENZYMES Creatine Kinase 64 U/L (26-192) 09/06/19 15:44 Troponin I < 0.02 ng/ml (0.00-0.05) 09/06/19 20:10 Current Medications Generic Name Dose Route Start Last Admin Trade Name Freq PRN Reason Stop Dose Admin Aspirin 81 mg 09/07/19 10:00 09/08/19 09:26 Asa - PO 81 mg DAILY JAY Administration Atorvastatin Calcium 10 mg 09/07/19 22:00 09/07/19 21:07 Lipitor - PO 10 mg HS JAY Administration Carbamazepine 200 mg 09/07/19 10:00 09/08/19 09:27 Tegretol - PO 200 mg BID JAY Administration Enoxaparin Sodium 40 mg 09/07/19 10:00 09/08/19 09:27 Lovenox - SQ 40 mg DAILY JAY Administration Folic Acid 1 mg 09/07/19 10:00 09/08/19 09:27 Folic Acid - PO 1 mg DAILY JAY Administration Lisinopril 20 mg 09/08/19 10:00 09/08/19 09:27 Prinivil PO 20 mg DAILY JAY Administration Methadone HCl 20 mg/ Methadone 25 mg 09/08/19 06:00 09/08/19 06:28 HCl 5 mg PO 25 mg DAILY@0600 [facility] Administration Multivitamins/Minerals/Vitamin C 1 tab 09/07/19 10:00 09/08/19 09:27 Tab-A-Vit - PO 1 tab DAILY JAY Administration Olanzapine 5 mg 09/07/19 22:00 09/07/19 21:07 Zyprexa - PO 5 mg HS JAY Administration Pantoprazole Sodium 40 mg 09/07/19 10:00 09/08/19 09:27 Protonix - PO 40 mg DAILY JAY Administration Sodium Chloride 2 spray 09/06/19 22:57 [place] Nasal [place] - NS BID PRN NASAL CONGESTION Thiamine HCl 100 mg 09/07/19 10:00 09/08/19 09:27 Vitamin B1 - PO 100 mg DAILY JAY Administration Home Medications Medication Instructions Recorded Carbamazepine [Tegretol -] 200 mg PO BID 11/11/18 Lisinopril 10 mg PO DAILY 11/11/18 Methadone [Dolophine -] 30 mg PO DAILY 11/11/18 Pantoprazole Sodium [Protonix] 40 mg PO DAILY 11/11/18 Acetaminophen [Tylenol 500 mg PO Q6H PRN tablet 11/20/18 .Extra-Strength -] Aspirin [ASA -] 81 mg PO DAILY tab.chew 11/20/18 Atorvastatin Ca [Lipitor] 10 mg PO HS tablet 11/20/18 Folic Acid - 1 mg PO DAILY tablet 11/20/18 Thiamine HCl [Vitamin B1 -] 100 mg PO BID tablet 11/20/18 Docusate Sodium [Colace -] 300 mg PO HS #30 capsule 11/21/18 Polyethylene Glycol 3350 [Miralax 17 gm PO DAILY #1 bottle 11/21/18 255 gm Btl -] ASSESSMENT AND PLAN: Patient is a 64yof with PMhx of PSA on methadone, HCV never treated, anxiety, depression, bipolar, HTN, CVA w/ R sided weakness preferring to use wheel chair presented w/ chest pain where ACS was ruled out and appears MSK/anxiety related. # s/p chest pain: resolved, CTA neg. for PE, EKG unchanged from prior, Trops negx2, continue supportive care, Tylenol PRN for pain # HCV liver cirrhosis refused treatment w/ [facility] "years ago" h/o chronic hepatitis C, untreated, as per GI to get abdominal US , in AM to evaluate hepatic parenchyma. outpatient follow-up with Dr. Obregon to evaluate further and to discuss endoscopic evaluation when acute issues are resolved GI consult: Dr. Obregon # HTN: cont. Lisinopril, will increase dosage as needed to control BP #Anxiety disorder: Psych consult: Dr. Laws #PSA with opioid dependence onn Methadone 25mg daily maintenance QTc OK, avoid QTc prolonging agents #Etoh dependence: no signs of withdrawal, Cont. FA/thiamine/MV daily Counseled on etoh cessation DVT ppx: Lovenox SC GI ppx: PPI will get her evaluated by mathew hammond for dysphagia
--- NOTE | 2019-09-08 11:26 | PN.GI ---
GI Progress Note Subjective: No abdominal pain Denies dysphagia States that her shortness of breath is her main issue - Objective Vital Signs: Vital Signs Temperature 97.5 F L 09/08/19 05:38 Pulse Rate 94 H 09/08/19 05:38 Respiratory Rate 18 09/08/19 05:38 Blood Pressure 122/93 09/08/19 05:38 O2 Sat by Pulse Oximetry (%) 96 09/07/19 21:00 Constitutional: Calm Eyes: Yes: Cataracts. No: Sclera Icterus Cardiovascular: Yes: Regular Rate and Rhythm Respiratory: Yes: Wheezes (mild insp/exp wheezing bilaterally) Gastrointestinal Inspection: No: Distention ...Auscultate: Yes: Normoactive Bowel Sounds ...Palpate: Yes: Soft. No: Hepatomegaly, Splenomegaly, Tenderness ...Percussion: No: Tympanitic Edema: No (No LE edema) Neurological: Yes: Alert Labs: CBC, BMP 09/08/19 07:45 09/08/19 07:45 INR, PTT INR 1.06 (0.83-1.09) 09/06/19 15:44 Hepatic Panel Total Bilirubin 0.4 mg/dL (0.2-1) 09/07/19 12:53 AST 53 U/L (15-37) H 09/07/19 12:53 ALT 46 U/L (13-61) 09/07/19 12:53 Alkaline Phosphatase 119 U/L (45-117) H 09/07/19 12:53 Albumin 3.4 g/dl (3.4-5.0) 09/07/19 12:53 Problem List - Problems (1) Hepatitis C Assessment/Plan: h/o chronic hepatitis C, untreated Abdominal US ordered for AM to evaluate hepatic parenchyma Outpatient follow-up with Dr. Obregon to evaluate further and to discuss endoscopic evaluation when acute issues are resolved Code(s): B19.20 - UNSPECIFIED VIRAL HEPATITIS C WITHOUT HEPATIC COMA (2) Macrocytosis without anemia Assessment/Plan: Unclear if from chronic liver disease or alternate etiology Consider heme evaluation Code(s): D75.89 - OTHER SPECIFIED DISEASES OF BLOOD AND BLOOD-FORMING ORGANS
--- NOTE | 2019-09-08 19:24 | PN ---
Physical Exam: SUBJECTIVE: Patient seen and examined at bedside. She is anxious about her meals. Will put in request for s/s assessment. She otherwise has no other complaints. Called daughter Alexa as she requested to speak with a physician but got voicemail; will reattempt tomorrow. OBJECTIVE: Vital Signs Period Temp Pulse Resp BP Sys/Pleitez Pulse Ox Last 24 Hr 97.2 F-98.7 F 76-94 18-19 102-132/69-93 96-97 GENERAL: Awake, alert, and fully oriented, in no acute distress. HEAD: Normal with no signs of trauma. EYES: Pupils equal, round and reactive to light, extraocular movements intact, sclera anicteric, conjunctiva clear. EARS, NOSE, THROAT: nares patent, oropharynx clear without exudates. Moist mucous membranes. NECK: Normal range of motion, supple without lymphadenopathy, JVD, or masses. LUNGS: Breath sounds decreased b/l scattered expiratory wheezes. No accessory muscle use. HEART: Regular rate and rhythm, normal S1 and S2 without murmur, rub or gallop. ABDOMEN: Soft, nontender, not distended, normoactive bowel sounds, no guarding, no rebound, no masses. MUSCULOSKELETAL: Normal range of motion at all joints. No bony deformities or tenderness. No CVA tenderness. UPPER EXTREMITIES: 2+ pulses, warm, well-perfused. No cyanosis. No clubbing. No peripheral edema. LOWER EXTREMITIES: 2+ pulses, warm, well-perfused. No calf tenderness. No peripheral edema. NEUROLOGICAL: Cranial nerves II-XII intact. Normal speech.gait not observed PSYCHIATRIC: Anxious. Cooperative. Good eye contact. SKIN: Warm, dry, normal turgor, no rashes or lesions noted, normal capillary refill. Laboratory Results - last 24 hr 09/08/19 09/08/19 07:45 07:45 WBC 3.9 L RBC 3.97 Hgb 14.0 Hct 41.3 MCV 103.9 H MCH 35.2 H MCHC 33.9 RDW 13.0 Plt Count 161 MPV 8.5 Absolute Neuts (auto) 2.3 Neutrophils % 59.6 Lymphocytes % 26.2 Monocytes % 12.2 H Eosinophils % 1.7 D Basophils % 0.3 Nucleated RBC % 0 Sodium 140 Potassium 4.2 Chloride 104 Carbon Dioxide 32 Anion Gap 5 L BUN 10.4 Creatinine 0.5 L Est GFR (CKD-EPI)AfAm 116.89 Est GFR (CKD-EPI)NonAf 100.85 Random Glucose 88 Calcium 8.7 Active Medications Generic Name Dose Route Start Last Admin Trade Name Freq PRN Reason Stop Dose Admin Aspirin 81 mg 09/07/19 10:00 09/08/19 09:26 Asa - PO 81 mg DAILY JAY Administration Atorvastatin Calcium 10 mg 09/07/19 22:00 09/07/19 21:07 Lipitor - PO 10 mg HS JAY Administration Carbamazepine 200 mg 09/07/19 10:00 09/08/19 09:27 Tegretol - PO 200 mg BID JAY Administration Enoxaparin Sodium 40 mg 09/07/19 10:00 09/08/19 09:27 Lovenox - SQ 40 mg DAILY JAY Administration Folic Acid 1 mg 09/07/19 10:00 09/08/19 09:27 Folic Acid - PO 1 mg DAILY JAY Administration Lisinopril 20 mg 09/08/19 10:00 09/08/19 09:27 Prinivil PO 20 mg DAILY JAY Administration Methadone HCl 20 mg/ Methadone 25 mg 09/08/19 06:00 09/08/19 06:28 HCl 5 mg PO 25 mg DAILY@0600 JAY Administration Multivitamins/Minerals/Vitamin C 1 tab 09/07/19 10:00 09/08/19 09:27 Tab-A-Vit - PO 1 tab DAILY JAY Administration Olanzapine 5 mg 09/07/19 22:00 09/07/19 21:07 Zyprexa - PO 5 mg HS JAY Administration Pantoprazole Sodium 40 mg 09/07/19 10:00 09/08/19 09:27 Protonix - PO 40 mg DAILY JAY Administration Sodium Chloride 2 spray 09/06/19 22:57 [place] Nasal [place] - NS BID PRN NASAL CONGESTION Thiamine HCl 100 mg 09/07/19 10:00 09/08/19 09:27 Vitamin B1 - PO 100 mg DAILY JAY Administration ASSESSMENT/PLAN: 64 y/o female PMH HTN, COPD (not on home O2), HCV, liver cirrhosis, Bipolar, CVA ( 11/2018- R residual weakness), alcohol abuse presenting for chest pain and shortness of breath. # Atypical chest pain likely 2/2 Acute URI - Trop negative x 2 - EKG unchanged from prior, NSR - Afebrile, no leukocytosis - Duonebs prn - [place] nasal spray - Chest CTA NEGATIVE for PE - Stress testing 08/2019: mild inferior ischemia, low risk finding - FLU/RSV NEGATIVE # HTN - Lisinopril 20 mgg PO QD # Liver cirrhosis, HCV - GI rec: Unclear if from chronic liver disease or alternate etiology. Consider heme evaluation. # H/o CVA - Atorvastatin 10 mg PO HS, ASA 81 mg PO QD - Inability to ambulate - PT notates independent - Social work for possible placement # H/o substance abuse - Methadone 25, need to confirm methadone dosage - Multivit, thiamine 100 mg PO QD # F/E/N - PO - Cont to monitor - Sodium controlled diet # DVT ppx - Enoxaparin 40 mg sq QD # Disposition - Med/surg Visit type - Emergency Visit Emergency Visit: No - New Patient This patient is new to me today: No - Critical Care Critical Care patient: No ATTENDING PHYSICIAN STATEMENT I saw and evaluated the patient. I reviewed the resident's note and discussed the case with the resident. I agree with the resident's findings and plan as documented. SUBJECTIVE: OBJECTIVE: ASSESSMENT AND PLAN:
[2019-09-08] MEDS: ATORVASTATIN CA 10 MG TABLET (FP) PO SCH (21:57)
[2019-09-08] MEDS: OLANZapine 5 MG TABLET PO SCH (21:57)
[2019-09-09] MEDS ORDERED: METHADONE HCL 10 MG TABLET ONE (05:34)
[2019-09-09] MEDS ORDERED: METHADONE HCL 5 MG TABLET ONE (05:34)
[2019-09-09] MEDS: METHADONE 20 MG, METHADONE 5 MG PO SCH (05:35)
[2019-09-09 07:50] LABS: HEMATOCRIT 38.5 % (32.4-45.2); HEMOGLOBIN 12.9 GM/dL (10.7-15.3); MCH 34.9 pg (25.7-33.7); MCHC 33.6 g/dl (32.0-36.0); MEAN CELL VOLUME 103.9 fl (80-96); MEAN PLT VOLUME 8.9 fl (7.5-11.1); PLATELET COUNT 135 K/MM3 (134-434); RBC 3.71 M/mm3 (3.60-5.2); RDW 13.1 % (11.6-15.6); WHITE BLOOD COUNT 2.6 K/mm3 (4.0-10.0)
[2019-09-09 08:27] LABS: ALBUMIN 3.1 g/dl (3.4-5.0); BILIRUBIN,TOTAL 0.5 mg/dL (0.2-1); BLOOD UREA NITROGEN 8.8 mg/dL (7-18); CALCIUM 8.6 mg/dL (8.5-10.1); CREATININE 0.4 mg/dL (0.55-1.3); MAGNESIUM 1.9 mg/dL (1.8-2.4); PHOSPHOROUS 3.9 mg/dL (2.5-4.9); POTASSIUM 3.8 mmol/L (3.5-5.1); TOT PROT 7.2 g/dl (6.4-8.2)
[2019-09-09] MEDS: MULTIVITAMINS (DAILY MVI) TABLET (FP) PO SCH (10:43)
[2019-09-09] MEDS: FOLIC ACID 1 MG TABLET (FP) PO SCH (10:43)
[2019-09-09] MEDS: ASPIRIN 81 MG CHEWABLE TABLETS PO SCH (10:43)
[2019-09-09] MEDS: LISINOPRIL 20 MG TABLET (FP) PO SCH (10:43)
[2019-09-09] MEDS: THIAMINE HCL 100 MG TABLET (FP) PO SCH (10:43)
[2019-09-09] MEDS: carBAMazepine 200 MG TABLET PO SCH ×2 (10:43→21:55)
[2019-09-09] MEDS: PANTOPRAZOLE 40 MG TABLET (FP) PO SCH (10:43)
[2019-09-09] MEDS: ENOXAPARIN NA (PORCINE) 40 MG/0.4 ML DISP.SYRIN SQ SCH (10:44)
--- NOTE | 2019-09-09 14:19 | PN ---
Physical Exam: SUBJECTIVE: Patient seen and examined at bedside. She feels better but still worried about general health. S/s assessment given c/o difficulty eating solid meals rec's below (minced, thin liquid). MBS demonstrates no gross evidence of esophageal stricture or holdup of contrast but study limited 2/2 pt moving. She is awaiting SNF placement. OBJECTIVE: Vital Signs Period Temp Pulse Resp BP Sys/Pleitez Pulse Ox Last 24 Hr 98.1 F-98.4 F 74-77 18-19 100-128/57-74 96-98 GENERAL: Awake, alert, and fully oriented, in no acute distress. HEAD: Normal with no signs of trauma. EYES: Pupils equal, round and reactive to light, extraocular movements intact, sclera anicteric, conjunctiva clear. EARS, NOSE, THROAT: nares patent, oropharynx clear. Moist mucous membranes. NECK: Normal range of motion, supple without lymphadenopathy, JVD, or masses. LUNGS: Breath sounds decreased b/l scattered expiratory wheezes. No accessory muscle use. HEART: Regular rate and rhythm, normal S1 and S2 without murmur, rub or gallop. ABDOMEN: Soft, nontender, not distended, normoactive bowel sounds, no guarding, no rebound, no masses. MUSCULOSKELETAL: Neck FROM 5/5. Normal range of motion at all joints. No bony deformities or tenderness. No CVA tenderness. UPPER EXTREMITIES: 2+ pulses, warm, well-perfused. No cyanosis. No clubbing. No peripheral edema. LOWER EXTREMITIES: 2+ pulses, warm, well-perfused. No calf tenderness. No peripheral edema. NEUROLOGICAL: Cranial nerves II-XII intact. Normal speech.gait not observed PSYCHIATRIC: Anxious. Cooperative. Good eye contact. SKIN: Warm, dry, normal turgor, no rashes or lesions noted, normal capillary refill. Laboratory Results - last 24 hr 09/09/19 09/09/19 06:30 06:30 WBC 2.6 L RBC 3.71 Hgb 12.9 Hct 38.5 MCV 103.9 H MCH 34.9 H MCHC 33.6 RDW 13.1 Plt Count 135 MPV 8.9 Sodium 141 Potassium 3.8 Chloride 106 Carbon Dioxide 29 Anion Gap 6 L BUN 8.8 Creatinine 0.4 L Est GFR (CKD-EPI)AfAm 125.79 Est GFR (CKD-EPI)NonAf 108.54 Random Glucose 105 Calcium 8.6 Phosphorus 3.9 Magnesium 1.9 Total Bilirubin 0.5 AST 60 H ALT 50 Alkaline Phosphatase 119 H Total Protein 7.2 Albumin 3.1 L Active Medications Generic Name Dose Route Start Last Admin Trade Name Freq PRN Reason Stop Dose Admin Aspirin 81 mg 09/07/19 10:00 09/09/19 10:43 Asa - PO 81 mg DAILY JAY Administration Atorvastatin Calcium 10 mg 09/07/19 22:00 09/08/19 21:57 Lipitor - PO 10 mg HS JAY Administration Carbamazepine 200 mg 09/07/19 10:00 09/09/19 10:43 Tegretol - PO 200 mg BID JAY Administration Enoxaparin Sodium 40 mg 09/07/19 10:00 09/09/19 10:44 Lovenox - SQ 40 mg DAILY JAY Administration Folic Acid 1 mg 09/07/19 10:00 09/09/19 10:43 Folic Acid - PO 1 mg DAILY JAY Administration Lisinopril 20 mg 09/08/19 10:00 09/09/19 10:43 Prinivil PO 20 mg DAILY JAY Administration Methadone HCl 20 mg/ Methadone 25 mg 09/08/19 06:00 09/09/19 05:35 HCl 5 mg PO 25 mg DAILY@0600 JAY Administration Multivitamins/Minerals/Vitamin C 1 tab 09/07/19 10:00 09/09/19 10:43 Tab-A-Vit - PO 1 tab DAILY JAY Administration Olanzapine 5 mg 09/07/19 22:00 09/08/19 21:57 Zyprexa - PO 5 mg HS JAY Administration Pantoprazole Sodium 40 mg 09/07/19 10:00 09/09/19 10:43 Protonix - PO 40 mg DAILY JAY Administration Sodium Chloride 2 spray 09/06/19 22:57 [place] Nasal [place] - NS BID PRN NASAL CONGESTION Thiamine HCl 100 mg 09/07/19 10:00 09/09/19 10:43 Vitamin B1 - PO 100 mg DAILY JAY Administration ASSESSMENT/PLAN: 64 y/o female PMH HTN, COPD (not on home O2), HCV, liver cirrhosis, Bipolar, CVA ( 11/2018- R residual weakness), alcohol abuse presenting for chest pain and shortness of breath. ACS ruled out. Pt experiencing difficulty swallowing. # Dysphagia - S/s assessment: Dysphagia Minced, 1 - 2 Soft Items, thin liquids, supplement with Ensure, Magic Cup, Ensure Pudding - MBS: Limited exam 2/2 movement. No gross evidence of esophageal stricture or holdup of contrast. - Pt requesting liquids meals (soup, juices, etc) # Atypical chest pain likely 2/2 Acute URI - Trop negative x 2 - EKG unchanged from prior, NSR - Afebrile, no leukocytosis - Duonebs prn - Cole nasal spray - Chest CTA NEGATIVE for PE - Stress testing 08/2019: mild inferior ischemia, low risk finding - FLU/RSV NEGATIVE # Bipolar depression - Olanzepine (Zyprexa) 5 mg po HS for hypomania # Macrocytosis w/o anemia - Unclear if from chronic liver disease or alternate etiology, etoh? - Consider heme evaluation # Liver cirrhosis, HCV - F/u Abdominal US findings; ordered 09 Sep 2019 to evaluate hepatic parenchyma - Outpatient follow-up with Dr. Obregon to evaluate further and to discuss endoscopic evaluation when acute issues are resolved # HTN - Lisinopril 20 mg PO QD # H/o CVA - Atorvastatin 10 mg PO HS, ASA 81 mg PO QD - Inability to ambulate - PT notates independent - Social work for possible placement # H/o substance abuse - Methadone 25, [facility] - Multivit, thiamine 100 mg PO QD # F/E/N - PO - Cont to monitor - NPO till Abd US, then please restart dysphagia minced with thin liquids/low sodium modification # DVT ppx - Enoxaparin 40 mg sq QD # Disposition - Med/surg Serg Tamayo MD Visit type - Emergency Visit Emergency Visit: No - New Patient This patient is new to me today: No - Critical Care Critical Care patient: No ATTENDING PHYSICIAN STATEMENT I saw and evaluated the patient. I reviewed the resident's note and discussed the case with the resident. I agree with the resident's findings and plan as documented. SUBJECTIVE: OBJECTIVE: ASSESSMENT AND PLAN:
--- NOTE | 2019-09-09 14:30 | CONSULT ---
Admitting History and Physical - Primary Care Physician PCP: Baylee Corley - Admission History of Present Illness: Patient is a 64yof with PMhx of PSA on methadone, HCV never treated, anxiety, depression, bipolar, HTN, CVA w/ R sided weakness preferring to use wheel chair presented w/ chest pain where ACS was ruled out and appears MSK/anxiety related. Esophagram-limited but WNL Soft tissue neck done Selected Entries 09/09/19 09/09/19 09/09/19 05:50 11:11 13:19 Breakfast 50% Diet Tolerated Fair Lunch 50% Temperature 98.1 F 98.4 F Laboratory Tests 09/09/19 06:30 WBC 2.6 L Pt on reg diet/thin liquids. Known to me from November 2018- Patient is a 63 year old female with past medical history of HTN, COPD, HCV, Liver cirrhosis, Bipolar disorder, ?pancreatic cyst, and EtOH abuse, presented to the ED after experiencing sudden weakness of the right leg with numbness of the right finger tips, and slurred speech. Pt required intubated. pt was on pureed diet/nectar thick liquid, with deep penetration/aspiration on thin liquids during mbs. Impaired speech production with reduced volume during speech tasks and sustained phonation of 3 sec. Distractible. ENT-flexible fiberoptic nasal and laryngoscopy was performed, revealing the presence of a deviated septum, a small amount of clear mucus dripping into the back of the nose, a normal hypopharynx and endolarynx with the exception of moderate bilateral vocal cord ecchymosis, worse on the left side. Both vocal cords are mobile. Impression: Laryngeal ecchymosis, probably due to a recent traumatic intubation , but possibly due to laryngitis from a recent respiratory infection Improved-11/20/18Consider diet upgrade to Soft diet, chopped meat and sips of thin liquid . Use Dentures. OOB for meals if possible. Add supplements including Magic cup, ensure pudding, 2 JULIO CESAR HN. History Source: Patient Limitations to Obtaining History: Clinical Condition - Past Medical History Cardiovascular: Yes: HTN Pulmonary: Yes: COPD Hepatobiliary: Yes: Hepatitis C ...LMP: 10/24/04 Heme/Onc: Yes: Thrombocytopenia (2/2 chronic ETOH abuse. ) Psych: Yes: Anxiety, Bipolar Musculoskeletal: Yes: Osteoarthritis - Smoking History Smoking history: Current every day smoker Have you smoked in the past 12 months: Yes Aproximately how many cigarettes per day: 5 - Alcohol/Substance Use Hx Alcohol Use: Yes (social) Number of Drinks Daily: 10 (drinks approx. 1L vodka/day) History of Substance Use: reports: Heroin (currently on Methadone. ) - Social History ADL: Independent History of Recent Travel: No History - Admission Reason For Visit: SHORTNESS OF BREATH, NECK PAIN, CHEST PAIN - Diagnostics X-ray: Report Reviewed - General Mental Status: Alert and Oriented, Awake and Alert, Able to Follow Commands Attention: Intact Ability to Follow Directions: Excellent Head/Neck Control: WFL - Hearing Hearing: Functional Speech Evaluation - Communication Primary Language: GREEK Communication: Yes: Within Normal Limits Oral Expression Ability: Yes: No Impairment - Speech Production Able to Make Needs Known: Yes: WNL Intelligibility: Yes: WNL - Speech Characteristics Voice Loudness: Normal Voice Pitch: Yes: Normal Voice Phonatory-based Quality: Yes: Normal Speech Pattern: Normal Nasal Resonance: Normal Articulation: Yes: Precise - Language/Auditory Comprehension Follows: Yes: 2 Stage Simple Commands - Language/Verbal Expression Able to Respond to Simple Queries: Yes: WNL Able to Communicate Wants and Needs: Yes: WNL Functional Communication Status: Yes: WNL - Swallow Evaluation/Bedside Assessment Current Nutritional Intake: Regular, Thin Liquids Oral Secretions: Yes: WFL Dentition: Yes: Adequate Facial Symmetry at Rest: Symmetrical Facial Symmetry on Retraction: Symmetrical Sensation: Normal Against Resistance Opening: Normal Against Resistance Closing: Normal Pucker Lips: Normal Smile: Normal Lingual Movement: Normal, Symmetric Lingual Speed of Movement: Normal Lingual Movement Strgth Against Opposition: Normal Lingual Movement Characteristics: Normal Velopharyngeal Movement: Normal Laryngeal Elevation: WFL Laryngeal Movement: Reduced Excursion, Labored,delay initiation Rate of Intake: WFL Bolus Size: WFL Labial Seal: WFL Chewing: WFL Oral Prep Time: WFL A-P Transit: WFL Pocketing: None Coughing/Throat Clear: No Change in Voice: No Recommendations - Speech Evaluation, Impression/Plan Impression: Pt c/o pharyngeal stasis, especially with solids. Overtly tolerates puree/thin. NPO now quinones abd u/s - Disposition [facility]charge to: [facility] - Dysphagia Impressions/Plan Swallowing Skills: Impaired Dysphagia Impressions: Ongoing Evaluation *Silent aspiration: cannot be R/O at bedside Dysphagia Treatment Plan: Small Bites, Chin Tuck/Down, 1/2 tsp. at a time, OOB for meals, OOB for 1 h. after meals Recommendations: CARLOZ rapp Esophagus - Recommendations Diet Consistency: Dysphagia Minced, 1 - 2 Soft Items Medication Administration: Whole with water Liquids: Thin Liquids Supplement: Ensure, Magic Cup, Ensure Pudding
--- NOTE | 2019-09-09 16:57 | PN ---
Teaching Attending Note Name of Resident: Serg Tamayo ATTENDING PHYSICIAN STATEMENT I saw and evaluated the patient. I reviewed the resident's note and discussed the case with the resident. I agree with the resident's findings and plan as documented. SUBJECTIVE: Patient is feeling better with no acute distress. at times c/o having a neck pain. Vital Signs Temperature 98.4 F 09/09/19 13:19 Pulse Rate 76 09/09/19 13:19 Respiratory Rate 18 09/09/19 13:19 Blood Pressure 109/65 09/09/19 13:19 O2 Sat by Pulse Oximetry (%) 98 09/09/19 09:00 GENERAL: The patient is awake, alert, and oriented, in no acute distress. HEAD: Normal with no signs of trauma. EYES: PERRL, extraocular movements intact, sclera anicteric, conjunctiva clear. ENT: Ears normal, oropharynx clear without exudates, moist mucous membranes. NECK: Trachea midline, full range of motion, supple. LUNGS: Breath sounds equal, clear to auscultation bilaterally, no wheezes, no crackles, no accessory muscle use. HEART: Regular rate and rhythm, S1, S2 +, EMILY 2/6 , no rub or gallop. ABDOMEN: Soft, nontender, nondistended, normoactive bowel sounds, no guarding, no rebound, no hepatosplenomegaly, no masses. EXTREMITIES: 2+ pulses, warm, well-perfused, no edema. NEUROLOGICAL: Cranial nerves II through XII grossly intact. Normal speech, gait not observed. PSYCH: Normal mood, normal affect. SKIN: Warm, dry, normal turgor, no rashes or lesions noted CBCD WBC 2.6 K/mm3 (4.0-10.0) L 09/09/19 06:30 RBC 3.71 M/mm3 (3.60-5.2) 09/09/19 06:30 Hgb 12.9 GM/dL (10.7-15.3) 09/09/19 06:30 Hct 38.5 % (32.4-45.2) 09/09/19 06:30 MCV 103.9 fl (80-96) H 09/09/19 06:30 MCHC 33.6 g/dl (32.0-36.0) 09/09/19 06:30 RDW 13.1 % (11.6-15.6) 09/09/19 06:30 Plt Count 135 K/MM3 (134-434) 09/09/19 06:30 MPV 8.9 fl (7.5-11.1) 09/09/19 06:30 CMP Sodium 141 mmol/L (136-145) 09/09/19 06:30 Potassium 3.8 mmol/L (3.5-5.1) 09/09/19 06:30 Chloride 106 mmol/L (98-107) 09/09/19 06:30 Carbon Dioxide 29 mmol/L (21-32) 09/09/19 06:30 Anion Gap 6 MMOL/L (8-16) L 09/09/19 06:30 BUN 8.8 mg/dL (7-18) 09/09/19 06:30 Creatinine 0.4 mg/dL (0.55-1.3) L 09/09/19 06:30 Random Glucose 105 mg/dL (74-106) 09/09/19 06:30 Calcium 8.6 mg/dL (8.5-10.1) 09/09/19 06:30 Total Bilirubin 0.5 mg/dL (0.2-1) 09/09/19 06:30 AST 60 U/L (15-37) H 09/09/19 06:30 ALT 50 U/L (13-61) 09/09/19 06:30 Alkaline Phosphatase 119 U/L (45-117) H 09/09/19 06:30 Total Protein 7.2 g/dl (6.4-8.2) 09/09/19 06:30 Albumin 3.1 g/dl (3.4-5.0) L 09/09/19 06:30 CARDIAC ENZYMES Creatine Kinase 64 U/L (26-192) 09/06/19 15:44 Troponin I < 0.02 ng/ml (0.00-0.05) 09/06/19 20:10 Current Medications Generic Name Dose Route Start Last Admin Trade Name Freq PRN Reason Stop Dose Admin Aspirin 81 mg 09/07/19 10:00 09/09/19 10:43 Asa - PO 81 mg DAILY JAY Administration Atorvastatin Calcium 10 mg 09/07/19 22:00 09/08/19 21:57 Lipitor - PO 10 mg HS JAY Administration Carbamazepine 200 mg 09/07/19 10:00 09/09/19 10:43 Tegretol - PO 200 mg BID JAY Administration Enoxaparin Sodium 40 mg 09/07/19 10:00 09/09/19 10:44 Lovenox - SQ 40 mg DAILY JAY Administration Folic Acid 1 mg 09/07/19 10:00 09/09/19 10:43 Folic Acid - PO 1 mg DAILY JAY Administration Lisinopril 20 mg 09/08/19 10:00 09/09/19 10:43 Prinivil PO 20 mg DAILY JAY Administration Methadone HCl 20 mg/ Methadone 25 mg 09/08/19 06:00 09/09/19 05:35 HCl 5 mg PO 25 mg DAILY@0600 [facility] Administration Multivitamins/Minerals/Vitamin C 1 tab 09/07/19 10:00 09/09/19 10:43 Tab-A-Vit - PO 1 tab DAILY JAY Administration Olanzapine 5 mg 09/07/19 22:00 09/08/19 21:57 Zyprexa - PO 5 mg HS JAY Administration Pantoprazole Sodium 40 mg 09/07/19 10:00 09/09/19 10:43 Protonix - PO 40 mg DAILY JAY Administration Sodium Chloride 2 spray 09/06/19 22:57 [place] Nasal [place] - NS BID PRN NASAL CONGESTION Thiamine HCl 100 mg 09/07/19 10:00 09/09/19 10:43 Vitamin B1 - PO 100 mg DAILY JAY Administration Home Medications Medication Instructions Recorded Carbamazepine [Tegretol -] 200 mg PO BID 11/11/18 Lisinopril 10 mg PO DAILY 11/11/18 Methadone [Dolophine -] 30 mg PO DAILY 11/11/18 Pantoprazole Sodium [Protonix] 40 mg PO DAILY 11/11/18 Acetaminophen [Tylenol 500 mg PO Q6H PRN tablet 11/20/18 .Extra-Strength -] Aspirin [ASA -] 81 mg PO DAILY tab.chew 11/20/18 Atorvastatin Ca [Lipitor] 10 mg PO HS tablet 11/20/18 Folic Acid - 1 mg PO DAILY tablet 11/20/18 Thiamine HCl [Vitamin B1 -] 100 mg PO BID tablet 11/20/18 Docusate Sodium [Colace -] 300 mg PO HS #30 capsule 11/21/18 Polyethylene Glycol 3350 [Miralax 17 gm PO DAILY #1 bottle 11/21/18 255 gm Btl -] ASSESSMENT AND PLAN: Patient is a 64yof with PMhx of PSA on methadone, HCV never treated, anxiety, depression, bipolar, HTN, CVA w/ R sided weakness preferring to use wheel chair presented w/ chest pain where ACS was ruled out and appears MSK/anxiety related. #Nondisplaced old fx of chronic type II odontoid fracture. soft collar and neurosurgery consult # s/p chest pain: resolved, CTA neg. for PE, EKG unchanged from prior, Trops negx2, continue supportive care, Tylenol PRN for pain # HCV liver cirrhosis refused treatment w/ Vicenta "years ago" h/o chronic hepatitis C, untreated, as per GI to get abdominal US , in AM to evaluate hepatic parenchyma. outpatient follow-up with Dr. Obregon to evaluate further and to discuss endoscopic evaluation when acute issues are resolved, GI consult appreciated. # HTN: cont. Lisinopril, will increase dosage as needed to control BP #Anxiety disorder: Psych consult: Dr. Laws #PSA with opioid dependence onn Methadone 25mg daily maintenance QTc OK, avoid QTc prolonging agents #Etoh dependence: no signs of withdrawal, Cont. FA/thiamine/MV daily Counseled on etoh cessation DVT ppx: Lovenox SC GI ppx: PPI
--- NOTE | 2019-09-09 19:08 | PN.GI ---
GI Progress Note Subjective: Patient states she is "doing as well as she can" No dysphagia complaints - Objective Vital Signs: Vital Signs Temperature 98.4 F 09/09/19 13:19 Pulse Rate 76 09/09/19 13:19 Respiratory Rate 18 09/09/19 13:19 Blood Pressure 109/65 09/09/19 13:19 O2 Sat by Pulse Oximetry (%) 98 09/09/19 09:00 Constitutional: Calm Eyes: No: Sclera Icterus Cardiovascular: Yes: Regular Rate and Rhythm Gastrointestinal Inspection: No: Distention ...Auscultate: Yes: Normoactive Bowel Sounds ...Palpate: No: Hepatomegaly, Splenomegaly, Tenderness Labs: CBC, BMP 09/09/19 06:30 09/09/19 06:30 INR, PTT INR 1.06 (0.83-1.09) 09/06/19 15:44 Problem List - Problems (1) Hepatitis C Assessment/Plan: Abdominal US read pending Code(s): B19.20 - UNSPECIFIED VIRAL HEPATITIS C WITHOUT HEPATIC COMA (2) Macrocytosis without anemia Assessment/Plan: ? if secondary to liver disease, alternate etiology Hemtology evaluation Code(s): D75.89 - OTHER SPECIFIED DISEASES OF BLOOD AND BLOOD-FORMING ORGANS
[2019-09-09] MEDS ORDERED: PT OWN MED DRAWER 7, Y5N ONE (21:48)
[2019-09-09] MEDS: ATORVASTATIN CA 10 MG TABLET (FP) PO SCH (21:55)
[2019-09-09] MEDS: OLANZapine 5 MG TABLET PO SCH (21:55)
[2019-09-09] MEDS ORDERED: MELATONIN 5 MG TABLETS PO ONE (23:45)
[2019-09-10] MEDS ORDERED: LORazepam 1 MG TABLET PO ONE ×2 (01:48→23:12)
[2019-09-10] MEDS: ATORVASTATIN CA 10 MG TABLET (FP) PO SCH ×2 (03:07→21:55)
[2019-09-10] MEDS: OLANZapine 5 MG TABLET PO SCH ×2 (03:07→21:55)
[2019-09-10] MEDS ORDERED: METHADONE HCL 5 MG TABLET ONE (05:53)
[2019-09-10] MEDS ORDERED: METHADONE HCL 10 MG TABLET ONE (05:53)
[2019-09-10] MEDS: METHADONE 20 MG, METHADONE 5 MG PO SCH (05:57)
[2019-09-10 08:10] LABS: HEMATOCRIT 37.2 % (32.4-45.2); HEMOGLOBIN 12.6 GM/dL (10.7-15.3); MCH 35.1 pg (25.7-33.7); MCHC 33.9 g/dl (32.0-36.0); MEAN CELL VOLUME 103.7 fl (80-96); MEAN PLT VOLUME 8.8 fl (7.5-11.1); PLATELET COUNT 126 K/MM3 (134-434); RBC 3.58 M/mm3 (3.60-5.2); RDW 13.3 % (11.6-15.6); WHITE BLOOD COUNT 4.1 K/mm3 (4.0-10.0)
[2019-09-10 08:37] LABS: ALBUMIN 3.1 g/dl (3.4-5.0); BILIRUBIN,TOTAL 0.8 mg/dL (0.2-1); BLOOD UREA NITROGEN 8.4 mg/dL (7-18); CALCIUM 8.9 mg/dL (8.5-10.1); CREATININE 0.5 mg/dL (0.55-1.3); POTASSIUM 3.4 mmol/L (3.5-5.1); TOT PROT 7.1 g/dl (6.4-8.2)
[2019-09-10] MEDS ORDERED: PT OWN MED DRAWER 7, Y5N ONE ×2 (09:55→21:55)
[2019-09-10] MEDS: PANTOPRAZOLE 40 MG TABLET (FP) PO SCH (09:59)
[2019-09-10] MEDS: THIAMINE HCL 100 MG TABLET (FP) PO SCH (09:59)
[2019-09-10] MEDS: ASPIRIN 81 MG CHEWABLE TABLETS PO SCH (09:59)
[2019-09-10] MEDS: LISINOPRIL 20 MG TABLET (FP) PO SCH (09:59)
[2019-09-10] MEDS: MULTIVITAMINS (DAILY MVI) TABLET (FP) PO SCH (09:59)
[2019-09-10] MEDS: FOLIC ACID 1 MG TABLET (FP) PO SCH (09:59)
[2019-09-10] MEDS: carBAMazepine 200 MG TABLET PO SCH ×2 (09:59→21:55)
[2019-09-10] MEDS: ENOXAPARIN NA (PORCINE) 40 MG/0.4 ML DISP.SYRIN SQ SCH (09:59)
--- NOTE | 2019-09-10 10:15 | PN ---
Progress Note (short form) - Note Progress Note: CBD noted to be dilated at 1.8cm. Has been dilated on previous studies. Ordered MRCP for follow-up Problem List - Problems (1) Hepatitis C Code(s): B19.20 - UNSPECIFIED VIRAL HEPATITIS C WITHOUT HEPATIC COMA (2) Macrocytosis without anemia Code(s): D75.89 - OTHER SPECIFIED DISEASES OF BLOOD AND BLOOD-FORMING ORGANS
--- NOTE | 2019-09-10 10:34 | PN ---
Physical Exam: SUBJECTIVE: Patient seen and examined at bedside. She feels better and c/o no sleep last night. XR + CT neck demonstrate t 2 posterior displacement and neurosurgery consulted. She does not have neck pain this AM. OBJECTIVE: Vital Signs Period Temp Pulse Resp BP Sys/Pleitez Pulse Ox Last 24 Hr 97.8 F-98.7 F 72-80 18-20 107-126/65-70 96 GENERAL: Awake, alert, and fully oriented, in no acute distress. HEAD: Normal with no signs of trauma. EYES: Pupils equal, round and reactive to light, extraocular movements intact, sclera anicteric, conjunctiva clear. EARS, NOSE, THROAT: nares patent, oropharynx clear. Moist mucous membranes. NECK: Normal range of motion, supple without lymphadenopathy, JVD, or masses. LUNGS: Breath sounds decreased b/l scattered expiratory wheezes. No accessory muscle use. HEART: Regular rate and rhythm, normal S1 and S2 without murmur, rub or gallop. ABDOMEN: Soft, nontender, not distended, normoactive bowel sounds, no guarding, no rebound, no masses. MUSCULOSKELETAL: Neck FROM 5/5. Normal range of motion at all joints. No bony deformities or tenderness. No CVA tenderness. UPPER EXTREMITIES: 2+ pulses, warm, well-perfused. No cyanosis. No clubbing. No peripheral edema. LOWER EXTREMITIES: 2+ pulses, warm, well-perfused. No calf tenderness. No peripheral edema. NEUROLOGICAL: Cranial nerves II-XII intact. Normal speech.gait not observed PSYCHIATRIC: Anxious. Cooperative. Good eye contact. SKIN: Warm, dry, normal turgor, no rashes or lesions noted, normal capillary refill. Laboratory Results - last 24 hr 09/10/19 09/10/19 07:06 07:06 WBC 4.1 RBC 3.58 L Hgb 12.6 Hct 37.2 MCV 103.7 H MCH 35.1 H MCHC 33.9 RDW 13.3 Plt Count 126 L MPV 8.8 Sodium 140 Potassium 3.4 L Chloride 106 Carbon Dioxide 28 Anion Gap 6 L BUN 8.4 Creatinine 0.5 L Est GFR (CKD-EPI)AfAm 116.89 Est GFR (CKD-EPI)NonAf 100.85 Random Glucose 118 H Calcium 8.9 Total Bilirubin 0.8 AST 50 H ALT 44 Alkaline Phosphatase 106 Total Protein 7.1 Albumin 3.1 L Vitamin B12 358 Serum Folate 33 H TSH 0.28 L Active Medications Generic Name Dose Route Start Last Admin Trade Name Jamesq PRN Reason Stop Dose Admin Aspirin 81 mg 09/07/19 10:00 09/10/19 09:59 Asa - PO 81 mg DAILY JAY Administration Atorvastatin Calcium 10 mg 09/07/19 22:00 09/10/19 03:07 Lipitor - PO 10 mg HS JAY Administration Carbamazepine 200 mg 09/07/19 10:00 09/10/19 09:59 Tegretol - PO 200 mg BID JAY Administration Enoxaparin Sodium 40 mg 09/07/19 10:00 09/10/19 09:59 Lovenox - SQ 40 mg DAILY JAY Administration Folic Acid 1 mg 09/07/19 10:00 09/10/19 09:59 Folic Acid - PO 1 mg DAILY JAY Administration Lisinopril 20 mg 09/08/19 10:00 09/10/19 09:59 Prinivil PO 20 mg DAILY JAY Administration Methadone HCl 20 mg/ Methadone 25 mg 09/08/19 06:00 09/10/19 05:57 HCl 5 mg PO 25 mg DAILY@0600 JAY Administration Multivitamins/Minerals/Vitamin C 1 tab 09/07/19 10:00 09/10/19 09:59 Tab-A-Vit - PO 1 tab DAILY JAY Administration Olanzapine 5 mg 09/07/19 22:00 09/10/19 03:07 Zyprexa - PO 5 mg HS JAY Administration Pantoprazole Sodium 40 mg 09/07/19 10:00 09/10/19 09:59 Protonix - PO 40 mg DAILY JAY Administration Sodium Chloride 2 spray 09/06/19 22:57 [place] Nasal [place] - NS BID PRN NASAL CONGESTION Thiamine HCl 100 mg 09/07/19 10:00 09/10/19 09:59 Vitamin B1 - PO 100 mg DAILY JAY Administration ASSESSMENT/PLAN: 64 y/o female PMH HTN, COPD (not on home O2), HCV, liver cirrhosis, Bipolar, CVA ( 11/2018- R residual weakness), alcohol abuse presenting for chest pain and shortness of breath. ACS ruled out. Pt experiencing difficulty swallowing. Neck pain on 09 Sep 2019, worked up as described below. # Neck pain - Ache yesterday. FROM, no loss of sensation, 5/5 strength to lateralization and nod. Not present today. - Neck xray showed peominence of posterior vertebral tissue - CT neck: Compared to [address], interval development of mild posterior displacement, chronic type II odontoid fracture. Seen previously on spine MRI on 11 November 2018 - Radiologist's findings discussed with covering team in PM, recommended soft collar and neurosurgery consult - Pt refusing soft collar - Neurosurgery consulted # Dysphagia - S/s assessment: Dysphagia Minced, 1 - 2 Soft Items, thin liquids, supplement with Ensure, Magic Cup, Ensure Pudding - MBS: Limited exam 2/2 movement. No gross evidence of esophageal stricture or holdup of contrast. - Pt requesting liquids meals (soup, juices, etc) # Atypical chest pain likely 2/2 Acute URI - Trop negative x 2 - EKG unchanged from prior, NSR - Afebrile, no leukocytosis - Duonebs prn - [place] nasal spray - Chest CTA NEGATIVE for PE - Stress testing 08/2019: mild inferior ischemia, low risk finding - FLU/RSV NEGATIVE # Bipolar depression - Olanzepine (Zyprexa) 5 mg po HS for hypomania # Macrocytosis w/o anemia - Unclear if from chronic liver disease or alternate etiology, etoh? - Consider heme evaluation # Liver cirrhosis, HCV - Abdominal US findings; ordered 09 Sep 2019 to evaluate hepatic parenchyma: CBD dilation 1.8 cm as in last study. MRCP recommended - Outpatient follow-up with Dr. Obregon to evaluate further and to discuss endoscopic evaluation when acute issues are resolved # HTN - Lisinopril 20 mg PO QD # H/o CVA - Atorvastatin 10 mg PO HS, ASA 81 mg PO QD - Inability to ambulate - PT notates independent - Social work for possible placement # H/o substance abuse - Methadone 25 mg PO QD, Confirmed with Halina Davidson [facility] [place] [id number] - Multivit, thiamine 100 mg PO QD # F/E/N - PO - Cont to monitor - NPO for possible neurosurgical intervention # DVT ppx - Enoxaparin 40 mg sq QD # Disposition - Med/surg Serg Tamayo MD Visit type - Emergency Visit Emergency Visit: No - New Patient This patient is new to me today: No - Critical Care Critical Care patient: No ATTENDING PHYSICIAN STATEMENT I saw and evaluated the patient. I reviewed the resident's note and discussed the case with the resident. I agree with the resident's findings and plan as documented. SUBJECTIVE: OBJECTIVE: ASSESSMENT AND PLAN:
[2019-09-10 13:10] LABS: INR 1.19 (0.83-1.09); PROTHROMBIN TIME (PATIENT) 14.1 SEC (9.7-13.0)
--- NOTE | 2019-09-10 14:20 | PN ---
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 MBS ordered, deferred at this time.
--- NOTE | 2019-09-10 20:21 | PN ---
Teaching Attending Note Name of Resident: Serg Tamayo ATTENDING PHYSICIAN STATEMENT I saw and evaluated the patient. I reviewed the resident's note and discussed the case with the resident. I agree with the resident's findings and plan as documented. SUBJECTIVE: Patient is feeling better with no acute distress. at times c/o having a neck pain. Vital Signs Temperature 97.6 F 09/10/19 10:00 Pulse Rate 74 09/10/19 10:00 Respiratory Rate 18 09/10/19 10:00 Blood Pressure 145/77 09/10/19 10:00 O2 Sat by Pulse Oximetry (%) 96 09/10/19 09:00 GENERAL: The patient is awake, alert, and oriented, in no acute distress. HEAD: Normal with no signs of trauma. EYES: PERRL, extraocular movements intact, sclera anicteric, conjunctiva clear. ENT: Ears normal, oropharynx clear without exudates, moist mucous membranes. NECK: Trachea midline, full range of motion, supple. LUNGS: Breath sounds equal, clear to auscultation bilaterally, no wheezes, no crackles, no accessory muscle use. HEART: Regular rate and rhythm, S1, S2 +, EMILY 2/6 , no rub or gallop. ABDOMEN: Soft, nontender, nondistended, normoactive bowel sounds, no guarding, no rebound, no hepatosplenomegaly, no masses. EXTREMITIES: 2+ pulses, warm, well-perfused, no edema. NEUROLOGICAL: Cranial nerves II through XII grossly intact. Normal speech, gait not observed. PSYCH: Normal mood, normal affect. SKIN: Warm, dry, normal turgor, no rashes or lesions noted CBCD WBC 4.1 K/mm3 (4.0-10.0) 09/10/19 07:06 RBC 3.58 M/mm3 (3.60-5.2) L 09/10/19 07:06 Hgb 12.6 GM/dL (10.7-15.3) 09/10/19 07:06 Hct 37.2 % (32.4-45.2) 09/10/19 07:06 MCV 103.7 fl (80-96) H 09/10/19 07:06 MCHC 33.9 g/dl (32.0-36.0) 09/10/19 07:06 RDW 13.3 % (11.6-15.6) 09/10/19 07:06 Plt Count 126 K/MM3 (134-434) L 09/10/19 07:06 MPV 8.8 fl (7.5-11.1) 09/10/19 07:06 CMP Sodium 140 mmol/L (136-145) 09/10/19 07:06 Potassium 3.4 mmol/L (3.5-5.1) L 09/10/19 07:06 Chloride 106 mmol/L (98-107) 09/10/19 07:06 Carbon Dioxide 28 mmol/L (21-32) 09/10/19 07:06 Anion Gap 6 MMOL/L (8-16) L 09/10/19 07:06 BUN 8.4 mg/dL (7-18) 09/10/19 07:06 Creatinine 0.5 mg/dL (0.55-1.3) L 09/10/19 07:06 Random Glucose 118 mg/dL (74-106) H 09/10/19 07:06 Calcium 8.9 mg/dL (8.5-10.1) 09/10/19 07:06 Total Bilirubin 0.8 mg/dL (0.2-1) 09/10/19 07:06 AST 50 U/L (15-37) H 09/10/19 07:06 ALT 44 U/L (13-61) 09/10/19 07:06 Alkaline Phosphatase 106 U/L (45-117) 09/10/19 07:06 Total Protein 7.1 g/dl (6.4-8.2) 09/10/19 07:06 Albumin 3.1 g/dl (3.4-5.0) L 09/10/19 07:06 CARDIAC ENZYMES Creatine Kinase 64 U/L (26-192) 09/06/19 15:44 Troponin I < 0.02 ng/ml (0.00-0.05) 09/06/19 20:10 Current Medications Generic Name Dose Route Start Last Admin Trade Name Jamesq PRN Reason Stop Dose Admin Aspirin 81 mg 09/07/19 10:00 09/10/19 09:59 Asa - PO 81 mg DAILY JAY Administration Atorvastatin Calcium 10 mg 09/07/19 22:00 09/10/19 03:07 Lipitor - PO 10 mg HS JAY Administration Carbamazepine 200 mg 12/31/19 10:00 09/10/19 09:59 Tegretol - PO 200 mg BID JAY Administration Enoxaparin Sodium 40 mg 09/07/19 10:00 09/10/19 09:59 Lovenox - SQ 40 mg DAILY JAY Administration Folic Acid 1 mg 09/07/19 10:00 09/10/19 09:59 Folic Acid - PO 1 mg DAILY JAY Administration Lisinopril 20 mg 09/08/19 10:00 09/10/19 09:59 Prinivil PO 20 mg DAILY JAY Administration Methadone HCl 20 mg/ Methadone 25 mg 09/08/19 06:00 09/10/19 05:57 HCl 5 mg PO 25 mg DAILY@0600 [facility] Administration Multivitamins/Minerals/Vitamin C 1 tab 09/07/19 10:00 09/10/19 09:59 Tab-A-Vit - PO 1 tab DAILY JAY Administration Olanzapine 5 mg 09/07/19 22:00 09/10/19 03:07 Zyprexa - PO 5 mg HS JAY Administration Pantoprazole Sodium 40 mg 09/07/19 10:00 09/10/19 09:59 Protonix - PO 40 mg DAILY JAY Administration Sodium Chloride 2 spray 09/06/19 22:57 [place] Nasal [place] - NS BID PRN NASAL CONGESTION Thiamine HCl 100 mg 09/07/19 10:00 09/10/19 09:59 Vitamin B1 - PO 100 mg DAILY JAY Administration Home Medications Medication Instructions Recorded Carbamazepine [Tegretol -] 200 mg PO BID 11/11/18 Lisinopril 10 mg PO DAILY 11/11/18 Methadone [Dolophine -] 30 mg PO DAILY 11/11/18 Pantoprazole Sodium [Protonix] 40 mg PO DAILY 11/11/18 Acetaminophen [Tylenol 500 mg PO Q6H PRN tablet 11/20/18 .Extra-Strength -] Aspirin [ASA -] 81 mg PO DAILY tab.chew 11/20/18 Atorvastatin Ca [Lipitor] 10 mg PO HS tablet 11/20/18 Folic Acid - 1 mg PO DAILY tablet 11/20/18 Thiamine HCl [Vitamin B1 -] 100 mg PO BID tablet 11/20/18 Docusate Sodium [Colace -] 300 mg PO HS #30 capsule 11/21/18 Polyethylene Glycol 3350 [Miralax 17 gm PO DAILY #1 bottle 11/21/18 255 gm Btl -] ASSESSMENT AND PLAN: Patient is a 64yof with PMhx of PSA on methadone, HCV never treated, anxiety, depression, bipolar, HTN, CVA w/ R sided weakness preferring to use wheel chair presented w/ chest pain where ACS was ruled out and appears MSK/anxiety related. #Nondisplaced old fx of chronic type II odontoid fracture. soft collar and neurosurgery consult # s/p chest pain: resolved, CTA neg. for PE, EKG unchanged from prior, Trops negx2, continue supportive care, Tylenol PRN for pain # HCV liver cirrhosis refused treatment w/ Vicenta "years ago" h/o chronic hepatitis C, untreated, as per GI to get abdominal US , in AM to evaluate hepatic parenchyma. outpatient follow-up with Dr. Obregon to evaluate further and to discuss endoscopic evaluation when acute issues are resolved, GI consult appreciated. # HTN: cont. Lisinopril, will increase dosage as needed to control BP #Anxiety disorder: Psych consult: Dr. Laws #PSA with opioid dependence onn Methadone 25mg daily maintenance . #Etoh dependence: no signs of withdrawal, Cont. FA/thiamine/MV daily, counseled on etoh cessation DVT ppx: Lovenox SC GI ppx: PPI
--- NOTE | 2019-09-10 21:19 | CONSULT ---
Consult - text type - Consultation Consultation Note: NEUROSURGERY CONSULTATION Marcela Gan is a 64 year old female who has a PMHx significant for Hepatitis , Ethanol abuse and narcotic dependance who in November 2018 was noted to be acutely weak in her Right upper and lower extremity and also had slurred speech which prompted evaluation in the [facility] ER. CT suggests Type 2 odontoid fracture of unclear age with distraction, but no displacement. 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 There is suggestion of prior degenerative changes, osteophytes and subaxial kyphosis. MRI brain concerning for acute/subacute bilateral lucunar infarcts. Patient intubated when encountered, however, was moving all extremities in struggle with her restraints. Difficult to ascertain lateralization from this exam. Patient was managed conservatively and was ultimately discharged with a Cervical collar. Patient recently presented to the [facility] ED with complaints of a two day history of Right chest pain associated with deep inspiration and shortness of breath. The patient complains of severe neck pain which is aggravated by any neck movements. Patient is moving all extremities symmetrically. CT of the neck allows for evaluation of the C2 fracture complex and there is suggestion of increased soft tissue elevating the tectorial membrane with retrolisthesis of the odontoid fragment into the spinal canal. There is effacement of the ventral CSF space and compresion of the cervicomedullary junction. The fracture has not healed and is now apparently mobile or has translated. Given the severe neck pain with movement and the translation and progressive cord compression, operative treatment with posterior decompression and fixation may be indicated despite the patient's medical comorbidities. Certainly, the patient will be at elevated risk of perioperative sequellae, however, the natural history of a poorly healed odontoid fracture with associated cord compression and mechanical instability is likely quite poor. I discussed the risks, benefits and alternatives to posterior decompression and fusion (either OC fusion with decompression and instrumentation to C6 or C1-6 decompession and fusion) in detail. The risks included, but were not limited to : , coma, paralysis, bleeding, infection, CSF leak possibly requiring spinal drainage or additional surgery, failure to fuse, instrumentation migration/malposition/malfunction and the need for additional surgery. All questions were answered. Informed consent was obtained. The patient was offered the option of seeking another opinion or another surgeon. I explained that I would be away from September 12- and that most likely this could wait until my return since medical optimization and complete characterization of her injury would require some time. Furthermore, if she is experiencing an acute cardiac or infectious/pulmonary condition, surgery may best be delayed. - Cervical collar - GI/DVT Prophylaxis - Medical Optimization/clearance - MRI Cervical without contrast (Choudhri protocol) - Will consider surgery if patient is cleared for week of September 27 - Patient was offered the option of seeking another surgeon or opinion during my absence. I will be available to communicate with the team and will be formally covered by Dr. Shankar Akhtar.
[2019-09-10] MEDS ORDERED: ACETAMINOPHEN 325 MG TABLET (FP) PO PRN (23:11)
[2019-09-11] MEDS ORDERED: METHADONE HCL 5 MG TABLET ONE (06:10)
[2019-09-11] MEDS ORDERED: METHADONE HCL 10 MG TABLET ONE (06:10)
[2019-09-11] MEDS: METHADONE 20 MG, METHADONE 5 MG PO SCH (06:11)
[2019-09-11 08:11] LABS: HEMATOCRIT 38.7 % (32.4-45.2); HEMOGLOBIN 13.3 GM/dL (10.7-15.3); MCH 35.5 pg (25.7-33.7); MCHC 34.2 g/dl (32.0-36.0); MEAN CELL VOLUME 103.6 fl (80-96); MEAN PLT VOLUME 8.8 fl (7.5-11.1); PLATELET COUNT 126 K/MM3 (134-434); RBC 3.74 M/mm3 (3.60-5.2); WHITE BLOOD COUNT 4.3 K/mm3 (4.0-10.0)
[2019-09-11 08:34] LABS: ALBUMIN 3.3 g/dl (3.4-5.0); BILIRUBIN,TOTAL 0.6 mg/dL (0.2-1); BLOOD UREA NITROGEN 8.3 mg/dL (7-18); CREATININE 0.4 mg/dL (0.55-1.3); MAGNESIUM 1.9 mg/dL (1.8-2.4); PHOSPHOROUS 3.1 mg/dL (2.5-4.9); POTASSIUM 3.7 mmol/L (3.5-5.1); TOT PROT 7.5 g/dl (6.4-8.2)
[2019-09-11] MEDS ORDERED: PT OWN MED DRAWER 7, Y5N ONE (09:26)
[2019-09-11] MEDS: ENOXAPARIN NA (PORCINE) 40 MG/0.4 ML DISP.SYRIN SQ SCH (09:31)
[2019-09-11] MEDS: THIAMINE HCL 100 MG TABLET (FP) PO SCH (09:32)
[2019-09-11] MEDS: carBAMazepine 200 MG TABLET PO SCH ×2 (09:32→21:06)
[2019-09-11] MEDS: PANTOPRAZOLE 40 MG TABLET (FP) PO SCH (09:32)
[2019-09-11] MEDS: MULTIVITAMINS (DAILY MVI) TABLET (FP) PO SCH (09:32)
[2019-09-11] MEDS: FOLIC ACID 1 MG TABLET (FP) PO SCH (09:32)
[2019-09-11] MEDS: LISINOPRIL 20 MG TABLET (FP) PO SCH (09:32)
[2019-09-11] MEDS: ASPIRIN 81 MG CHEWABLE TABLETS PO SCH (09:32)
--- NOTE | 2019-09-11 10:26 | PN ---
Progress Note (short form) - Note Progress Note: Patient resting comfortably. Was able to ambulate short distances with two person assistance. MRI pending. Will plan for treatment of unstable C2 fracture after my return on September 27. - Cervical collar - MRI Cervical without contrast - Medical optimization/clearance
--- NOTE | 2019-09-11 15:39 | CONSULT ---
Consult - text type - Consultation Consultation Note: 64 yo F PMH HTN, COPD, HCV, liver cirrhosis, Bipolar, CVA ( 11/2018- R residual weakness), alcohol abuse presenting to ED for R sided chest pain and shortness of breath. pt states that she has had these symptoms for 2 days. pt endorses 20 lb weight loss since her stroke. she states she cannot eat since she has difficulty swallowing. PAST MEDICAL HISTORY: HTN, COPD (not on home O2), HCV, liver cirrhosis, Bipolar, CVA ( 11/2018- R residual weakness), alcohol abuse PAST SURGICAL HISTORY: denies Social History: Smoking:quit 1 month ago. Alcohol:states she has "small ciroc" multiple times per week Drugs: denies Allergies fish derived [Fish derived] Allergy (Intermediate, Verified 09/06/19 14:54) Difficulty Breathing SEAFOOD Allergy (Uncoded 09/06/19 14:54) HOME MEDICATIONS: Home Medications Medication Instructions Recorded Carbamazepine [Tegretol -] 200 mg PO BID 11/11/18 Lisinopril 10 mg PO DAILY 11/11/18 Methadone [Dolophine -] 30 mg PO DAILY 11/11/18 Pantoprazole Sodium [Protonix] 40 mg PO DAILY 11/11/18 Acetaminophen [Tylenol 500 mg PO Q6H PRN tablet 11/20/18 .Extra-Strength -] Aspirin [ASA -] 81 mg PO DAILY tab.chew 11/20/18 Atorvastatin Ca [Lipitor] 10 mg PO HS tablet 11/20/18 Folic Acid - 1 mg PO DAILY tablet 11/20/18 Thiamine HCl [Vitamin B1 -] 100 mg PO BID tablet 11/20/18 Docusate Sodium [Colace -] 300 mg PO HS #30 capsule 11/21/18 Polyethylene Glycol 3350 [Miralax 17 gm PO DAILY #1 bottle 11/21/18 255 gm Btl -] PHYSICAL EXAMINATION AFVSS Cor: RSR, No murmurs, No gallops Lungs: Clear to P&A Abd: Soft, Normal bowel sounds, No organomegaly Ext:No significant edema Skin: No rashes, Integument intact Labs/Meds reviewed A/P 64 yo F PMH HTN, COPD , HCV, liver cirrhosis, Bipolar, CVA ( 11/2018- R residual weakness), alcohol abuse presenting for chest pain and shortness of breath. We have been consulted regarding thrombocytopenia, leukopenia suspect due to underlying liver diseASE will check cultures to r/o infection check B!2/folate/TSH CTA--no PE, cirrhosis, dilated bile ducts f/u neurrosurgery recs regaring C2 fx
--- NOTE | 2019-09-11 18:23 | PN ---
Progress Note (short form) - Note Progress Note: Patient is refusing to wear the neck collar. Vital Signs Temperature 98.0 F 09/11/19 13:41 Pulse Rate 86 09/11/19 13:41 Respiratory Rate 15 09/11/19 08:26 Blood Pressure 122/54 L 09/11/19 13:41 O2 Sat by Pulse Oximetry (%) 97 09/11/19 09:00 GENERAL: The patient is awake, alert, and oriented, in no acute distress. HEAD: Normal with no signs of trauma. EYES: PERRL, extraocular movements intact, sclera anicteric, conjunctiva clear. ENT: Ears normal, oropharynx clear without exudates, moist mucous membranes. NECK: Trachea midline, full range of motion, supple. LUNGS: Breath sounds equal, clear to auscultation bilaterally, no wheezes, no crackles, no accessory muscle use. HEART: Regular rate and rhythm, S1, S2 +, EMILY 2/6 , no rub or gallop. ABDOMEN: Soft, NT,ND, normoactive bowel sounds, no guarding, no rebound, no hepatosplenomegaly, no masses. EXTREMITIES: 2+ pulses, warm, well-perfused, no edema. NEUROLOGICAL: Cranial nerves II through XII grossly intact. Normal speech, gait not observed. PSYCH: Normal mood, normal affect. SKIN: Warm, dry, normal turgor, no rashes or lesions noted CBCD WBC 4.3 K/mm3 (4.0-10.0) 09/11/19 07:20 RBC 3.74 M/mm3 (3.60-5.2) 09/11/19 07:20 Hgb 13.3 GM/dL (10.7-15.3) 09/11/19 07:20 Hct 38.7 % (32.4-45.2) 09/11/19 07:20 MCV 103.6 fl (80-96) H 09/11/19 07:20 MCHC 34.2 g/dl (32.0-36.0) 09/11/19 07:20 RDW 13.0 % (11.6-15.6) 09/11/19 07:20 Plt Count 126 K/MM3 (134-434) L 09/11/19 07:20 MPV 8.8 fl (7.5-11.1) 09/11/19 07:20 CMP Sodium 137 mmol/L (136-145) 09/11/19 07:20 Potassium 3.7 mmol/L (3.5-5.1) 09/11/19 07:20 Chloride 103 mmol/L (98-107) 09/11/19 07:20 Carbon Dioxide 27 mmol/L (21-32) 09/11/19 07:20 Anion Gap 7 MMOL/L (8-16) L 09/11/19 07:20 BUN 8.3 mg/dL (7-18) 09/11/19 07:20 Creatinine 0.4 mg/dL (0.55-1.3) L 09/11/19 07:20 Random Glucose 100 mg/dL (74-106) 09/11/19 07:20 Calcium 9.0 mg/dL (8.5-10.1) 09/11/19 07:20 Total Bilirubin 0.6 mg/dL (0.2-1) 09/11/19 07:20 AST 40 U/L (15-37) H 09/11/19 07:20 ALT 41 U/L (13-61) 09/11/19 07:20 Alkaline Phosphatase 109 U/L (45-117) 09/11/19 07:20 Total Protein 7.5 g/dl (6.4-8.2) 09/11/19 07:20 Albumin 3.3 g/dl (3.4-5.0) L 09/11/19 07:20 CARDIAC ENZYMES Creatine Kinase 64 U/L (26-192) 09/06/19 15:44 Troponin I < 0.02 ng/ml (0.00-0.05) 09/06/19 20:10 Current Medications Generic Name Dose Route Start Last Admin Trade Name Freq PRN Reason Stop Dose Admin Acetaminophen 650 mg 09/10/19 23:11 09/10/19 23:43 Tylenol - PO 650 mg Q6H PRN Administration Fever Or Pain Aspirin 81 mg 09/07/19 10:00 09/11/19 09:32 Asa - PO 81 mg DAILY JAY Administration Atorvastatin Calcium 10 mg 09/07/19 22:00 09/10/19 21:55 Lipitor - PO 10 mg HS JAY Administration Carbamazepine 200 mg 09/07/19 10:00 09/11/19 09:32 Tegretol - PO 200 mg BID JAY Administration Enoxaparin Sodium 40 mg 09/07/19 10:00 09/11/19 09:31 Lovenox - SQ 40 mg DAILY JAY Administration Folic Acid 1 mg 09/07/19 10:00 09/11/19 09:32 Folic Acid - PO 1 mg DAILY JAY Administration Lisinopril 20 mg 09/08/19 10:00 09/11/19 09:32 Prinivil PO 20 mg DAILY JAY Administration Methadone HCl 20 mg/ Methadone 25 mg 09/08/19 06:00 09/11/19 06:11 HCl 5 mg PO 25 mg DAILY@0600 JAY Administration Multivitamins/Minerals/Vitamin C 1 tab 09/07/19 10:00 09/11/19 09:32 Tab-A-Vit - PO 1 tab DAILY JAY Administration Olanzapine 5 mg 09/07/19 22:00 09/10/19 21:55 Zyprexa - PO 5 mg HS JAY Administration Pantoprazole Sodium 40 mg 09/07/19 10:00 09/11/19 09:32 Protonix - PO 40 mg DAILY JAY Administration Sodium Chloride 2 spray 09/06/19 22:57 [place] Nasal [place] - NS BID PRN NASAL CONGESTION Thiamine HCl 100 mg 09/07/19 10:00 09/11/19 09:32 Vitamin B1 - PO 100 mg DAILY JAY Administration Home Medications Medication Instructions Recorded Carbamazepine [Tegretol -] 200 mg PO BID 11/11/18 Lisinopril 10 mg PO DAILY 11/11/18 Methadone [Dolophine -] 30 mg PO DAILY 11/11/18 Pantoprazole Sodium [Protonix] 40 mg PO DAILY 11/11/18 Acetaminophen [Tylenol 500 mg PO Q6H PRN tablet 11/20/18 .Extra-Strength -] Aspirin [ASA -] 81 mg PO DAILY tab.chew 11/20/18 Atorvastatin Ca [Lipitor] 10 mg PO HS tablet 11/20/18 Folic Acid - 1 mg PO DAILY tablet 11/20/18 Thiamine HCl [Vitamin B1 -] 100 mg PO BID tablet 11/20/18 Docusate Sodium [Colace -] 300 mg PO HS #30 capsule 11/21/18 Polyethylene Glycol 3350 [Miralax 17 gm PO DAILY #1 bottle 11/21/18 255 gm Btl -] ASSESSMENT AND PLAN: Patient is a 64yof with PMhx of PSA on methadone, HCV never treated, anxiety, depression, bipolar, HTN, CVA w/ R sided weakness preferring to use wheel chair presented w/ chest pain where ACS was ruled out and appears MSK/anxiety related. #Nondisplaced old fx of chronic type II odontoid fracture. soft collar and neurosurgery consult appreciated, possible sx if patient agrees. # s/p chest pain: resolved, CTA neg. for PE, EKG unchanged from prior, Trops negx2, continue supportive care, Tylenol PRN for pain # HCV liver cirrhosis refused treatment w/ Vicenta "years ago" h/o chronic hepatitis C, untreated, as per GI to get abdominal US , in AM to evaluate hepatic parenchyma. outpatient follow-up with Dr. Obregon to evaluate further and to discuss endoscopic evaluation when acute issues are resolved. # HTN: cont. Lisinopril, will increase dosage as needed to control BP #Anxiety disorder: Psych consult: Dr. Laws #PSA with opioid dependence onn Methadone 25mg daily maintenance . #Etoh dependence: no signs of withdrawal, Cont. FA/thiamine/MV daily, counseled on etoh cessation DVT ppx: Lovenox SC GI ppx: PPI possible dc in am Visit type - Emergency Visit Emergency Visit: Yes ED Registration Date: 09/06/19 Care time: The patient presented to the Emergency Department on the above date and was hospitalized for further evaluation of their emergent condition. - New Patient This patient is new to me today: No - Critical Care Critical Care patient: No - Discharge Referral Referred to [facility] Med P.C.: No
[2019-09-11] MEDS ORDERED: LORazepam 1 MG TABLET PO ONE (20:23)
[2019-09-11] MEDS: ATORVASTATIN CA 10 MG TABLET (FP) PO SCH (21:06)
[2019-09-11] MEDS: OLANZapine 5 MG TABLET PO SCH (21:06)
[2019-09-12] MEDS ORDERED: diphenhydrAMINE HCL 25 MG CAPSULE (FP) PO ONE (00:33)
[2019-09-12] MEDS ORDERED: MELATONIN 5 MG TABLETS PO ONE ×2 (00:33→21:44)
[2019-09-12 03:33] LABS: EPI CELLS 3.7 /HPF (0-5/HPF); HYALINE CASTS 0 /lpf (0-8); PH,URINE 8.5 (5.0-8.0); URINE APPEARANCE CLEAR; URINE BACTERIA 44.2 /hpf (NEGATIVE); URINE BILIRUBIN NEGATIVE (NEGATIVE); URINE COLOR YELLOW; URINE GLUCOSE (UA) NEGATIVE (NEGATIVE); URINE KETONE NEGATIVE (NEGATIVE); URINE LEUK ESTERASE 1+ (NEGATIVE); URINE NITRITE NEGATIVE (NEGATIVE); URINE PROTEIN NEGATIVE (NEGATIVE); URINE RBC 0 /hpf (0-4); URINE WBC 4 /hpf (0-5)
[2019-09-12] MEDS ORDERED: METHADONE HCL 5 MG TABLET ONE (06:10)
[2019-09-12] MEDS ORDERED: METHADONE HCL 10 MG TABLET ONE (06:10)
[2019-09-12] MEDS: METHADONE 20 MG, METHADONE 5 MG PO SCH (06:28)
[2019-09-12] MEDS: MULTIVITAMINS (DAILY MVI) TABLET (FP) PO SCH (09:37)
[2019-09-12] MEDS: PANTOPRAZOLE 40 MG TABLET (FP) PO SCH (09:37)
[2019-09-12] MEDS: THIAMINE HCL 100 MG TABLET (FP) PO SCH (09:37)
[2019-09-12] MEDS: carBAMazepine 200 MG TABLET PO SCH ×2 (09:37→21:17)
[2019-09-12] MEDS: ASPIRIN 81 MG CHEWABLE TABLETS PO SCH (09:37)
[2019-09-12] MEDS: LISINOPRIL 20 MG TABLET (FP) PO SCH (09:37)
[2019-09-12] MEDS: FOLIC ACID 1 MG TABLET (FP) PO SCH (09:37)
[2019-09-12] MEDS: ENOXAPARIN NA (PORCINE) 40 MG/0.4 ML DISP.SYRIN SQ SCH (09:38)
--- NOTE | 2019-09-12 14:36 | PN ---
Physical Exam: SUBJECTIVE: Patient seen and examined at bedside. No complaints overnight. She says she does not want to wear cervical collar because it is uncomfortable. She was educated on the importance of the collar and the patient partnered, agreeing to wear the collar. She says her neck does not actively hurt now but can be uncomfortable after sleeping in certain positions. OBJECTIVE: Vital Signs Period Temp Pulse Resp BP Sys/Pleitez Pulse Ox Last 24 Hr 98 F-98.4 F 82-93 20-20 126-133/75-80 96-98 GENERAL: Awake, alert, and fully oriented, in no acute distress. HEAD: Normal with no signs of trauma. EYES: Pupils equal, round and reactive to light, extraocular movements intact, sclera anicteric, conjunctiva clear. EARS, NOSE, THROAT: nares patent, oropharynx clear. Moist mucous membranes. NECK: Normal range of motion, supple without lymphadenopathy, JVD, or masses. LUNGS: Breath sounds decreased b/l scattered expiratory wheezes. No accessory muscle use. HEART: Regular rate and rhythm, normal S1 and S2 without murmur, rub or gallop. ABDOMEN: Soft, nontender, not distended, normoactive bowel sounds, no guarding, no rebound, no masses. MUSCULOSKELETAL: Neck FROM 5/5. Normal range of motion at all joints. No bony deformities or tenderness. No CVA tenderness. UPPER EXTREMITIES: 2+ pulses, warm, well-perfused. No cyanosis. No clubbing. No peripheral edema. LOWER EXTREMITIES: 2+ pulses, warm, well-perfused. No calf tenderness. No peripheral edema. NEUROLOGICAL: Cranial nerves II-XII intact. Normal speech.gait not observed PSYCHIATRIC: Anxious. Cooperative. Good eye contact. SKIN: Covered sacral decubitus ulcer. Warm, dry, normal turgor, no rashes or lesions noted, normal capillary refill. Laboratory Results - last 24 hr 09/12/19 09/12/19 09/12/19 03:14 08:10 08:10 ESR 58 H C-Reactive Protein 0.6 H Vitamin B12 389 TSH 0.96 Free T4 0.85 Urine Color Yellow Urine Appearance Clear Urine pH 8.5 H D Ur Specific Novelty 1.008 L Urine Protein Negative Urine Glucose (UA) Negative Urine Ketones Negative Urine Blood Negative Urine Nitrite Negative Urine Bilirubin Negative Urine Urobilinogen 1.0 Ur Leukocyte Esterase 1+ H Urine WBC (Auto) 4 Urine RBC (Auto) 0 Urine Casts (Auto) 0 U Epithel Cells (Auto) 3.7 Urine Bacteria (Auto) 44.2 Active Medications Acetaminophen (Tylenol -) 650 mg PO Q6H PRN PRN Reason: Fever Or Pain Last Admin: 09/10/19 23:43 Dose: 650 mg Aspirin (Asa -) 81 mg PO DAILY [facility] Last Admin: 09/12/19 09:37 Dose: 81 mg Atorvastatin Calcium (Lipitor -) 10 mg PO HS [facility] Last Admin: 09/11/19 21:06 Dose: 10 mg Carbamazepine (Tegretol -) 200 mg PO BID [facility] Last Admin: 09/12/19 09:37 Dose: 200 mg Enoxaparin Sodium (Lovenox -) 40 mg SQ DAILY [facility] Last Admin: 09/12/19 09:38 Dose: 40 mg Folic Acid (Folic Acid -) 1 mg PO DAILY [facility] Last Admin: 09/12/19 09:37 Dose: 1 mg Lisinopril (Prinivil) 20 mg PO DAILY [facility] Last Admin: 09/12/19 09:37 Dose: 20 mg Methadone HCl 20 mg/ Methadone (HCl 5 mg) 25 mg PO DAILY@0600 [facility] Last Admin: 09/12/19 06:28 Dose: 25 mg Multivitamins/Minerals/Vitamin C (Tab-A-Vit -) 1 tab PO DAILY [facility] Last Admin: 09/12/19 09:37 Dose: 1 tab Olanzapine (Zyprexa -) 5 mg PO [facility] Last Admin: 09/11/19 21:06 Dose: 5 mg Pantoprazole Sodium (Protonix -) 40 mg PO DAILY [facility] Last Admin: 09/12/19 09:37 Dose: 40 mg Sodium Chloride ([place] Nasal [place] -) 2 spray NS BID PRN PRN Reason: NASAL CONGESTION Thiamine HCl (Vitamin B1 -) 100 mg PO DAILY [facility] Last Admin: 09/12/19 09:37 Dose: 100 mg ASSESSMENT/PLAN: 64 y/o female PMH HTN, COPD (not on home O2), HCV, liver cirrhosis, Bipolar, CVA ( 11/2018- R residual weakness), alcohol abuse presenting for chest pain and shortness of breath. ACS ruled out. Pt experiencing difficulty swallowing. Neck pain on 09 Sep 2019, worked up as described below. Plan for dc to [facility] till neurosurgery can be scheduled. # Neck pain - FROM, no loss of sensation, 5/5 strength to lateralization and nod. Not present today. - Neck xray showed prominence of posterior vertebral tissue - CT neck: Compared to [address], interval development of mild posterior displacement, chronic type II odontoid fracture. Seen previously on spine MRI on 11 November 2018 - Radiologist's findings discussed with covering team in PM, recommended soft collar and neurosurgery consult - Pt amenable to cervical collar today - Neurosurgery consulted and recommend surgery either after [address] Banerjee or soon with Dr. Florez if she chooses. # Dysphagia - S/s assessment: Dysphagia Minced, 1 - 2 Soft Items, thin liquids, supplement with Ensure, Magic Cup, Ensure Pudding - MBS: Limited exam 2/2 movement. No gross evidence of esophageal stricture or holdup of contrast. # Atypical chest pain likely 2/2 Acute URI - Trop negative x 2 - EKG unchanged from prior, NSR - Afebrile, no leukocytosis - Duonebs prn - [place] nasal spray - Chest CTA NEGATIVE for PE - Stress testing 08/2019: mild inferior ischemia, low risk finding - FLU/RSV NEGATIVE # Bipolar depression - Psychiatry consulted - Olanzepine (Zyprexa) 5 mg po HS for hypomania # Macrocytosis w/o anemia - Unclear if from chronic liver disease or alternate etiology, etoh? - Heme/onc consulter: suspect due to underlying liver disease, will check cultures to r/o infection, B12 WNL /folate HIGH/TSH LOW, ? meds --tegretol/ zyprexa # Liver cirrhosis, HCV - Abdominal US findings; ordered 09 Sep 2019 to evaluate hepatic parenchyma: CBD dilation 1.8 cm as in last study. MRCP recommended - Outpatient follow-up with Dr. Obregon to evaluate further and to discuss endoscopic evaluation when acute issues are resolved # HTN - Lisinopril 20 mg PO QD # H/o CVA - Atorvastatin 10 mg PO HS, ASA 81 mg PO QD - Inability to ambulate - PT notates independent - Social work for possible placement # H/o substance abuse - Methadone 25 mg PO QD, Confirmed with Halina Davidson [facility] [place] [id number] - Multivit, thiamine 100 mg PO QD # Low TSH - Presently asymptomatic - F/u out patient # F/E/N - PO - Cont to monitor - Dysphagia minced # DVT ppx - Enoxaparin 40 mg sq QD # Disposition - Med/surg - Walked 20 feet with PT - Plan for DC to SNF ([facility]) tomorrow 13 September 2019 Serg Tamayo MD Visit type - Emergency Visit Emergency Visit: No - New Patient This patient is new to me today: No - Critical Care Critical Care patient: No ATTENDING PHYSICIAN STATEMENT I saw and evaluated the patient. I reviewed the resident's note and discussed the case with the resident. I agree with the resident's findings and plan as documented. SUBJECTIVE: OBJECTIVE: ASSESSMENT AND PLAN:
--- NOTE | 2019-09-12 19:11 | PN ---
Teaching Attending Note Name of Resident: Serg Tamayo ATTENDING PHYSICIAN STATEMENT I saw and evaluated the patient. I reviewed the resident's note and discussed the case with the resident. I agree with the resident's findings and plan as documented. SUBJECTIVE: Patient is comfortable with no acute distress. no nausea or vomiting. Vital Signs Temperature 97.8 F 09/12/19 15:00 Pulse Rate 87 09/12/19 15:00 Respiratory Rate 20 09/12/19 15:00 Blood Pressure 124/76 09/12/19 15:00 O2 Sat by Pulse Oximetry (%) 98 09/12/19 09:00 GENERAL: The patient is awake, alert, and oriented, in no acute distress. HEAD: Normal with no signs of trauma. EYES: PERRL, extraocular movements intact, sclera anicteric, conjunctiva clear. ENT: Ears normal, oropharynx clear without exudates, moist mucous membranes. NECK: Trachea midline, full range of motion, supple. LUNGS: Breath sounds equal, clear to auscultation bilaterally, no wheezes, no crackles, no accessory muscle use. HEART: Regular rate and rhythm, S1, S2 +, EMILY 2/6 , no rub or gallop. ABDOMEN: Soft, NT,ND, normoactive bowel sounds, no guarding, no rebound, no hepatosplenomegaly, no masses. EXTREMITIES: 2+ pulses, warm, well-perfused, no edema. NEUROLOGICAL: Cranial nerves II through XII grossly intact. Normal speech, gait not observed. PSYCH: Normal mood, normal affect. SKIN: Warm, dry, normal turgor, no rashes or lesions noted CBCD WBC 4.3 K/mm3 (4.0-10.0) 09/11/19 07:20 RBC 3.74 M/mm3 (3.60-5.2) 09/11/19 07:20 Hgb 13.3 GM/dL (10.7-15.3) 09/11/19 07:20 Hct 38.7 % (32.4-45.2) 09/11/19 07:20 MCV 103.6 fl (80-96) H 09/11/19 07:20 MCHC 34.2 g/dl (32.0-36.0) 09/11/19 07:20 RDW 13.0 % (11.6-15.6) 01/04/20 07:20 Plt Count 126 K/MM3 (134-434) L 09/11/19 07:20 MPV 8.8 fl (7.5-11.1) 09/11/19 07:20 CMP Sodium 137 mmol/L (136-145) 09/11/19 07:20 Potassium 3.7 mmol/L (3.5-5.1) 09/11/19 07:20 Chloride 103 mmol/L (98-107) 09/11/19 07:20 Carbon Dioxide 27 mmol/L (21-32) 09/11/19 07:20 Anion Gap 7 MMOL/L (8-16) L 09/11/19 07:20 BUN 8.3 mg/dL (7-18) 09/11/19 07:20 Creatinine 0.4 mg/dL (0.55-1.3) L 09/11/19 07:20 Random Glucose 100 mg/dL (74-106) 09/11/19 07:20 Calcium 9.0 mg/dL (8.5-10.1) 09/11/19 07:20 Total Bilirubin 0.6 mg/dL (0.2-1) 09/11/19 07:20 AST 40 U/L (15-37) H 09/11/19 07:20 ALT 41 U/L (13-61) 09/11/19 07:20 Alkaline Phosphatase 109 U/L (45-117) 09/11/19 07:20 Total Protein 7.5 g/dl (6.4-8.2) 09/11/19 07:20 Albumin 3.3 g/dl (3.4-5.0) L 09/11/19 07:20 CARDIAC ENZYMES Creatine Kinase 64 U/L (26-192) 09/06/19 15:44 Troponin I < 0.02 ng/ml (0.00-0.05) 09/06/19 20:10 Current Medications Generic Name Dose Route Start Last Admin Trade Name Freq PRN Reason Stop Dose Admin Acetaminophen 650 mg 09/10/19 23:11 09/10/19 23:43 Tylenol - PO 650 mg Q6H PRN Administration Fever Or Pain Aspirin 81 mg 09/07/19 10:00 09/12/19 09:37 Asa - PO 81 mg DAILY JAY Administration Atorvastatin Calcium 10 mg 09/07/19 22:00 09/11/19 21:06 Lipitor - PO 10 mg HS JAY Administration Carbamazepine 200 mg 09/07/19 10:00 09/12/19 09:37 Tegretol - PO 200 mg BID JAY Administration Enoxaparin Sodium 40 mg 09/07/19 10:00 09/12/19 09:38 Lovenox - SQ 40 mg DAILY JAY Administration Folic Acid 1 mg 09/07/19 10:00 09/12/19 09:37 Folic Acid - PO 1 mg DAILY JAY Administration Lisinopril 20 mg 09/08/19 10:00 09/12/19 09:37 Prinivil PO 20 mg DAILY JAY Administration Methadone HCl 20 mg/ Methadone 25 mg 09/08/19 06:00 09/12/19 06:28 HCl 5 mg PO 25 mg DAILY@0600 JAY Administration Multivitamins/Minerals/Vitamin C 1 tab 09/07/19 10:00 09/12/19 09:37 Tab-A-Vit - PO 1 tab DAILY JAY Administration Olanzapine 5 mg 09/07/19 22:00 09/11/19 21:06 Zyprexa - PO 5 mg HS JAY Administration Pantoprazole Sodium 40 mg 09/07/19 10:00 09/12/19 09:37 Protonix - PO 40 mg DAILY JAY Administration Sodium Chloride 2 spray 09/06/19 22:57 [place] Nasal [place] - NS BID PRN NASAL CONGESTION Thiamine HCl 100 mg 09/07/19 10:00 09/12/19 09:37 Vitamin B1 - PO 100 mg DAILY JAY Administration Home Medications Medication Instructions Recorded Carbamazepine [Tegretol -] 200 mg PO BID 11/11/18 Lisinopril 10 mg PO DAILY 11/11/18 Methadone [Dolophine -] 30 mg PO DAILY 11/11/18 Pantoprazole Sodium [Protonix] 40 mg PO DAILY 11/11/18 Acetaminophen [Tylenol 500 mg PO Q6H PRN tablet 11/20/18 .Extra-Strength -] Aspirin [ASA -] 81 mg PO DAILY tab.chew 11/20/18 Atorvastatin Ca [Lipitor] 10 mg PO HS tablet 11/20/18 Folic Acid - 1 mg PO DAILY tablet 11/20/18 Thiamine HCl [Vitamin B1 -] 100 mg PO BID tablet 11/20/18 Docusate Sodium [Colace -] 300 mg PO HS #30 capsule 11/21/18 Polyethylene Glycol 3350 [Miralax 17 gm PO DAILY #1 bottle 11/21/18 255 gm Btl -] ASSESSMENT AND PLAN: Patient is a 64yof with PMhx of PSA on methadone, HCV never treated, anxiety, depression, bipolar, HTN, CVA w/ R sided weakness preferring to use wheel chair presented w/ chest pain where ACS was ruled out and appears MSK/anxiety related. #Nondisplaced old fx of chronic type II odontoid fracture. soft collar and neurosurgery consult appreciated, possible sx if patient agrees on the week of 27 of September. # s/p chest pain: resolved, CTA neg. for PE, EKG unchanged from prior, Trops negx2, continue supportive care, Tylenol PRN for pain # HCV liver cirrhosis refused treatment w/ [facility] "years ago" h/o chronic hepatitis C, untreated, as per GI to get abdominal US , in AM to evaluate hepatic parenchyma. outpatient follow-up with Dr. Obregon to evaluate further and to discuss endoscopic evaluation when acute issues are resolved. # HTN: cont. Lisinopril, will increase dosage as needed to control BP #Anxiety disorder: Psych consult: Dr. Laws appreciated #PSA with opioid dependence onn Methadone 25mg daily maintenance . #Etoh dependence: no signs of withdrawal, Cont. FA/thiamine/MV daily, counseled on etoh cessation DVT ppx: Lovenox SC GI ppx: PPI dc to rehab. once accepted
[2019-09-12] MEDS ORDERED: PT OWN MED DRAWER 7, Y5N ONE (21:16)
[2019-09-12] MEDS: OLANZapine 5 MG TABLET PO SCH (21:17)
[2019-09-12] MEDS: ATORVASTATIN CA 10 MG TABLET (FP) PO SCH (21:17)
[2019-09-12] MEDS ORDERED: LORazepam 1 MG TABLET PO ONE (21:44)
[2019-09-13] MEDS ORDERED: METHADONE HCL 10 MG TABLET ONE (05:41)
[2019-09-13] MEDS ORDERED: METHADONE HCL 5 MG TABLET ONE (05:41)
[2019-09-13] MEDS: METHADONE 20 MG, METHADONE 5 MG PO SCH (05:49)
[2019-09-13 08:17] LABS: HEMATOCRIT 40.5 % (32.4-45.2); MCH 35.2 pg (25.7-33.7); MCHC 34.6 g/dl (32.0-36.0); MEAN CELL VOLUME 101.8 fl (80-96); MEAN PLT VOLUME 9.3 fl (7.5-11.1); PLATELET COUNT 154 K/MM3 (134-434); RBC 3.98 M/mm3 (3.60-5.2); RDW 13.4 % (11.6-15.6); WHITE BLOOD COUNT 4.2 K/mm3 (4.0-10.0)
[2019-09-13 08:49] LABS: ALBUMIN 3.4 g/dl (3.4-5.0); BILIRUBIN,TOTAL 0.4 mg/dL (0.2-1); CALCIUM 9.2 mg/dL (8.5-10.1); CREATININE 0.5 mg/dL (0.55-1.3); MAGNESIUM 1.9 mg/dL (1.8-2.4); PHOSPHOROUS 3.3 mg/dL (2.5-4.9); POTASSIUM 4.4 mmol/L (3.5-5.1)
[2019-09-13] MEDS ORDERED: PT OWN MED DRAWER 7, Y5N ONE (10:01)
[2019-09-13] MEDS: ASPIRIN 81 MG CHEWABLE TABLETS PO SCH (10:05)
[2019-09-13] MEDS: carBAMazepine 200 MG TABLET PO SCH (10:05)
[2019-09-13] MEDS: PANTOPRAZOLE 40 MG TABLET (FP) PO SCH (10:05)
[2019-09-13] MEDS: FOLIC ACID 1 MG TABLET (FP) PO SCH (10:05)
[2019-09-13] MEDS: THIAMINE HCL 100 MG TABLET (FP) PO SCH (10:05)
[2019-09-13] MEDS: LISINOPRIL 20 MG TABLET (FP) PO SCH (10:05)
[2019-09-13] MEDS: ENOXAPARIN NA (PORCINE) 40 MG/0.4 ML DISP.SYRIN SQ SCH (10:05)
[2019-09-13] MEDS: MULTIVITAMINS (DAILY MVI) TABLET (FP) PO SCH (10:05)
--- NOTE | 2019-09-13 11:51 | PN ---
Progress Note, [employer]AND[employer]PER[employer] - Note Progress Note: Selected Entries 09/12/19 09/12/19 09/12/19 01:00 05:00 09:00 Breakfast Lunch Supper Temperature 98.2 F 98 F 98 F 09/12/19 09/12/19 09/12/19 10:00 15:00 19:44 Breakfast 25% Lunch 25% Supper 50% 50% Temperature 97.8 F 09/12/19 09/13/19 09/13/19 21:43 05:00 09:00 Breakfast Lunch Supper Temperature 97.3 F L 97.7 F 97.8 F 09/13/19 09/13/19 09:30 09:40 Breakfast 75% 75% Lunch Supper Temperature Laboratory Tests 09/13/19 06:46 WBC 4.2 Tolerating DYS chopped/thin MBS ordered, to be done today to upgrade diet.
--- NOTE | 2019-09-13 13:49 | DS ---
Physical Exam: SUBJECTIVE: Patient seen and examined at bedside. She offers no complaints today. She is eager to continue care at SNF. Daughter Oriana agrees with plan. OBJECTIVE: Vital Signs Period Temp Pulse Resp BP Sys/Pleitez Pulse Ox Last 24 Hr 97.3 F-97.8 F 74-90 20-20 97-150/55-90 97-100 PHYSICAL EXAM GENERAL: Awake, alert, and fully oriented, in no acute distress. HEAD: Normal with no signs of trauma. EYES: Pupils equal, round and reactive to light, extraocular movements intact, sclera anicteric, conjunctiva clear. EARS, NOSE, THROAT: nares patent, oropharynx clear. Moist mucous membranes. NECK: Normal range of motion, supple without lymphadenopathy, JVD, or masses. LUNGS: Breath sounds decreased b/l scattered expiratory wheezes. No accessory muscle use. HEART: Regular rate and rhythm, normal S1 and S2 without murmur, rub or gallop. ABDOMEN: Soft, nontender, not distended, normoactive bowel sounds, no guarding, no rebound, no masses. MUSCULOSKELETAL: Neck FROM 5/5. Normal range of motion at all joints. No bony deformities or tenderness. No CVA tenderness. UPPER EXTREMITIES: 2+ pulses, warm, well-perfused. No cyanosis. No clubbing. No peripheral edema. LOWER EXTREMITIES: 2+ pulses, warm, well-perfused. No calf tenderness. No peripheral edema. NEUROLOGICAL: Cranial nerves II-XII intact. Normal speech.gait not observed PSYCHIATRIC: Anxious. Cooperative. Good eye contact. SKIN: Covered sacral decubitus ulcer. Warm, dry, normal turgor, no rashes or lesions noted, normal capillary refill. LABS Laboratory Results - last 24 hr 09/08/19 09/13/19 09/13/19 07:45 06:46 06:46 WBC 4.2 RBC 3.98 Hgb 14.0 Hct 40.5 MCV 101.8 H MCH 35.2 H MCHC 34.6 RDW 13.4 Plt Count 154 D MPV 9.3 Sodium 135 L Potassium 4.4 Chloride 101 Carbon Dioxide 27 Anion Gap 7 L BUN 8.0 Creatinine 0.5 L Est GFR (CKD-EPI)AfAm 116.89 Est GFR (CKD-EPI)NonAf 100.85 Random Glucose 113 H Calcium 9.2 Phosphorus 3.3 Magnesium 1.9 Total Bilirubin 0.4 AST 47 H ALT 43 Alkaline Phosphatase 118 H Total Protein 8.0 Albumin 3.4 HCV Quantitation [id number] HCV RNA log copies/mL 5.621 HOSPITAL COURSE: Date of Admission:09/06/19 64 y/o female PMH HTN, COPD (not on home O2), HCV, liver cirrhosis, Bipolar, CVA ( 11/2018- R residual weakness), alcohol abuse presenting for chest pain and shortness of breath. ACS ruled out. Atypical chest pain likely 2/2 Acute URI as trop negative x2, EKG unchanged from prior, NSR, afebrile, no leukocytosis. She was given duonebs prn. Chest CTA NEGATIVE for PE. Stress testing 08/2019: mild inferior ischemia, low risk finding. FLU/RSV NEGATIVE. During stay she c/o neck pain. On exam she demonstrated FROM, no loss of sensation, 5/5 strength to lateralization and nod. Likely 2/2 to fall in November 2018 s/p CVA. Neck xray showed prominence of posterior vertebral tissue. CT neck : Compared to [address], interval development of mild posterior displacement, chronic type II odontoid fracture. Seen previously on spine MRI on 11 November 2018. Cervical collar recommended and neurosurgery consulted. Neurosurgery recommend surgery either after [address] Banerjee or soon with Dr. Florez if she chooses. Pt experienced difficulty swallowing. Neck pain on 09 Sep 2019, worked up as described below. Plan for dc to [facility] till neurosurgery can be scheduled. S/s assessment: Dysphagia Minced, 1 - 2 Soft Items, thin liquids, supplement with Ensure, Magic Cup, Ensure Pudding. MBS: Limited exam 2/2 movement. No gross evidence of esophageal stricture or holdup of contrast. For her bipolar depression, psychiatry was consulted and prescribed Olanzepine ( Zyprexa) 5 mg po HS for hypomania. While here she also demonstrated macrocytosis w/o anemia. Unclear if from chronic liver disease or alternate etiology. Heme/onc consulted and wrote that it is suspect due to underlying liver disease, will check cultures to r/o infection, B12 WNL /folate HIGH/TSH LOW, ? meds --tegretol/zyprexa. Given liver cirrhosis and chronic HCV abd us ordered. Abdominal US findings: CBD dilation 1.8 cm as in last study. MRCP recommended but declined by pt. Outpatient follow-up with Dr. Obregon to evaluate further and to discuss endoscopic evaluation when acute issues are resolved. HTN treated with lisinopril 20 mg PO QD. For h/o CVA, home regimen was sustained : Atorvastatin 10 mg PO HS, ASA 81 mg PO QD. She has h/o substance abuse and methadone 25 mg PO QD restarted, confirmed with Halina Davidson [facility] [place] [id number]. She was given Multivit, thiamine 100 mg PO QD. A low TSH was noted but she is presently asymptomatic and it was recommended she gets w/u out patient Date of Discharge: 09/13/19 Serg Tamayo MD Minutes to complete discharge: 40 Discharge Summary Problems reviewed: Yes Reason For Visit: SHORTNESS OF BREATH, NECK PAIN, CHEST PAIN Current Active Problems Hepatitis C (Chronic) Macrocytosis (Chronic) Macrocytosis without anemia (Chronic) Neck pain (Chronic) Condition: Improved - Instructions Diet, Activity, Other Instructions: YOUR VISIT You came to the hospital because you were feeling chest tightness. You were admitted to the hospital for care of this problem. While here, you were seen by a table games manager. You were also seen by an neurosurgeon for the long- standing fracture in your neck. Surgery was recommended. You are stable and may now go to rehabilitation till the surgery. MEDICATIONS Please continue to take your medications as prescribed. ADDITIONAL CARE Please make an appointment to see your primary care provider, Dr. Dr. Briscoe, 1 week from today. Please make an appointment to see your psychiatrist, 1 week from today. A referral to Dr. Dr. Laws has been provided. Please make an appointment to see a table games manager in 1 week. A referral has to Dr. Obregon has been provided. You will be evaluated for the need for endoscopic evaluation (diagnostic EGD/colonoscopy) Please make an appointment to see Dr. Drew, neurosurgeon, 1 week from today to plan for your possible surgery. You have a fracture in your neck that needs attention. Please continue to wear your neck collar. DIET: Dysphagia ground diet with single sips of thin liquid. Ensure pudding and magic cup. Single sips, no straw drinking and continuous drinking. IF congestion noted then need to be on nectar thick liquid. ADDITIONAL INFORMATION Please call 911 or come directly to the emergency department if you experience unusual headache, vision change, shortness of breath, chest pain, numbness, tingling, loss of alertness/awareness, loss of function, unusual bleeding or any alarming symptoms. Referrals: Johnnie Briscoe MD [Primary Care Provider] - 1 Week Rhonda Laws MD [Staff Physician] - 1 Week Jun Banerjee MD, FAANS [Staff Physician] - 1 Week Divina Obregon DO [Staff Physician] - 1 Week Disposition: NURSING HOME FACILITY - Home Medications Comprehensive Discharge Medication List: Ambulatory Orders Carbamazepine [Tegretol -] 200 mg PO BID 11/11/18 Lisinopril 10 mg PO DAILY 11/11/18 Methadone [Dolophine -] 30 mg PO DAILY 11/11/18 Pantoprazole Sodium [Protonix] 40 mg PO DAILY 11/11/18 Acetaminophen [Tylenol .Extra-Strength -] 500 mg PO Q6H PRN tablet 11/20/18 Aspirin [ASA -] 81 mg PO DAILY tab.chew 11/20/18 Atorvastatin Ca [Lipitor] 10 mg PO HS tablet 11/20/18 Folic Acid - 1 mg PO DAILY tablet 11/20/18 Thiamine HCl [Vitamin B1 -] 100 mg PO BID tablet 11/20/18 Docusate Sodium [Colace -] 300 mg PO HS #30 capsule 11/21/18 Polyethylene Glycol 3350 [Miralax 255 gm Btl -] 17 gm PO DAILY #1 bottle This patient is new to me today: No Emergency Visit: No Critical Care patient: No - Discharge Referral Referred to [facility] Med [facility] No ATTENDING PHYSICIAN STATEMENT I saw and evaluated the patient. I reviewed the resident's note and discussed the case with the resident. I agree with the resident's findings and plan as documented. SUBJECTIVE: OBJECTIVE: ASSESSMENT AND PLAN:
[2019-09-13 15:07] VITALS: BP 100/63; PULSE 77; TEMP 97.4
[2019-09-13 16:07] LABS: HCV RNA GENOTYPE 1b (.)
--- NOTE | 2019-09-13 17:40 | PN ---
Teaching Attending Note Name of Resident: Serg Tamayo ATTENDING PHYSICIAN STATEMENT I saw and evaluated the patient. I reviewed the resident's note and discussed the case with the resident. I agree with the resident's findings and plan as documented. SUBJECTIVE: Patient is comfortable with no acute distress, no nausea or vomiting, no shortness of breath. Patient is refusing to wear a neck collar. lying in bed with no acute distress. OBJECTIVE: Vital Signs Temperature 97.4 F L 09/13/19 15:02 Pulse Rate 77 09/13/19 15:02 Respiratory Rate 20 09/13/19 15:02 Blood Pressure 100/63 09/13/19 15:02 O2 Sat by Pulse Oximetry (%) 100 09/13/19 09:00 GENERAL: The patient is awake, alert, and oriented, in no acute distress. HEAD: Normal with no signs of trauma. EYES: PERRL, extraocular movements intact, sclera anicteric, conjunctiva clear. ENT: Ears normal, oropharynx clear without exudates, moist mucous membranes. NECK: Trachea midline, full range of motion, supple. LUNGS: Breath sounds equal, clear to auscultation bilaterally, no wheezes, no crackles, no accessory muscle use. HEART: Regular rate and rhythm, S1, S2 +, EMILY 2/6 , no rub or gallop. ABDOMEN: Soft, NT,ND, normoactive bowel sounds, no guarding, no rebound, no hepatosplenomegaly, no masses. EXTREMITIES: 2+ pulses, warm, well-perfused, no edema. NEUROLOGICAL: Cranial nerves II through XII grossly intact. Normal speech, gait not observed. PSYCH: Normal mood, normal affect. SKIN: Warm, dry, normal turgor, no rashes or lesions noted CBCD WBC 4.2 K/mm3 (4.0-10.0) 09/13/19 06:46 RBC 3.98 M/mm3 (3.60-5.2) 09/13/19 06:46 Hgb 14.0 GM/dL (10.7-15.3) 09/13/19 06:46 Hct 40.5 % (32.4-45.2) 09/13/19 06:46 MCV 101.8 fl (80-96) H 09/13/19 06:46 MCHC 34.6 g/dl (32.0-36.0) 09/13/19 06:46 RDW 13.4 % (11.6-15.6) 09/13/19 06:46 Plt Count 154 K/MM3 (134-434) D 09/13/19 06:46 MPV 9.3 fl (7.5-11.1) 09/13/19 06:46 CMP Sodium 135 mmol/L (136-145) L 09/13/19 06:46 Potassium 4.4 mmol/L (3.5-5.1) 09/13/19 06:46 Chloride 101 mmol/L (98-107) 09/13/19 06:46 Carbon Dioxide 27 mmol/L (21-32) 09/13/19 06:46 Anion Gap 7 MMOL/L (8-16) L 09/13/19 06:46 BUN 8.0 mg/dL (7-18) 09/13/19 06:46 Creatinine 0.5 mg/dL (0.55-1.3) L 09/13/19 06:46 Random Glucose 113 mg/dL (74-106) H 09/13/19 06:46 Calcium 9.2 mg/dL (8.5-10.1) 09/13/19 06:46 Total Bilirubin 0.4 mg/dL (0.2-1) 09/13/19 06:46 AST 47 U/L (15-37) H 09/13/19 06:46 ALT 43 U/L (13-61) 09/13/19 06:46 Alkaline Phosphatase 118 U/L (45-117) H 09/13/19 06:46 Total Protein 8.0 g/dl (6.4-8.2) 09/13/19 06:46 Albumin 3.4 g/dl (3.4-5.0) 09/13/19 06:46 CARDIAC ENZYMES Creatine Kinase 64 U/L (26-192) 09/06/19 15:44 Troponin I < 0.02 ng/ml (0.00-0.05) 09/06/19 20:10 CBCD WBC 4.2 K/mm3 (4.0-10.0) 09/13/19 06:46 RBC 3.98 M/mm3 (3.60-5.2) 09/13/19 06:46 Hgb 14.0 GM/dL (10.7-15.3) 09/13/19 06:46 Hct 40.5 % (32.4-45.2) 09/13/19 06:46 MCV 101.8 fl (80-96) H 09/13/19 06:46 MCHC 34.6 g/dl (32.0-36.0) 09/13/19 06:46 RDW 13.4 % (11.6-15.6) 09/13/19 06:46 Plt Count 154 K/MM3 (134-434) D 09/13/19 06:46 MPV 9.3 fl (7.5-11.1) 09/13/19 06:46 CMP Sodium 135 mmol/L (136-145) L 09/13/19 06:46 Potassium 4.4 mmol/L (3.5-5.1) 09/13/19 06:46 Chloride 101 mmol/L (98-107) 09/13/19 06:46 Carbon Dioxide 27 mmol/L (21-32) 09/13/19 06:46 Anion Gap 7 MMOL/L (8-16) L 09/13/19 06:46 BUN 8.0 mg/dL (7-18) 09/13/19 06:46 Creatinine 0.5 mg/dL (0.55-1.3) L 09/13/19 06:46 Random Glucose 113 mg/dL (74-106) H 09/13/19 06:46 Calcium 9.2 mg/dL (8.5-10.1) 09/13/19 06:46 Total Bilirubin 0.4 mg/dL (0.2-1) 09/13/19 06:46 AST 47 U/L (15-37) H 09/13/19 06:46 ALT 43 U/L (13-61) 09/13/19 06:46 Alkaline Phosphatase 118 U/L (45-117) H 09/13/19 06:46 Total Protein 8.0 g/dl (6.4-8.2) 09/13/19 06:46 Albumin 3.4 g/dl (3.4-5.0) 09/13/19 06:46 CARDIAC ENZYMES Creatine Kinase 64 U/L (26-192) 09/06/19 15:44 Troponin I < 0.02 ng/ml (0.00-0.05) 09/06/19 20:10 Home Medications Medication Instructions Recorded Carbamazepine [Tegretol -] 200 mg PO BID 11/11/18 Lisinopril 10 mg PO DAILY 11/11/18 Methadone [Dolophine -] 30 mg PO DAILY 11/11/18 Pantoprazole Sodium [Protonix] 40 mg PO DAILY 11/11/18 Acetaminophen [Tylenol 500 mg PO Q6H PRN tablet 11/20/18 .Extra-Strength -] Aspirin [ASA -] 81 mg PO DAILY tab.chew 11/20/18 Atorvastatin Ca [Lipitor] 10 mg PO HS tablet 11/20/18 Folic Acid - 1 mg PO DAILY tablet 11/20/18 Thiamine HCl [Vitamin B1 -] 100 mg PO BID tablet 11/20/18 Docusate Sodium [Colace -] 300 mg PO HS #30 capsule 11/21/18 Polyethylene Glycol 3350 [Miralax 17 gm PO DAILY #1 bottle 11/21/18 255 gm Btl -] Carbamazepine [Carbamazepine ER] 2 tab PO BID 09/13/19 Microbiology 09/12/19 03:14 Urine - Urine Clean Catch Urine Culture - Final NO GROWTH OBTAINED 09/11/19 16:50 Blood - Peripheral Venous Blood Culture - Preliminary NO GROWTH OBTAINED AFTER 24 HOURS, INCUBATION TO CONTINUE FOR 4 DAYS. 09/11/19 17:15 Blood - Peripheral Venous Blood Culture - Preliminary NO GROWTH OBTAINED AFTER 24 HOURS, INCUBATION TO CONTINUE FOR 4 DAYS. ASSESSMENT AND PLAN: Patient is a 64yof with PMhx of PSA on methadone, HCV never treated, anxiety, depression, bipolar, HTN, CVA w/ R sided weakness preferring to use wheel chair presented w/ chest pain where ACS was ruled out and appears MSK/anxiety related. #Nondisplaced old fx of chronic type II odontoid fracture. soft collar and neurosurgery consult appreciated, possible sx if patient agrees on the week of 27 of September. Please make an appointment to see Dr. Drew, neurosurgeon , 1 week from today to plan for your possible surgery. You have a fracture in your neck that needs attention. Please continue to wear your neck collar. #DIET: Dysphagia ground diet with single sips of thin liquid. Ensure pudding and magic cup. Single sips, no straw drinking and continuous drinking. IF congestion noted then need to be on nectar thick liquid. as per Tamie hammond . # s/p chest pain: resolved, CTA neg. for PE, EKG unchanged from prior, Trops negx2, continue supportive care, Tylenol PRN for pain # HCV liver cirrhosis refused treatment w/ Vicenta "years ago" h/o chronic hepatitis C, untreated, as per GI to get abdominal US , in AM to evaluate hepatic parenchyma. outpatient follow-up with Dr. Obregon to evaluate further and to discuss endoscopic evaluation when acute issues are resolved. # HTN: cont. Lisinopril, will increase dosage as needed to control BP #Anxiety disorder: Psych consult: Dr. Laws appreciated #PSA with opioid dependence onn Methadone 25mg daily maintenance . #Etoh dependence: no signs of withdrawal, Cont. FA/thiamine/MV daily, counseled on etoh cessation DVT ppx: Lovenox SC GI ppx: PPI discharge patient to rehab.
[2019-09-15 00:51] VITALS: BMI 17.9
== END 2019-09-13 17:21 | DRG 551 ==
LOC: SUPCPDRO 14:47 → JER 14:47 → JERBED 22:06 → J6S 09-07 05:54
PROVIDERS: ADMIT Internal Medicine; ATTEND Internal Medicine
DX: M54.2 Cervicalgia (principal); L89.153 Pressure ulcer of sacral region, stage 3; I69.351 Hemiplegia and hemiparesis following cerebral infarction affecting right dominant side; F11.20 Opioid dependence, uncomplicated; M48.52XA Collapsed vertebra, not elsewhere classified, cervical region, initial encounter for fracture; Z68.1 Body mass index [BMI] 19.9 or less, adult; I10 Essential (primary) hypertension; R62.7 Adult failure to thrive; J44.9 Chronic obstructive pulmonary disease, unspecified; K70.30 Alcoholic cirrhosis of liver without ascites; F31.9 Bipolar disorder, unspecified; R07.89 Other chest pain; J06.9 Acute upper respiratory infection, unspecified; B19.20 Unspecified viral hepatitis C without hepatic coma; F41.9 Anxiety disorder, unspecified; D75.89 Other specified diseases of blood and blood-forming organs; D69.6 Thrombocytopenia, unspecified; D72.819 Decreased white blood cell count, unspecified; F10.20 Alcohol dependence, uncomplicated; R13.10 Dysphagia, unspecified; Z86.73 Personal history of transient ischemic attack (TIA), and cerebral infarction without residual deficits; Z99.3 Dependence on wheelchair
CPT/HCPCS: 36415; 70360-TC-FY; 70450-TC; 70490-TC; 71045-TC-FY; 71275-TC; 72125-TC; 74181-TC; 74220-TC-FY; 74230-TC-FY; 76705-TC; 80048; 80053; 81003; 82550; 82607; 82746; 82747; 83735; 84100; 84439; 84443; 84484; 85014; 85025; 85027; 85379; 85610; 85651; 86140; 86850; 86900; 86901; 87040; 87086; 87522; 87804; 87807; 87902; 92611-GN; 93005; 93010; 97116-GP; 97161-GP; 99284-25; Q9967